=== PATIENT | female | born 1960 | race Caucasian/White ===

== ENCOUNTER 2017-01-22 18:08 | Inpatient (IN) ==
[2017-01-22] MEDS ORDERED: Vancomycin 2,000 MG in D5% in Water 500 ML IVPB ONE (19:32)
[2017-01-22] MEDS ORDERED: 0.9 % Sodium Chloride 1,000 ML IVC ONE (19:32)
[2017-01-22 20:20] LABS: Lymphocytes % 15.1 %
[2017-01-22 20:22] LABS: Basophils # 0.1 K/mcL (0.0-0.2); Basophils % 0.5 %; Eosinophils # 0.8 K/mcL (0.0-0.6); Hematocrit 43.9 % (35.3-44.9); Hemoglobin 12.8 g/dL (11.5-15.4); Immature Granulocytes % 0.5 % (0-4); Lymphocytes # 1.5 K/mcL (0.6-4.6); Mean Corpuscular HGB Conc 29.2 g/dL (31.6-35.5); Mean Corpuscular Hemoglobin 25.4 pg (28.0-33.3); Mean Corpuscular Volume 87.3 fL (83.0-100.0); Mean Platelet Volume 8.3 fL (9.4-12.4); Monocytes # 0.7 K/mcL (0.0-1.3); Monocytes % 6.9 %; Neutrophils # 6.9 K/mcL (1.6-8.9); Platelet Count 302 K/mcL (140-400); Red Blood Count 5.03 M/mcL (3.82-4.97); Red Cell Distribution Width 24.2 % (11.5-14.5)
[2017-01-22 20:25] LABS: INR 1.1; Prothrombin Time 11.9 Seconds (9.4-12.1)
[2017-01-22 20:28] LABS: Activated Partial Thrombo Time 28.5 Seconds (26.0-36.0)
[2017-01-22 20:33] LABS: BUN/Creatinine Ratio 6 (6-26); Calcium 9.4 mg/dL (8.6-10.8); Carbon Dioxide 29 mEq/L (19-29); Chloride 99 mEq/L (98-109); Glucose 96 mg/dL (70-99); Magnesium 1.5 mg/dL (1.6-2.6); Osmolality,Calculated 287 (280-300); Phosphorous 2.3 mg/dL (2.3-4.7); Potassium 3.4 mEq/L (3.5-4.5); Sodium 140 mEq/L (136-145); eGFR For African Americans > 60 (> 60); eGFR For Non-African Americans > 60 (> 60)
[2017-01-22 20:34] LABS: Blood Urea Nitrogen 5 mg/dL (7-20)
[2017-01-22 20:41] LABS: Burr Cells 1+ (Not Present); Dohle Bodies Present (Not Present)
--- NOTE | 2017-01-22 20:49 | Emergency Department Note ---
Disposition Clinical Impression: Non healing left heel wound Disposition: Admitted As Inpatient Condition: Good Time of Disposition: 21:40 Extremity Problem HPI - General Chief complaint: ED Extremity Problem,Nontraumatic Stated complaint: Left foot pain Time Seen by Provider: 01/22/17 18:35 Source: patient Mode of arrival: ambulatory Limitations: other (Clear history difficult to obtain due to the patient's tangential speech and difficulty in focusing on direct questions.) Nursing Notes Reviewed: Yes Vital Signs Reviewed: Yes - History of Present Illness HPI Narrative: 56-year-old female presents to the ED for evaluation of the calcaneal ulcer. Was referred by her primary care physician (Dr. Garner) who she saw earlier this afternoon. Patient provides a very tangential and nondirected history, so specific details are very difficult to ascertain. It is unknown how long this ulcer has been present. Ulcer is painful and patient describes purulent drainage. Patient denies any systemic symptoms including fevers, chills, sweats, syncope, chest pain, shortness of air, nausea, vomiting. Injury Location: left Pain Scale: 8 - Related Data Home Medications Medication Instructions Recorded Confirmed Ergocalciferol (VITAMIN D2) 2,000 unit PO DAILY 09/14/15 09/14/15 [Vitamin D2] Albuterol Sulfate [Ventolin Hfa] 2 puff IH Q4H PRN 01/22/17 01/22/17 Aspirin/Caffeine [Back & Body Pain 1 each PO Q4H PRN 01/22/17 01/22/17 Reliever Cplt] Docusate [Colace] 100 mg PO BID PRN 01/22/17 01/22/17 Levothyroxine [Synthroid] 175 mcg PO 0630 01/22/17 01/22/17 Oxygen 4 l NS AD 01/22/17 01/22/17 Sennosides [Senna] 17.2 mg PO BID PRN 01/22/17 01/22/17 Allergies Allergy/AdvReac Type Severity Reaction Status Date / Time cefdinir Allergy Rash Verified 11/25/14 17:58 clindamycin Allergy See Verified 01/22/17 18:36 Comments Penicillins [PCN] Allergy Rash Verified 11/25/14 17:58 Constitutional: Denies: fever, chills, weakness, night sweats Cardiovascular: Denies: chest pain, palpitations Respiratory: Denies: cough, dyspnea, wheezes Gastrointestinal: Denies: abdominal pain, nausea, vomiting, diarrhea Genitourinary: Denies: urgency, dysuria Neurological: Denies: headache, weakness Endocrine: Denies: fatigue Past Medical History - Past Medical History Attestation: Yes The following information was validated with the patient. Medical history: Reports: asthma, diabetes, thyroid disease, other Surgical history: Reports: other Psychiatric history: Reports: depression - Social History Smoking Status: Never smoker Smokeless Tobacco Status: No Alcohol use: Reports: none Drug use: Reports: none Physical Exam - General Limitations: no limitations General appearance: alert, in no apparent distress - Head Head exam: atraumatic - Eye Eye exam: Present: normal appearance, PERRL, EOMI. Absent: scleral icterus, conjunctival injection, periorbital swelling - ENT ENT exam: mucous membranes moist - Neck Neck exam: Present: full ROM, trachea midline - Respiratory Respiratory exam: Present: normal lung sounds bilaterally. Absent: respiratory distress, wheezes - Cardiovascular Cardiovascular exam: Present: regular rate, normal rhythm. Absent: systolic murmur, diastolic murmur, +S3, +S4 - Abdominal Exam Abdominal exam: Present: soft, Non-Tender. Absent: distention, guarding, rebound, rigidity - Expanded Lower Extremity Exam Foot/toe exam: Present: other (Approximately 4 to 5 cm wound to left calcaneus predominantly eschar woth moist border and evident purulence on bandage. Erythematous proximal LLE without any areas of fluctuance. No lymphangitic streaking.) Course Vital Signs Temperature 98.6 F 01/22/17 18:29 Pulse Rate 100 01/22/17 18:29 Respiratory Rate 20 01/22/17 18:29 Blood Pressure 139/58 01/22/17 18:29 O2 Sat by Pulse Oximetry 89 01/22/17 18:29 Temperature 98.6 F 01/22/17 18:29 Pulse Rate 100 01/22/17 18:29 Respiratory Rate 20 01/22/17 18:29 Blood Pressure 139/58 01/22/17 18:29 O2 Sat by Pulse Oximetry 92 01/22/17 20:17 Oxygen Delivery Oxygen Delivery Room Air Extremity Problem, Nontraumati - MDM Narrative Medical decision making narrative: 56F with non-healing wound to left calcaneous without plain x-ray evidence of osteolytic process. Spoke with Dr. Lopes. Patient needs relatively urgent evaluation by wound care and potentially podiatry for the wound to the left calcaneal region. Outpatient would do well with progress of this wound on an outpatient basis. Hospitalist excepts patient for admission for IV antibiotics as well as specialty consultation for wound. - Lab Data Lab results reviewed: Yes I reviewed the patient's lab results. Lab results narrative: Laboratory Last Values WBC 10.0 K/mcL (4.3-11.1) 01/22/17 20:09 RBC 5.03 M/mcL (3.82-4.97) H 01/22/17 20:09 Hgb 12.8 g/dL (11.5-15.4) 01/22/17 20:09 Hct 43.9 % (35.3-44.9) 01/22/17 20:09 MCV 87.3 fL (83.0-100.0) 01/22/17 20:09 MCH 25.4 pg (28.0-33.3) L 01/22/17 20:09 MCHC 29.2 g/dL (31.6-35.5) L 01/22/17 20:09 RDW 24.2 % (11.5-14.5) H 01/22/17 20:09 Plt Count 302 K/mcL (140-400) 01/22/17 20:09 MPV 8.3 fL (9.4-12.4) L 01/22/17 20:09 PT 11.9 Seconds (9.4-12.1) 01/22/17 20:09 INR 1.1 01/22/17 20:09 APTT 28.5 Seconds (26.0-36.0) 01/22/17 20:09 Sodium 140 mEq/L (136-145) 01/22/17 20:09 Potassium 3.4 mEq/L (3.5-4.5) L 01/22/17 20:09 Chloride 99 mEq/L (98-109) 01/22/17 20:09 Carbon Dioxide 29 mEq/L (19-29) 01/22/17 20:09 BUN 5 mg/dL (7-20) L 01/22/17 20:09 Creatinine 0.79 mg/dL (0.57-1.11) 01/22/17 20:09 Est GFR ( Amer) > 60 (> 60) 01/22/17 20:09 Est GFR (Non-Af Amer) > 60 (> 60) 01/22/17 20:09 BUN/Creatinine Ratio 6 (6-26) 01/22/17 20:09 Glucose 96 mg/dL (70-99) 01/22/17 20:09 Calculated Osmolality 287 (280-300) 01/22/17 20:09 Lactic Acid 1.0 mmol/L (0.5-2.2) 01/22/17 20:09 Calcium 9.4 mg/dL (8.6-10.8) 01/22/17 20:09 Phosphorus 2.3 mg/dL (2.3-4.7) 01/22/17 20:09 Magnesium 1.5 mg/dL (1.6-2.6) L 01/22/17 20:09 Laboratory Last Values WBC 10.0 K/mcL (4.3-11.1) 01/22/17 20:09 RBC 5.03 M/mcL (3.82-4.97) H 01/22/17 20:09 Hgb 12.8 g/dL (11.5-15.4) 01/22/17 20:09 Hct 43.9 % (35.3-44.9) 01/22/17 20:09 MCV 87.3 fL (83.0-100.0) 01/22/17 20:09 MCH 25.4 pg (28.0-33.3) L 01/22/17 20:09 MCHC 29.2 g/dL (31.6-35.5) L 01/22/17 20:09 RDW 24.2 % (11.5-14.5) H 01/22/17 20:09 Plt Count 302 K/mcL (140-400) 01/22/17 20:09 MPV 8.3 fL (9.4-12.4) L 01/22/17 20:09 Immature Gran % 0.5 % (0-4) 01/22/17 20:09 Seg Neutrophils % 69.0 % 01/22/17 20:09 Lymphocytes % 15.1 % 01/22/17 20:09 Monocytes % 6.9 % 01/22/17 20:09 Eosinophils % 8.0 % 01/22/17 20:09 Basophils % 0.5 % 01/22/17 20:09 Neutrophils # 6.9 K/mcL (1.6-8.9) 01/22/17 20:09 Lymphocytes # 1.5 K/mcL (0.6-4.6) 01/22/17 20:09 Monocytes # 0.7 K/mcL (0.0-1.3) 01/22/17 20:09 Eosinophils # 0.8 K/mcL (0.0-0.6) H 01/22/17 20:09 Basophils # 0.1 K/mcL (0.0-0.2) 01/22/17 20:09 Dohle Bodies Present (Not Present) A 01/22/17 20:09 Katherine Cells 1+ (Not Present) A 01/22/17 20:09 PT 11.9 Seconds (9.4-12.1) 01/22/17 20:09 INR 1.1 01/22/17 20:09 APTT 28.5 Seconds (26.0-36.0) 01/22/17 20:09 Sodium 140 mEq/L (136-145) 01/22/17 20:09 Potassium 3.4 mEq/L (3.5-4.5) L 01/22/17 20:09 Chloride 99 mEq/L (98-109) 01/22/17 20:09 Carbon Dioxide 29 mEq/L (19-29) 01/22/17 20:09 BUN 5 mg/dL (7-20) L 01/22/17 20:09 Creatinine 0.79 mg/dL (0.57-1.11) 01/22/17 20:09 Est GFR ( Amer) > 60 (> 60) 01/22/17 20:09 Est GFR (Non-Af Amer) > 60 (> 60) 01/22/17 20:09 BUN/Creatinine Ratio 6 (6-26) 01/22/17 20:09 Glucose 96 mg/dL (70-99) 01/22/17 20:09 Calculated Osmolality 287 (280-300) 01/22/17 20:09 Lactic Acid 1.0 mmol/L (0.5-2.2) 01/22/17 20:09 Calcium 9.4 mg/dL (8.6-10.8) 01/22/17 20:09 Phosphorus 2.3 mg/dL (2.3-4.7) 01/22/17 20:09 Magnesium 1.5 mg/dL (1.6-2.6) L 01/22/17 20:09 Result diagrams: 01/22/17 20:09 01/22/17 20:09 Lab Results 01/22/17 01/22/17 01/22/17 Range/Units 20: 20:09 20:09 WBC 10.0 (4.3-11.1) K/mcL RBC 5.03 H (3.82-4.97) M/mcL Hgb 12.8 (11.5-15.4) g/dL Hct 43.9 (35.3-44.9) % MCV 87.3 (83.0-100.0) fL MCH 25.4 L (28.0-33.3) pg MCHC 29.2 L (31.6-35.5) g/dL RDW 24.2 H (11.5-14.5) % Plt Count 302 (140-400) K/mcL MPV 8.3 L (9.4-12.4) fL PT 11.9 (9.4-12.1) Seconds INR 1.1 APTT 28.5 (26.0-36.0) Seconds Sodium 140 (136-145) mEq/L Potassium 3.4 L (3.5-4.5) mEq/L Chloride 99 (98-109) mEq/L Carbon Dioxide 29 (19-29) mEq/L BUN 5 L (7-20) mg/dL Creatinine 0.79 (0.57-1.11) mg/dL Est GFR ( Amer) > 60 (> 60) Est GFR (Non-Af Amer) > 60 (> 60) BUN/Creatinine Ratio 6 (6-26) Glucose 96 (70-99) mg/dL Calculated Osmolality 287 (280-300) Lactic Acid (0.5-2.2) mmol/L Calcium 9.4 (8.6-10.8) mg/dL Phosphorus 2.3 (2.3-4.7) mg/dL Magnesium 1.5 L (1.6-2.6) mg/dL 01/22/17 Range/Units 20:09 WBC (4.3-11.1) K/mcL RBC (3.82-4.97) M/mcL Hgb (11.5-15.4) g/dL Hct (35.3-44.9) % MCV (83.0-100.0) fL MCH (28.0-33.3) pg MCHC (31.6-35.5) g/dL RDW (11.5-14.5) % Plt Count (140-400) K/mcL MPV (9.4-12.4) fL PT (9.4-12.1) Seconds INR APTT (26.0-36.0) Seconds Sodium (136-145) mEq/L Potassium (3.5-4.5) mEq/L Chloride (98-109) mEq/L Carbon Dioxide (19-29) mEq/L BUN (7-20) mg/dL Creatinine (0.57-1.11) mg/dL Est GFR ( Amer) (> 60) Est GFR (Non-Af Amer) (> 60) BUN/Creatinine Ratio (6-26) Glucose (70-99) mg/dL Calculated Osmolality (280-300) Lactic Acid 1.0 (0.5-2.2) mmol/L Calcium (8.6-10.8) mg/dL Phosphorus (2.3-4.7) mg/dL Magnesium (1.6-2.6) mg/dL - Radiology Data Radiology results reviewed: Yes I reviewed the patient's radiology results. Foot X-Ray 01/22/17 18:36 IMPRESSION: 1. Diffuse osteopenia without acute fracture or subluxation. 2. No suspicious destructive or lytic lesions identified. 3. Diffuse swelling of the foot. D/ / 01/22/2017 20:04:04 [facility] Neri [email or web address] Interpreting Provider: Juwan Neri MD Chest X-Ray 01/22/17 19:33 IMPRESSION: No acute cardiopulmonary process. D/ /22/2017 20:02:54 [facility] Provider: Toney Lema MD Foot X-Ray 10/04/17 18:36 IMPRESSION: 1. Diffuse osteopenia without acute fracture or subluxation. 2. No suspicious destructive or lytic lesions identified. 3. Diffuse swelling of the foot. D/ /22/2017 20:04:04 Juwan Neri MD / [email or web address] Interpreting Provider: Juwan Neri MD Chest X-Ray 01/22/17 19:33 IMPRESSION: No acute cardiopulmonary process. D/ /22/2017 20:02:54 Toney Lema MD / [facility] Interpreting Provider: Toney Lema MD
--- NOTE | 2017-01-23 00:16 | Emergency Department Note ---
START Narrative - START START: I, Dennis Person, examined this patient and my medical decision-making was reviewed with the CONSUMER AFFAIRS DIRECTOR/PA/Advanced Practice Nurse/Resident Physician. I agree with the documented findings, disposition and treatment plan as described except to the extent set forth below. 56-year-old female presents to emergency Department with concerns of ulceration to the left heel as well as increasing cellulitis. Patient was evaluated by her primary care provider prior to evaluation in emergency department. Primary care provider was concerned regarding significant ulcer to the left heel. Patient states she developed this ulcer while she was admitted at [facility]. During evaluation in emergency department the patient has a large ulceration to the left heel measuring about 4 x 4 centimeters with black tissue in the center area there is surrounding erythema running proximally up the posterior calf. Patient is patient is using tangential and pressured speech. Denies suicidal ideation or homicidal ideation or hallucinations. Patient was started on vancomycin for treatment of her cellulitis. Patient will be admitted the hospital for further care and evaluation. After patient was admitted and received about three quarters of the bag of medication patient started to develop what seemed to be red man syndrome. The vancomycin was stopped and patient slowly started to improve with IV fluids. Hospitalist was notified about pt not receiving full dose of antibiotic.
[2017-01-23] MEDS ORDERED: MethylPREDNISolone 40 MG/ML VIAL IVP ONE (01:18)
--- NOTE | 2017-01-23 02:22 | Internal Med History&Physical ---
<Saad Fields - Last Filed: 01/23/17 02:53> Date of Encounter: 01/23/17 Time of Encounter: 00:45 Assessment and Plan (1) Non healing left heel wound Current visit: Yes Status: Acute Patient's foot ulcer on the calcaneus is likely a result of uncontrolled diabetes. -Patient placed on Levaquin, 500 mg per day. -Podiatry consult. -Hemoglobin A1c will be ordered along with the rest of the patient's labs in the morning. -Blood cultures are pending. (2) Red man syndrome Current visit: No Status: Acute Patient appears to have recommend syndrome as result of vancomycin administration. -Patient complained of some tongue swelling and an itch on her skin, primarily her arms. -Her skin was also abnormally red. -Benadryl 25 mg IV every 6. (3) Diabetes Current visit: No Status: Acute Patient appears to be uncontrolled diabetic. -Patient denies actually having diabetes, because she believes that her increased sugars from her last visit to the hospital were a result of receiving -corticosteroids. -Patient does not check her sugars on a regular basis. -Hemoglobin A1c has been ordered. Qualifiers: Qualified Code(s): E11.9 - Type 2 diabetes mellitus without complications (4) DVT prophylaxis Current visit: No Status: Acute Patient will be placed on 5000 mg of heparin subcutaneous every 8. (5) Morbid obesity Current visit: No Status: Acute Patient has a BMI of 61.2. Internal Medicine - H&P: HPI Admitted From: Home History of present illness: Ms. Lemus is a 56 year old female who presented to the emergency department for evaluation of a calcaneal ulcer. Patient was referred to the hospital by her primary care doctor who saw her earlier in the afternoon. Patient states that she is unsure of when her foot ulcer began, although she states that her pain is now about an 8 out of 10. She describes her pain as it feels like she is giving to her foot. Patient gives a very tangential, disjointed, and nondirected history. Patient appears to be anxious. She is also complaining of reddening of her skin and itching that occurred after her visit to the ER. Patient was given a dose of vancomycin, and appears to have developed red man syndrome. Patient admits to being allergic to penicillin. She currently denies having any fever, chills, sweats, syncope, chest pain, nausea, vomiting, shortness of breath. Patient states that she was told she had diabetes, but expresses doubt that she actually has it. She does not check her sugars on a regular basis. Past Med Surg Social Fam HX - Past Medical History Medical history: asthma, diabetes, thyroid disease, other Psychiatric history: depression - Past Surgical History Surgical History: other - Social History Smoking Status: Never smoker Smokeless Tobacco Status: No Alcohol use: none Drug use: none Internal Medicine - H&P: Meds Ergocalciferol (VITAMIN D2) [Vitamin D2] 2,000 unit PO DAILY 09/14/15 [History] Albuterol Sulfate [Ventolin Hfa] 2 puff IH Q4H PRN 01/22/17 [History] Aspirin/Caffeine [Back & Body Pain Reliever Cplt] 1 each PO Q4H PRN 01/22/17 [ History] Docusate [Colace] 100 mg PO BID PRN 01/22/17 [History] Levothyroxine [Synthroid] 175 mcg PO 0630 01/22/17 [History] Oxygen 4 l NS AD 01/22/17 [History] Sennosides [Senna] 17.2 mg PO BID PRN 01/22/17 [History] 3 Allergy/AdvReac Type Severity Reaction Status Date / Time cefdinir Allergy Rash Verified 11/25/14 17:58 clindamycin Allergy See Verified 01/22/17 18:36 Comments Penicillins [PCN] Allergy Rash Verified 11/25/14 17:58 All Systems PM: A 10-system review of systems was performed and is negative for pertinent findings except as documented above in the HPI. - Constitutional Constitutional: no chills - EENT Nose, mouth and throat: tongue swelling - Cardiovascular Cardiovascular ROS IM: no chest pain, no diaphoresis, no dyspnea, no lightheadedness, no palpitations, no syncope - Respiratory Respiratory: no cough, no dyspnea, no wheezing, no excessive phlegm production - Musculoskeletal Musculoskeletal ROS IM: numbness, tingling - Integumentary Integumentary IM: erythema, no rash, no unusual bruising - Psychiatric Psychiatric: anxiety - Hematologic/Lymphatic Hematologic/Lymphatic: no easy bruising - Allergic/Immunologic Allergic/Immunologic: tongue swelling - Constitutional Vitals: Temp Pulse Resp BP Pulse Ox 98.3 F 86 17 114/50 93 01/23/17 00:35 01/23/17 00:35 01/23/17 00:35 01/23/17 00:35 01/23/17 00:35 - Head Head exam: Present: atraumatic, normocephalic - Respiratory Respiratory exam: Present: CTAB. Absent: accessory muscle use, rales, rhonchi, wheezes - Cardiovascular Cardiovascular exam: Present: RRR, +S1, +S2. Absent: diastolic murmur, gallop, rubs, systolic murmur - Expanded Lower Extremities Exam Foot/Toe exam: Present: calcaneal tenderness, erythema, tenderness Internal Med - H&P Results - Labs CBC & Chem 7: 01/22/17 20:09 01/22/17 20:09 <Aime Mckeon - Last Filed: 01/23/17 04:36> Date of Encounter: 01/23/17 Time of Encounter: 02:50 Past Med Surg Social Fam HX - Family History Mother History Unknown: Yes Father History Unknown: Yes Son Living Status: Still Living Hx Family Endocrine Disorder: No - Constitutional Constitutional: no chills, no fever(s), no night sweats - EENT Eyes: no change in vision Ears: no ear pain, no tinnitus Nose, mouth and throat: no nasal congestion, no nasal discharge, no sinus pressure, no sore throat - Cardiovascular Cardiovascular ROS IM: no chest pain, no dyspnea - Respiratory Respiratory: no cough, no dyspnea, no wheezing, no stridor - Gastrointestinal Gastrointestinal: no abdominal pain, no diarrhea, no nausea, no vomiting - Genitourinary Genitourinary: no dysuria, no flank pain, no hematuria - Integumentary Integumentary IM: erythema, no jaundice - Neurological Neurological ROS: no focal weakness, no frequent falls, no headache(s) - Psychiatric Psychiatric: anxiety, no homicidal ideation, no suicidal ideation - Endocrine Endocrine IM: no polydipsia, no polyuria - Allergic/Immunologic Allergic/Immunologic: no itchy eyes, no wheezing, no lip swelling Additional comments: Sirisha Syndrome - Constitutional Vitals: Temp Pulse Resp BP Pulse Ox 98.4 F 96 17 109/65 94 01/23/17 03:48 01/23/17 03:48 01/23/17 03:48 10/05/17 03:48 01/23/17 03:48 General appearance: Present: disheveled, A&O X 3, obese Exam: Patient with pressured speech; anxious; nervous; poor insight; no suicidal or homicidal thoughts/behavior - Head Head exam: Present: atraumatic, normal inspection - Eye Eye exam: Present: EOMI, PERRL. Absent: scleral icterus Pupils: Present: normal accommodation - ENT ENT exam: Present: mucous membranes moist, normal exam Additional comments: No tongue, lip, or airway abnormality appreciated; no stridor or respiratory distress. - Neck Neck exam general surgery: Present: full ROM, trachea midline. Absent: tenderness, supple - Expanded Neck Exam Neck exam: Absent: carotid bruit - Respiratory Respiratory exam: Present: CTAB. Absent: accessory muscle use, chest wall tenderness, rales, respiratory distress, rhonchi, wheezes - Cardiovascular Cardiovascular exam: Present: RRR, +S1, +S2 - GI/Abdominal GI/Abdominal exam: Present: soft. Absent: hepatomegaly, splenomegaly, tenderness - Extremities Exam Extremities exam: Present: full ROM, warm. Absent: calf tenderness, joint swelling Additional comments: left foot with ulcer and superficial skin necrosis along the heel. - Back Exam Back exam: Absent: CVA tenderness (L), CVA tenderness (R) - Neurological Exam Neurological exam: Present: alert, CN II-XII intact, oriented X3, no focal deficits - Psychiatric Psychiatric exam: Present: manic. Absent: homicidal ideation, suicidal ideation - Skin Skin exam: Present: dry, erythema (diffuse), warm. Absent: rash, urticaria Internal Med - H&P Results - Labs CBC & Chem 7: 01/22/17 20:09 01/22/17 20:09 - Diagnostic Studies Chest x-ray Status: image reviewed by me (negative) - Attending Attestation I discussed the patient [place], PMH, ROS, lab data, and exam findings with Dr. Fields. I then saw patient independently as well. I spoke with her nurse who reported patient was having an allergic reaction to Vancomycin and that patient was complaining of tongue and lip swelling. I ordered STAT Benadryl and Solumedrol. Upon my arrival, I did not appreciate any stridor, lip or tongue swelling, wheezing, or any respiratory distress. She has a diffuse erythroderma which correlates with her IV Vancomycin infusion. She has no hives /urticaria. Her heel ulcer looks chronic and with some area of necrosis. She will need debridement of that wound. She also denies having diabetes and does not appear interested in complying with healthcare advice. She appears to have an underlying psychiatric illness (Bipolar), but I can not confirm presently. She may need psychiatry consultation while patient is in the hospital. Other than my comments above and noted exam findings, I agree with Dr. Fields's assessment and plan.
[2017-01-23] MEDS ORDERED: Levofloxacin 500 MG/100 ML 500 MG/100 ML BAG IVPB SCH (03:00)
[2017-01-23 03:14] LABS: Hemoglobin A1C 5.5 %
[2017-01-23] MEDS ORDERED: D5% in Water 1,000 ML IVC PRN (04:38)
[2017-01-23] MEDS ORDERED: *HR* Dextrose 50 % in Water (Syg) 50 ML SYRINGE IVP PRN (04:38)
[2017-01-23] MEDS ORDERED: Dextrose Gel 15 GM PO PRN ×2 (04:38)
[2017-01-23] MEDS ORDERED: *HR* Heparin 5,000 UNIT/ML VIAL SQ SCH (06:00)
[2017-01-23] MEDS: Insulin LISPRO 300 UNITS/3 ML VIAL SQ SCH ×3 (08:50→17:55)
[2017-01-23] MEDS ORDERED: Sennosides 8.6 MG TABLET PO PRN (09:48)
[2017-01-23] MEDS ORDERED: ASPIRIN PO PRN (09:48)
[2017-01-23] MEDS ORDERED: CAFFEINE PO PRN (09:48)
[2017-01-23] MEDS ORDERED: Magnesium Sulfate 2 GM in D5% in Water 100 ML IVPB ONE ×2 (09:56→09:57)
[2017-01-23] MEDS ORDERED: Potassium Chloride Elixir 20 MEQ/15 ML UDC PO ONE (09:56)
--- NOTE | 2017-01-23 10:05 | Event Note ---
<Patricia Barrera H - Last Filed: 01/23/17 13:58> Date of Encounter: 01/23/17 Time of Encounter: 10:01 Ms. Lemus is a 56-year-old female with past medical history of diabetes mellitus , asthma, thyroid disease, and unclear psychiatric history. She presents to the emergency department last night for evaluation of a calcaneal ulcer. Patient was referred to the hospital by her primary care provider. Patient's history of presenting illness is complicated as she is a very tangential and pressured be checked. Her thoughts appear disjointed. It is unclear if she is having any auditory or visual hallucinations, however, her thought processes are not goal directed and there very disjointed. When asked if she had any history of bipolar or schizophrenia, patient said she was at one time told she was bipolar. It is unclear if she is suffering from any psychosis at the moment. Patient was given a dose of vancomycin in the ER to provide antibiotic coverage for her 5 cm in diameter large calcaneal ulcer with central necrosis and surrounding edema. Patient appeared to have developed red man syndrome with upper body redness and pruritus. Patient's infusion was slowed at that point, however, patient's erythema and itching did not subside. She did state she had some swelling in her upper respiratory tract at that time. It is uncertain if she was having allergic reaction to vancomycin. Patient has confirmed allergic reactions to cefdinir, clindamycin, and penicillin. We had admitted to her to the hospital, and she is receiving Levaquin. The plan is as follows: -Escalate antibiotics for MRSA coverage to doxycycline 100 mg twice a day. -Continue wound management. Podiatry has been consult dated up out Vaishnavi Grewal of her wound. We will follow their recommendations. -Patient without white blood cell count, we will continue to monitor. -Repletion of electrolytes, as patient states she is chronically low in potassium secondary to Lasix. -Restart home medication of Lasix. -Subcutaneous heparin for DVT prophylaxis. -Patient is on a low-dose sliding scale insulin with before meals at bedtime Accu-Cheks. <Santos Wen - Last Filed: 01/23/17 14:40> Date of Encounter: 01/23/17 56 F with Morbid Obesity, BMI 61. COPD, Pulm HTN, ISIAH on BIPAP at home, Chronic Hypercapneic respiratory failure on BIPAP, recent admission to [facility] for MRSA pneumonia , HTN, She is admitted and being managed for an open L heel ulcer that is necrotic, and possibly infected. Patient is rambling throughout my eval and it is difficult to make her focus on the issue at hand Vitals are stable, and significant exam is on her skin which is genrally dry and peeling, as well as a ~5X5cm necrotic ulcer on her L heel. Minimal discharge Plan is as stated above, psych eval, follow wound culture
--- NOTE | 2017-01-23 13:45 | Podiatry Consult Note ---
Date of Encounter: 01/23/17 Time of Encounter: 12:30 Assessment and Plan (1) Morbid obesity with BMI of 70 and over, adult Current visit: No Status: Acute (2) Non healing left heel wound Current visit: Yes Status: Acute Necrotic left calcaneus ulcer with serous drainage most likely secondary to pressure and diabetes. ESR: >130, CRP: 58 WBC: 10 Xray of left foot: Diffuse osteopenia without acute fracture or subluxation. No suspicious destructive or lytic lesions identified. Diffuse swelling of the foot. Plan: Xray of the left foot reviewed with Dr. Benavides and no evidence of bony erosion. The elevated ESR warrants further investigation and will order an MRI of the left foot. Will follow up with patient tomorrow after MRI. Patient will most likely need a debridement in the OR by Dr. Benavides. Wound care orders to be written. Cleanse ulcer daily with mild soap and water, pat dry, apply adaptic, with 4x4 dry sterile gauze and kerlix. Float left heel off of bed with heelmedix boot. History of Present Illness HPI: Ms. Lemus is a 56 year old female admitted to [facility] for a left calcaneal ulcer. Patient has a medical history significant for DM, asthma, thyroid disease, morbid obesity, and depression. Podiatry was consulted for a left calcaneal ulcer. When the patient was asked about the ulcer patient moved on from one subject to the next and was not able to answer direct questions. When the patient was asked what the relationship of the two visitors in the room were, patient responded with lets join hands and then proceeded to sing a song. Patient then stated all her records were in the folder at the bedside. According to her records patient was admitted to [facility] two weeks ago for acute on chronic respiratory failure and discharged with MSSA pneumonia and had acute generalized exanthematous pustulosis during her hospitalization. Patient was evaluated by her PCP Dr. Garner on 01/22/17 and sent to the ED for concerns of the left heel ulceration and need for debridement. While in the ED patient was started on Vancomycin but stopped due to red man syndrome. Xrays of her left foot were obtained in the ED showing diffuse osteopenia without acute fracture or subluxation, no suspicious destructive or lytic lesions identified, diffuse swelling of the foot. Before leaving patients room, patient stated she gave out of her left foot and that is what the black sarah is from. Patient then rated left heel pain at an 8 out of 10. When patient was asked about her diabetes, patient stated her blood sugars were high from the steroids. Per patients PCP record, most recent hemoglobin A1C was 7.1 Past Med Surg Social Fam HX - Past Medical History Medical history: asthma, diabetes, thyroid disease, other Psychiatric history: depression - Past Surgical History Surgical History: other - Social History Smoking Status: Never smoker Smokeless Tobacco Status: No Alcohol use: none Drug use: none - Family History Mother History Unknown: Yes Father History Unknown: Yes Son Living Status: Still Living Hx Family Endocrine Disorder: No Medications and Allergies Ergocalciferol (VITAMIN D2) [Vitamin D2] 2,000 unit PO DAILY 09/14/15 [History] Albuterol Sulfate [Ventolin Hfa] 2 puff IH Q4H PRN 01/22/17 [History] Aspirin/Caffeine [Back & Body Pain Reliever Cplt] 1 each PO Q4H PRN 01/22/17 [ History] Docusate [Colace] 100 mg PO BID PRN 01/22/17 [History] Levothyroxine [Synthroid] 175 mcg PO 0630 01/22/17 [History] Oxygen 4 l NS AD 01/22/17 [History] Sennosides [Senna] 17.2 mg PO BID PRN 01/22/17 [History] 3 Allergy/AdvReac Type Severity Reaction Status Date / Time cefdinir Allergy Rash Verified 11/25/14 17:58 clindamycin Allergy See Verified 01/22/17 18:36 Comments Penicillins [PCN] Allergy Rash Verified 11/25/14 17:58 All Systems Reviewed: A 10-system review of systems was performed and is negative for pertinent findings except as documented above in the HPI. Physical Exam - Constitutional Vitals: Temp Pulse Resp BP Pulse Ox 98.8 F 105 16 102/61 93 01/23/17 07:41 01/23/17 07:41 01/23/17 07:41 01/23/17 07:41 01/23/17 08:50 General appearance: obese Exam: Alert to person, place and time. - Extremities Exam Extremities exam: Present: pedal edema (2+ pedal edema bilaterally.) - Skin Skin exam: Present: dry (xerosis cutis bilaterally, dried scab to the lateral aspect of the 5th metatarsal right foot. ) - Vascular Capillary Refill: less than 3 seconds (pedal pulses palpable. Sensation intact with light touch.) - Ankle & Foot Foot appearance: erythema Foot swelling location: plantar, lateral, heel (necrotic ulcer measuring 4 cm in length x 5 cm in width base of wound with black echar, tunneling at 12 O' clock measuring 0.8 cm, no probe to bone. No fluctuance. Periwound erythema with moderate amount of serous drainage observed to pad. ) Results - Labs Result Diagrams: 01/22/17 20:09 01/22/17 20:09 Labs: Abnormal lab results RBC 5.03 M/mcL (3.82-4.97) H 01/22/17 20:09 MCH 25.4 pg (28.0-33.3) L 01/22/17 20:09 MCHC 29.2 g/dL (31.6-35.5) L 01/22/17 20: RDW 24.2 % (11.5-14.5) H 01/22/17 20:09 MPV 8.3 fL (9.4-12.4) L 01/22/17 20:09 Eosinophils # 0.8 K/mcL (0.0-0.6) H 01/22/17 20:09 Dohle Bodies Present (Not Present) A 01/22/17 20:09 [place] Cells 1+ (Not Present) A 01/22/17 20:09 Potassium 3.4 mEq/L (3.5-4.5) L 01/22/17 20:09 BUN 5 mg/dL (7-20) L 01/22/17 20:09 POC Glucose 184 (58-89) H 01/23/17 11:52 Magnesium 1.5 mg/dL (1.6-2.6) L 01/22/17 20:09 All other labs normal. Consult Discharge Plan - Plan Referrals: Dennis Garner MD [Primary Care Provider] - 02/03/17 1:30 pm
[2017-01-23] MEDS: *HR* Heparin 5,000 UNIT/ML VIAL SQ SCH ×2 (15:19→21:24)
[2017-01-23] MEDS: Furosemide 40 MG TABLET PO SCH (15:25)
[2017-01-23] MEDS: Doxycycline 100 MG in 0.9 % Sodium Chloride Mini Bag 100 ML IVPB SCH (15:25)
[2017-01-24] MEDS: Doxycycline 100 MG in 0.9 % Sodium Chloride Mini Bag 100 ML IVPB SCH (01:18)
[2017-01-24] MEDS: *HR* Heparin 5,000 UNIT/ML VIAL SQ SCH ×2 (05:04→13:28)
[2017-01-24 06:22] LABS: Basophils % 0.3 %; Red Cell Distribution Width 23.8 % (11.5-14.5)
[2017-01-24 06:24] LABS: Eosinophils # 0.3 K/mcL (0.0-0.6); Eosinophils % 4.5 %; Hematocrit 42.2 % (35.3-44.9); Hemoglobin 11.8 g/dL (11.5-15.4); Immature Granulocytes % 0.4 % (0-4); Lymphocytes # 1.2 K/mcL (0.6-4.6); Mean Corpuscular Hemoglobin 24.6 pg (28.0-33.3); Mean Corpuscular Volume 87.9 fL (83.0-100.0); Mean Platelet Volume 8.4 fL (9.4-12.4); Monocytes # 0.4 K/mcL (0.0-1.3); Monocytes % 5.7 %; Neutrophils # 5.5 K/mcL (1.6-8.9); Platelet Count 316 K/mcL (140-400); Segmented Neutrophils % 73.1 %
[2017-01-24 06:45] LABS: Anisocytosis 2+ (Not Present); Platelet Estimate Normal (Normal)
[2017-01-24 06:46] LABS: Hypochromasia Present (Not Present)
[2017-01-24 06:47] LABS: BUN/Creatinine Ratio 16 (6-26); Blood Urea Nitrogen 13 mg/dL (7-20); Carbon Dioxide 33 mEq/L (19-29); Chloride 101 mEq/L (98-109); Glucose 115 mg/dL (70-99); Osmolality,Calculated 293 (280-300); Potassium 3.7 mEq/L (3.5-4.5); Sodium 141 mEq/L (136-145); eGFR For African Americans > 60 (> 60); eGFR For Non-African Americans > 60 (> 60)
[2017-01-24] MEDS: Insulin LISPRO 300 UNITS/3 ML VIAL SQ SCH ×3 (08:43→16:45)
[2017-01-24] MEDS: Cholecalciferol (D-3) 1,000 UNIT TABLET PO SCH (09:40)
[2017-01-24] MEDS: Furosemide 40 MG TABLET PO SCH (09:40)
[2017-01-24] MEDS: Vancomycin 2,000 MG in D5% in Water 500 ML IVPB SCH (09:40)
[2017-01-24] MEDS ORDERED: Magnesium Sulfate 2 GM in D5% in Water 100 ML IVPB ONE (09:43)
--- NOTE | 2017-01-24 09:46 | Internal Med Progress Note ---
<Patricia Barrera Lindsey - Last Filed: 01/24/17 14:14> Date of Encounter: 01/24/17 Time of Encounter: 09:44 - Assessment and plan (1) Non healing left heel wound Current Visit: Yes Status: Acute Assessment and plan: Patient with a necrotic left calcaneus ulcer likely secondary to pressure and diabetes. ESR over 130. CRP 58. No leukocytosis. -MRI suggestive of osteomyelitis with myositis. -She is nothing by mouth for preparation of podiatry debridement and bone biopsy today. -Patient started on vancomycin and ciprofloxacin day 1. -Patient's reaction to vancomycin in the emergency department, upon further and deeper review of her medical health records, now more likely to be thought to be secondary to red man syndrome. Patient has had this reaction to vancomycin before. Patient was tolerating her first dose of vancomycin this morning with no complications and no signs of flushing or erythema. (2) Osteomyelitis Current Visit: Yes Status: Acute Assessment and plan: Patient to the OR for debridement and bone biopsy. Qualifiers: Osteomyelitis type: unspecified type Osteomyelitis location: foot Laterality: left Qualified Code(s): M86.9 - Osteomyelitis, unspecified (3) Diabetes Current Visit: No Status: Acute Assessment and plan: Patient on sliding scale insulin and before meals at bedtime protocol. (4) Acute and chronic respiratory failure with hypoxia Current Visit: No Status: Acute Assessment and plan: Patient with pulmonary hypertension and hypercapnic respiratory failure likely secondary to her morbid obesity. -Continue BiPAP as patient is taking at home. (5) Sleep apnea Current Visit: No Status: Chronic Assessment and plan: BiPAP. Qualifiers: Sleep apnea type: unspecified type Qualified Code(s): G47.30 - Sleep apnea , unspecified (6) Morbid obesity with BMI of 70 and over, adult Current Visit: No Status: Acute Assessment and plan: Management of diabetes and comorbidities during hospitalization. (7) Red man syndrome Current Visit: No Status: Acute Assessment and plan: Patient with well-documented history of red man syndrome after receiving vancomycin. Patient experienced red man syndrome upon her first dose of vancomycin in the emergency department 2 days ago. (8) DVT prophylaxis Current Visit: Yes Status: Acute Assessment and plan: Heparin subcutaneous 3 times a day. - Subjective Interval history: Ms. Lemus is a 56-year-old female with past medical history of diabetes mellitus , COPD, pulmonary hypertension, obstructive sleep apnea requiring BiPAP at home , chronic hypercapnic respiratory failure, recent admission to [facility] for MRSA pneumonia, and hypertension. She has been admitted in is currently being managed for an open left calcaneal ulcer that is necrotic. MRI examination reveals osteomyelitis with potential myositis. This morning patient was resting comfortably receiving her BiPAP. - Constitutional Vitals: Temp Pulse Resp BP Pulse Ox 98.6 F 77 20 106/68 97 01/24/17 07:25 01/24/17 07:25 01/24/17 07:25 01/24/17 07:25 01/24/17 07:25 General appearance: Present: disheveled, A&O X 3, morbidly obese, obese - Respiratory Respiratory exam: Present: CTAB, rhonchi. Absent: accessory muscle use, rales, wheezes - Cardiovascular Cardiovascular exam: Present: distant heart sounds, RRR, +S1, +S2. Absent: diastolic murmur, gallop, rubs, systolic murmur - GI/Abdominal GI/Abdominal exam: Present: normal bowel sounds, soft, no peritoneal signs. Absent: distended, tenderness - Extremities Exam Extremities exam: Present: pedal edema. Absent: calf tenderness Additional comments: Patient with a 5 cm in diameter left posterior calcaneal ulcer. There is a central area of blackened necrosis. There is surrounding erythema which is radiating up to her calf. Patient has bilateral erythema of her lower extremities with scaling consistent with chronic venous stasis dermatitis. Internal Medicine: Result - Labs CBC & Chem 7: 01/24/17 06:07 01/24/17 06:07 Labs: Short CBC 01/24/17 Range/Units 06:07 WBC 7.5 (4.3-11.1) K/mcL Hgb 11.8 (11.5-15.4) g/dL Hct 42.2 (35.3-44.9) % Plt Count 316 (140-400) K/mcL Neutrophils # 5.5 (1.6-8.9) K/mcL BMP 01/24/17 06:07 Sodium 141 Potassium 3.7 Chloride 101 Carbon Dioxide 33 H BUN 13 Creatinine 0.81 Glucose 115 H Calcium 9.0 - ABG Interpretation ABG results: PT/INR, D-dimer PT 11.9 Seconds (9.4-12.1) 01/22/17 20:09 - Impressions Impressions Foot MRI 01/23/17 16:49 IMPRESSION: 1. Large soft tissue ulceration of the heel medially and posteriorly with underlying marrow signal changes of the calcaneus compatible with osteomyelitis can with adjacent soft tissue edema and muscular edema and enhancement compatible with myositis. D/ / Cesar Michael MD / Cesar Michael MD Interpreting Provider: Cesar Michael MD Consult Discharge Plan - Plan [facility] [place] [[facility] Care Provider[facility] - 02/03/17 1:30 pm <Santos Wen T - Last Filed: 01/24/17 16:05> Date of Encounter: 01/24/17 - Constitutional Vitals: Temp Pulse Resp BP Pulse Ox 97.6 F 79 16 111/72 93 01/24/17 11:29 01/24/17 11:29 01/24/17 11:29 01/24/17 11:29 01/24/17 11:29 Internal Medicine: Result - Labs CBC & Chem 7: 01/24/17 06:07 01/24/17 06:07 Labs: Short CBC 01/24/17 Range/Units 06:07 WBC 7.5 (4.3-11.1) K/mcL Hgb 11.8 (11.5-15.4) g/dL Hct 42.2 (35.3-44.9) % Plt Count 316 (140-400) K/mcL Neutrophils # 5.5 (1.6-8.9) K/mcL BMP 01/24/17 06:07 Sodium 141 Potassium 3.7 Chloride 101 Carbon Dioxide 33 H BUN 13 Creatinine 0.81 Glucose 115 H Calcium 9.0 - ABG Interpretation ABG results: PT/INR, D-dimer PT 11.9 Seconds (9.4-12.1) 01/22/17 20:09 - Impressions Impressions Foot MRI 01/23/17 16:49 IMPRESSION: 1. Large soft tissue ulceration of the heel medially and posteriorly with underlying marrow signal changes of the calcaneus compatible with osteomyelitis can with adjacent soft tissue edema and muscular edema and enhancement compatible with myositis. D/ / Cesar Michael MD / Cesar Michael MD Interpreting Provider: Cesar Michael MD - Attending Attestation I have independently seen and examined this patient on 01/24/2017. I have discussed plan of care with the patient and the residents 56 F with Morbid Obesity, BMI 61. COPD, Pulm HTN, ISIAH on BIPAP at home, Chronic Hypercapneic respiratory failure on BIPAP, recent admission to [facility] for MRSA pneumonia , HTN She is admitted and being managed for an open L heel ulcer that is necrotic, and possibly infected. Her Foot MRI also shows OM of the calcaneus Patient is rambling throughout my eval and it is difficult to make her focus on the issue at hand She denies new complains, and is her usual mood. She is awaiting review by podiatry today for debridement and bone biopsy She is able to reproduce the information i ave to her about her care She is also waiting for Psych eval Physical exam:Vitals are stable, morbidly obese, CTAB, S1, S2 only, no m/g/ r.Skin exam is on her skin which is generally dry and peeling, as well as a ~ 5X5cm necrotic ulcer on her L heel. Minimal discharge A/P #OM of Calcaneum, restarted on Vanco, and Cipro, tolerating same, await bone biopsy/wound culture/debridement. Blood culture is negative preliminary #Necrotic ulcer of left foot: Follow wound culture, pain control and for debridement by podiatry #Easy distracitbility/Tangentiality/Psychosis: psych eval is pending #Sirisha syndrome: Resolved #COPD: Not in exacerbation #Chronic resp failure/ISIAH: Continue BiPAP at night Rest of details as in resident physician's documentation
--- NOTE | 2017-01-24 15:17 | Consult Note ---
Date of Encounter: 01/24/17 Time of Encounter: 14:00 Assessment & Recommendation (1) Anxiety about health Current visit: Yes Status: Chronic (2) Diabetes Current visit: No Status: Acute Qualifiers: Diabetes mellitus type: type 2 Diabetes mellitus complication status: with unspecified complications Diabetes mellitus fci insulin use: without fci use Qualified Code(s): E11.8 - Type 2 diabetes mellitus with unspecified complications (3) Red man syndrome Current visit: No Status: Acute (4) Non healing left heel wound Current visit: Yes Status: Acute History of Present Illness Requesting Physician: Santos Wen MD Reason for consult: concern for psychosis History of present illness: Ms. Lemus is a 56 year old female was consulted today for concerns for psychosis. Patient was seen today , she is morbidly obese white female admitted secondary to medical conditions, she has no prior psychiatric history as per her , some anxiety . Patient is poor historian secondary to her tangential and circumstantial thought process , she is redirected easily, she has fast speech , she denied any psychosis, no paranoia, no auditory hallucinations or and visual hallucination , denies any manic episode , denies any depressive s/s, no si/no hi. As per her I am back and forth and its hard to follow me but i am like this since i was born I am hyper cognitive , she was alert and oriented , lives with her , has 2 children and states she is close to them. AT PRESENT she is not having any psychosis except her tangential and circumstantial thought process. That could be her baseline. A/P Patient at present does not manifest any psychosis . Thank you for consult. CC: Santos Wen MD Past Med Surg Social Fam HX - Past Medical History Medical history: asthma, diabetes, thyroid disease, other - Past Psychiatric History Psychiatric history: Reports: no psych history Family psychiatric history: No Family History of Suicide: None - Past Surgical History Surgical History: other - Social History Smoking Status: Never smoker Smokeless Tobacco Status: No Alcohol use: none Drug use: none - Family History Mother History Unknown: Yes Father History Unknown: Yes Son Living Status: Still Living Hx Family Endocrine Disorder: No Medications & Allergies Ergocalciferol (VITAMIN D2) [Vitamin D2] 2,000 unit PO DAILY 09/14/15 [History] Albuterol Sulfate [Ventolin Hfa] 2 puff IH Q4H PRN 01/22/17 [History] Aspirin/Caffeine [Back & Body Pain Reliever Cplt] 1 each PO Q4H PRN 01/22/17 [ History] Docusate [Colace] 100 mg PO BID PRN 01/22/17 [History] Levothyroxine [Synthroid] 175 mcg PO 0630 01/22/17 [History] Oxygen 4 l NS AD 01/22/17 [History] Sennosides [Senna] 17.2 mg PO BID PRN 01/22/17 [History] 3 Allergy/AdvReac Type Severity Reaction Status Date / Time cefdinir Allergy Rash Verified 11/25/14 17:58 clindamycin Allergy See Verified 01/22/17 18:36 Comments Penicillins [PCN] Allergy Rash Verified 11/25/14 17:58 Mental Status Exam Patient orientation: Yes Person, Yes Time, Yes Place Level of alertness: Alert Patient appearance: Appropriate Behavior: talkative Psychomotor activity: Normal Eye contact: Maintains Eye Contact Mood description: Euphoric Affect description: congruent with mood Speech pattern: Excessive Speech volume: Normal Thought process: Circumstantial, Tangential Thought content: Yes Intact Intelligence estimate: Average Judgment: Good Insight: Full Results - Vital Signs Vital signs: Temp Pulse Resp BP Pulse Ox 97.6 F 79 16 111/72 93 01/24/17 11:29 01/24/17 11:29 01/24/17 11:29 01/24/17 11:29 01/24/17 11:29 - Labs Labs: Laboratory Last Values WBC 7.5 K/mcL (4.3-11.1) 01/24/17 06:07 RBC 4.80 M/mcL (3.82-4.97) 01/24/17 06:07 Hgb 11.8 g/dL (11.5-15.4) 01/24/17 06:07 Hct 42.2 % (35.3-44.9) 01/24/17 06:07 MCV 87.9 fL (83.0-100.0) 01/24/17 06:07 MCH 24.6 pg (28.0-33.3) L 01/24/17 06:07 MCHC 28.0 g/dL (31.6-35.5) L 01/24/17 06:07 RDW 23.8 % (11.5-14.5) H 01/24/17 06:07 Plt Count 316 K/mcL (140-400) 01/24/17 06:07 MPV 8.4 fL (9.4-12.4) L 01/24/17 06:07 Immature Gran % 0.4 % (0-4) 01/24/17 06:07 Seg Neutrophils % 73.1 % 01/24/17 06:07 Lymphocytes % 16.0 % 01/24/17 06:07 Monocytes % 5.7 % 01/24/17 06:07 Eosinophils % 4.5 % 01/24/17 06:07 Basophils % 0.3 % 01/24/17 06:07 Neutrophils # 5.5 K/mcL (1.6-8.9) 01/24/17 06:07 Lymphocytes # 1.2 K/mcL (0.6-4.6) 01/24/17 06:07 Monocytes # 0.4 K/mcL (0.0-1.3) 01/24/17 06:07 Eosinophils # 0.3 K/mcL (0.0-0.6) 01/24/17 06:07 Basophils # 0.0 K/mcL (0.0-0.2) 01/24/17 06:07 Dohle Bodies Present (Not Present) A 01/22/17 20:09 Platelet Estimate Normal (Normal) 01/24/17 06:07 Hypochromasia Present (Not Present) A 01/24/17 06:07 Anisocytosis 2+ (Not Present) A 01/24/17 06:07 [place] Cells 1+ (Not Present) A 01/22/17 20:09 ESR >= 130 mm/hr (0-15) H 01/23/17 14:19 PT 11.9 Seconds (9.4-12.1) 01/22/17 20:09 INR 1.1 01/22/17 20:09 APTT 28.5 Seconds (26.0-36.0) 01/22/17 20:09 Sodium 141 mEq/L (136-145) 01/24/17 06:07 Potassium 3.7 mEq/L (3.5-4.5) 01/24/17 06:07 Chloride 101 mEq/L (98-109) 01/24/17 06:07 Carbon Dioxide 33 mEq/L (19-29) H 01/24/17 06:07 BUN 13 mg/dL (7-20) 01/24/17 06:07 Creatinine 0.81 mg/dL (0.57-1.11) 01/24/17 06:07 Est GFR ( Amer) > 60 (> 60) 01/24/17 06:07 Est GFR (Non-Af Amer) > 60 (> 60) 01/24/17 06:07 BUN/Creatinine Ratio 16 (6-26) 01/24/17 06:07 Glucose 115 mg/dL (70-99) H 01/24/17 06:07 POC Glucose 125 (58-89) H 01/24/17 11:37 Est Mean Plasma Glucose 111 mg/dl 01/22/17 20:09 Hemoglobin A1c 5.5 % (-5.6) 01/22/17 20:09 Calculated Osmolality 293 (280-300) 01/24/17 06:07 Lactic Acid 1.0 mmol/L (0.5-2.2) 01/22/17 20:09 Calcium 9.0 mg/dL (8.6-10.8) 01/24/17 06:07 Phosphorus 2.3 mg/dL (2.3-4.7) 01/22/17 20:09 Magnesium 1.5 mg/dL (1.6-2.6) L 01/24/17 06:07 C-Reactive Protein 58 mg/L (Less than 5) H 01/23/17 14:19 - Impressions Impressions Foot MRI 01/23/17 16:49 IMPRESSION: 1. Large soft tissue ulceration of the heel medially and posteriorly with underlying marrow signal changes of the calcaneus compatible with osteomyelitis can with adjacent soft tissue edema and muscular edema and enhancement compatible with myositis. D/ / Cesar Michael MD / Cesar Michael MD Interpreting Provider: Cesar Michael MD Consult Discharge Plan - Plan Referrals: [facility] – [place],Dennis Peguero MD [Primary Care Provider] - 02/03/17 1:30 pm
--- NOTE | 2017-01-24 15:54 | Podiatry Progress Note ---
Date of Encounter: 01/24/17 Time of Encounter: 15:53 - Assessment and Plan (1) Osteomyelitis Current Visit: Yes Status: Acute At this time the patient has possible osteomyelitis according to the MRI. She was instructed that rather than cutting her whole heel off we would try to debride the wound, clean up the site and begin local wound care as well as offloading. Patient was instructed that we could discuss antibiotic therapy with infectious disease and tried to treat the bone for a few weeks with antibiotics intravenously. If that is not sufficient she was instructed that she may require an amputation at some level. It is at the calcaneus or above. The procedure discussed was incision and drainage/irrigation and debridement of ulceration site on the left heel with bone biopsy and possible wound VAC application.Patient was informed of the risks and complications of surgery. These may include but are not limited to the following; nerve damage, numbness, tingling, RSD/CRPS, loss of motor function, loss of toe, loss of limb, loss of life, ischemia, wound healing issues, infection, scarring, keloid formation, continued pain, arthritis, non-union, mal-union, prominent hardware, displaced hardware, reaction to hardware, the need to remove hardware, bruising, continued limp, the need for future surgery, over correction, under correction, chronic swelling, the need for physical therapy, stiffness of joints, ulceration , slow healing, wound dehiscence, reaction to implant, reaction to sutures. The patient was informed of the possible conservative treatments available which may include but are not limited to the following: Orthotics, bracing, non -weight bearing, physical therapy, padding, taping, steroid injections, NSAIDS, casting. The patient was given the option to seek a second opinion. It was explained that surgery is an art and not an exact science therefore results cannot be guaranteed. All the patients questions and concerns were addressed. Patient agrees to have the surgery despite the possible risks and complications. Absolutely no guarantees were given or implied. Qualifiers: Osteomyelitis type: unspecified type Osteomyelitis location: foot Laterality: left Qualified Code(s): M86.9 - Osteomyelitis, unspecified Subjective Principal diagnosis: Osteomyelitis left calcaneus with ulceration Interval history: Patient was seen at bedside for ulceration and osteomyelitis in her left calcaneus. Patient relates that it is painful. Patient relates that it has been present for a few weeks. Patient denies any other pedal complaints. Objective - Vital Signs Vital Signs: Vital Signs Temp Pulse Resp BP Pulse Ox 01/24/17 11:29 97.6 F 79 16 111/72 93 01/24/17 09:45 97 01/24/17 07:25 98.6 F 77 20 106/68 97 01/24/17 04:13 98.6 F 90 18 96/60 90 01/24/17 00:05 98.3 F 82 14 102/63 91 01/23/17 21:41 19 93 01/23/17 20:04 97.9 F 85 14 114/77 91 Intake and Output 01/23/17 01/24/17 01/24/17 23:59 07:59 15:59 Intake Total 580 / 580 120 / 120 500 / 500 Output Total 0 / 0 Balance 580 / 580 120 / 120 500 / 500 Intake: IV Fluids 100 / 100 500 / 500 Doxycycline 100 MG In 0.9 % 100 / 100 Sodium Chloride (Mini-Bag +) 100 ML @ 100 mls/hr IVPB Q12H MIGUE Rx#:[id number] Vancocin 2,000 MG In Dextrose 5 500 / 500 % 500 ML @ 166.667 mls/hr IVPB Q12H MIGUE Rx#:[id number] Oral 480 / 480 120 / 120 0 / 0 Output: Urine 0 / 0 Other: Meal Dinner NPO Percent of Meal Consumed 100% 0% Stool Size Large Stool Consistency formed Stool Color Brown # Voids 1 1 Weight 183.365 kg Blood Glucose* 124 117 125 Patient Weight 01/24/17 23:59 Weight 183.365 kg - Exam Exam: Alert to person, place and time. - Extremities Exam Extremities exam: Present: pedal edema (2+ pedal edema bilaterally.) - Skin Skin exam: Present: dry (xerosis cutis bilaterally, dried scab to the lateral aspect of the 5th metatarsal right foot. Ulceration to the left calcaneus see below ) - Vascular Capillary Refill: less than 3 seconds (pedal pulses palpable. Sensation intact with light touch.) - Ankle & Foot Foot appearance: erythema Foot swelling location: plantar, lateral, heel (necrotic ulcer measuring 4 cm in length x 5 cm in width base of wound with black echar, tunneling at 12 O' clock measuring 0.8 cm, no probe to bone. No fluctuance. Periwound erythema with moderate amount of serous drainage observed to pad. ) Radiographic exam demonstrates possible osteomyelitis on MRI. ESR is also elevated consistent with possible osteomyelitis. - Lab Result Diagrams: 01/24/17 06:07 01/24/17 06:07 Labs: Abnormal lab results MCH 24.6 pg (28.0-33.3) L 01/24/17 06:07 MCHC 28.0 g/dL (31.6-35.5) L 01/24/17 06:07 RDW 23.8 % (11.5-14.5) H 01/24/17 06:07 MPV 8.4 fL (9.4-12.4) L 01/24/17 06:07 Dohle Bodies Present (Not Present) A 01/22/17 20:09 Hypochromasia Present (Not Present) A 01/24/17 06:07 Anisocytosis 2+ (Not Present) A 01/24/17 06:07 Katherine Cells 1+ (Not Present) A 01/22/17 20:09 ESR >= 130 mm/hr (0-15) H 01/23/17 14:19 Carbon Dioxide 33 mEq/L (19-29) H 01/24/17 06:07 Glucose 115 mg/dL (70-99) H 01/24/17 06:07 POC Glucose 125 (58-89) H 01/24/17 11:37 Magnesium 1.5 mg/dL (1.6-2.6) L 01/24/17 06:07 C-Reactive Protein 58 mg/L (Less than 5) H 01/23/17 14:19 Consult Discharge Plan - Plan Referrals: Dennis Garner MD [Primary Care Provider] - 02/03/17 1:30 pm
[2017-01-24] MEDS ORDERED: Bupivacaine/Clonidine Syringe 1 EACH SYRINGE ONE (16:11)
--- NOTE | 2017-01-24 16:32 | Anesthesia Evaluation PreOp ---
Date of Encounter: 01/24/17 Time of Encounter: 16:29 - Past History Planned Operation: Left Calcaneous debridement, Bone Biopsy Cardiac History: Denies any Significant Hx ( asthma, diabetes, thyroid disease, other Psychiatric history: depression) Pulmonary History: Asthma MILITARY PILOT History: Other (Depression) Other Medical History: Diabetes Type II, Thyroid (Hypothyroid), Other (Morbid obesity) Anesthesia History: No Prior Anesthetic Complications, Past Anesthesia (skin biopsy to posterior leg) : No Alcohol Use: none Drug use: none Medications and Allergies Ergocalciferol (VITAMIN D2) [Vitamin D2] 2,000 unit PO DAILY 09/14/15 [History] Albuterol Sulfate [Ventolin Hfa] 2 puff IH Q4H PRN 01/22/17 [History] Aspirin/Caffeine [Back & Body Pain Reliever Cplt] 1 each PO Q4H PRN 01/22/17 [ History] Docusate [Colace] 100 mg PO BID PRN 01/22/17 [History] Levothyroxine [Synthroid] 175 mcg PO 0630 01/22/17 [History] Oxygen 4 l NS AD 01/22/17 [History] Sennosides [Senna] 17.2 mg PO BID PRN 01/22/17 [History] 3 Allergy/AdvReac Type Severity Reaction Status Date / Time cefdinir Allergy Rash Verified 11/25/14 17:58 clindamycin Allergy See Verified 01/22/17 18:36 Comments Penicillins [PCN] Allergy Rash Verified 11/25/14 17:58 - Meds/Allergy Pre-op Review Medications Reviewed: Yes Allergies Reviewed: Yes Beta Blockers on Current Med List: No Anesthesia Results - Labs 01/24/17 06:07 01/24/17 06:07 - Imaging EKG: image reviewed (SR) Anesthesia Exam O2 Sat Weight 183.365 kg O2 Sat by Pulse Oximetry 93 O2 Sat by Pulse Oximetry 97 O2 Sat by Pulse Oximetry 97 O2 Sat by Pulse Oximetry 90 O2 Sat by Pulse Oximetry 91 O2 Sat by Pulse Oximetry 93 O2 Sat by Pulse Oximetry 91 Vital Signs Temp Pulse Resp BP Pulse Ox 98.6 F 100 20 139/58 89 01/22/17 18:29 01/22/17 18:29 01/22/17 18:29 01/22/17 18:29 01/22/17 18:29 Vital Signs/O2 Sat, Most Current Temp Pulse Resp BP Pulse Ox 97.6 F 79 16 111/72 93 01/24/17 11:29 01/24/17 11:29 01/24/17 11:29 01/24/17 11:29 01/24/17 11:29 Height: 5'8'' Weight: 404# NPO (# of Hours): > 8 hrs Pain Scale: 0 Pain Scale Used: Numeric (1 - 10) - HEENT Pupil (Motor): Pupils equal, EOMI Mallampati: III Teeth: Normal Oral Opening: Greater than 3 - MILITARY PILOT LOC: Oriented MILITARY PILOT Motor: Normal RUE, Normal LUE, Normal RLE, Normal LLE, Normal Face MILITARY PILOT Sensory: Normal: RUE, LUE, RLE, LLE, Face - Cardiac Rhythm: Regular Murmur: None JVD: No Carotid Bruit: No - Pulmonary Breath Sounds: bilateral Clear Respiratory Effort: Symmetrical Anesthesia Assess/Plan ASA Score: 4 Modified Carmen Scale for Level of Consciousness: Cooperative, oriented, and tranquil Anesthetic Plan: MAC Autologous Blood: Yes Monitoring Plan: Standard Monitors Recovery Plan: Other
[2017-01-24] MEDS ORDERED: Propofol 500 MG/50 ML INFUS..BTL ONE (16:39)
[2017-01-24] MEDS ORDERED: *HR* FentaNYL (PF) 100 MCG/2 ML VIAL ONE (16:46)
[2017-01-24] MEDS ORDERED: *HR* Midazolam HCl 2 MG/2 ML VIAL ONE (16:47)
--- NOTE | 2017-01-24 18:22 | Anesthesia Evaluation Post Op ---
Date of Encounter: 01/24/17 Time of Encounter: 18:16 - Vital Signs Vital Signs: Vital Signs/O2 Sat, Most Current Temp Pulse Resp BP Pulse Ox 97.6 F 82 18 108/67 94 01/24/17 11:29 01/24/17 16:00 01/24/17 16:00 01/24/17 16:00 01/24/17 16:00 - Lungs Lungs: Clear Ascult./Percussion - Airway Airway: Non-obstructed - Cardiovascular Regular Rate - Mental Status Mental Status: Alert & Oriented, Answers Appropriately - Pain Pain Scale: 0 Pain Scale used: Numeric (1 - 10) - Nausea Vomiting Nausea Vomiting: Not Present - Hydration Hydration: Tolerates oral liquids, Has not voided - Discharge PostOp Status: Transfer Patient to floor
--- NOTE | 2017-01-24 18:37 | Operative Note ---
Date of procedure: 01/24/17 Pre-op diagnosis: Osteomyelitis left calcaneus, ulceration left calcaneus Post-op diagnosis: same Procedure: Irrigation and debridement of ulceration left calcaneus, bone biopsy left calcaneus Complications: None Anesthesia: LIUDMILA Surgeon: Titus Benavides Estimated blood loss (cc): 20 Specimen: Bone cultures, bone biopsy sent in formalin to pathology Condition: stable Disposition: PACU Procedure in Detail: The patient was administered IV antibiotics. The patient was transported to the operative room and placed on operating table. Following anesthesia the extremity was scrubbed prepped and draped in the usual aseptic fashion. A timeout was performed. Utilizing a 15 blade and the [employer] debrider/curet the nonviable, necrotic tissue was debrided without incident. The eschar covering the ulceration site left off during the debridement and was removed. There is noted to be significant amounts of necrotic, nonviable tissue and the proximal aspect of the ulceration had 1 cm of undermining and went to the fibrotic tissue covering the calcaneus. The types of tissue that was debrided included a small amount of bone during the bone biopsy, soft tissue including epidermis, dermis, subcutaneous, fibrotic tissue. The wound was on the lateral aspect of the left calcaneus and measured a proximally 6 cm in diameter. The central portion of the wound appeared to be a relatively healthy, the proximal aspect of the wound was the deepest and the bone biopsy was obtained from this site as it was the deepest. Utilizing a curet and Mario a small piece of bone was biopsied and sent in formalin to pathology. Bone was also cultured. The site was pulse irrigated with 3 L of normal saline. A bulky dry sterile dressing was applied. The patient tolerated the procedure and anesthesia well and was transported to the recovery room with vital signs stable and vascular status intact to both feet. The patient will be readmitted to the floor per anesthesia. The patient will receive continued intravenous antibiotics per infectious disease. The patient will have daily dressing changes with Santyl and gentamicin. The patient will need to follow-up in the wound care center of her choice after the patient is discharged. All pressure needs to be relieved from that wound site, the left leg will need to be elevated with a pillow at all times and the patient will need to remain nonweightbearing to the left.
[2017-01-25] MEDS: Vancomycin 2,000 MG in D5% in Water 500 ML IVPB SCH ×3 (00:18→23:53)
[2017-01-25] MEDS: *HR* Heparin 5,000 UNIT/ML VIAL SQ SCH ×4 (00:22→23:55)
[2017-01-25 06:36] LABS: Basophils % 0.1 %; Eosinophils # 0.5 K/mcL (0.0-0.6); Eosinophils % 6.1 %; Hematocrit 47.6 % (35.3-44.9); Immature Granulocytes % 0.3 % (0-4); Lymphocytes # 0.5 K/mcL (0.6-4.6); Lymphocytes % 5.6 %; Mean Corpuscular HGB Conc 28.4 g/dL (31.6-35.5); Mean Corpuscular Hemoglobin 24.9 pg (28.0-33.3); Mean Corpuscular Volume 87.8 fL (83.0-100.0); Mean Platelet Volume 8.4 fL (9.4-12.4); Monocytes # 0.2 K/mcL (0.0-1.3); Monocytes % 2.1 %; Neutrophils # 7.5 K/mcL (1.6-8.9); Platelet Count 324 K/mcL (140-400); Red Blood Count 5.42 M/mcL (3.82-4.97); Red Cell Distribution Width 23.9 % (11.5-14.5); Segmented Neutrophils % 85.8 %
[2017-01-25 06:37] LABS: Hemoglobin 13.5 g/dL (11.5-15.4)
[2017-01-25 06:52] LABS: BUN/Creatinine Ratio 12 (6-26); Blood Urea Nitrogen 9 mg/dL (7-20); Calcium 9.3 mg/dL (8.6-10.8); Carbon Dioxide 31 mEq/L (19-29); Chloride 102 mEq/L (98-109); Glucose 99 mg/dL (70-99); Osmolality,Calculated 293 (280-300); Potassium 3.6 mEq/L (3.5-4.5); Sodium 142 mEq/L (136-145); eGFR For African Americans > 60 (> 60); eGFR For Non-African Americans > 60 (> 60)
[2017-01-25] MEDS: Insulin LISPRO 300 UNITS/3 ML VIAL SQ SCH ×3 (08:05→16:48)
[2017-01-25 09:11] LABS: Anisocytosis 1+ (Not Present); Platelet Estimate Normal (Normal)
[2017-01-25] MEDS: Cholecalciferol (D-3) 1,000 UNIT TABLET PO SCH (09:14)
[2017-01-25] MEDS: Furosemide 40 MG TABLET PO SCH (09:14)
--- NOTE | 2017-01-25 10:04 | Internal Med Progress Note ---
<Patricia Barrera - Last Filed: 01/25/17 12:30> Date of Encounter: 01/25/17 Time of Encounter: 10:14 - Assessment and plan (1) Non healing left heel wound Current Visit: Yes Status: Acute Assessment and plan: Patient with a necrotic left calcaneus ulcer likely secondary to pressure and diabetes. ESR over 130. CRP 58. No leukocytosis. -MRI suggestive of osteomyelitis with myositis. -Wound was divided with bone biopsy yesterday. Patient handled the procedure well. -Vancomycin and ciprofloxacin day 2. 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 This happened again overnight. Due to her multiple antibiotic allergies and the serious nature of her infection, we will continue vancomycin, however, at a reduced rate of infusion. Benadryl 25 mg every 6 hours. -Follow-up wound culture and bone biopsy results. (2) Osteomyelitis Current Visit: Yes Status: Acute Assessment and plan: Patient to the OR for debridement and bone biopsy. -Day 2 of ciprofloxacin and vancomycin. -Patient developed red man syndrome overnight. We have continued her morning dose of vancomycin at half the rate of infusion.-We have scheduled Benadryl. -As per above we will follow up wound cultures and bone biopsy. Qualifiers: Osteomyelitis type: unspecified type Osteomyelitis location: foot Laterality: left Qualified Code(s): M86.9 - Osteomyelitis, unspecified (3) Diabetes Current Visit: No Status: Acute Assessment and plan: Patient on sliding scale insulin and before meals at bedtime protocol. (4) Acute and chronic respiratory failure with hypoxia Current Visit: No Status: Acute Assessment and plan: Patient with pulmonary hypertension and hypercapnic respiratory failure likely secondary to her morbid obesity. -Continue BiPAP as patient is taking at home. (5) Sleep apnea Current Visit: No Status: Chronic Assessment and plan: BiPAP. Qualifiers: Sleep apnea type: unspecified type Qualified Code(s): G47.30 - Sleep apnea , unspecified (6) Morbid obesity with BMI of 70 and over, adult Current Visit: No Status: Acute Assessment and plan: Management of diabetes and comorbidities during hospitalization. (7) Red man syndrome Current Visit: No Status: Acute Assessment and plan: Patient with well-documented history of red man syndrome after receiving vancomycin. -IV Benadryl 25 mg every 6 hours scheduled. (8) DVT prophylaxis Current Visit: Yes Status: Acute Assessment and plan: Heparin subcutaneous 3 times a day. - Subjective Interval history: Ms. Lemus is a 56-year-old female with past medical history of diabetes mellitus , COPD, pulmonary hypertension, obstructive sleep apnea requiring BiPAP at home , chronic hypercapnic respiratory failure, recent admission to [facility] for MRSA pneumonia, and hypertension. She has been admitted in is currently being managed for an open left calcaneal ulcer that is necrotic. MRI examination reveals osteomyelitis with potential myositis. His postoperative day 1. She is resting comfortably this morning and talkative. She states she is having some mild pain around her surgery site. She denies any fevers, lightheadedness , dizziness, headaches, or nausea and vomiting. She denies any diarrhea, hematochezia, melena, dysuria or hematuria. Patient is diffusely erythematous which happened overnight during administration of vancomycin. She denies any upper respiratory edema or swelling, wheezes, cough, or shortness of breath. - Constitutional Vitals: Temp Pulse Resp BP Pulse Ox 97.8 F 74 16 105/60 92 01/25/17 07:17 10 07:17 10 07:17 01/25/17 07:17 01/25/17 07:17 General appearance: Present: disheveled, A&O X 3, morbidly obese, pleasant, obese - Head Head exam: Present: atraumatic, normocephalic - ENT ENT exam: Present: mucous membranes moist, normal oropharynx (No edema the tongue, soft palate, or oropharynx. Patient maintaining airway appropriately.) - Respiratory Respiratory exam: Present: CTAB. Absent: accessory muscle use, rales, rhonchi, wheezes - Cardiovascular Cardiovascular exam: Present: RRR, +S1, +S2. Absent: diastolic murmur, gallop, rubs, systolic murmur - GI/Abdominal GI/Abdominal exam: Present: soft, no peritoneal signs. Absent: distended, tenderness - Extremities Exam Extremities exam: Present: warm, radial pulses palpable and symmetrical. Absent : calf tenderness, cyanotic, pedal edema Additional comments: There was clean, dry, intact dressing in place. The wound was visualized and appeared clean. The central area was widely. There was red granulation tissue around the perimeter of the wound. There was no purulent discharge or mucus. No radiation more streaking of redness superiorly and approximately in any direction around the wound. Patient is able to move her left foot in all directions. No focal neurological deficits. Internal Medicine: Result - Labs CBC & Chem 7: 01/25/17 06:02 01/25/17 06:02 Labs: Short CBC 01/25/17 Range/Units 06:02 WBC 8.7 (4.3-11.1) K/mcL Hgb 13.5 D (11.5-15.4) g/dL Hct 47.6 H (35.3-44.9) % Plt Count 324 (140-400) K/mcL Neutrophils # 7.5 (1.6-8.9) K/mcL BMP 01/25/17 06:02 Sodium 142 Potassium 3.6 Chloride 102 Carbon Dioxide 31 H BUN 9 Creatinine 0.76 Glucose 99 Calcium 9.3 - ABG Interpretation ABG results: PT/INR, D-dimer PT 11.9 Seconds (9.4-12.1) 01/22/17 20:09 Consult Discharge Plan - Plan Referrals: Dennis Garner MD [Primary Care Provider] - 02/03/17 1:30 pm <Santos Wen - Last Filed: 01/25/17 14:25> Date of Encounter: 01/25/17 - Constitutional Vitals: Temp Pulse Resp BP Pulse Ox 98.3 F 79 17 99/63 97 01/25/17 14:08 01/25/17 14:08 01/25/17 14:08 01/25/17 14:08 01/25/17 14:08 Internal Medicine: Result - Labs CBC & Chem 7: 01/25/17 06:02 01/25/17 06:02 Labs: Short CBC 01/25/17 Range/Units 06:02 WBC 8.7 (4.3-11.1) K/mcL Hgb 13.5 D (11.5-15.4) g/dL Hct 47.6 H (35.3-44.9) % Plt Count 324 (140-400) K/mcL Neutrophils # 7.5 (1.6-8.9) K/mcL BMP 01/25/17 06:02 Sodium 142 Potassium 3.6 Chloride 102 Carbon Dioxide 31 H BUN 9 Creatinine 0.76 Glucose 99 Calcium 9.3 - ABG Interpretation ABG results: PT/INR, D-dimer PT 11.9 Seconds (9.4-12.1) 01/22/17 20:09 - Attending Attestation I have independently seen and examined this patient on 01/25/2017. I have discussed plan of care with the patient and the residents 56 F with Morbid Obesity, BMI 61. COPD, Pulm HTN, ISIAH on BIPAP at home, Chronic Hypercapneic respiratory failure on BIPAP, recent admission to [facility] for MRSA pneumonia , HTN She is admitted and being managed for an open L heel ulcer that is necrotic, and OM of her calcaneus She developed red man syndrome this morning, and she still visibly looked so at the time of review, she denies any itching, wheals or difficulty breathing Physical exam:Vitals are stable, morbidly obese, CTAB, S1, S2 only, no m/g/ r.Skin exam diffuse erythema, no wheals. Wound dressing on Left foot clean and dry A/P #OM of Calcaneus, continue Vanco, and Cipro, tolerating same, await result of bone biopsy and aerobic/anerobic cultures. Blood culture is negative preliminary. Per PT/OT , she will need home office claims examiner, continue PTOT. #Necrotic ulcer of left foot: s/p Debridement, POD 1. Follow wound culture, pain control #Easy distracitbility/Tangentiality/Psychosis: psych ruled out psychosis and patient is possibly at baseline very distractable #Sirisha syndrome: MIGUE benadryl, slow down Vanco infusion rate, monitor closely for anaphylaxis, patient is ambulatory with PT and not in distress. She is not wheezing. #COPD: Not in exacerbation #Chronic resp failure/ISIAH: Continue BiPAP at night Rest of details as in resident physician's documentation
[2017-01-26] MEDS: *HR* Heparin 5,000 UNIT/ML VIAL SQ SCH ×3 (06:40→21:52)
[2017-01-26] MEDS ORDERED: Aminoglycoside Consult 1 EACH MC ONE (07:36)
[2017-01-26] MEDS: Insulin LISPRO 300 UNITS/3 ML VIAL SQ SCH ×3 (08:09→16:28)
[2017-01-26] MEDS: Cholecalciferol (D-3) 1,000 UNIT TABLET PO SCH (08:42)
[2017-01-26] MEDS: Furosemide 40 MG TABLET PO SCH (08:42)
--- NOTE | 2017-01-26 12:21 | Internal Med Progress Note ---
<JoemirtaPatricia esparza - Last Filed: 01/26/17 13:23> Date of Encounter: 01/26/17 Time of Encounter: 10:00 - Assessment and plan (1) Non healing left heel wound Current Visit: Yes Status: Acute Assessment and plan: Patient with a necrotic left calcaneus ulcer likely secondary to pressure and diabetes. ESR over 130. CRP 58. No leukocytosis. -MRI suggestive of osteomyelitis with myositis. -Wound was divided with bone biopsy 2 days ago. -We have DC'd vancomycin and ciprofloxacin as patient developed reactions. -Wound cultures growing Proteus. Cephalosporins are the first line agent for this bacteria. However because patient has documented allergic reaction to a cephalosporin, we have decided to cover her with ertapenem as she will needs a 6 week course of IV antibiotics for her osteomyelitis. Also discontinued vancomycin and started the linezolid for MRSA coverage. We will de-escalate this once we get the bone biopsy results. -We ordered a PICC line. -We have consulted infectious disease. -Follow-up wound culture and bone biopsy results. (2) Osteomyelitis Current Visit: Yes Status: Acute Assessment and plan: Patient to the OR for debridement and bone biopsy. -Awaiting bone biopsy cultures Qualifiers: Osteomyelitis type: unspecified type Osteomyelitis location: foot Laterality: left Qualified Code(s): M86.9 - Osteomyelitis, unspecified (3) Diabetes Current Visit: No Status: Acute Assessment and plan: Patient on sliding scale insulin and before meals at bedtime protocol. (4) Acute and chronic respiratory failure with hypoxia Current Visit: No Status: Acute Assessment and plan: Patient with pulmonary hypertension and hypercapnic respiratory failure likely secondary to her morbid obesity. -Continue BiPAP as patient is taking at home. (5) Sleep apnea Current Visit: No Status: Chronic Assessment and plan: BiPAP. Qualifiers: Sleep apnea type: unspecified type Qualified Code(s): G47.30 - Sleep apnea , unspecified (6) Morbid obesity with BMI of 70 and over, adult Current Visit: No Status: Acute Assessment and plan: Management of diabetes and comorbidities during hospitalization. (7) Red man syndrome Current Visit: No Status: Acute Assessment and plan: Vancomycin discontinued today. (8) DVT prophylaxis Current Visit: Yes Status: Acute Assessment and plan: Heparin subcutaneous 3 times a day. - Subjective Interval history: Ms. Lemus is a 56-year-old female with past medical history of diabetes mellitus , COPD, pulmonary hypertension, obstructive sleep apnea requiring BiPAP at home , chronic hypercapnic respiratory failure, recent admission to [facility] for MRSA pneumonia, and hypertension. She has been admitted in is currently being managed for an open left calcaneal ulcer that is necrotic. MRI examination reveals osteomyelitis with potential myositis. [place] bone [place]. She is resting comfortably this morning and talkative. Overnight, patient developed a reaction around her peripheral IV including redness. This was after a dose of ciprofloxacin. Patient said she became itchy during her vancomycin. Patient's redness has gone down. Patient has no complaints. She denies any fevers, lightheadedness, dizziness, headaches, or nausea and vomiting. She denies any diarrhea, hematochezia, melena, dysuria or hematuria. Patient is diffusely erythematous which happened overnight during administration of vancomycin. She denies any upper respiratory edema or swelling, wheezes, cough, or shortness of breath. - Constitutional Vitals: Temp Pulse Resp BP Pulse Ox 97.8 F 78 18 100/61 97 01/26/17 11:15 01/26/17 11:15 01/26/17 11:15 01/26/17 11:15 01/26/17 11:15 General appearance: Present: disheveled, A&O X 3, morbidly obese, pleasant, obese - Respiratory Respiratory exam: Present: CTAB. Absent: accessory muscle use, rales, rhonchi, wheezes - Cardiovascular Cardiovascular exam: Present: RRR, +S1, +S2. Absent: diastolic murmur, gallop, rubs, systolic murmur - GI/Abdominal GI/Abdominal exam: Present: normal bowel sounds, soft, no peritoneal signs. Absent: distended, tenderness - Extremities Exam Extremities exam: Present: warm, radial pulses palpable and symmetrical. Absent : calf tenderness, cyanotic, pedal edema Additional comments: Patient with bandage wrapped around her left foot. No erythema or streaking, crepitance or induration is seen around the bandage. Patient has full range of motion of both lower extremities. Internal Medicine: Result - Labs CBC & Chem 7: 01/25/17 06:02 01/25/17 06:02 - ABG Interpretation ABG results: PT/INR, D-dimer PT 11.9 Seconds (9.4-12.1) 01/22/17 20:09 Consult Discharge Plan - Plan Referrals: Dennis Garner MD [Primary Care Provider] - 02/03/17 1:30 pm <Santos Wen Abdi - Last Filed: 01/26/17 14:00> Date of Encounter: 01/26/17 - Constitutional Vitals: Temp Pulse Resp BP Pulse Ox 97.8 F 78 18 100/61 97 01/26/17 11:15 01/26/17 11:15 01/26/17 11:15 01/26/17 11:15 01/26/17 11:15 Internal Medicine: Result - Labs CBC & Chem 7: 01/25/17 06:02 01/25/17 06:02 - ABG Interpretation ABG results: PT/INR, D-dimer PT 11.9 Seconds (9.4-12.1) 01/22/17 20:09 - Attending Attestation I have independently seen and examined this patient on 01/26/2017. I have discussed plan of care with the patient and the residents 56 F with Morbid Obesity, BMI 61. COPD, Pulm HTN, ISIAH on BIPAP at home, Chronic Hypercapneic respiratory failure on BIPAP, recent admission to [facility] for MSSA pneumonia , HTN She is admitted and being managed for an open L heel ulcer that is necrotic, and OM of her calcaneus She developed red man syndrome this morning, and she still visibly looked so at the time of review, she denies any itching, wheals or difficulty breathing She also developed what the RN described as some phlebitis with ciprofloxacin infusion She is denying any respiratory symptoms She had AGEP to Clindamycin as per papers from [facility], she also has penicillins and cefdinir allergies Wound culture is growing Proteus, bone biopsy is pending Physical exam:Vitals are stable, morbidly obese, CTAB, S1, S2 only, no m/g/ r.Skin exam diffuse erythema, no wheals. Wound dressing on Left foot clean and dry A/P #OM of Calcaneus, d/c vanc and cipro. Start Zyvox and Etarpenem. Consult ID. await result of bone biopsy and aerobic/anerobic cultures. Blood culture is negative preliminary. 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 We will de-escalate prn #Necrotic ulcer of left foot: s/p Debridement, POD 2. Follow final wound culture, pain control #Easy distracitbility/Tangentiality/Psychosis: psych ruled out psychosis and patient is possibly at baseline very distractable #Sirisha syndrome: MIGUE tinoco, d/c vanco #COPD: Not in exacerbation #Chronic resp failure/ISIAH: Continue BiPAP at night Rest of details as in resident physician's documentation
--- NOTE | 2017-01-26 23:30 | Podiatry Progress Note ---
Date of Encounter: 01/26/17 Time of Encounter: 13:27 - Assessment and Plan (1) Osteomyelitis Current Visit: Yes Status: Acute We will continue dressing changes and consider a wound VAC tomorrow depending on the status of the patient's wound. Continue antibiotics per hospitalist or infectious disease. Patient will need to keep all of her weight off the left heel and may benefit from physical therapy. Qualifiers: Osteomyelitis type: unspecified type Osteomyelitis location: foot Laterality: left Qualified Code(s): M86.9 - Osteomyelitis, unspecified Subjective Principal diagnosis: Osteomyelitis left calcaneus with ulceration Interval history: Patient relates overall improvement. Patient denies any other pedal complaints. Objective - Vital Signs Vital Signs: Vital Signs Temp Pulse Resp BP Pulse Ox 01/26/17 19:13 98.4 F 83 14 144/76 95 01/26/17 15:01 97.7 F 83 18 133/75 94 01/26/17 11:15 97.8 F 78 18 100/61 97 01/26/17 07:28 98.2 F 76 16 108/62 93 01/26/17 03:32 98.5 F 94 14 101/58 90 01/25/17 23:42 98.4 F 79 14 112/71 94 Intake and Output 01/26/17 01/26/17 01/26/17 07:59 15:59 23:59 Intake Total 0 / 0 780 / 780 0 / 0 Output Total 0 / 0 900 / 900 400 / 400 Balance 0 / 0 -120 / -120 -400 / -400 Intake: Oral 0 / 0 780 / 780 0 / 0 Output: Urine 0 / 0 900 / 900 400 / 400 Other: Meal Lunch Percent of Meal Consumed 100% Stool Size Large Stool Consistency soft Stool Color Brown # Voids 1 # Bowel Movements 0 0 Weight 182.798 kg Blood Glucose* 91 125 119 Patient Weight 01/26/17 23:59 Weight 182.798 kg - Exam Exam: Ulceration stable. No significant bleeding noted. Pedal pulses palpable. Capillary fill time intact to digits 1 through 5 bilaterally. Sensation slightly diminished to bilateral lower extremities. - Lab Result Diagrams: 01/25/17 06:02 01/25/17 06:02 Labs: Abnormal lab results RBC 5.42 M/mcL (3.82-4.97) H 01/25/17 06:02 Hct 47.6 % (35.3-44.9) H 01/25/17 06:02 MCH 24.9 pg (28.0-33.3) L 01/25/17 06:02 MCHC 28.4 g/dL (31.6-35.5) L 01/25/17 06:02 RDW 23.9 % (11.5-14.5) H 01/25/17 06:02 MPV 8.4 fL (9.4-12.4) L 01/25/17 06:02 Lymphocytes # 0.5 K/mcL (0.6-4.6) L 01/25/17 06:02 Dohle Bodies Present (Not Present) A 01/22/17 20:09 Hypochromasia Present (Not Present) A 01/24/17 06:07 Anisocytosis 1+ (Not Present) A 01/25/17 06:02 Katherine Cells 1+ (Not Present) A 01/22/17 20:09 ESR >= 130 mm/hr (0-15) H 01/23/17 14:19 Carbon Dioxide 31 mEq/L (19-29) H 01/25/17 06:02 POC Glucose 119 (58-89) H 01/26/17 20:11 Magnesium 1.5 mg/dL (1.6-2.6) L 01/24/17 06:07 C-Reactive Protein 58 mg/L (Less than 5) H 01/23/17 14:19 Vancomycin Trough 37.0 mcg/mL (10-20) H* 01/25/17 20:04 Microbiology, Last 48 Hours 01/24/17 18:36 Wound Culture - Final Left Foot Proteus mirabilis 01/24/17 18:36 Gram Stain - Final Left Foot Consult Discharge Plan - Plan Referrals: [facility] [place],Dennis Peguero MD [Primary Care Provider] - 02/03/17 1:30 pm
[2017-01-27] MEDS: *HR* Heparin 5,000 UNIT/ML VIAL SQ SCH ×3 (06:03→21:11)
[2017-01-27 06:08] LABS: Basophils % 0.2 %; Eosinophils # 0.7 K/mcL (0.0-0.6); Eosinophils % 10.7 %; Hematocrit 40.7 % (35.3-44.9); Hemoglobin 11.9 g/dL (11.5-15.4); Immature Granulocytes % 0.5 % (0-4); Lymphocytes % 16.4 %; Mean Corpuscular HGB Conc 29.2 g/dL (31.6-35.5); Mean Corpuscular Hemoglobin 25.8 pg (28.0-33.3); Mean Corpuscular Volume 88.3 fL (83.0-100.0); Mean Platelet Volume 8.5 fL (9.4-12.4); Monocytes # 0.3 K/mcL (0.0-1.3); Monocytes % 5.3 %; Platelet Count 271 K/mcL (140-400); Red Blood Count 4.61 M/mcL (3.82-4.97); Red Cell Distribution Width 23.2 % (11.5-14.5); Segmented Neutrophils % 66.9 %
[2017-01-27 06:11] LABS: Neutrophils # 4.2 K/mcL (1.6-8.9)
[2017-01-27 06:27] LABS: Platelet Estimate Normal (Normal)
[2017-01-27 06:28] LABS: Microcytosis Present (Not Present)
[2017-01-27 06:29] LABS: Anisocytosis 2+ (Not Present)
[2017-01-27] MEDS: Insulin LISPRO 300 UNITS/3 ML VIAL SQ SCH ×3 (07:34→18:29)
[2017-01-27] MEDS ORDERED: Ertapenem 1,000 MG in 0.9 % Sodium Chloride Mini Bag 100 ML IVPB SCH (09:00)
[2017-01-27] MEDS: Furosemide 40 MG TABLET PO SCH (10:18)
[2017-01-27] MEDS: Cholecalciferol (D-3) 1,000 UNIT TABLET PO SCH (10:18)
[2017-01-27 10:25] LABS: BUN/Creatinine Ratio 13 (6-26); Blood Urea Nitrogen 12 mg/dL (7-20); Calcium 9.2 mg/dL (8.6-10.8); Carbon Dioxide 32 mEq/L (19-29); Chloride 100 mEq/L (98-109); Glucose 104 mg/dL (70-99); Osmolality,Calculated 292 (280-300); Potassium 4.2 mEq/L (3.5-4.5); Sodium 141 mEq/L (136-145); eGFR For African Americans > 60 (> 60); eGFR For Non-African Americans > 60 (> 60)
--- NOTE | 2017-01-27 11:11 | Discharge Summary ---
Date of Encounter: 01/27/17 Time of Encounter: 11:03 - Discharge Diagnosis (1) Non healing left heel wound Priority: Primary Status: Acute (2) Osteomyelitis Priority: Primary Status: Acute Qualifiers: Osteomyelitis type: unspecified type Osteomyelitis location: foot Laterality: left Qualified Code(s): M86.9 - Osteomyelitis, unspecified (3) Diabetes Priority: Secondary Status: Acute Qualifiers: Diabetes mellitus type: type 2 Diabetes mellitus complication status: with unspecified complications Diabetes mellitus snf insulin use: without long term care social worker use Qualified Code(s): E11.8 - Type 2 diabetes mellitus with unspecified complications (4) Acute and chronic respiratory failure with hypoxia Priority: Secondary Status: Acute (5) Sleep apnea Priority: Secondary Status: Chronic Qualifiers: Sleep apnea type: unspecified type Qualified Code(s): G47.30 - Sleep apnea , unspecified (6) Morbid obesity with BMI of 70 and over, adult Priority: Secondary Status: Acute (7) Red man syndrome Priority: Secondary Status: Acute (8) DVT prophylaxis Priority: Secondary Status: Acute - Discharge Medications Prescriptions: Levofloxacin 750 MG/150 ML [Levaquin Premix 750mg/150 mL] 750 mg IVPB DAILY #42 bag Home Medications: Ergocalciferol (VITAMIN D2) [Vitamin D2] 2,000 unit PO DAILY 09/14/15 [History] Albuterol Sulfate [Ventolin Hfa] 2 puff IH Q4H PRN 01/22/17 [History] Aspirin/Caffeine [Back & Body Pain Reliever Cplt] 1 each PO Q4H PRN 01/22/17 [ History] Docusate [Colace] 100 mg PO BID PRN 01/22/17 [History] Levothyroxine [Synthroid] 175 mcg PO 0630 01/22/17 [History] Oxygen 4 l NS AD 01/22/17 [History] Sennosides [Senna] 17.2 mg PO BID PRN 01/22/17 [History] Levofloxacin 750 MG/150 ML [Levaquin Premix 750mg/150 mL] 750 mg IVPB DAILY #42 bag 01/27/17 [Rx] Allergies/Adverse Reactions: 3 Allergy/AdvReac Type Severity Reaction Status Date / Time cefdinir Allergy Rash Verified 11/25/14 17:58 clindamycin Allergy See Verified 01/22/17 18:36 Comments Penicillins [PCN] Allergy Rash Verified 11/25/14 17:58 Date of admission: 01/23/17 04:38 Primary care physician: Dennis Garner MD Consults: 01/23/17 16:03 Consult to Psychiatry [CONS] Routine Consulting Provider: Psychiatry [facility] Reason for Consult: concern for psychosis Call Completed: No 01/23/17 16:56 PT [Consult to Physical Therapy] [CONS] Routine Comment: Evaluate, develop and implement POC Reason for Consult: Podiatry recommendations. 01/23/17 16:58 OT [Consult to Occupational Therapy] [CONS] Routine Comment: Evaluate, develop and implement POC Reason for Consult: podiatry recommendations 01/26/17 11:24 Consult to PICC team [Consult to Invasive Line Access Team] [CONS] Routine Reason for Consult: long term care social worker need for IV antibiotic therapy Line Type: PICC 01/26/17 13:28 Consult to Infectious Diseases [CONS] Routine Consulting Provider: Infectious Disease [facility] Reason for Consult: IV antibiotic coverage Call Completed: No - Patient Status Condition: Good - Discharge Instructions Follow Up With: Dennis Garner MD [Primary Care Provider] - 02/03/17 1:30 pm Hospital course: Ms. Lemus is a 56 year old female - Time Spent with Patient Total time spent providing and/or coordinating discharge services: - Constitutional Vitals: Temp Pulse Resp BP Pulse Ox 97.6 F 85 16 116/63 95 01/27/17 08:33 01/27/17 08:33 01/27/17 08:33 01/27/17 08:33 01/27/17 08:33 General appearance: Present: disheveled, A&O X 3, morbidly obese, pleasant, obese
--- NOTE | 2017-01-27 11:30 | Infectious Disease Consult ---
Date of Encounter: 01/27/17 Time of Encounter: 11:28 Assessment and Plan (1) Osteomyelitis Status: Acute Assessment and plan: Location: Left calcaneus. Likely secondary to pressure ulcer. Causative organism Proteus mirabilis. MRI of the left foot 01/23/17 showed findings consistent with osteomyelitis. ESR >130, CRP 124. Podiatry consulted. Status post left calcaneus I & D with bone biopsy 01/24/[address] Benavides. Operative note reviewed. Pathology pending. Bone culture positive for P. mirabilis. The patient has a documented allergy to cefdinir and PCN. Additionally, she has experienced reactions to Vancomycin and possibly to Cipro. She did receive Levaquin earlier during this hospital stay without a problem and review of the record reveals that the patient has completed several days of IV Levaquin in the past. Discontinue Ertapenem and linezolid. Start Levaquin 750mg IV daily. Monitor the patient closely for reaction. If the patient exhibits signs of allergic reaction, discontinue and start IV Bactrim. We will attempt to use Levaquin first due to the once daily dosing allows for easier administration of antibiotics at home. Bactrim required Q8H IV dosing and is difficult to administer correctly in the outpatient setting. Consult VAT for EPIV placement. Duration of treatment depends on the clinical picture, but likely 6 weeks of IV antibiotics. Continue wound care and activity restrictions per the podiatry team's recommendations. The patient would likely benefit from short-term rehab placement to assist with dressing changes, self care, antibiotic administration. Get weekly CBC, BUN/Cr, ESR, and CRP every Friday for the duration of IV antibiotic therapy. Weekly EPIV care per protocol. Follow up with ID 02/10/17 at 0840. Qualifiers: Osteomyelitis type: unspecified type Osteomyelitis location: foot Laterality: left Qualified Code(s): M86.9 - Osteomyelitis, unspecified (2) Non healing left heel wound Status: Acute Assessment and plan: Secondary to left heel ulcer. Non-healing status likely secondary to OM. HgbA1C 5.5%. No vascular studies have been done. Continue wound care per podiatry's recommendations. (3) Red man syndrome Status: Acute Assessment and plan: Secondary to vancomycin administration. (4) Morbid obesity with BMI of 70 and over, adult Status: Acute (5) Altered mental status, unspecified Status: Resolved Assessment and plan: Etiology unclear, but concern for underlying mental health disorder. Psych consulted. No evidence of psychosis per their evaluation. Qualifiers: Altered mental status type: unspecified Qualified Code(s): R41.82 - Altered mental status, unspecified Infectious Disease HPI - Data of Consult Patient: known to practice within the last 3 years Consult date: 01/27/17 Requesting Physician: Santos Wen MD Primary Care Provider: Dennis Garner MD - Consult Narrative Reason for consult: left calcaneus osteomyelitis History of present illness: Ms. Lemus is a 56 year old female with a past medical history of asthma, DM, and morbid obesity. The patient was admitted to the hospital 01/22/17 for left foot infection. We are consulted 01/27/17 for further recommendations regarding left calcaneus osteomyelitis. The patient is a 56 year old female with a past medical history as stated above. The patient's mental status precludes her ability to provide me with much reliable information, so most of the information is obtained from previous medical records from here and from [facility]. The patient presented to the ER on the day of admission with complaints of an infected left heel ulcer. Previously, the patient was admitted at [facility] for MSSA pneumonia. She was intubated and subsequently developed a left heel pressure ulcer. The patient was seen by her PCP for evaluation and advised to come to the ED. Upon arrival, she was tachycardic, but was otherwise hemodynamically stable. Laboratory studies revealed a normal white blood cell count and normal basic metabolic panel. The left foot x-ray was negative. Chest x-ray was negative as well. Blood cultures were obtained 2 sets and the patient was started on IV vancomycin. Patient subsequently developed an thematous and itchy rash to her entire body concerning for "red man" syndrome. The infusion was stopped and the patient was admitted to the hospital for further evaluation. Since admission, the patient has been evaluated by podiatry. She had an MRI of the left foot that showed osteomyelitis of the calcaneus. ESR and CRP were elevated at >130 and 124, respectively. She was taken to the operating room on January 24 and underwent an I&D of the left calcaneus with bone biopsy. Bone cultures positive for Proteus mirabilis. Since her admission, the patient has been on multiple antibiotics. Due to her reaction to the Vancomycin, it was discontinued and the patient was started on doxycyline. She was transitioned back to Vancomycin, but this was again stopped due to a rash. She was then started on linezolid. Additionally, the patient was originally trialed on Levaquin, which she tolerated well, but was transitioned to Cipro and there was concern for reaction due to redness at the infusion site. This was discontinued and the patient was started on IV Ertapenem. We've been asked to evaluate and make further recommendations. During my exam today, the patient is very difficult to obtain a history from. She loses focus and is difficult to re-direct. She denies any fevers or chills prior to admission, but is unable to provide me with any other ROS information. CC: Santos Wen MD Past Med Surg Social Fam HX - Past Medical History Source: old records reviewed, nursing notes reviewed Medical history: asthma, COPD, diabetes, thyroid disease (hypothyroidism), other (obstructive sleep apnea) Psychiatric history: no psych history - Past Surgical History Surgical History: other (tonsillectomy) - Social History Smoking Status: Never smoker Smokeless Tobacco Status: No Alcohol use: none Drug use: none - Family History Mother History Unknown: Yes Father History Unknown: Yes Son Living Status: Still Living Hx Family Endocrine Disorder: No Infectious Disease-CN:Meds Ergocalciferol (VITAMIN D2) [Vitamin D2] 2,000 unit PO DAILY 09/14/15 [History] Albuterol Sulfate [Ventolin Hfa] 2 puff IH Q4H PRN 01/22/17 [History] Aspirin/Caffeine [Back & Body Pain Reliever Cplt] 1 each PO Q4H PRN 01/22/17 [ History] Docusate [Colace] 100 mg PO BID PRN 01/22/17 [History] Levothyroxine [Synthroid] 175 mcg PO 0630 01/22/17 [History] Oxygen 4 l NS AD 01/22/17 [History] Sennosides [Senna] 17.2 mg PO BID PRN 01/22/17 [History] Levofloxacin 750 MG/150 ML [Levaquin Premix 750mg/150 mL] 750 mg IVPB DAILY #42 bag 01/27/17 [Rx] 3 Allergy/AdvReac Type Severity Reaction Status Date / Time cefdinir Allergy Rash Verified 11/25/14 17:58 clindamycin Allergy See Verified 01/22/17 18:36 Comments Penicillins [PCN] Allergy Rash Verified 11/25/14 17:58 ROS unobtainable: due to mental status Exam - Constitutional Vitals: Temp Pulse Resp BP Pulse Ox 97.6 F 85 16 116/63 95 01/27/17 08:33 01/27/17 08:33 01/27/17 08:33 01/27/17 08:33 01/27/17 08:33 General appearance: cooperative, morbidly obese, no acute distress - Head Head exam: Present: atraumatic, normal inspection, normocephalic - Eye Eye exam: Present: EOMI, normal appearance, PERRL Pupils: Present: normal accommodation - ENT ENT exam: Present: mucous membranes moist - Neck Neck exam: Present: normal inspection - Respiratory Respiratory exam: Present: CTAB. Absent: rales, respiratory distress, rhonchi, wheezes - Cardiovascular Cardiovascular exam: Present: RRR, +S1, +S2 - GI/Abdominal GI/Abdominal exam: Present: distended (morbidly obese), normal bowel sounds, soft. Absent: tenderness - Extremities Exam Extremities exam: Present: pedal edema (1+ RLE, 2+ LLE), tenderness (left foot) - Expanded Lower Extremity Exam 1 - Surgical site with calcaneous exposed. Serosanguinous drainage noted on the dressing. Tenderness with palpation. No foul odor or necrosis noted. - Neurological Exam Neurological exam: Present: alert, oriented X3, no focal deficits - Psychiatric Psychiatric exam: Present: manic Additional comments: Tangential speech noted. Inappropriate answers to questions at times, but A/O x 3. - Skin Skin exam: Present: dry, intact, warm. Absent: normal color (Generalizes erythema) Infectious Disease CN: Results - Labs CBC & Chem 7: 01/28/17 06:36 01/28/17 06:36 Cultures: Cultures 01/24/17 18:36 Anaerobic Culture - Preliminary Left Foot At this time, no anaerobic growth is present. The culture will be finalized after 5 days of incubation. 01/24/17 18:36 Wound Culture - Final Left Foot Proteus mirabilis 01/24/17 18:36 Gram Stain - Final Left Foot Consult Discharge Plan - Plan Instructions: Cellulitis (DC), Anxiety (DC) Additional Instructions: Please go home with home health to assist you with your wound VAC management, dressing changes, and IV antibiotic administration. He will be receiving a daily infusion of Levaquin for approximately 6 weeks, or what ever infectious disease decides. You have not already a scheduled outpatient appointment with infectious disease on 02/09/2017. It is also important you follow-up with podiatry as an outpatient. On Mondays weekly, you need to have lab work done including a CBC, BMP, CRP, and ESR. In the interim while you are waiting for your wound VAC to arrive, you need to do twice a day wet-to-dry dressing changes of your wound. Home health will assist you with this. Referrals: Titus Benavides DPM [Partnered Physician] - (WEB REQUEST - OFFICE WILL CALL WITH APPOINTMENT TIME.) Maribell Hope CNP [Advanced Practice Nurse] - 02/10/17 8:40 am Dennis Garner MD [Primary Care Provider] - 02/03/17 1:30 pm Prescriptions: Levofloxacin 750 MG/150 ML [Levaquin Premix 750mg/150 mL] 750 mg IVPB DAILY #42 bag - Attending Attestation I examined this patient and my medical decision-making was reviewed with the Resident Physician. I agree with the documented findings, disposition and treatment plan as described except to the extent set forth below. This is an addendum to original report dictated by Maribell Hope CNP. Please refer to Javed hollingsworth for full detail. Patient is a 56-year-old woman with past medical history mentioned below including diabetes mellitus and morbid obesity was admitted to the hospital for left leg infection. We were consulted for left calcaneous osteomyelitis. Patient apparently has been seen by us in the past and has multiple drug allergies including penicillins, cefdinir and clindamycin. Exact reaction to antibiotics is not known. Patient is not a reliable source.. Patient was recently admitted to [facility] where she had MSSA pneumonia. Patient was treated and discharged home on oral antibiotics. Patient apparently had a bedsore from [facility] as she states has gotten worse. Patient came in and was worked up extensively. Patients MRI of the left foot showed osteomyelitis of the calcaneus. ESR was over 1:30. Cultures were obtained and were positive for Proteus from bone biopsy. Patient was started on ertapenem and linezolid and we were consulted to evaluate the patient and make further recommendations. Patient apparently also had possible red man syndrome to vancomycin and apparently had phlebitis when she took levofloxacin. Physical exam on the patient is only remarkable for the left heel ulcer. There is minimal surrounding erythema and minimal drainage. Bone not visible. At this point I will stop all current antibiotics and start the patient on levofloxacin. We will see if the patient has recurrence of the reaction with levofloxacin. I was considering to doing Bactrim but [place] 3 times a day IV dose at home. Levofloxacin would be far easier to dose. I also requested that the patient gets a midline as she will need 6 weeks of IV antibiotics at least. Patient will need to continue with weekly labs including CBC, BMP, ESR and CRP. Patient follow-up with us in clinic in 2 weeks.
--- NOTE | 2017-01-27 15:21 | Internal Med Progress Note ---
<Patricia Barrera - Last Filed: 01/27/17 16:23> Date of Encounter: 01/27/17 Time of Encounter: 11:30 - Assessment and plan (1) Non healing left heel wound Current Visit: Yes Status: Acute Assessment and plan: Patient with a necrotic left calcaneus ulcer likely secondary to pressure and diabetes. ESR over 130. CRP 58. No leukocytosis. -MRI suggestive of osteomyelitis with myositis. -Wound was divided with bone biopsy 3 days ago. -ID saw patient. They discontinued the linezolid and ertapenem. They started the patient on levofloxacin day 1. -PICC line in place today. -ID recommending 6 weeks therapy with levofloxacin upon discharge home from the hospital. They want the patient to get weekly CBC, CMP, ESR, and CRP during her outpatient antibiotic may management. -Follow-up official bone biopsy results. -Patient needs short-term alf facility to assist with dressing changes, wound VAC management, self-care, and antibiotic administration. -He has follow-up appointment scheduled with ID on 02/10/2017. -Follow podiatry recommendations regarding wound VAC. (2) Osteomyelitis Current Visit: Yes Status: Acute Assessment and plan: See above for nonhealing left heel wound. -Follow ID recommendations. Qualifiers: Osteomyelitis type: unspecified type Osteomyelitis location: foot Laterality: left Qualified Code(s): M86.9 - Osteomyelitis, unspecified (3) Diabetes Current Visit: No Status: Acute Assessment and plan: Patient on sliding scale insulin and before meals at bedtime protocol. (4) Acute and chronic respiratory failure with hypoxia Current Visit: No Status: Acute Assessment and plan: Patient with pulmonary hypertension and hypercapnic respiratory failure likely secondary to her morbid obesity. -Continue BiPAP as patient is taking at home. (5) Sleep apnea Current Visit: No Status: Chronic Assessment and plan: BiPAP. Qualifiers: Sleep apnea type: unspecified type Qualified Code(s): G47.30 - Sleep apnea , unspecified (6) Morbid obesity with BMI of 70 and over, adult Current Visit: No Status: Acute Assessment and plan: Management of diabetes and comorbidities during hospitalization. (7) Red man syndrome Current Visit: No Status: Acute Assessment and plan: Vancomycin discontinued yesterday. (8) DVT prophylaxis Current Visit: Yes Status: Acute Assessment and plan: Heparin subcutaneous 3 times a day. - Subjective Interval history: Ms. Lemus is a 56-year-old female with past medical history of diabetes mellitus , COPD, pulmonary hypertension, obstructive sleep apnea requiring BiPAP at home , chronic hypercapnic respiratory failure, recent admission to [facility] for MRSA pneumonia, and hypertension. She has been admitted in is currently being managed for an open left calcaneal ulcer that is necrotic. MRI examination reveals osteomyelitis with potential myositis. She is postoperative day 3 from surgical debridement and bone biopsy. She is resting comfortably this morning and talkative. She has no complaints, and is inquisitive about the type of bacteria that is growing in her heel. Patient's redness has gone down. Patient has no complaints. She denies any fevers, lightheadedness, dizziness, headaches, or nausea and vomiting. She denies any diarrhea, hematochezia, melena, dysuria or hematuria. - Constitutional Vitals: Temp Pulse Resp BP Pulse Ox 97.6 F 85 16 116/63 95 01/27/17 08:33 01/27/17 08:33 01/27/17 08:33 01/27/17 08:33 01/27/17 08:33 General appearance: Present: disheveled, A&O X 3, morbidly obese, pleasant, obese - Respiratory Respiratory exam: Present: CTAB. Absent: accessory muscle use, rales, rhonchi, wheezes - Cardiovascular Cardiovascular exam: Present: RRR, +S1, +S2. Absent: diastolic murmur, gallop, rubs, systolic murmur - GI/Abdominal GI/Abdominal exam: Present: normal bowel sounds, soft, no peritoneal signs. Absent: distended, tenderness - Extremities Exam Extremities exam: Present: warm, radial pulses palpable and symmetrical. Absent : calf tenderness (Patient has dressing intact covering her calcaneal lesion. Her surround erythema has resolved. No edema or streaking appreciated. ), cyanotic, pedal edema Internal Medicine: Result - Labs CBC & Chem 7: 01/27/17 05:52 01/27/17 06:52 Labs: Short CBC 01/27/17 Range/Units 05:52 WBC 6.2 (4.3-11.1) K/mcL Hgb 11.9 D (11.5-15.4) g/dL Hct 40.7 (35.3-44.9) % Plt Count 271 (140-400) K/mcL Neutrophils # 4.2 (1.6-8.9) K/mcL BMP 01/27/17 06:52 Sodium 141 Potassium 4.2 Chloride 100 Carbon Dioxide 32 H BUN 12 Creatinine 0.94 Glucose 104 H Calcium 9.2 - ABG Interpretation ABG results: PT/INR, D-dimer PT 11.9 Seconds (9.4-12.1) 01/22/17 20:09 Consult Discharge Plan - Plan Referrals: Dennis Garner MD [Primary Care Provider] - 02/03/17 1:30 pm Prescriptions: Levofloxacin 750 MG/150 ML [Levaquin Premix 750mg/150 mL] 750 mg IVPB DAILY #42 bag <Santos Wen T - Last Filed: 01/27/17 16:49> Date of Encounter: 01/27/17 - Constitutional Vitals: Temp Pulse Resp BP Pulse Ox 97.5 F L 81 16 114/73 96 01/27/17 16:25 01/27/17 16:25 01/27/17 16:25 01/27/17 16:25 01/27/17 16:25 Internal Medicine: Result - Labs CBC & Chem 7: 01/27/17 05:52 01/27/17 06:52 Labs: Short CBC 01/27/17 Range/Units 05:52 WBC 6.2 (4.3-11.1) K/mcL Hgb 11.9 D (11.5-15.4) g/dL Hct 40.7 (35.3-44.9) % Plt Count 271 (140-400) K/mcL Neutrophils # 4.2 (1.6-8.9) K/mcL [facility] 01/27/17 06:52 Sodium 141 Potassium 4.2 Chloride 100 Carbon Dioxide 32 H BUN 12 Creatinine 0.94 Glucose 104 H Calcium 9.2 - ABG Interpretation ABG results: PT/INR, D-dimer PT 11.9 Seconds (9.4-12.1) 01/22/17 20:09 - Attending Attestation I have independently seen and examined this patient on 01/27/2017. I have discussed plan of care with the patient and the residents 56 F with Morbid Obesity, BMI 61. COPD, Pulm HTN, ISIAH on BIPAP at home, Chronic Hypercapneic respiratory failure on BIPAP, recent admission to [facility] for MSSA pneumonia , HTN She is admitted and being managed for an open L heel ulcer that is necrotic, and OM of her calcaneus She developed red man syndrome to Vanco , phlebitis to cipro and hs of penicillin allergies, She had AGEP to Clindamycin as per papers from [facility] Wound culture is finalized and is growing pansensitive proteus. She denies new complains Physical exam:Vitals are stable, morbidly obese, CTAB, S1, S2 only, no m/g/ r.Skin exam diffuse erythema, no wheals. LEft foot in wound vac A/P #OM of Calcaneus, ID eval noted and appreciated. Anerobic culture report noted. Resume Levaquin. Power wand/PICC placement. Patient continues to be very distracting and does understand the plan of care It has been documented by several providers, the deplorable state of patient's home environment, and patient's decision to attempt to drive and plan to drive with her wound Vac on. It is safer that patient gets care in a SNF/ECF till her home conditions are sorted out #Necrotic ulcer of left foot: as above #Easy distracitbility/Tangentiality/Psychosis: psych ruled out psychosis and patient is possibly at baseline very distractable #Sirisha syndrome: Resolved #COPD: Not in exacerbation #Chronic resp failure/ISIAH: Continue BiPAP at night Rest of details as in resident physician's documentation
[2017-01-27] MEDS: Levofloxacin 750 MG/150 ML 750 MG/150 ML BAG IVPB SCH (15:53)
[2017-01-27] MEDS ORDERED: Insulin LISPRO 300 UNITS/3 ML VIAL SQ SCH (21:00)
[2017-01-28] MEDS: *HR* Heparin 5,000 UNIT/ML VIAL SQ SCH ×2 (06:00→14:18)
[2017-01-28 07:01] LABS: Basophils % 0.3 %; Eosinophils # 0.6 K/mcL (0.0-0.6); Eosinophils % 8.2 %; Hematocrit 45.2 % (35.3-44.9); Immature Granulocytes % 0.6 % (0-4); Lymphocytes % 14.5 %; Mean Corpuscular HGB Conc 28.8 g/dL (31.6-35.5); Mean Corpuscular Hemoglobin 25.5 pg (28.0-33.3); Mean Corpuscular Volume 88.6 fL (83.0-100.0); Mean Platelet Volume 8.4 fL (9.4-12.4); Monocytes # 0.4 K/mcL (0.0-1.3); Monocytes % 5.6 %; Neutrophils # 5.1 K/mcL (1.6-8.9); Platelet Count 303 K/mcL (140-400); Red Cell Distribution Width 23.2 % (11.5-14.5); Segmented Neutrophils % 70.8 %
[2017-01-28 07:14] LABS: BUN/Creatinine Ratio 18 (6-26); Blood Urea Nitrogen 17 mg/dL (7-20); Calcium 10.1 mg/dL (8.6-10.8); Carbon Dioxide 33 mEq/L (19-29); Chloride 97 mEq/L (98-109); Glucose 123 mg/dL (70-99); Osmolality,Calculated 289 (280-300); Potassium 4.2 mEq/L (3.5-4.5); Sodium 138 mEq/L (136-145); eGFR For African Americans > 60 (> 60); eGFR For Non-African Americans > 60 (> 60)
[2017-01-28] MEDS: Insulin LISPRO 300 UNITS/3 ML VIAL SQ SCH (07:38)
--- NOTE | 2017-01-28 09:22 | Internal Med Progress Note ---
Date of Encounter: 01/28/17 - Assessment and plan (1) Non healing left heel wound Current Visit: Yes Status: Acute (2) Osteomyelitis Current Visit: Yes Status: Acute Qualifiers: Osteomyelitis type: unspecified type Osteomyelitis location: foot Laterality: left Qualified Code(s): M86.9 - Osteomyelitis, unspecified (3) Diabetes Current Visit: No Status: Acute Qualifiers: Diabetes mellitus type: type 2 Diabetes mellitus complication status: with unspecified complications Diabetes mellitus long-term insulin use: without long-term use Qualified Code(s): E11.8 - Type 2 diabetes mellitus with unspecified complications (4) Acute and chronic respiratory failure with hypoxia Current Visit: No Status: Acute (5) Sleep apnea Current Visit: No Status: Chronic Qualifiers: Sleep apnea type: unspecified type Qualified Code(s): G47.30 - Sleep apnea , unspecified (6) Morbid obesity with BMI of 70 and over, adult Current Visit: No Status: Acute (7) Red man syndrome Current Visit: No Status: Acute (8) DVT prophylaxis Current Visit: Yes Status: Acute - Subjective Interval history: Ms. Lemus is a 56-year-old female with past medical history of diabetes mellitus , COPD, pulmonary hypertension, obstructive sleep apnea requiring BiPAP at home , chronic hypercapnic respiratory failure, recent admission to [facility] for MRSA pneumonia, and hypertension. She has been admitted in is currently being managed for an open left calcaneal ulcer that is necrotic. MRI examination reveals osteomyelitis with potential myositis. She is postoperative day 3 from surgical debridement and bone biopsy. She is resting comfortably this morning and talkative. She has no complaints, and is inquisitive about the type of bacteria that is growing in her heel. Patient's redness has gone down. Patient has no complaints. She denies any fevers, lightheadedness, dizziness, headaches, or nausea and vomiting. She denies any diarrhea, hematochezia, melena, dysuria or hematuria. - Constitutional Vitals: Temp Pulse Resp BP Pulse Ox 97.5 F L 92 16 122/77 95 01/28/17 07:15 01/28/17 07:15 01/28/17 07:15 01/28/17 07:15 01/28/17 07:15 General appearance: Present: disheveled, A&O X 3, morbidly obese, pleasant, obese Internal Medicine: Result - Labs CBC & Chem 7: 01/28/17 06:36 01/28/17 06:36 Labs: Short CBC 01/28/17 Range/Units 06:36 WBC 7.2 (4.3-11.1) K/mcL Hgb 13.0 (11.5-15.4) g/dL Hct 45.2 H (35.3-44.9) % Plt Count 303 (140-400) K/mcL BMP 01/27/17 01/28/17 06:52 06:36 Sodium 141 138 Potassium 4.2 4.2 Chloride 100 97 L Carbon Dioxide 32 H 33 H BUN 12 17 Creatinine 0.94 0.93 Glucose 104 H 123 H Calcium 9.2 10.1 - ABG Interpretation ABG results: PT/INR, D-dimer PT 11.9 Seconds (9.4-12.1) 01/22/17 20:09 Consult Discharge Plan - Plan Referrals: Dennis Garner MD [Primary Care Provider] - 02/03/17 1:30 pm Prescriptions: Levofloxacin 750 MG/150 ML [Levaquin Premix 750mg/150 mL] 750 mg IVPB DAILY #42 bag
[2017-01-28 09:26] LABS: Anisocytosis 1+ (Not Present); Hypochromasia Present (Not Present); Platelet Estimate Normal (Normal)
[2017-01-28] MEDS: Cholecalciferol (D-3) 1,000 UNIT TABLET PO SCH (10:01)
[2017-01-28] MEDS: Furosemide 40 MG TABLET PO SCH (10:01)
--- NOTE | 2017-01-28 11:38 | Infectious Disease Progress No ---
Date of Encounter: 01/28/17 Time of Encounter: 11:35 - Assessment and Plan (1) Osteomyelitis Status: Acute Location: Left calcaneus. Likely secondary to pressure ulcer. Causative organism Proteus mirabilis. MRI of the left foot 01/23/17 showed findings consistent with osteomyelitis. ESR >130, CRP 124. Podiatry consulted. Status post left calcaneus I & D with bone biopsy 01/24/[address] Benavides. Operative note reviewed. Pathology pending. Bone culture positive for P. mirabilis. The patient has a documented allergy to cefdinir and PCN. Additionally, she has experienced reactions to Vancomycin and possibly to Cipro. She did receive Levaquin earlier during this hospital stay without a problem and review of the record reveals that the patient has completed several days of IV Levaquin in the past. Continue Levaquin 750mg IV daily. Monitor the patient closely for reaction. If the patient exhibits signs of allergic reaction, discontinue and start IV Bactrim. We will attempt to use Levaquin first due to the once daily dosing allows for easier administration of antibiotics at home. Bactrim requires Q8H IV dosing and is difficult to administer correctly in the outpatient setting. Duration of treatment depends on the clinical picture, but likely 6 weeks of IV antibiotics. Continue wound care and activity restrictions per the podiatry team's recommendations. The patient would likely benefit from short-term rehab placement to assist with dressing changes, self care, antibiotic administration. Get weekly CBC, BUN/Cr, ESR, and CRP every Friday for the duration of IV antibiotic therapy. Weekly EPIV care per protocol. Follow up with ID 02/10/17 at 0840. Qualifiers: Osteomyelitis type: unspecified type Osteomyelitis location: foot Laterality: left Qualified Code(s): M86.9 - Osteomyelitis, unspecified (2) Non healing left heel wound Status: Acute Secondary to left heel ulcer. Non-healing status likely secondary to OM. HgbA1C 5.5%. No vascular studies have been done. Continue wound care per podiatry's recommendations. (3) Red man syndrome Status: Acute Secondary to vancomycin administration. (4) Morbid obesity with BMI of 70 and over, adult Status: Acute (5) Unprotected sexual intercourse Status: Acute Patient requests STI workup. Check syphilis, HIV, and hepatitis profile. Check gonorrhea and chlamydia PCR. (6) Lip lesion Status: Acute Etiology unclear. Refer to dermatology as an outpatient. - Subjective Interval history: Patient seen and examined. No acute events noted overnight. Patient sitting up in the bed with leg elevated on chair. Once again difficult to obtain ROS information from the patient due to her tangential speech. She denies chest, abdominal, or extremity pain at this time. She denies shortness of breath or cough. She denies diarrhea or constipation. She denies urinary complaints. She is concerned about a chronic oral lesion that has been there on the inside of her lip for several years. She eludes to concern about possible STIs and states she would like to be checked for whatever we can check her for. Infect Dis PN-Objective Data - Labs CBC & Chem 7: 01/28/17 06:36 01/28/17 06:36 Labs: Laboratory Results - last 24 hr 01/27/17 01/28/17 01/28/17 20:20 06:36 06:36 WBC 7.2 RBC 5.10 H Hgb 13.0 Hct 45.2 H MCV 88.6 MCH 25.5 L MCHC 28.8 L RDW 23.2 H Plt Count 303 MPV 8.4 L Immature Gran % 0.6 Seg Neutrophils % 70.8 Lymphocytes % 14.5 Monocytes % 5.6 Eosinophils % 8.2 Basophils % 0.3 Neutrophils # 5.1 Lymphocytes # 1.0 Monocytes # 0.4 Eosinophils # 0.6 Basophils # 0.0 Platelet Estimate Normal Hypochromasia Present A Anisocytosis 1+ A Sodium 138 Potassium 4.2 Chloride 97 L Carbon Dioxide 33 H BUN 17 Creatinine 0.93 Est GFR ( Amer) > 60 Est GFR (Non-Af Amer) > 60 BUN/Creatinine Ratio 18 Glucose 123 H POC Glucose 112 H Calculated Osmolality 289 Calcium 10.1 01/28/17 07:13 WBC RBC Hgb Hct MCV MCH MCHC RDW Plt Count MPV Immature Gran % Seg Neutrophils % Lymphocytes % Monocytes % Eosinophils % Basophils % Neutrophils # Lymphocytes # Monocytes # Eosinophils # Basophils # Platelet Estimate Hypochromasia Anisocytosis Sodium Potassium Chloride Carbon Dioxide BUN Creatinine Est GFR ( Amer) Est GFR (Non-Af Amer) BUN/Creatinine Ratio Glucose POC Glucose 117 H Calculated Osmolality Calcium Cultures: Cultures 01/24/17 18:36 Anaerobic Culture - Preliminary Left Foot At this time, no anaerobic growth is present. The culture will be finalized after 5 days of incubation. 01/24/17 18:36 Wound Culture - Final Left Foot Proteus mirabilis 01/24/17 18:36 Gram Stain - Final Left Foot Exam - Constitutional Vitals: Temp Pulse Resp BP Pulse Ox 97.5 F L 92 16 122/77 95 01/28/17 07:15 01/28/17 10:08 01/28/17 10:08 01/28/17 10:08 01/28/17 10:08 General appearance: cooperative, morbidly obese, no acute distress - Head Head exam: Present: atraumatic, normal inspection, normocephalic - Eye Eye exam: Present: EOMI, normal appearance, PERRL Pupils: Present: normal accommodation - ENT ENT exam: Present: mucous membranes moist Additional comments: Dried lesion noted to the left corner of the mouth without drainage or blistering. Discoloration noted to inside of the lower lip on the right side. - Neck Neck exam: Present: normal inspection - Respiratory Respiratory exam: Present: CTAB. Absent: rales, respiratory distress, rhonchi, wheezes - Cardiovascular Cardiovascular exam: Present: RRR, +S1, +S2 - GI/Abdominal GI/Abdominal exam: Present: distended (obese), normal bowel sounds, soft. Absent: tenderness - Extremities Exam Additional comments: Left foot dressing with moderate amount of serous drainage noted overlying the surgical site. 1+ edema of the LLE. - Neurological Exam Neurological exam: Present: alert, oriented X3, no focal deficits - Psychiatric Psychiatric exam: Present: normal affect, normal mood Additional comments: Tangential speech noted. - Skin Skin exam: Present: dry, intact, warm Additional comments: Generalized erythema noted to the extremities and torso. Consult Discharge Plan - Plan Instructions: Cellulitis (DC), Anxiety (DC) Additional Instructions: Please go home with home health to assist you with your wound VAC management, dressing changes, and IV antibiotic administration. He will be receiving a daily infusion of Levaquin for approximately 6 weeks, or what ever infectious disease decides. You have not already a scheduled outpatient appointment with infectious disease on 02/09/2017. It is also important you follow-up with podiatry as an outpatient. On Mondays weekly, you need to have lab work done including a CBC, BMP, CRP, and ESR. In the interim while you are waiting for your wound VAC to arrive, you need to do twice a day wet-to-dry dressing changes of your wound. Home health will assist you with this. Referrals: Titus Benavides DPM [Partnered Physician] - (WEB REQUEST - OFFICE WILL CALL WITH APPOINTMENT TIME.) Maribell Hope CNP [Advanced Practice Nurse] - 02/10/17 8:40 am Dennis Garner MD [Primary Care Provider] - 02/03/17 1:30 pm Prescriptions: Levofloxacin 750 MG/150 ML [Levaquin Premix 750mg/150 mL] 750 mg IVPB DAILY #42 bag - Attending Attestation I examined this patient and my medical decision-making was reviewed with the Resident Physician. I agree with the documented findings, disposition and treatment plan as described except to the extent set forth below.
[2017-01-28] MEDS: Levofloxacin 750 MG/150 ML 750 MG/150 ML BAG IVPB SCH (14:16)
--- NOTE | 2017-01-28 14:19 | Internal Med Progress Note ---
<Patricia Barrera - Last Filed: 01/28/17 14:16> Date of Encounter: 01/28/17 Time of Encounter: 11:00 - Assessment and plan (1) Non healing left heel wound Current Visit: Yes Status: Acute Assessment and plan: Patient with a necrotic left calcaneus ulcer likely secondary to pressure and diabetes. ESR over 130. CRP 58. No leukocytosis. -MRI suggestive of osteomyelitis with myositis. -Wound was divided with bone biopsy 4 days ago. -ID saw patient. They discontinued the linezolid and ertapenem. They started the patient on levofloxacin day 2. -PICC line in place today. -ID recommending 6 weeks therapy with levofloxacin upon discharge home from the hospital. They want the patient to get weekly CBC, CMP, ESR, and CRP during her outpatient antibiotic may management. -Follow-up official bone biopsy results. -Following social work recommendations regarding placement. Patient will need assistance with dressing changes, wound VAC management, self-care, and antibiotic administration. -She has follow-up appointment scheduled with ID on 02/10/2017. -Follow podiatry recommendations regarding wound VAC. (2) Osteomyelitis Current Visit: Yes Status: Acute Assessment and plan: See above for nonhealing left heel wound. -Follow ID recommendations. Qualifiers: Osteomyelitis type: unspecified type Osteomyelitis location: foot Laterality: left Qualified Code(s): M86.9 - Osteomyelitis, unspecified (3) Diabetes Current Visit: No Status: Acute Assessment and plan: Patient on sliding scale insulin and before meals at bedtime protocol. (4) Acute and chronic respiratory failure with hypoxia Current Visit: No Status: Acute Assessment and plan: Patient with pulmonary hypertension and hypercapnic respiratory failure likely secondary to her morbid obesity. -Continue BiPAP as patient is taking at home. (5) Sleep apnea Current Visit: No Status: Chronic Assessment and plan: BiPAP. Qualifiers: Sleep apnea type: unspecified type Qualified Code(s): G47.30 - Sleep apnea , unspecified (6) Morbid obesity with BMI of 70 and over, adult Current Visit: No Status: Acute Assessment and plan: Management of diabetes and comorbidities during hospitalization. (7) Red man syndrome Current Visit: No Status: Acute Assessment and plan: Vancomycin discontinued. Resolved. (8) DVT prophylaxis Current Visit: Yes Status: Acute Assessment and plan: Heparin subcutaneous 3 times a day. - Subjective Interval history: Ms. Lemus is a 56-year-old female with past medical history of diabetes mellitus , COPD, pulmonary hypertension, obstructive sleep apnea requiring BiPAP at home , chronic hypercapnic respiratory failure, recent admission to [facility] for MRSA pneumonia, and hypertension. She has been admitted in is currently being managed for an open left calcaneal ulcer that is necrotic. MRI examination reveals osteomyelitis with potential myositis. She is postoperative day 4 from surgical debridement and bone biopsy. She is resting comfortably this morning and talkative. She has no complaints other than some concern about a purplish lesion on the rim of her mouth which the patient states has been there for several months. Patient is adamant that her house has running water, and that she is safe to return to her house for her IV antibiotic treatment that she needs for the following 6 weeks. Patient has no complaints. She denies any fevers, lightheadedness, dizziness, headaches, or nausea and vomiting. She denies any diarrhea, hematochezia, melena, dysuria or hematuria. - Constitutional Vitals: Temp Pulse Resp BP Pulse Ox 97.8 F 88 18 111/67 94 01/28/17 11:44 01/28/17 11:44 01/28/17 11:44 01/28/17 11:44 01/28/17 11:44 General appearance: Present: disheveled, A&O X 3, morbidly obese, pleasant, obese - Respiratory Respiratory exam: Present: CTAB. Absent: accessory muscle use, rales, rhonchi, wheezes - Cardiovascular Cardiovascular exam: Present: RRR, +S1, +S2. Absent: diastolic murmur, gallop, rubs, systolic murmur - GI/Abdominal GI/Abdominal exam: Present: normal bowel sounds, soft, no peritoneal signs. Absent: distended, tenderness - Extremities Exam Extremities exam: Present: pedal edema, warm, radial pulses palpable and symmetrical. Absent: calf tenderness, cyanotic Additional comments: Patient with clean and dry bandage intact over her left foot. Patient has considerably scaling over her bilateral lower extremities is chronic. Erythema has lessened from 2 days ago. Patient has a PICC line in place over her left antecubital fossa. Internal Medicine: Result - Labs CBC & Chem 7: 01/28/17 06:36 01/28/17 06:36 Labs: Short CBC 01/28/17 Range/Units 06:36 WBC 7.2 (4.3-11.1) K/mcL Hgb 13.0 (11.5-15.4) g/dL Hct 45.2 H (35.3-44.9) % Plt Count 303 (140-400) K/mcL Neutrophils # 5.1 (1.6-8.9) K/mcL BMP 01/28/17 06:36 Sodium 138 Potassium 4.2 Chloride 97 L Carbon Dioxide 33 H BUN 17 Creatinine 0.93 Glucose 123 H Calcium 10.1 - ABG Interpretation ABG results: PT/INR, D-dimer PT 11.9 Seconds (9.4-12.1) 01/22/17 20:09 Consult Discharge Plan - Plan Referrals: Dennis Garner MD [Primary Care Provider] - 02/03/17 1:30 pm Prescriptions: Levofloxacin 750 MG/150 ML [Levaquin Premix 750mg/150 mL] 750 mg IVPB DAILY #42 bag <Gilmer Sanders - Last Filed: 01/28/17 16:02> Date of Encounter: 01/28/17 - Constitutional Vitals: Temp Pulse Resp BP Pulse Ox 97.8 F 88 18 111/67 94 01/28/17 11:44 01/28/17 11:44 01/28/17 11:44 01/28/17 11:44 01/28/17 11:44 Internal Medicine: Result - Labs CBC & Chem 7: 01/28/17 06:36 01/28/17 06:36 Labs: Short CBC 01/28/17 Range/Units 06:36 WBC 7.2 (4.3-11.1) K/mcL Hgb 13.0 (11.5-15.4) g/dL Hct 45.2 H (35.3-44.9) % Plt Count 303 (140-400) K/mcL Neutrophils # 5.1 (1.6-8.9) K/mcL BMP 01/28/17 06:36 Sodium 138 Potassium 4.2 Chloride 97 L Carbon Dioxide 33 H BUN 17 Creatinine 0.93 Glucose 123 H Calcium 10.1 - ABG Interpretation ABG results: PT/INR, D-dimer PT 11.9 Seconds (9.4-12.1) 01/22/17 20:09 - Attending Attestation I saw and examined patient independently. I have discussed with resident Dr Barrera regarding management plan. I agree with the documentation. Patient feels fine, no new complaints. Vitals are stable. Will continue Levaquin IV for 6 weeks per ID consult. Ideally patient needed to be discharged to rehabilitation center. However, patient refused to be discharged to rehabilitation, patient insists to go back to home. Will consider home health, home infusion and home nursing. Patient will closely follow up with ID and podiatry as outpatient.
--- NOTE | 2017-01-28 16:07 | Physician Discharge Referral ---
Home Health/Hosp Referral Info Transfer to: Home Health - Diagnosis (1) Non healing left heel wound Priority: Primary Status: Acute (2) Osteomyelitis Priority: Secondary Status: Acute (3) Diabetes Priority: Secondary Status: Acute (4) Acute and chronic respiratory failure with hypoxia Priority: Secondary Status: Acute (5) Sleep apnea Priority: Secondary Status: Chronic (6) Morbid obesity Priority: Secondary Status: Acute (7) Red man syndrome Priority: Secondary Status: Acute (8) DVT prophylaxis Priority: Secondary Status: Acute - Respiratory Orders Smoking Cessation: Smoking cessation has been advised. For more information, call the [place] [employer] Quit Line at 8-087-HPBF-NOW. - Diet/Nutrition Diet/Nutrition Orders: Cardiac - Activity Activity Orders: Ambulate - Services Needed Following services are medically necessary services: Nursing, Physical Therapy, Occupational Therapy, Home Infusion Home Care Orders: nursing wet to dry dressings BID IV antibiotics infusion. - Transfer Medications Prescriptions: Levofloxacin 750 MG/150 ML [Levaquin Premix 750mg/150 mL] 750 mg IVPB DAILY #42 bag Home Medications: Ergocalciferol (VITAMIN D2) [Vitamin D2] 2,000 unit PO DAILY 09/14/15 [History] Albuterol Sulfate [Ventolin Hfa] 2 puff IH Q4H PRN 01/22/17 [History] Aspirin/Caffeine [Back & Body Pain Reliever Cplt] 1 each PO Q4H PRN 01/22/17 [ History] Docusate [Colace] 100 mg PO BID PRN 01/22/17 [History] Levothyroxine [Synthroid] 175 mcg PO 0630 01/22/17 [History] Oxygen 4 l NS AD 01/22/17 [History] Sennosides [Senna] 17.2 mg PO BID PRN 01/22/17 [History] Levofloxacin 750 MG/150 ML [Levaquin Premix 750mg/150 mL] 750 mg IVPB DAILY #42 bag 01/27/17 [Rx] Allergies/Adverse Reactions: 3 Allergy/AdvReac Type Severity Reaction Status Date / Time cefdinir Allergy Rash Verified 11/25/14 17:58 clindamycin Allergy See Verified 01/22/17 18:36 Comments Penicillins [PCN] Allergy Rash Verified 11/25/14 17:58 Certification: Further, I certify that my clinical findings support that this patient is homebound (i.e. absences from home require considerable and taxing effort and are for medical reasons or orthodoxy services or infrequently or short duration when for other reasons) because: Homebound Reason: Patient requires assistance of a person or device to safely leave home Attestation: My signature below is to certify that this patient is under my care and that I, or nurse practitioner, or a physician's reading assistant working with me, has a face-to -face encounter with this patient.
--- NOTE | 2017-01-28 16:48 | Discharge Summary ---
<Patricia Barrera H - Last Filed: 01/28/17 16:45> Date of Encounter: 01/28/17 Time of Encounter: 11:00 - Discharge Diagnosis (1) Non healing left heel wound Priority: Primary Status: Acute (2) Osteomyelitis Priority: Secondary Status: Acute Qualifiers: Osteomyelitis type: unspecified type Osteomyelitis location: foot Laterality: left Qualified Code(s): M86.9 - Osteomyelitis, unspecified (3) Diabetes Priority: Secondary Status: Acute (4) Acute and chronic respiratory failure with hypoxia Priority: Secondary Status: Acute (5) Sleep apnea Priority: Secondary Status: Chronic Qualifiers: Sleep apnea type: unspecified type Qualified Code(s): G47.30 - Sleep apnea , unspecified (6) Morbid obesity with BMI of 70 and over, adult Priority: Secondary Status: Acute (7) Red man syndrome Priority: Secondary Status: Acute (8) DVT prophylaxis Priority: Secondary Status: Acute - Discharge Medications Prescriptions: Levofloxacin 750 MG/150 ML [Levaquin Premix 750mg/150 mL] 750 mg IVPB DAILY #42 bag Home Medications: Ergocalciferol (VITAMIN D2) [Vitamin D2] 2,000 unit PO DAILY 09/14/15 [History] Albuterol Sulfate [Ventolin Hfa] 2 puff IH Q4H PRN 01/22/17 [History] Aspirin/Caffeine [Back & Body Pain Reliever Cplt] 1 each PO Q4H PRN 01/22/17 [ History] Docusate [Colace] 100 mg PO BID PRN 01/22/17 [History] Levothyroxine [Synthroid] 175 mcg PO 0630 01/22/17 [History] Oxygen 4 l NS AD 01/22/17 [History] Sennosides [Senna] 17.2 mg PO BID PRN 01/22/17 [History] Levofloxacin 750 MG/150 ML [Levaquin Premix 750mg/150 mL] 750 mg IVPB DAILY #42 bag 01/27/17 [Rx] Allergies/Adverse Reactions: 3 Allergy/AdvReac Type Severity Reaction Status Date / Time cefdinir Allergy Rash Verified 11/25/14 17:58 clindamycin Allergy See Verified 01/22/17 18:36 Comments Penicillins [PCN] Allergy Rash Verified 11/25/14 17:58 Date of admission: 01/23/17 04:38 Primary care physician: Dennis Garner MD Consults: 01/23/17 16:03 Consult to Psychiatry [CONS] Routine Consulting Provider: Psych[facility] Reason for Consult: concern for psychosis Call Completed: No 01/23/17 16:56 PT [Consult to Physical Therapy] [CONS] Routine Comment: Evaluate, develop and implement POC Reason for Consult: Podiatry recommendations. 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 Line Type: PICC 01/26/17 13:28 Consult to Infectious Diseases [CONS] Routine Consulting Provider: Infectious Disease [facility] Reason for Consult: IV antibiotic coverage Call Completed: No - Patient Status Disposition: Home Health Service Condition: Fair Functional capacity at discharge: independent ambulation Overall status at discharge: patient is progressing back to baseline - Discharge Instructions Follow Up With: Dennis Garner MD [Primary Care Provider] - 02/03/17 1:30 pm Maribell Hope CNP [Advanced Practice Nurse] - Titus Benavides DPM [Partnered Physician] - Additional Instructions: Please go home with home health to assist you with your wound VAC management, dressing changes, and IV antibiotic administration. He will be receiving a daily infusion of Levaquin for approximately 6 weeks, or what ever infectious disease decides. You have not already a scheduled outpatient appointment with infectious disease on 02/09/2017. It is also important you follow-up with podiatry as an outpatient. On Mondays weekly, you need to have lab work done including a CBC, BMP, CRP, and ESR. In the interim while you are waiting for your wound VAC to arrive, you need to do twice a day wet-to-dry dressing changes of your wound. Home health will assist you with this. - Diet and Activity Activity: increase activity as tolerated Diet: low fat, low cholesterol Hospital course: Ms. Lemus is a 56 year old female with past medical history of diabetes mellitus , COPD, pulmonary hypertension, obstructive sleep apnea requiring BiPAP at home , chronic hypercapnic respiratory failure, recent admission at [facility] for MRSA pneumonia, and hypertension. She was admitted to the hospital for a left open calcaneal ulcer that was necrotic. Subsequently an MRI evaluation revealed osteomyelitis with potential myositis. Patient was admitted and podiatry was consulted for intraoperative debridement and bone biopsy. Patient was initially started on vancomycin for MRSA coverage, however, she developed red man syndrome. Patient's hospital course was complicated by her multiple allergies to many antibiotics. Patient was initially started on ciprofloxacin in addition to vancomycin. However on postoperative day 2, she was noted to have some potential phlebitis during the administration of ciprofloxacin so that medication was discontinued. After the wound cultures resulted, it was shown that her wound grew Proteus. Cephalosporins were considered however patient has a well-documented cefdinir allergy. We changed the patient's antibiotic coverage to the linezolid as patient had a red man syndrome that recurred with every dosage of vancomycin despite diphenhydramine administration. We also added ertapenem to cover for Proteus. We consulted infectious disease who started the patient on levofloxacin as the sensitivities had returned by that time. ID is recommending 6 weeks outpatient therapy with IV levofloxacin. The living conditions of patient's home were unclear according to social work and interview with the patient. We recommended patient be discharged to a detention facility short-term, however, patient was adamant that she would like to be discharged home with home health to visit her daily for dressing changes, wound VAC management, self care, and antibiotic administration. ID has recommended weekly CBC, BMP, ESR, and CRP measurements. In addiction, podiatry is also recommending twice a day wet-to-dry dressing changes until her insurance approves her wound VAC. Patient is to follow-up with with podiatry and infectious disease at her already scheduled appointment. Patient was very interactive and engaging during her hospitalization, all of her questions were answered, and she expressed understanding of the plan. - Time Spent with Patient Total time spent providing and/or coordinating discharge services: Greater than 30 minutes (40) - Constitutional Vitals: Temp Pulse Resp BP Pulse Ox 97.8 F 88 18 111/67 94 01/28/17 11:44 01/28/17 11:44 01/28/17 11:44 01/28/17 11:44 01/28/17 11:44 General appearance: Present: disheveled, A&O X 3, morbidly obese, pleasant, obese - Respiratory Respiratory exam: Present: CTAB. Absent: accessory muscle use, rales, rhonchi, wheezes - Cardiovascular Cardiovascular exam: Present: RRR, +S1, +S2. Absent: diastolic murmur, gallop, rubs, systolic murmur - GI/Abdominal GI/Abdominal exam: Present: normal bowel sounds, soft, no peritoneal signs. Absent: distended, tenderness - Extremities Exam Extremities exam: Present: warm, radial pulses palpable and symmetrical. Absent : calf tenderness, cyanotic Additional comments: Patient with intact and dry dressing over her left foot. No surrounding erythema, crepitance, or induration or streaking. <Gilmer Sanders - Last Filed: 01/28/17 17:28> Date of Encounter: 01/28/17 Date of admission: 01/23/17 04:38 Primary care physician: Dennis Garner MD Consults: 01/23/17 16:03 Consult to Psychiatry [CONS] Routine Consulting Provider: Psychiatry [facility] Reason for Consult: concern for psychosis Call Completed: No 01/23/17 16:56 PT [Consult to Physical Therapy] [CONS] Routine Comment: Evaluate, develop and implement POC Reason for Consult: Podiatry recommendations. 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 Lemus is a 56 year old female - Time Spent with Patient Total time spent providing and/or coordinating discharge services: - Constitutional Vitals: Temp Pulse Resp BP Pulse Ox 98.1 F 91 16 118/68 93 01/28/17 16:55 01/28/17 16:55 01/28/17 16:55 01/28/17 16:55 01/28/17 16:55 - Attending Attestation I saw and examined patient independently. I have discussed with the resident Dr Barrera regarding management/discharge plan. I agree with the documentation. Pt will discharge home with home health, home IV antibiotic infusion, and home dressing changes. Patient was educated to closely follow-up with PCP, ID, and podiatry. Patient understand she needs to check CBC, BMP, ESR, and CRP weekly on every Friday.
[2017-01-28 17:14] VITALS: BP 118/68
[2017-01-28] MEDS ORDERED: FLUARIX QUAD 2017-18 36MOS UP/PF 0.5 ML SYRINGE IM ONE (18:04)
[2017-01-29 11:35] LABS: HIV-1&2 Antibody & p24 Ag Nonreactive (Nonreactive); Hepatitis A Antibody IgM Nonreactive (Nonreactive); Hepatitis B Core IgM Nonreactive (Nonreactive); Hepatitis B Surface Antigen Nonreactive (Nonreactive); Hepatitis C Virus Antibody Nonreactive (Nonreactive)
== END 2017-01-28 19:30 | disposition home health service (06) | DRG 317 ==
LOC: EMEROO 18:08 → 3ANU 18:08 → SUATTDRO 01-23 04:38
PROVIDERS: ADMIT Pediatrics; ATTEND Internal Medicine

== ENCOUNTER 2017-02-03 15:11 | Inpatient (IN) ==
[~2017-02-03 15:11] MED LIST: Aminoglycoside Consult 1 EACH MC ONE
[2017-02-03] MEDS ORDERED: 0.9 % Sodium Chloride 1,000 ML IVC ONE (15:26)
[2017-02-03] MEDS ORDERED: Levofloxacin 750 MG/150 ML 750 MG/150 ML BAG IVPB ONE (15:30)
--- NOTE | 2017-02-03 15:52 | Emergency Department Note ---
Disposition Clinical Impression: Foot ulcer with necrosis of muscle Qualifiers: Laterality: left Qualified Code(s): L97.523 - Non-pressure chronic ulcer of other part of left foot with necrosis of muscle Altered mental status Qualifiers: Altered mental status type: unspecified Qualified Code(s): R41.82 - Altered mental status, unspecified Disposition: Admitted As Inpatient Condition: Fair Forms: ED Satisfaction Letter Time of Disposition: 18:26 Extremity Problem HPI - General Chief complaint: ED Extremity Problem,Nontraumatic Stated complaint: Left foot ulcer Time Seen by Provider: 02/03/17 15:14 Limitations: altered mental status Nursing Notes Reviewed: Yes Vital Signs Reviewed: Yes - History of Present Illness HPI Narrative: Patient is a 56-year-old female who presents to [facility] ED with a chief complaint of left foot ulcer. Patient was recently admitted to our facility from January 23 2 January 28. She underwent debridement of her foot by Dr. phan. She was supposed to receive a wound VAC and have wet-to- dry dressing at home. She was also supposed to receive daily IV antibiotics and have wet-to-dry dressings placed by home health. Patient was seen by her primary care physician today and was concerned with worsening infection. They state home health has not been doing the dressing changes as directed and her dressing was completely dry and stuck onto the wound. There was concern for worsening infection since there was concern that patient was not actually getting her antibiotic doses at home. Patient has extremely tangential thinking and is nonstop talking to herself and to others. Apparently, last time patient was inpatient, she was evaluated by psychiatrist and was deemed mentally able to make her own decisions. Pt Subjective Complaint: extremity pain Onset (ago): week(s) Consistency: Worsening Injury Location: left, lower extremity Pain Scale: 9 Improves with: nothing Worsens with: nothing Associated symptoms: Reports: change in appearance, redness. Denies: chest pain , shortness of breath, abdominal pain, back pain, fever - Related Data Home Medications Medication Instructions Recorded Confirmed Ergocalciferol (VITAMIN D2) 2,000 unit PO DAILY 09/14/15 02/03/17 [Vitamin D2] Albuterol Sulfate [Ventolin Hfa] 2 puff IH Q4H PRN 01/22/17 02/03/17 Aspirin/Caffeine [Back & Body Pain 1 each PO Q4H PRN 01/22/17 02/03/17 Reliever Cplt] Docusate [Colace] 100 mg PO BID PRN 01/22/17 02/03/17 Levothyroxine [Synthroid] 175 mcg PO 0630 01/22/17 02/03/17 Oxygen 4 l NS AD 01/22/17 02/03/17 Sennosides [Senna] 17.2 mg PO BID PRN 01/22/17 02/03/17 Previous Rx's Medication Instructions Recorded Levofloxacin 750 MG/150 ML 750 mg IVPB DAILY #42 bag 01/27/17 [Levaquin Premix 750mg/150 mL] Allergies Allergy/AdvReac Type Severity Reaction Status Date / Time cefdinir Allergy Rash Verified 11/25/14 17:58 clindamycin Allergy See Verified 01/22/17 18:36 Comments Penicillins [PCN] Allergy Rash Verified 11/25/14 17:58 Limitations: ROS unobtainable due to patients medical condition Past Medical History - Past Medical History Attestation: Yes The following information was validated with the patient. 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 - Social History Smoking Status: Never smoker Smokeless Tobacco Status: No Alcohol use: Reports: none Drug use: Reports: none Physical Exam - General Limitations: altered mental status General appearance: alert, other - Head Head exam: atraumatic, normocephalic, normal inspection - Eye Eye exam: Present: normal appearance, PERRL, EOMI - ENT ENT exam: normal exam, normal oropharynx, mucous membranes moist - Neck Neck exam: Present: normal inspection, full ROM, trachea midline - Chest Chest inspection: Present: normal inspection, symmetric chest wall rise - Respiratory Respiratory exam: Present: normal lung sounds bilaterally - Cardiovascular Cardiovascular exam: Present: regular rate, normal rhythm, normal heart sounds - Abdominal Exam Abdominal exam: Present: soft, Non-Tender. Absent: tenderness, distention, guarding, rebound, rigidity - Expanded Lower Extremity Exam Foot/toe exam: Present: tenderness (Over the left heel. Wound has been debrided. There is red/pink tissue present.), erythema, other (ulceration) - Back Exam Back exam: Present: normal inspection, full ROM. Absent: tenderness - Neurological Exam Neurological exam: Present: alert, oriented X3 - Psychiatric Psychiatric exam: Present: normal affect, normal mood - Skin Skin exam: Present: warm, dry, intact, normal color Course Course Narrative: Patient seen and examined. Patient with recent debridement of the foot by our dairy machine operator farmworker here. Since going home, patient has not been receiving her IV antibiotics or properly doing her dressings. Home health comes in occasionally to change it. However her primary care was concerned that it had not been taking care of properly worse. Basic lab work, x-ray of the foot ordered. Since there is concern about her mental status and her severe tangential thinking and less verbal ability to make decisions for herself, will do a CT of the head and likely admit for IV antibiotics, podiatry consultation, wound VAC placement. - Reevaluation(s) Reevaluation #1: Patient's lab work appears unremarkable. Imaging also unremarkable. Patient seen by social work as well states patient has not been getting the proper amount of home health. Also concern about her mental capability. I discussed with dairy machine operator farmworker who will see patient in consultation tomorrow. We will also admit for a left foot ulcer, altered mental status, IV antibiotics. Discussed with hospitalist Everett Olivera who has accepted patient for admission. Time: 18:25 Vital Signs Temperature 98 F 02/03/17 15:24 Pulse Rate 89 02/03/17 15:24 Respiratory Rate 16 02/03/17 15:24 Blood Pressure 129/82 02/03/17 15:24 O2 Sat by Pulse Oximetry 94 02/03/17 15:24 Temperature 98 F 02/03/17 15:24 Pulse Rate 89 02/03/17 15:24 Respiratory Rate 16 02/03/17 15:24 Blood Pressure 129/82 02/03/17 15:24 O2 Sat by Pulse Oximetry 94 02/03/17 15:24 Oxygen Delivery Oxygen Delivery Nasal Cannula Extremity Problem, Nontraumati - Medical Records Medical records reviewed: Yes I reviewed the patient's medical records. - Lab Data Lab results reviewed: Yes I reviewed the patient's lab results. Result diagrams: 02/03/17 16:09 02/03/17 16:09 Lab Results 02/03/17 02/03/17 02/03/17 Range/Units 16:09 16:09 16:09 WBC 10.6 (4.3-11.1) K/mcL RBC 4.85 (3.82-4.97) M/mcL Hgb 12.6 (11.5-15.4) g/dL Hct 42.3 (35.3-44.9) % MCV 87.2 (83.0-100.0) fL MCH 26.0 L (28.0-33.3) pg MCHC 29.8 L (31.6-35.5) g/dL RDW 22.9 H (11.5-14.5) % Plt Count 300 (140-400) K/mcL MPV 8.5 L (9.4-12.4) fL Immature Gran % 0.8 (0-4) % Seg Neutrophils % 77.4 % Lymphocytes % 12.7 % Monocytes % 5.8 % Eosinophils % 2.7 % Basophils % 0.6 % Neutrophils # 8.2 (1.6-8.9) K/mcL Lymphocytes # 1.4 (0.6-4.6) K/mcL Monocytes # 0.6 (0.0-1.3) K/mcL Eosinophils # 0.3 (0.0-0.6) K/mcL Basophils # 0.1 (0.0-0.2) K/mcL Sodium 140 (136-145) mEq/L Potassium 3.9 (3.5-4.5) mEq/L Chloride 101 (98-109) mEq/L Carbon Dioxide 29 (19-29) mEq/L BUN 10 (7-20) mg/dL Creatinine 1.02 (0.57-1.11) mg/dL Est GFR ( Amer) > 60 (> 60) Est GFR (Non-Af Amer) 56 L (> 60) BUN/Creatinine Ratio 10 (6-26) Glucose 100 H (70-99) mg/dL Calculated Osmolality 289 (280-300) Lactic Acid 0.9 (0.5-2.2) mmol/L Calcium 9.7 (8.6-10.8) mg/dL Phosphorus 3.3 (2.3-4.7) mg/dL Magnesium 1.8 (1.6-2.6) mg/dL Total Bilirubin 1.3 H (0.2-1.2) mg/dL Direct Bilirubin 0.5 (0.0-0.5) mg/dL Indirect Bilirubin 0.8 (0.0-1.2) mg/dL AST 34 (5-34) Units/L ALT 38 (0-55) Units/L Alkaline Phosphatase 63 (38-126) Units/L Ammonia (18-72) mcmol/L Serum Total Protein 7.1 (6.0-8.3) g/dL Albumin 3.1 L (3.5-5.0) g/dL Globulin 4.0 H (2.4-3.5) g/dL Albumin/Globulin Ratio 0.8 L (1.1-2.2) TSH 4.178 (0.350-4.840) mcIU/mL // Range/Units 16:09 WBC (4.3-11.1) K/mcL RBC (3.82-4.97) M/mcL Hgb (11.5-15.4) g/dL Hct (35.3-44.9) % MCV (83.0-100.0) fL MCH (28.0-33.3) pg MCHC (31.6-35.5) g/dL RDW (11.5-14.5) % Plt Count (140-400) K/mcL MPV (9.4-12.4) fL Immature Gran % (0-4) % Seg Neutrophils % % Lymphocytes % % Monocytes % % Eosinophils % % Basophils % % Neutrophils # (1.6-8.9) K/mcL Lymphocytes # (0.6-4.6) K/mcL Monocytes # (0.0-1.3) K/mcL Eosinophils # (0.0-0.6) K/mcL Basophils # (0.0-0.2) K/mcL Sodium (136-145) mEq/L Potassium (3.5-4.5) mEq/L Chloride (98-109) mEq/L Carbon Dioxide (19-29) mEq/L BUN (7-20) mg/dL Creatinine (0.57-1.11) mg/dL Est GFR ( Amer) (> 60) Est GFR (Non-Af Amer) (> 60) BUN/Creatinine Ratio (6-26) Glucose (70-99) mg/dL Calculated Osmolality (280-300) Lactic Acid (0.5-2.2) mmol/L Calcium (8.6-10.8) mg/dL Phosphorus (2.3-4.7) mg/dL Magnesium (1.6-2.6) mg/dL Total Bilirubin (0.2-1.2) mg/dL Direct Bilirubin (0.0-0.5) mg/dL Indirect Bilirubin (0.0-1.2) mg/dL AST (5-34) Units/L ALT (0-55) Units/L Alkaline Phosphatase (38-126) Units/L Ammonia 20 (18-72) mcmol/L Serum Total Protein (6.0-8.3) g/dL Albumin (3.5-5.0) g/dL Globulin (2.4-3.5) g/dL Albumin/Globulin Ratio (1.1-2.2) TSH (0.350-4.840) mcIU/mL - Radiology Data Radiology results reviewed: Yes I reviewed the patient's radiology results. Chest X-Ray 02/03/17 15:18 IMPRESSION: Stable cardiomegaly. Mild pulmonary vascular congestion. D/ / Toni Carbajal MD / Toni Carbajal MD Interpreting Provider: Toni Carbajal MD Foot X-Ray 02/03/17 16:40 IMPRESSION: No destructive bony abnormality is identified Enthesopathy at the Achilles insertion and along the plantar surface of the calcaneus D/ / Yimi Pratt MD / Yimi Pratt MD Interpreting Provider: Yimi Pratt MD Head CT 02/03/17 17:00 IMPRESSION: No acute intracranial abnormality. D/ / Yimi Pratt MD / Yimi Pratt MD Interpreting Provider: Yimi Pratt MD
--- NOTE | 2017-02-03 15:57 | Emergency Department Note ---
START Narrative - START START: I examined this patient and my medical decision-making was reviewed with the Resident Physician. I agree with the documented findings, disposition and treatment plan as described except to the extent set forth below. 56 year old female presents from her PCP office Dr Garner and he sent her here for re-evaluation of her midline and he is concerned that she has not had proper followup for her left foot ulcer which was originally nec fasc. Alisha seems to be manic and has flight of ideas and is unsure of whether or how many antibiotic doses she has had. She does know she is supposed to have a wound vac placed but it never was. Nancy does not appear to be toxic. We will do sepsis wokrup and replace her midline.
[2017-02-03 16:23] LABS: Basophils # 0.1 K/mcL (0.0-0.2); Basophils % 0.6 %; Eosinophils # 0.3 K/mcL (0.0-0.6); Eosinophils % 2.7 %; Hematocrit 42.3 % (35.3-44.9); Hemoglobin 12.6 g/dL (11.5-15.4); Immature Granulocytes % 0.8 % (0-4); Lymphocytes # 1.4 K/mcL (0.6-4.6); Lymphocytes % 12.7 %; Mean Corpuscular HGB Conc 29.8 g/dL (31.6-35.5); Mean Corpuscular Volume 87.2 fL (83.0-100.0); Mean Platelet Volume 8.5 fL (9.4-12.4); Monocytes # 0.6 K/mcL (0.0-1.3); Monocytes % 5.8 %; Neutrophils # 8.2 K/mcL (1.6-8.9); Platelet Count 300 K/mcL (140-400); Red Blood Count 4.85 M/mcL (3.82-4.97); Red Cell Distribution Width 22.9 % (11.5-14.5); Segmented Neutrophils % 77.4 %
[2017-02-03 16:34] LABS: Alanine Aminotransferase 38 Units/L (0-55); Albumin 3.1 g/dL (3.5-5.0); Albumin/Globulin Ratio 0.8 (1.1-2.2); Alkaline Phosphatase 63 Units/L (38-126); Aspartate Amino Transferase 34 Units/L (5-34); BUN/Creatinine Ratio 10 (6-26); Bilirubin,Direct 0.5 mg/dL (0.0-0.5); Bilirubin,Indirect 0.8 mg/dL (0.0-1.2); Bilirubin,Total 1.3 mg/dL (0.2-1.2); Blood Urea Nitrogen 10 mg/dL (7-20); Calcium 9.7 mg/dL (8.6-10.8); Carbon Dioxide 29 mEq/L (19-29); Chloride 101 mEq/L (98-109); Glucose 100 mg/dL (70-99); Magnesium 1.8 mg/dL (1.6-2.6); Osmolality,Calculated 289 (280-300); Phosphorous 3.3 mg/dL (2.3-4.7); Potassium 3.9 mEq/L (3.5-4.5); Sodium 140 mEq/L (136-145); Total Protein 7.1 g/dL (6.0-8.3); eGFR For African Americans > 60 (> 60); eGFR For Non-African Americans 56 (> 60)
[2017-02-03 17:15] LABS: Thyroid Stimulating Hormone 4.178 mcIU/mL (0.350-4.840)
[2017-02-03] MEDS ORDERED: Ondansetron 4 MG/2 ML VIAL IVP PRN (21:15)
[2017-02-03] MEDS ORDERED: Acetaminophen 325 MG TABLET PO PRN (21:15)
[2017-02-03] MEDS ORDERED: Naloxone 0.4 MG/ML INJ IVP PRN (21:15)
[2017-02-03] MEDS ORDERED: Sennosides 8.6 MG TABLET PO PRN (21:26)
[2017-02-03] MEDS ORDERED: Dextrose Gel 15 GM PO PRN ×2 (21:30)
[2017-02-03] MEDS ORDERED: *HR* Dextrose 50 % in Water (Syg) 50 ML SYRINGE IVP PRN (21:30)
[2017-02-03] MEDS ORDERED: D5% in Water 1,000 ML IVC PRN (21:30)
--- NOTE | 2017-02-03 21:52 | Internal Med History&Physical ---
<Everett Olivera - Last Filed: 02/03/17 22:25> Date of Encounter: 02/03/17 Time of Encounter: 20:45 Assessment and Plan (1) Altered mental status Current visit: Yes Status: Chronic Patient presents with flight of thought and extreme tangential thinking on examination. Patient is poor historian in that her thoughts and descriptions are extremely disjointed. Patient had similar mentation during previous admission and was evaluated by psychiatry and found to be mentally able to make her own decisions. Will monitor patient for changes/decline in mental status. Qualifiers: Altered mental status type: unspecified Qualified Code(s): R41.82 - Altered mental status, unspecified (2) Foot ulcer with necrosis of muscle Current visit: Yes Status: Chronic Patient presents with chronic non-pressure ulcer of the left foot with necrosis to the muscle. Patient was hospitalized for the same problem January 23-. Patient reports Dr. Benavides debrided the wound recently. Patient reports she was to receive home health care with wound care, wound vac, and antibiotics. Wound Care consult, daily wound care, and wound culture ordered. Podiatry consult ordered. IVPB vancomycin pharmacy dosing and Levaquin 750 mg daily ordered for infection coverage. Falls/safety precautions. SW consult ordered to assess for rehab placement post-discharge. PT/OT consults ordered to assess patient for post-discharge needs/planning. Qualifiers: Laterality: left Qualified Code(s): L97.523 - Non-pressure chronic ulcer of other part of left foot with necrosis of muscle (3) Thyroid disease Current visit: Yes Status: Chronic Hx of chronic thyroid disease. Continue patient's Synthroid. (4) Cellulitis Current visit: Yes Status: Chronic Patient presents with chronic cellulitis of bilateral LEs. LEs are erythematous , edematous, and warm. IVPB vancomycin with pharmacy dosing and levaquin 750 mg daily for infection coverage. Qualifiers: Site of cellulitis: extremity Site of cellulitis of extremity: lower extremity Laterality: right Qualified Code(s): L03.115 - Cellulitis of right lower limb (5) Diabetes Current visit: Yes Status: Chronic Hx of chronic diabetes. Patient reports that she does not currently use oral anti-hyperglycemic medications or insulin. BG checks ACHS. Low-dose correction insulin sliding scale with hypoglycemic protocol. A1c ordered in a.m. labs. Diabetes Education consult ordered. ADA diet. Qualifiers: Diabetes mellitus type: type 2 Diabetes mellitus complication status: with unspecified complications Diabetes mellitus retirement insulin use: without retirement use Qualified Code(s): E11.8 - Type 2 diabetes mellitus with unspecified complications (6) DVT prophylaxis Current visit: Yes Status: Acute Lovenox 40 mg SQ 0600 for DVT prophylaxis. Internal Medicine - H&P: HPI Chief complaint: Foot ulcer of left foot Admitted From: Emergency Dept Plans for Post Hospital Care: Home History of present illness: Ms. Lemus is a 56 year old female with medical history of asthma, COPD, diabetes , thyroid disease percents from the ED with chief complaint of painful foot ulcer left foot with necrosis to the muscle she has had for greater than 1 month. Patient reports wound was debrided approximately [address] Benavides and she was supposed to have home health care follow-up with wound care and wound vac which she states was not being done properly. Patient also reports she has not been getting her follow-up antibiotic dosing at home. Patient is very poor historian exhibiting tangential thinking and flight of thought. She reports pain at the base of her left foot with necrotic foot ulcers located as well as swelling and warmth in the left leg. She reports being hospitalized here at [place] between January 23 and for same problem. Patient reports pain and swelling in left foot and diarrhea but denies recent illness, fever, chills, nausea, vomiting, headache, changes in vision, abdominal pain, chest pain, palpitations, numbness and tingling, neurological deficits, weakness, unusual bleeding, presyncope, or syncope. Past Med Surg Social Fam HX - Past Medical History Source: patient Medical history: asthma, COPD, diabetes, thyroid disease, other Psychiatric history: no psych history - Past Surgical History Surgical History: other (Tonsillectomy) - Social History Smoking Status: Never smoker Smokeless Tobacco Status: No Alcohol use: none Drug use: none Current living situation: Home, With Family Activity Level: Uses cane/walker Recent Out of Country Travel Within the Last 8 Weeks: No Exposure or Possible Exposure to Illness During Travel: No - Family History Son Living Status: Still Living Hx Family Cardiac Disorders: Yes Hx Family Respiratory Disorders: Yes Father Race: Family Member Ethnicity: Non- Living Status: Age at : 69 Cause of : Aortic aneurysm Hx Family Cardiac Disorders: Yes (Aortic aneurysm) Mother Race: Family Member Ethnicity: Non- Living Status: Still Living Hx Family Musculoskeletal Disorders: Yes (Broken femur) Brother Race: Family Member Ethnicity: Non- Living Status: Still Living Hx Family Medical Disorders: No Internal Medicine - H&P: Meds RX: Ergocalciferol (VITAMIN D2) [Vitamin D2] 2,000 unit PO DAILY 09/14/15 [ History] RX: Albuterol Sulfate [Ventolin Hfa] 2 puff IH Q4H PRN 01/22/17 [History] RX: Aspirin/Caffeine [Back & Body Pain Reliever Cplt] 1 each PO Q4H PRN [History] RX: Docusate [Colace] 100 mg PO BID PRN 01/22/17 [History] RX: Levothyroxine [Synthroid] 175 mcg PO 0630 01/22/17 [History] RX: Oxygen 4 l NS AD 01/22/17 [History] RX: Sennosides [Senna] 17.2 mg PO BID PRN 01/22/17 [History] Levofloxacin 750 MG/150 ML [Levaquin Premix 750mg/150 mL] 750 mg IVPB DAILY #42 bag 01/27/17 [Rx] 3 Allergy/AdvReac Type Severity Reaction Status Date / Time cefdinir Allergy Rash Verified 11/25/14 17:58 clindamycin Allergy See Verified 01/22/17 18:36 Comments Penicillins [PCN] Allergy Rash Verified 11/25/14 17:58 All Systems PM: A 10-system review of systems was performed and is negative for pertinent findings except as documented above in the HPI. - Constitutional Constitutional: no chills, no fever(s), no night sweats - EENT Eyes: no change in vision, no discharge, no pain, no photophobia Ears: no ear discharge, no ear pain, no tinnitus Nose, mouth and throat: no dysphagia, no nasal discharge, no neck pain, no sore throat - Breasts Breasts: as per HPI - Cardiovascular Cardiovascular ROS IM: no chest pain, no diaphoresis, no dyspnea, no lightheadedness, no palpitations, no syncope - Respiratory Respiratory: no cough, no dyspnea, no wheezing, no excessive phlegm production - Gastrointestinal Gastrointestinal: as per HPI, diarrhea, no abdominal pain, no hematemesis, no hematochezia, no melena, no nausea, no vomiting - Genitourinary Genitourinary: no change in urinary stream, no dysuria, no flank pain, no hematuria Menstruation: as per HPI - Musculoskeletal Musculoskeletal ROS IM: no numbness, no tingling - Integumentary Integumentary IM: sores (Non-pressure chronic ulcer of the left foot with necrosis to the muscle), no rash, no unusual bruising - Neurological Neurological ROS: as per HPI, confusion - Psychiatric Psychiatric: as per HPI, confusion, other (Flight of thought and extreme tangential thinking) - Endocrine Endocrine IM: as per HPI - Hematologic/Lymphatic Hematologic/Lymphatic: no easy bruising - Allergic/Immunologic Allergic/Immunologic: as per HPI - Constitutional Vitals: Temp Pulse Resp BP Pulse Ox 98.1 F 79 16 102/62 93 02/03/17 20:45 02/03/17 20:45 02/03/17 20:45 02/03/17 20:45 02/03/17 20:45 General appearance: Present: cooperative, mild distress, A&O X 3, morbidly obese , answers questions appropriately - Head Head exam: Present: atraumatic, normocephalic - Eye Eye exam: Present: PERRL, conjuntiva pink, sclera anicteric Pupils: Present: PERRL - ENT ENT exam: Present: normal exam - Neck Neck exam general surgery: Present: normal inspection, supple, trachea midline. Absent: lymphadenopathy - Respiratory Respiratory exam: Present: CTAB. Absent: accessory muscle use, rales, rhonchi, wheezes - Cardiovascular Cardiovascular exam: Present: RRR, +S1, +S2. Absent: diastolic murmur, gallop, rubs, systolic murmur - GI/Abdominal GI/Abdominal exam: Present: normal bowel sounds, soft, no peritoneal signs. Absent: distended, tenderness - Rectal Rectal exam: Present: deferred - Additional comments: exam deferred. - Extremities Exam Extremities exam: Present: warm, radial pulses palpable and symmetrical. Absent : calf tenderness, cyanotic, pedal edema - Back Exam Back exam: Present: normal inspection - Neurological Exam Neurological exam: Present: CN II-XII intact, oriented X3, no focal deficits. Absent: pronater drift, facial droop, speech deficit - Psychiatric Psychiatric exam: Present: normal affect, normal mood - Skin Skin exam: Present: dry, intact Internal Med - H&P Results - Labs CBC & Chem 7: 02/03/17 16:09 02/03/17 16:09 - Diagnostic Studies Chest x-ray Additional comments: Impressions Chest X-Ray 02/03/17 15:18 IMPRESSION: Stable cardiomegaly. Mild pulmonary vascular congestion. D/ / Toni Carbajal MD / Toni Carbajal MD Interpreting Provider: Toni Carbajal MD CT scan - head Additional comments: Impressions Head CT 02/03/17 17:00 IMPRESSION: No acute intracranial abnormality. D/ / Yimi Pratt MD / Yimi Pratt MD Interpreting Provider: Yimi Pratt MD Other Images Additional comments: Impressions Foot X-Ray 02/03/17 16:40 IMPRESSION: No destructive bony abnormality is identified Enthesopathy at the Achilles insertion and along the plantar surface of the calcaneus D/ / Yimi Pratt MD / Yimi Pratt MD Interpreting Provider: Yimi Pratt MD <Ronnie Nuñez - Last Filed: 02/04/17 00:36> Date of Encounter: 02/03/17 Internal Medicine - H&P: HPI History of present illness: Ms. Lemus is a 56 year old female All Systems PM: A 10-system review of systems was performed and is negative for pertinent findings except as documented above in the HPI. - Constitutional Vitals: Temp Pulse Resp BP Pulse Ox 97.9 F 84 18 92/63 90 02/03/17 23:32 02/03/17 23:32 02/03/17 23:32 02/03/17 23:32 02/03/17 23:32 Internal Med - H&P Results - Labs CBC & Chem 7: 02/03/17 16:09 02/03/17 16:09 - Attending Attestation Patient was seen and examined by me personally on February 03 and plan discussed with nurse practitioner and agree with findings. Patient has come in with the left heel diabetic ulcer which she had to drive in 2 weeks ago but is still not improving. Visually examined and noted that she has lot of black tissue and it seems wet. We will get wound culture though previously they yielded Proteus sensitive to Levaquin. We will also order MRI of the and podiatry consult. IV vancomycin will be added while we will consult infectious disease also. She is under the impression that her diabetes is very well controlled with diet and I have asked nurses to do Accu-Cheks and hemoglobin A1c to see how good his her blood sugar control which needs to be optimum in order to facilitate healing. I will also order Doppler arterial ultrasound of her lower extremities.
[2017-02-03] MEDS ORDERED: Vancomycin 2,000 MG in D5% in Water 250 ML IVPB SCH (22:00)
[2017-02-03] MEDS ORDERED: Vancomycin 2,000 MG in D5% in Water 500 ML IVPB ONE (23:30)
[2017-02-04 03:55] LABS: INR 1.1; Prothrombin Time 12.1 Seconds (9.4-12.1)
[2017-02-04 03:57] LABS: Activated Partial Thrombo Time 30.7 Seconds (26.0-36.0)
[2017-02-04 04:03] LABS: Alanine Aminotransferase 33 Units/L (0-55); Albumin 2.8 g/dL (3.5-5.0); Albumin/Globulin Ratio 0.8 (1.1-2.2); Alkaline Phosphatase 61 Units/L (38-126); Aspartate Amino Transferase 27 Units/L (5-34); BUN/Creatinine Ratio 9 (6-26); Bilirubin,Total 1.1 mg/dL (0.2-1.2); Blood Urea Nitrogen 9 mg/dL (7-20); Calcium 9.2 mg/dL (8.6-10.8); Carbon Dioxide 29 mEq/L (19-29); Chloride 102 mEq/L (98-109); Chol/HDL Ratio 4.4 (0-4.9); Cholesterol 184 mg/dL (< 200); Globulin 3.7 g/dL (2.4-3.5); Glucose 136 mg/dL (70-99); HDL Cholesterol 42 mg/dL (40-59); LDL Cholesterol,Calculated 111 mg/dL (0-99); Osmolality,Calculated 291 (280-300); Potassium 3.6 mEq/L (3.5-4.5); Sodium 140 mEq/L (136-145); Total Protein 6.5 g/dL (6.0-8.3); Triglycerides 157 mg/dL (< 150); eGFR For African Americans > 60 (> 60); eGFR For Non-African Americans > 60 (> 60)
[2017-02-04 04:10] LABS: Eosinophils # 0.1 K/mcL (0.0-0.6); Eosinophils % 2.2 %; Hemoglobin 12.4 g/dL (11.5-15.4); Immature Granulocytes % 0.4 % (0-4); Lymphocytes # 0.5 K/mcL (0.6-4.6); Lymphocytes % 10.3 %; Mean Corpuscular HGB Conc 29.5 g/dL (31.6-35.5); Mean Corpuscular Hemoglobin 26.1 pg (28.0-33.3); Mean Corpuscular Volume 88.2 fL (83.0-100.0); Mean Platelet Volume 8.5 fL (9.4-12.4); Monocytes # 0.1 K/mcL (0.0-1.3); Neutrophils # 3.8 K/mcL (1.6-8.9); Platelet Count 262 K/mcL (140-400); Red Blood Count 4.76 M/mcL (3.82-4.97); Red Cell Distribution Width 23.1 % (11.5-14.5); Segmented Neutrophils % 85.1 %
[2017-02-04 04:14] LABS: Hemoglobin A1C 5.4 %
[2017-02-04 04:51] LABS: Anisocytosis 2+ (Not Present); Platelet Estimate Normal (Normal); Poikilocytosis 1+ (Not Present)
[2017-02-04] MEDS: *HR* Enoxaparin 40 MG/0.4 ML SYRINGE SQ SCH (06:31)
[2017-02-04] MEDS: Insulin LISPRO 300 UNITS/3 ML VIAL SQ SCH ×4 (08:24→22:07)
[2017-02-04] MEDS: Levofloxacin 750 MG/150 ML 750 MG/150 ML BAG IVPB SCH (09:19)
[2017-02-04] MEDS: Cholecalciferol (D-3) 1,000 UNIT TABLET PO SCH (09:19)
[2017-02-04 09:41] LABS: ABG Base Excess 4 mEq/L (-2 to 3); ABG HCO3 31 mEq/L (21-27); ABG Oxygen Saturation 92 % (95-98); ABG PCO2 55 mmHg (35-45); ABG PH 7.36 pH Units (7.32-7.45); ABG PO2 69 mmHg (85-104); ABG TCO2 33 mEq/L (20-26)
[2017-02-04] MEDS ORDERED: Vancomycin 1,750 MG in D5% in Water 500 ML IVPB SCH (12:00)
--- NOTE | 2017-02-04 12:33 | Internal Med Progress Note ---
Date of Encounter: 02/04/17 Time of Encounter: 12:02 - Assessment and plan (1) Osteomyelitis Current Visit: No Status: Acute Assessment and plan: Kiersten Lemus is a 56-year-old female with past medical history osteomyelitis left heel, diabetes, ISIAH and morbid obesity recently admitted 01/23-01/28/2017 for left heel osteomyelitis who presented to [facility] on 02/03/2017 from PCPs office with concern for recurrent left heel infection. She was admitted for IV ATB 1. Left heel osteomyelitis: Developed wound to left heel following prolonged hospital stay at [facility]. Was hospitalized 01/23-01/28/2017 for osteomyelitis. S/ p I&D on 01/24/[address] Benavides. Was treated with IV ATB and discharged home with a wound VAC and outpatient follow-up. Presented to ER from PCPs office was concern for recurrent left heel infection. IV Vanco, Levaquin started in the ED. Stop IV Vanco secondary to "red man" syndrome. Repeat MRI consistent with osteomyelitis and with concern for gas-forming organism. Previous culture with Proteus mirabilis, continue IV Levaquin per previous sensitivity. Add ertapenem and Zyvox with concern for gas-forming organism. Podiatry and ID consult 2. Red man syndrome: Secondary to IV vancomycin. Patient had similar reaction last admission. Vancomycin stopped and added to allergy list. 3. Acute encephalopathy: Appears almost manic/psychotic on exam. Chart reviewed and patient had similar presentation last admission. Spoke with has been on 02/04/17 and baseline mentation is alert and oriented 4. The reports patient is not at baseline. Evaluated by psychiatry last admission who did not feel patient was examining psychosis at that time. Suspect multifactorial with increased left heel pain, recurrent hospitalization and hypoxia. Continue treating underlying causes. Consider reconsult psychiatry if symptoms do not improve. UA C&S pending 4. Acute on chronic respiratory failure with hypoxia: ABG show pH 7.36, pCO2 55 , PaO2 79. Continue supplemental O2 and BiPAP PRN. 5. Hypothyroidism: per hx. Cont home levothyroxine 6. DVT prophylaxis: lovenox Qualifiers: Osteomyelitis type: unspecified type Osteomyelitis location: foot Laterality: left Qualified Code(s): M86.9 - Osteomyelitis, unspecified (2) Encephalopathy Current Visit: No Status: Acute (3) ISIAH on CPAP Current Visit: No Status: Acute (4) DVT prophylaxis Current Visit: Yes Status: Acute - Subjective Interval history: Seen and examined at bedside, she is confused and disoriented. Unable to obtain ROS or subjective information. Spoke with patient's reports patient is normally alert and oriented 4, confusion and disorientation is new over the last few days. - Constitutional Vitals: Temp Pulse Resp BP Pulse Ox 97.6 F 82 18 104/70 95 02/04/17 11:45 02/04/17 11:45 02/04/17 11:45 02/04/17 11:45 02/04/17 11:45 General appearance: Present: cooperative, mild distress, morbidly obese. Absent : A&O X 2, answers questions appropriately - Head Head exam: Present: atraumatic, normocephalic - Eye Eye exam: Present: PERRL, conjuntiva pink, sclera anicteric Pupils: Present: PERRL - Neck Neck exam general surgery: Present: supple, trachea midline. Absent: lymphadenopathy - Respiratory Respiratory exam: Present: CTAB. Absent: accessory muscle use, rales, rhonchi, wheezes - Cardiovascular Cardiovascular exam: Present: RRR, +S1, +S2. Absent: diastolic murmur, gallop, rubs, systolic murmur - GI/Abdominal GI/Abdominal exam: Present: normal bowel sounds, soft, no peritoneal signs. Absent: distended, tenderness Additional comments: Obese - Extremities Exam Extremities exam: Present: pedal edema (Bilateral lower extremity edema), warm, radial pulses palpable and symmetrical. Absent: calf tenderness, cyanotic - Neurological Exam Neurological exam: Present: altered, CN II-XII intact, oriented X3, no focal deficits. Absent: pronater drift, facial droop, speech deficit Additional comments: Alert and oriented to self and place only. Pressured speech. - Skin Skin exam: Present: dry. Absent: intact (Diffuse erythema. Left heel with large wound site: Difficult to assess as patient is not cooperative) Internal Medicine: Result - Labs CBC & Chem 7: 02/04/17 03:40 02/04/17 03:40 Labs: Short CBC 02/04/17 Range/Units 03:40 WBC 4.5 D (4.3-11.1) K/mcL Hgb 12.4 (11.5-15.4) g/dL Hct 42.0 (35.3-44.9) % Plt Count 262 (140-400) K/mcL Neutrophils # 3.8 (1.6-8.9) K/mcL BMP 02/04/17 03:40 Sodium 140 Potassium 3.6 Chloride 102 Carbon Dioxide 29 BUN 9 Creatinine 0.95 Glucose 136 H Calcium 9.2 Liver Function 02/04/17 Range/Units 03:40 Total Bilirubin 1.1 (0.2-1.2) mg/dL AST 27 (5-34) Units/L ALT 33 (0-55) Units/L Alkaline Phosphatase 61 (38-126) Units/L Albumin 2.8 L (3.5-5.0) g/dL - ABG Interpretation ABG results: ABG ABG pH 7.36 pH Units (7.32-7.45) 02/04/17 09:37 ABG pCO2 55 mmHg (35-45) H 02/04/17 09:37 ABG pO2 69 mmHg (85-104) L 02/04/17 09:37 ABG O2 Saturation 92 % (95-98) L 02/04/17 09:37 PT/INR, D-dimer PT 12.1 Seconds (9.4-12.1) 02/04/17 03:40 - Impressions Impressions Foot MRI 02/04/17 09:18 IMPRESSION: There is redemonstration of a large open wound/ ulcer or involving the posterolateral aspect of the posterior heel. This appears enlarged and increased in depth from prior MRI which may relate at least in part to interval debridement. There is adjacent cellulitis as well as an area of suspected devascularized soft tissue as above. No evidence for abscess or discrete sinus tract identified. There appear to be a few small signal voids within the lateral soft tissues of the heel concerning for potential soft tissue gas and concerning for gas-forming organism. Mild degree of relatively non confluent T2 and T1 signal changes along with enhancement to the posterolateral aspect inferiorly of the posterior process of the calcaneus. These appear similar to prior MRI and given this stability could reflect reactive change but it would be difficult to exclude superimposed osteomyelitis. Redemonstration of likely denervation changes to the intrinsic musculature of the foot. Somewhat more intense muscle edema and enhancement noted to the abductor digiti minimi posteriorly towards calcaneal attachment could reflect superimposed nonspecific myositis to include potential infected myositis. Trace tibiotalar joint effusion without evidence for septic arthritis. D/ / Jeff Nunes MD / Jeff Nunes MD Interpreting Provider: Jeff Nunes MD Consult Discharge Plan - Plan Referrals: Dennis junior MD [Primary Care Provider] -
--- NOTE | 2017-02-04 12:48 | Electrocardiograph Report ---
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
[2017-02-04] MEDS: *HR* HYDROcodone/Acet 5/325 mg TABLET PO PRN (13:16)
--- NOTE | 2017-02-04 15:15 | Infectious Disease Consult ---
Date of Encounter: 02/04/17 Time of Encounter: 15:13 Assessment and Plan (1) Osteomyelitis Status: Acute Assessment and plan: Location: Left calcaneus. Causative organism Proteus mirabilis. Likely secondary to left heel pressure ulcer. Status post left calcaneus I & D with bone biopsy 01/24/[address] Benavides. Bone culture positive for Proteus mirabilis, but bone pathology was negative for OM. She was discharged home on IV Levaquin previously. Patient saw her PCP and there were concerns that the patient was not receiving adequate care at home and the patient was sent to the ER. Unsure if the patient was getting dressing changes or her IV antibiotics at home. MRI of the left foot show findings consistent with cellulitis, increase in the size of the wound compared to previous MRI, possible soft tissue gas and possible osteomyelitis of the calcaneus. Not sure if the soft tissue gas is new or if this could be residual from the patient's recent surgery. Will discuss with Dr. Benavides. The patient has no SIRS criteria. Podiatry consulted and following. Await recommendations. Check ESR and CRP. Check CK level. Wound culture obtained and pending. Blood cultures drawn 02/03/17 are pending x 2 sets. Continue Levaquin 750mg IV daily. Discontinue Ertapenem as possible soft tissue gas findings on the MRI are likely from the patient's surgical procedure. Discontinue Zyvox as there is low index of suspicion that the patient has MRSA in the wound based on the clinical picture at this time (minimal wound regression, no SIRS criteria, etc.). Duration of treatment depends on the clinical picture. Monitor renal function and dose-adjust antibiotics. 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 Secondary to left calcaneus OM. Podiatry consulted. Await recommendations. Qualifiers: Laterality: left Qualified Code(s): L97.523 - Non-pressure chronic ulcer of other part of left foot with necrosis of muscle (3) Altered mental status Status: Chronic Assessment and plan: Patient with disjointed thoughts and tangential speech. She often makes comments not related to the current conversation. Evaluated by psychiatry during last admission and deemed not psychotic and competent to make her own decisions. Etiology unclear, but concern for underlying mental disorder. On discharge, the patient would likely benefit from rehab placement to assist with wound care and IV antibiotic administration. Qualifiers: Altered mental status type: unspecified Qualified Code(s): R41.82 - Altered mental status, unspecified (4) Red man syndrome Status: Acute Assessment and plan: Likely secondary to Vanc. Vancomycin discontinued by the primary team. (5) Morbid obesity Status: Chronic Infectious Disease HPI - Data of Consult Patient: known to practice within the last 3 years Consult date: 02/04/17 Requesting Physician: Ivania Valentine CNP Primary Care Provider: Dennis Garner MD - Consult Narrative Reason for consult: Left calcaneus OM History of present illness: Ms. Lemus is a 56 year old female with a past medical history of asthma, DM, and morbid obesity. The patient was admitted to the hospital 02/03/17 for left foot infection. We are consulted 02/04/17 for further recommendations regarding left calcaneus osteomyelitis. The patient is a 56 her old female, known to the infectious disease service as we were consulted during her recent hospital stay. At that time, the patient was noted to have a left heel ulcer that was positive for osteomyelitis. Operative cultures were obtained that grew out Proteus mirabilis and the patient was started on IV Levaquin. The patient also had some altered mental status while hospitalized and was evaluated by psychiatry and was deemed mentally competent to make her decisions. She wanted to go home and was discharged home on IV Levaquin with plans for a wound VAC. The patient saw her primary care doctor in the office yesterday and was instructed to go to the ER due to concerns about worsening of her left heel ulcer and her not receiving adequate care at home. Upon arrival, the patient was afebrile and hemodynamically stable. Her laboratory studies reveal a normal white blood cell count. Lactic acid was normal. Chest x-ray showed some mild vascular congestion. A left foot x-ray was negative. CT of the head was negative as well. Blood cultures 2 sets and a wound culture were obtained and are currently pending. The patient was started on IV vancomycin and IV Levaquin and admitted to the hospital for further evaluation. Admission, the patient has developed a diffuse erythematous rash to her extremities and torso, likely secondary to the IV vancomycin as she developed the same type of reaction when she received prior. Her white blood cell count remains normal. A C. difficile was checked and was negative. Podiatry was consulted and we are awaiting their recommendations. An MRI of the left foot showed findings consistent with increase in the size of the left calcaneus wound , cellulitis, possible soft tissue gas, and possible osteomyelitis of the calcaneus. Currently, the patient is on IV Levaquin, IV Zyvox, and IV ertapenem. We've been asked to evaluate and make further recommendations. During my exam today, the patient again has some altered mental status with tangential speech and disjointed thoughts, making it very difficult to keep her focus and get adequate information from her. Denies any fevers, but does report some chills and sweating. She denies chest pain, shortness of breath, or productive cough. She denies any nausea, vomiting, diarrhea, or constipation. She denies abdominal pain. She denies pain in the left foot, but states "I know it's there." Able to obtain any further review of systems information from the patient due to her tangential speech and disjointed thoughts by 8 attempted to reorient the patient to the conversation and redirecting her thoughts. There is no family at the bedside. CC: Ivania Valentine, MANDO Past Med Surg Social Fam HX - Past Medical History Source: old records reviewed, nursing notes reviewed Medical history: asthma, COPD, diabetes, thyroid disease, other (Left calcaneus OM) Psychiatric history: anxiety, depression - Past Surgical History Surgical History: other (Left heel debridement) - Social History Smoking Status: Never smoker Smokeless Tobacco Status: No Alcohol use: none Drug use: none Current living situation: Home, With Family Activity Level: Uses cane/walker Recent Out of Country Travel Within the Last 8 Weeks: No Exposure or Possible Exposure to Illness During Travel: No - Family History Son Living Status: Still Living Hx Family Cardiac Disorders: Yes Hx Family Respiratory Disorders: Yes Hx Family Cancer: No Hx Family Genitourinary Disorders: No Hx Family Endocrine Disorder: No Father Adopted: [place]: [place] Race: Family Member Ethnicity: Non- Living Status: Age at : 85 Cause of : AAA Hx Family Cardiac Disorders: No Hx Family Respiratory Disorders: No Hx Family Cancer: No Hx Family GI Disorders: Yes Hx Family Genitourinary Disorders: No Hx Family Endocrine Disorder: No Hx Family Musculoskeletal Disorders: No Hx Family Neuromuscular Disorders: No Hx Family Neurologic Disorders: No Hx Family HEENT Disorders: No Hx Family Autoimmune Disorders: No Hx Family Reproductive Disorders: No Hx Family Psychosocial Disorders: No Hx Family Medical Disorders: No Mother Race: Family Member Ethnicity: Non- Living Status: Still Living Hx Family Musculoskeletal Disorders: Yes (Broken femur) Brother Race: Family Member Ethnicity: Non- Living Status: Still Living Hx Family Medical Disorders: No Infectious Disease-CN:Meds Ergocalciferol (VITAMIN D2) [Vitamin D2] 2,000 unit PO DAILY 09/14/15 [History] Albuterol Sulfate [Ventolin Hfa] 2 puff IH Q4H PRN 01/22/17 [History] Aspirin/Caffeine [Back & Body Pain Reliever Cplt] 1 each PO Q4H PRN 01/22/17 [ History] Docusate [Colace] 100 mg PO BID PRN 01/22/17 [History] Levothyroxine [Synthroid] 175 mcg PO 0630 01/22/17 [History] Oxygen 4 l NS AD 01/22/17 [History] Sennosides [Senna] 17.2 mg PO BID PRN 01/22/17 [History] Levofloxacin 750 MG/150 ML [Levaquin Premix 750mg/150 mL] 750 mg IVPB DAILY #42 bag 01/27/17 [Rx] 3 Allergy/AdvReac Type Severity Reaction Status Date / Time cefdinir Allergy Rash Verified 11/25/14 17:58 clindamycin Allergy See Verified 01/22/17 18:36 Comments Penicillins [PCN] Allergy Rash Verified 11/25/14 17:58 vancomycin Allergy Rash Verified 02/04/17 08:23 All systems: reviewed and no additional remarkable complaints except as stated Exam - Constitutional Vitals: Temp Pulse Resp BP Pulse Ox 97.6 F 82 18 104/70 95 02/04/17 11:45 02/04/17 11:45 02/04/17 11:45 02/04/17 11:45 02/04/17 11:45 General appearance: cooperative, morbidly obese, no acute distress - Head Head exam: Present: atraumatic, normal inspection, normocephalic - Eye Eye exam: Present: EOMI, normal appearance, PERRL Pupils: Present: normal accommodation - ENT ENT exam: Present: mucous membranes moist - Neck Neck exam: Present: normal inspection - Respiratory Respiratory exam: Present: CTAB. Absent: rales, respiratory distress, rhonchi, wheezes - Cardiovascular Cardiovascular exam: Present: RRR, +S1, +S2 - GI/Abdominal GI/Abdominal exam: Present: distended (obese), normal bowel sounds, soft. Absent: tenderness - Extremities Exam Extremities exam: Absent: joint swelling, pedal edema, tenderness Additional comments: Surgical site noted to the left heel with bone exposed and wound bed with 50% necrosis. No drainage or foul odor noted. No surrounding erythema. No tenderness noted on palpation. - Neurological Exam Neurological exam: Present: alert, oriented X3, no focal deficits - Psychiatric Psychiatric exam: Present: manic Additional comments: Tangential speech with disjointed thoughts. Makes comments not pertinent to the conversation. States "the baby has not crowned out of my heel yet." - Skin Skin exam: Present: erythema (Diffuse erythema noted to the entire torso, upper and lower extremities.) Infectious Disease CN: Results - Labs CBC & Chem 7: 02/04/17 03:40 02/04/17 03:40 Serology: Serology 02/04/17 Range/Units 00:10 Stl C. diff Tox B Gene Negative (Negative) Consult Discharge Plan - Plan Referrals: Dennis Garner MD [Primary Care Provider] -
[2017-02-04 18:13] LABS: C-Reactive Protein 80 mg/L (Less than 5); Creatine Kinase 21 Units/L (29-168)
[2017-02-05] MEDS: *HR* Enoxaparin 40 MG/0.4 ML SYRINGE SQ SCH (05:51)
[2017-02-05 06:15] LABS: Basophils % 0.3 %; Eosinophils # 0.6 K/mcL (0.0-0.6); Eosinophils % 9.3 %; Hemoglobin 11.7 g/dL (11.5-15.4); Immature Granulocytes % 0.4 % (0-4); Lymphocytes # 0.7 K/mcL (0.6-4.6); Lymphocytes % 10.5 %; Mean Corpuscular HGB Conc 29.3 g/dL (31.6-35.5); Mean Corpuscular Hemoglobin 26.5 pg (28.0-33.3); Mean Corpuscular Volume 90.5 fL (83.0-100.0); Mean Platelet Volume 8.9 fL (9.4-12.4); Monocytes # 0.3 K/mcL (0.0-1.3); Monocytes % 3.6 %; Neutrophils # 5.2 K/mcL (1.6-8.9); Platelet Count 263 K/mcL (140-400); Red Blood Count 4.42 M/mcL (3.82-4.97); Red Cell Distribution Width 22.7 % (11.5-14.5); Segmented Neutrophils % 75.9 %
[2017-02-05 06:39] LABS: Alanine Aminotransferase 24 Units/L (0-55); Albumin 2.7 g/dL (3.5-5.0); Albumin/Globulin Ratio 0.8 (1.1-2.2); Alkaline Phosphatase 54 Units/L (38-126); Aspartate Amino Transferase 21 Units/L (5-34); BUN/Creatinine Ratio 13 (6-26); Bilirubin,Total 0.8 mg/dL (0.2-1.2); Blood Urea Nitrogen 11 mg/dL (7-20); Calcium 9.1 mg/dL (8.6-10.8); Carbon Dioxide 34 mEq/L (19-29); Chloride 102 mEq/L (98-109); Globulin 3.6 g/dL (2.4-3.5); Glucose 114 mg/dL (70-99); Osmolality,Calculated 290 (280-300); Potassium 4.1 mEq/L (3.5-4.5); Sodium 140 mEq/L (136-145); Total Protein 6.3 g/dL (6.0-8.3); eGFR For African Americans > 60 (> 60); eGFR For Non-African Americans > 60 (> 60)
[2017-02-05] MEDS: Insulin LISPRO 300 UNITS/3 ML VIAL SQ SCH ×4 (08:34→20:48)
[2017-02-05] MEDS: Cholecalciferol (D-3) 1,000 UNIT TABLET PO SCH (08:39)
[2017-02-05] MEDS: Levofloxacin 750 MG/150 ML 750 MG/150 ML BAG IVPB SCH (08:39)
[2017-02-05] MEDS ORDERED: Ertapenem 1,000 MG in 0.9 % Sodium Chloride Mini Bag 100 ML IVPB SCH (09:00)
[2017-02-05 09:45] LABS: Bilirubin,Urine Negative (Negative); Blood,Urine Negative (Negative); Clarity,Urine Clear (Clear); Color,Urine Yellow (Yellow); Glucose,Urine (UA) Normal (Normal); Ketones,Urine Negative (Negative); Leukocyte Esterase,Urine Negative (Negative); Nitrite,Urine Negative (Negative); Protein,Urine Negative (Neg-Trace); Specific Gravity,Urine 1.017 (1.010-1.025); Urobilinogen,Urine Normal (Normal)
--- NOTE | 2017-02-05 10:55 | Podiatry Consult Note ---
Date of Encounter: 02/04/17 Time of Encounter: 10:53 Assessment and Plan (1) Non healing left heel wound Current visit: No Status: Acute Due to the fact the wound is nonhealing the patient is in need of a wound VAC. The MRI indicates that there may be possible gas. From clinical exam I do not feel as though this is evident due to the large size of the ulceration and small undermining he feels though that may potentially account for the gas seen on the MRI. The patient will need a wound VAC for an indeterminate amount of time as well as continued antibiotics per infectious disease. The patient will need to keep all of the weight off the heel. History of Present Illness Chief complaint: Left heel ulcer HPI: Ms. Lemus is a 56 year old female who relates that she had difficulty caring for herself at home. Patient relates that she was awaiting a wound VAC. Patient states that she has pain to her left heel. Past Med Surg Social Fam HX - Past Medical History Medical history: asthma, COPD, diabetes, thyroid disease, other (Left calcaneus OM) Psychiatric history: anxiety, depression - Past Surgical History Surgical History: other (Left heel debridement) - Social History Smoking Status: Never smoker Smokeless Tobacco Status: No Alcohol use: none Drug use: none - Family History Son Living Status: Still Living Hx Family Cardiac Disorders: Yes Hx Family Respiratory Disorders: Yes Hx Family Cancer: No Hx Family Genitourinary Disorders: No Hx Family Endocrine Disorder: No Father Adopted: [place]: [place] Race: Family Member Ethnicity: Non- Living Status: Age at : 85 Cause of : AAA Hx Family Cardiac Disorders: No Hx Family Respiratory Disorders: No Hx Family Cancer: No Hx Family GI Disorders: Yes Hx Family Genitourinary Disorders: No Hx Family Endocrine Disorder: No Hx Family Musculoskeletal Disorders: No Hx Family Neuromuscular Disorders: No Hx Family Neurologic Disorders: No Hx Family HEENT Disorders: No Hx Family Autoimmune Disorders: No Hx Family Reproductive Disorders: No Hx Family Psychosocial Disorders: No Hx Family Medical Disorders: No Mother Race: Family Member Ethnicity: Non- Living Status: Still Living Hx Family Musculoskeletal Disorders: Yes (Broken femur) Brother Race: Family Member Ethnicity: Non- Living Status: Still Living Hx Family Medical Disorders: No Medications and Allergies Ergocalciferol (VITAMIN D2) [Vitamin D2] 2,000 unit PO DAILY 09/14/15 [History] Albuterol Sulfate [Ventolin Hfa] 2 puff IH Q4H PRN 01/22/17 [History] Aspirin/Caffeine [Back & Body Pain Reliever Cplt] 1 each PO Q4H PRN 01/22/17 [ History] Docusate [Colace] 100 mg PO BID PRN 01/22/17 [History] Levothyroxine [Synthroid] 175 mcg PO 0630 01/22/17 [History] Oxygen 4 l NS AD 01/22/17 [History] Sennosides [Senna] 17.2 mg PO BID PRN 01/22/17 [History] Levofloxacin 750 MG/150 ML [Levaquin Premix 750mg/150 mL] 750 mg IVPB DAILY #42 bag 01/27/17 [Rx] 3 Allergy/AdvReac Type Severity Reaction Status Date / Time cefdinir Allergy Rash Verified 11/25/14 17:58 clindamycin Allergy See Verified 01/22/17 18:36 Comments Penicillins [PCN] Allergy Rash Verified 11/25/14 17:58 vancomycin Allergy Rash Verified 02/04/17 08:23 All Systems Reviewed: A 10-system review of systems was performed and is negative for pertinent findings except as documented above in the HPI. Physical Exam - Constitutional Vitals: Temp Pulse Resp BP Pulse Ox 97.6 F 88 18 101/67 93 02/05/17 07:20 02/05/17 07:20 02/05/17 08:17 02/05/17 07:20 02/05/17 08:17 General appearance: cooperative, morbidly obese, no acute distress Exam: Ulcer consistent with prior exam but slightly more dried out. Patient has mild erythema around the site. No purulence noted. No palpable fluctuance or areas of deep abscess noted. Capillary fill time intact to the digits. Sensation slightly diminished consistent with peripheral neuropathy. MRI indicates possible gas, although the gas is consistent with the ulceration and free air near the ulceration site. Results - Labs Result Diagrams: 02/05/17 06:00 02/05/17 06:00 Labs: Abnormal lab results MCH 26.5 pg (28.0-33.3) L 02/05/17 06:00 MCHC 29.3 g/dL (31.6-35.5) L 02/05/17 06:00 RDW 22.7 % (11.5-14.5) H 02/05/17 06:00 MPV 8.9 fL (9.4-12.4) L 02/05/17 06:00 Poikilocytosis 1+ (Not Present) A 02/04/17 03:40 Anisocytosis 2+ (Not Present) A 02/04/17 03:40 ESR 128 mm/hr (0-15) H 02/04/17 17:50 ABG pCO2 55 mmHg (35-45) H 02/04/17 09:37 ABG pO2 69 mmHg (85-104) L 02/04/17 09:37 ABG HCO3 31 mEq/L (21-27) H 02/04/17 09:37 ABG Total CO2 33 mEq/L (20-26) H 02/04/17 09:37 ABG O2 Saturation 92 % (95-98) L 02/04/17 09:37 ABG Base Excess 4 mEq/L (-2 to 3) H 02/04/17 09:37 Carbon Dioxide 34 mEq/L (19-29) H 02/05/17 06:00 Glucose 114 mg/dL (70-99) H 02/05/17 06:00 POC Glucose 101 (58-89) H 02/04/17 16:42 Creatine Kinase 21 Units/L (29-168) L 02/04/17 17:50 C-Reactive Protein 80 mg/L (Less than 5) H 02/04/17 17:50 Albumin 2.7 g/dL (3.5-5.0) L 02/05/17 06:00 Globulin 3.6 g/dL (2.4-3.5) H 02/05/17 06:00 Albumin/Globulin Ratio 0.8 (1.1-2.2) L 02/05/17 06:00 Triglycerides 157 mg/dL (< 150) H 02/04/17 03:40 LDL Cholesterol, Calc 111 mg/dL (0-99) H 02/04/17 03:40 VLDL Cholesterol, Calc 31 mg/dL (< 31) H 02/04/17 03:40 H & H 02/05/17 Range/Units 06:00 Hgb 11.7 (11.5-15.4) g/dL Hct 40.0 (35.3-44.9) % All other labs normal. Consult Discharge Plan - Plan Referrals: Dennis Garner MD [Primary Care Provider] -
--- NOTE | 2017-02-05 11:54 | Podiatry Progress Note ---
Date of Encounter: 02/05/17 Time of Encounter: 11:45 - Assessment and Plan (1) Non healing left heel wound Current Visit: No Status: Acute Assessment: The left foot MRI indicates that there may be possible gas. Dr. Benavides reviewed the MRI, gas that is seen is not evident and most likely a result from the large ulceration with tunneling. A small black simplace wound vac is intact to the left heel connected to 125 mmhg continuous suction. 25 mls of serosanguineous drainage observed to canister. Surrounding is skin in pink, warm and dry, no fluctuance, no streaking, no warmth. Laboratory Results - last 24 hr 02/04/17 02/04/17 02/04/17 07:34 11:47 16:42 WBC RBC Hgb Hct MCV MCH MCHC RDW Plt Count MPV Immature Gran % Seg Neutrophils % Lymphocytes % Monocytes % Eosinophils % Basophils % Neutrophils # Lymphocytes # Monocytes # Eosinophils # Basophils # ESR Sodium Potassium Chloride Carbon Dioxide BUN Creatinine Est GFR ( Amer) Est GFR (Non-Af Amer) BUN/Creatinine Ratio Glucose POC Glucose 98 H 104 H 101 H Calculated Osmolality Calcium Total Bilirubin AST ALT Alkaline Phosphatase Creatine Kinase C-Reactive Protein Serum Total Protein Albumin Globulin Albumin/Globulin Ratio Urine Color Urine Clarity Urine pH Ur Specific [place] Urine Protein Urine Glucose (UA) Urine Ketones Urine Blood Urine Nitrite Urine Bilirubin Urine Urobilinogen Ur Leukocyte Esterase Ur Culture Indicated? 02/04/17 02/04/17 02/04/17 17:50 17:50 21:07 WBC RBC Hgb Hct MCV MCH MCHC RDW Plt Count MPV Immature Gran % Seg Neutrophils % Lymphocytes % Monocytes % Eosinophils % Basophils % Neutrophils # Lymphocytes # Monocytes # Eosinophils # Basophils # ESR 128 H Sodium Potassium Chloride Carbon Dioxide BUN Creatinine Est GFR ( Amer) Est GFR (Non-Af Amer) BUN/Creatinine Ratio Glucose POC Glucose 106 H Calculated Osmolality Calcium Total Bilirubin AST ALT Alkaline Phosphatase Creatine Kinase 21 L C-Reactive Protein 80 H Serum Total Protein Albumin Globulin Albumin/Globulin Ratio Urine Color Urine Clarity Urine pH Ur Specific [place] Urine Protein Urine Glucose (UA) Urine Ketones Urine Blood Urine Nitrite Urine Bilirubin Urine Urobilinogen Ur Leukocyte Esterase Ur Culture Indicated? 02/05/17 02/05/17 02/05/17 06:00 06:00 07:49 WBC 6.9 D RBC 4.42 Hgb 11.7 Hct 40.0 MCV 90.5 MCH 26.5 L MCHC 29.3 L RDW 22.7 H Plt Count 263 MPV 8.9 L Immature Gran % 0.4 Seg Neutrophils % 75.9 Lymphocytes % 10.5 Monocytes % 3.6 Eosinophils % 9.3 Basophils % 0.3 Neutrophils # 5.2 Lymphocytes # 0.7 Monocytes # 0.3 Eosinophils # 0.6 Basophils # 0.0 ESR Sodium 140 Potassium 4.1 Chloride 102 Carbon Dioxide 34 H BUN 11 Creatinine 0.83 Est GFR ( Amer) > 60 Est GFR (Non-Af Amer) > 60 BUN/Creatinine Ratio 13 Glucose 114 H POC Glucose 105 H Calculated Osmolality 290 Calcium 9.1 Total Bilirubin 0.8 AST 21 ALT 24 Alkaline Phosphatase 54 Creatine Kinase C-Reactive Protein Serum Total Protein 6.3 Albumin 2.7 L Globulin 3.6 H Albumin/Globulin Ratio 0.8 L Urine Color Urine Clarity Urine pH Ur Specific [place] Urine Protein Urine Glucose (UA) Urine Ketones Urine Blood Urine Nitrite Urine Bilirubin Urine Urobilinogen Ur Leukocyte Esterase Ur Culture Indicated? 02/05/17 02/05/17 09:10 11:28 WBC RBC Hgb Hct MCV MCH MCHC RDW Plt Count MPV Immature Gran % Seg Neutrophils % Lymphocytes % Monocytes % Eosinophils % Basophils % Neutrophils # Lymphocytes # Monocytes # Eosinophils # Basophils # ESR Sodium Potassium Chloride Carbon Dioxide BUN Creatinine Est GFR ( Amer) Est GFR (Non-Af Amer) BUN/Creatinine Ratio Glucose POC Glucose 122 H Calculated Osmolality Calcium Total Bilirubin AST ALT Alkaline Phosphatase Creatine Kinase C-Reactive Protein Serum Total Protein Albumin Globulin Albumin/Globulin Ratio Urine Color Yellow Urine Clarity Clear Urine pH 6.0 Ur Specific [place] 1.017 Urine Protein Negative Urine Glucose (UA) Normal Urine Ketones Negative Urine Blood Negative Urine Nitrite Negative Urine Bilirubin Negative Urine Urobilinogen Normal Ur Leukocyte Esterase Negative Ur Culture Indicated? NO Plan: Continue wound vac to left heel and to be changed every 72 hours. Small black simplace wound vac sponge connected to 125 mmhg low continuous suction. Orders written. Antibiotic therapy per Infectious Disease. Remain non weight bearing to LLE. Patient would benefit from placement in an ECF upon discharge to meet medical needs with wound vac and IV antibiotics and to allow for a full recovery. Subjective Interval history: Patient is sitting up in bed with wound vac intact to the left heel and connected to 125 mmhg continuous suction. 25 mls of serosanguineous drainage observed to canister. No c/o pain, fever or chills. Objective - Vital Signs Vital Signs: Vital Signs Temp Pulse Resp BP Pulse Ox 02/05/17 11:34 20 91 02/05/17 11:29 98.2 F 86 16 114/70 94 02/05/17 08:17 18 93 02/05/17 07:20 97.6 F 88 16 101/67 93 02/05/17 04:55 94 02/05/17 03:58 18 94 02/05/17 03:47 98.0 F 83 18 117/70 95 02/04/17 19:54 18 98 02/04/17 19:00 98.6 F 81 19 114/86 97 02/04/17 16:45 97.7 F 90 16 102/63 93 Intake and Output 02/04/17 02/05/17 02/05/17 23:59 07:59 15:59 Other: Blood Glucose* 106 105 122 - Exam Exam: General appearance: alert awake oriented X 3. Calm, no acute distress.. Vascular: Pedal pulses +2/4 DP/PT , No evidence of cyanosis, pallor or rubor, Edema graded at 2+/4, Skin Temperature warm, No calf pain with manual compression. capillary refill time is immediate to digits. Neurologic: Sensation intact with light touch to left foot. . Postop Exam: S/P Left heel: Black wound vac sponge connected to 125 mmhg low continuous suction. 25 mls of serosanguineous drainage observed to canister. Surrounding skin is pink,warm and dry. No streaking, no ascending cellulitis. - Lab Result Diagrams: 02/05/17 06:00 02/05/17 06:00 Labs: Abnormal lab results MCH 26.5 pg (28.0-33.3) L 02/05/17 06:00 MCHC 29.3 g/dL (31.6-35.5) L 02/05/17 06:00 RDW 22.7 % (11.5-14.5) H 02/05/17 06:00 MPV 8.9 fL (9.4-12.4) L 02/05/17 06:00 Poikilocytosis 1+ (Not Present) A 02/04/17 03:40 Anisocytosis 2+ (Not Present) A 02/04/17 03:40 ESR 128 mm/hr (0-15) H 02/04/17 17:50 ABG pCO2 55 mmHg (35-45) H 02/04/17 09:37 ABG pO2 69 mmHg (85-104) L 02/04/17 09:37 ABG HCO3 31 mEq/L (21-27) H 02/04/17 09:37 ABG Total CO2 33 mEq/L (20-26) H 02/04/17 09:37 ABG O2 Saturation 92 % (95-98) L 02/04/17 09:37 ABG Base Excess 4 mEq/L (-2 to 3) H 02/04/17 09:37 Carbon Dioxide 34 mEq/L (19-29) H 02/05/17 06:00 Glucose 114 mg/dL (70-99) H 02/05/17 06:00 POC Glucose 105 (58-89) H 02/05/17 07:49 Creatine Kinase 21 Units/L (29-168) L 02/04/17 17:50 C-Reactive Protein 80 mg/L (Less than 5) H 02/04/17 17:50 Albumin 2.7 g/dL (3.5-5.0) L 02/05/17 06:00 Globulin 3.6 g/dL (2.4-3.5) H 02/05/17 06:00 Albumin/Globulin Ratio 0.8 (1.1-2.2) L 02/05/17 06:00 Triglycerides 157 mg/dL (< 150) H 02/04/17 03:40 LDL Cholesterol, Calc 111 mg/dL (0-99) H 02/04/17 03:40 VLDL Cholesterol, Calc 31 mg/dL (< 31) H 02/04/17 03:40 Consult Discharge Plan - Plan Referrals: Pascual,Dennis Peguero MD [Primary Care Provider] -
--- NOTE | 2017-02-05 13:16 | Internal Med Progress Note ---
Date of Encounter: 02/05/17 Time of Encounter: 08:30 - Assessment and plan (1) Osteomyelitis Current Visit: No Status: Acute Assessment and plan: Kiersten Lemus is a 56-year-old female with past medical history osteomyelitis left heel, diabetes, ISIAH and morbid obesity recently admitted 01/23-01/28/2017 for left heel osteomyelitis who presented to [facility] on 02/03/2017 from PCPs office with concern for recurrent left heel infection. She was admitted for IV ATB 1. Left heel osteomyelitis: Developed wound to left heel following prolonged hospital stay at [facility]. Recently hospitalized 01/23-01/28/2017 at [facility] for osteomyelitis; s/ p I&D on 01/24/[address] Benavides. Was treated with IV ATB and discharged home with a wound VAC and outpatient follow-up. There was apparently confusion with delivery of a wound VAC and patient had not had wound VAC in place since she was discharged. Patient says she did get IV Levaquin at home. Re-presented to ER from PCPs office with concern for worsening left heel infection. IV Vanco, Levaquin started in the ED. IV Vanco was stopped secondary due to "red man" syndrome. Repeat MRI consistent with osteomyelitis and with concern for gas-forming organism. Evaluated by infectious disease who noted possible soft tissue gas findings on MRI may be from the recent surgical procedure. Cont IV Levaquin for now. Podiatry consulted 2. Red man syndrome: Secondary to IV vancomycin. Patient had similar reaction last admission. Vancomycin stopped and added to allergy list. 3. Acute encephalopathy: Appears almost manic/psychotic at times however she is appropriate and appears to have decision making capacity. Chart reviewed and patient had similar presentation last admission. Evaluated by psychiatry at that time who did not feel patient was examining psychosis at that time. Cont to monitor, supportive care 4. Acute on chronic respiratory failure with hypoxia: ABG show pH 7.36, pCO2 55 , PaO2 79. Continue supplemental O2 and BiPAP PRN. 5. Hypothyroidism: per hx. Cont home levothyroxine 6. DVT prophylaxis: lovenox Qualifiers: Qualified Code(s): M86.9 - Osteomyelitis, unspecified (2) Encephalopathy Current Visit: No Status: Acute (3) ISIAH on CPAP Current Visit: No Status: Acute (4) DVT prophylaxis Current Visit: Yes Status: Acute - Subjective Interval history: Seen and examined at bedside; she is more alert and lucid today although speech remains pressured and she transitions from one subject to the next for no apparent reason at times however she does seem to have capacity. She does not want to but is agreeable to go to SNF. She is tolerating wound VAC. She denies chest pain, no shortness of breath. - Constitutional Vitals: Temp Pulse Resp BP Pulse Ox 98.2 F 86 20 114/70 91 02/05/17 11:29 02/05/17 11:29 02/05/17 11:34 02/05/17 11:29 02/05/17 11:34 General appearance: Present: cooperative, A&O X 3, morbidly obese. Absent: answers questions appropriately - Head Head exam: Present: atraumatic, normocephalic - Eye Eye exam: Present: PERRL, conjuntiva pink, sclera anicteric Pupils: Present: PERRL - Neck Neck exam general surgery: Present: supple, trachea midline. Absent: lymphadenopathy - Respiratory Respiratory exam: Present: CTAB. Absent: accessory muscle use, rales, rhonchi, wheezes - Cardiovascular Cardiovascular exam: Present: RRR, +S1, +S2. Absent: diastolic murmur, gallop, rubs, systolic murmur - GI/Abdominal GI/Abdominal exam: Present: normal bowel sounds, soft, no peritoneal signs. Absent: distended, tenderness - Extremities Exam Extremities exam: Present: warm, radial pulses palpable and symmetrical. Absent : calf tenderness, cyanotic, pedal edema - Neurological Exam Neurological exam: Present: CN II-XII intact, oriented X3, no focal deficits. Absent: pronater drift, facial droop, speech deficit - Skin Skin exam: Present: dry, intact Additional comments: Wound VAC to left heel Internal Medicine: Result - Labs CBC & Chem 7: 02/05/17 06:00 02/05/17 06:00 Labs: Short CBC 02/05/17 Range/Units 06:00 WBC 6.9 D (4.3-11.1) K/mcL Hgb 11.7 (11.5-15.4) g/dL Hct 40.0 (35.3-44.9) % Plt Count 263 (140-400) K/mcL Neutrophils # 5.2 (1.6-8.9) K/mcL BMP 02/05/17 06:00 Sodium 140 Potassium 4.1 Chloride 102 Carbon Dioxide 34 H BUN 11 Creatinine 0.83 Glucose 114 H Calcium 9.1 Liver Function 02/05/17 Range/Units 06:00 Total Bilirubin 0.8 (0.2-1.2) mg/dL AST 21 (5-34) Units/L ALT 24 (0-55) Units/L Alkaline Phosphatase 54 (38-126) Units/L Albumin 2.7 L (3.5-5.0) g/dL Urine 02/05/17 Range/Units 09:10 Urine Color Yellow (Yellow) Urine Clarity Clear (Clear) Urine pH 6.0 (5.0-8.0) pH Units Ur Specific [place] 1.017 (1.010-1.025) Urine Protein Negative (Neg-Trace) mg/dL Urine Glucose (UA) Normal (Normal) mg/dL - ABG Interpretation ABG results: ABG ABG pH 7.36 pH Units (7.32-7.45) 02/04/17 09:37 ABG pCO2 55 mmHg (35-45) H 02/04/17 09:37 ABG pO2 69 mmHg (85-104) L 02/04/17 09:37 ABG O2 Saturation 92 % (95-98) L 02/04/17 09:37 PT/INR, D-dimer PT 12.1 Seconds (9.4-12.1) 02/04/17 03:40 - Impressions Impressions Foot MRI 02/04/17 09:18 IMPRESSION: There is redemonstration of a large open wound/ulcer involving the posterolateral aspect of the posterior heel. This appears enlarged and increased in depth from prior MRI which may relate at least in part to interval debridement. There is adjacent cellulitis as well as an area of suspected devascularized soft tissue as above. No evidence for abscess or discrete sinus tract identified. There appear to be a few small signal voids within the lateral soft tissues of the heel concerning for potential soft tissue gas and concerning for gas-forming organism. Mild degree of relatively nonconfluent T2 and T1 signal changes along with enhancement to the posterolateral aspect inferiorly of the posterior process of the calcaneus. These appear similar to prior MRI and given this stability could reflect reactive change but it would be difficult to exclude superimposed osteomyelitis. Redemonstration of likely denervation changes to the intrinsic musculature of the foot. Somewhat more intense muscle edema and enhancement noted to the abductor digiti minimi posteriorly towards calcaneal attachment could reflect superimposed nonspecific myositis to include potential infected myositis. Trace tibiotalar joint effusion without evidence for septic arthritis. D/ / 02/04/2017 12:03:47 Jeff Nunes MD / Fely Thorne Interpreting Provider: Jeff Nunes MD Consult Discharge Plan - Plan [facility] [place] [Primary Care Provider[facility] -
--- NOTE | 2017-02-05 14:56 | Infectious Disease Progress No ---
Date of Encounter: 02/05/17 Time of Encounter: 14:54 - Assessment and Plan (1) Osteomyelitis Current Visit: No Status: Acute Location: Left calcaneus. Causative organism Proteus mirabilis. Likely secondary to left heel pressure ulcer. Status post left calcaneus I & D with bone biopsy 01/24/[address] Benavides. Bone culture positive for Proteus mirabilis, but bone pathology was negative for OM. She was discharged home on IV Levaquin previously. Patient saw her PCP and there were concerns that the patient was not receiving adequate care at home and the patient was sent to the ER. Unsure if the patient was getting dressing changes or her IV antibiotics at home. MRI of the left foot show findings consistent with cellulitis, increase in the size of the wound compared to previous MRI, possible soft tissue gas and possible osteomyelitis of the calcaneus. Not sure if the soft tissue gas is new or if this could be residual from the patient's recent surgery. The patient has no SIRS criteria. Podiatry consulted and following. Inflammatory markers remain elevated. ESR is improved. CK level normal. Wound culture obtained and pending. Blood cultures drawn 02/03/17 are pending x 2 sets. Continue Levaquin 750mg IV daily. Duration of treatment depends on the clinical picture, but likely 6 weeks from her surgical procedure. Monitor renal function and dose-adjust antibiotics. 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 Secondary to left calcaneus OM. Podiatry consulted and following. 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 She often makes comments not related to the current conversation. Evaluated by psychiatry during last admission and deemed not psychotic and competent to make her own decisions. Etiology unclear, but concern for underlying mental disorder. On discharge, the patient would likely benefit from rehab placement to assist with wound care and IV antibiotic administration. Qualifiers: Altered mental status type: unspecified Qualified Code(s): R41.82 - Altered mental status, unspecified (4) Red man syndrome Current Visit: No Status: Acute Likely secondary to Vanc. Vancomycin discontinued by the primary team. (5) Morbid obesity Current Visit: No Status: Chronic - Subjective Interval history: Patient seen and examined. No acute events noted overnight. Patient sitting up in bed. Continues with tangential speech and disjointed thoughts. Difficult to keep focused on the exam and patient requires redirection multiple times. Gives inappropriate answers to ROS questions and I am unable to glean any information from out conversation. Infect Dis PN-Objective Data - Labs CBC & Chem 7: 02/05/17 06:00 02/05/17 06:00 Labs: Laboratory Results - last 24 hr 02/04/17 02/04/17 02/04/17 07:34 11:47 16:42 WBC RBC Hgb Hct MCV MCH MCHC RDW Plt Count MPV Immature Gran % Seg Neutrophils % Lymphocytes % Monocytes % Eosinophils % Basophils % Neutrophils # Lymphocytes # Monocytes # Eosinophils # Basophils # ESR Sodium Potassium Chloride Carbon Dioxide BUN Creatinine Est GFR ( Amer) Est GFR (Non-Af Amer) BUN/Creatinine Ratio Glucose POC Glucose 98 H 104 H 101 H Calculated Osmolality Calcium Total Bilirubin AST ALT Alkaline Phosphatase Creatine Kinase C-Reactive Protein Serum Total Protein Albumin Globulin Albumin/Globulin Ratio Urine Color Urine Clarity Urine pH Ur Specific [place] Urine Protein Urine Glucose (UA) Urine Ketones Urine Blood Urine Nitrite Urine Bilirubin Urine Urobilinogen Ur Leukocyte Esterase Ur Culture Indicated? 02/04/17 02/04/17 02/04/17 17:50 17:50 21:07 WBC RBC Hgb Hct MCV MCH MCHC RDW Plt Count MPV Immature Gran % Seg Neutrophils % Lymphocytes % Monocytes % Eosinophils % Basophils % Neutrophils # Lymphocytes # Monocytes # Eosinophils # Basophils # ESR 128 H Sodium Potassium Chloride Carbon Dioxide BUN Creatinine Est GFR ( Amer) Est GFR (Non-Af Amer) BUN/Creatinine Ratio Glucose POC Glucose 106 H Calculated Osmolality Calcium Total Bilirubin AST ALT Alkaline Phosphatase Creatine Kinase 21 L C-Reactive Protein 80 H Serum Total Protein Albumin Globulin Albumin/Globulin Ratio Urine Color Urine Clarity Urine pH Ur Specific [place] Urine Protein Urine Glucose (UA) Urine Ketones Urine Blood Urine Nitrite Urine Bilirubin Urine Urobilinogen Ur Leukocyte Esterase Ur Culture Indicated? 02/05/17 02/05/17 02/05/17 06:00 06:00 07:49 WBC 6.9 D RBC 4.42 Hgb 11.7 Hct 40.0 MCV 90.5 MCH 26.5 L MCHC 29.3 L RDW 22.7 H Plt Count 263 MPV 8.9 L Immature Gran % 0.4 Seg Neutrophils % 75.9 Lymphocytes % 10.5 Monocytes % 3.6 Eosinophils % 9.3 Basophils % 0.3 Neutrophils # 5.2 Lymphocytes # 0.7 Monocytes # 0.3 Eosinophils # 0.6 Basophils # 0.0 ESR Sodium 140 Potassium 4.1 Chloride 102 Carbon Dioxide 34 H BUN 11 Creatinine 0.83 Est GFR ( Amer) > 60 Est GFR (Non-Af Amer) > 60 BUN/Creatinine Ratio 13 Glucose 114 H POC Glucose 105 H Calculated Osmolality 290 Calcium 9.1 Total Bilirubin 0.8 AST 21 ALT 24 Alkaline Phosphatase 54 Creatine Kinase C-Reactive Protein Serum Total Protein 6.3 Albumin 2.7 L Globulin 3.6 H Albumin/Globulin Ratio 0.8 L Urine Color Urine Clarity Urine pH Ur Specific [place] Urine Protein Urine Glucose (UA) Urine Ketones Urine Blood Urine Nitrite Urine Bilirubin Urine Urobilinogen Ur Leukocyte Esterase Ur Culture Indicated? 02/05/17 02/05/17 09:10 11:28 WBC RBC Hgb Hct MCV MCH MCHC RDW Plt Count MPV Immature Gran % Seg Neutrophils % Lymphocytes % Monocytes % Eosinophils % Basophils % Neutrophils # Lymphocytes # Monocytes # Eosinophils # Basophils # ESR Sodium Potassium Chloride Carbon Dioxide BUN Creatinine Est GFR ( Amer) Est GFR (Non-Af Amer) BUN/Creatinine Ratio Glucose POC Glucose 122 H Calculated Osmolality Calcium Total Bilirubin AST ALT Alkaline Phosphatase Creatine Kinase C-Reactive Protein Serum Total Protein Albumin Globulin Albumin/Globulin Ratio Urine Color Yellow Urine Clarity Clear Urine pH 6.0 Ur Specific [place] 1.017 Urine Protein Negative Urine Glucose (UA) Normal Urine Ketones Negative Urine Blood Negative Urine Nitrite Negative Urine Bilirubin Negative Urine Urobilinogen Normal Ur Leukocyte Esterase Negative Ur Culture Indicated? NO Cultures: Cultures 02/04/17 13:40 Wound Culture - Preliminary Left Foot No growth. Serology 02/05/17 02/04/17 Range/Units 09:10 00:10 Urine Color Yellow (Yellow) Urine Clarity Clear (Clear) Urine pH 6.0 (5.0-8.0) pH Units Ur Specific [place] 1.017 (1.010-1.025) Urine Protein Negative (Neg-Trace) mg/dL Urine Glucose (UA) Normal (Normal) mg/dL Urine Ketones Negative (Negative) mg/dL Urine Blood Negative (Negative) Urine Nitrite Negative (Negative) Urine Bilirubin Negative (Negative) Urine Urobilinogen Normal (Normal) mg/dL Ur Leukocyte Esterase Negative (Negative) Ur Culture Indicated? NO (NO) Stl C. diff Tox B Gene Negative (Negative) Exam - Constitutional Vitals: Temp Pulse Resp BP Pulse Ox 98.2 F 86 20 114/70 91 02/05/17 11:29 02/05/17 11:29 02/05/17 11:34 02/05/17 11:29 02/05/17 11:34 General appearance: cooperative, morbidly obese, no acute distress - Head Head exam: Present: atraumatic, normal inspection, normocephalic - Eye Eye exam: Present: EOMI, normal appearance, PERRL Pupils: Present: normal accommodation - ENT ENT exam: Present: mucous membranes moist - Neck Neck exam: Present: normal inspection - Respiratory Respiratory exam: Present: CTAB. Absent: rales, respiratory distress, rhonchi, wheezes - Cardiovascular Cardiovascular exam: Present: RRR, +S1, +S2 - GI/Abdominal GI/Abdominal exam: Present: distended (obese), normal bowel sounds, soft. Absent: tenderness - Extremities Exam Extremities exam: Present: pedal edema (1+ BLE). Absent: joint swelling, tenderness Additional comments: Wound VAC noted to the left calcaneus with sponge well-compressed and dressing intact. - Neurological Exam Neurological exam: Present: alert, oriented X3, no focal deficits - Psychiatric Additional comments: Tangential speech, disjointed thoughts, inappropriate answers to questions but is able to describe in great detail exactly how she was instructed to administer her IV antibiotics at home. - Skin Skin exam: Present: dry, intact, normal color, warm Consult Discharge Plan - Plan Referrals: [facility] [place],Dennis Peguero MD [Primary Care Provider] -
[2017-02-06 03:22] LABS: Hemoglobin 11.5 g/dL (11.5-15.4); Immature Granulocytes % 0.4 % (0-4); Red Cell Distribution Width 22.5 % (11.5-14.5)
[2017-02-06 03:24] LABS: Basophils % 0.4 %; Eosinophils # 0.8 K/mcL (0.0-0.6); Eosinophils % 9.8 %; Hematocrit 39.6 % (35.3-44.9); Lymphocytes # 1.1 K/mcL (0.6-4.6); Lymphocytes % 13.8 %; Mean Corpuscular Volume 89.6 fL (83.0-100.0); Mean Platelet Volume 8.7 fL (9.4-12.4); Monocytes # 0.4 K/mcL (0.0-1.3); Monocytes % 5.6 %; Neutrophils # 5.4 K/mcL (1.6-8.9); Platelet Count 297 K/mcL (140-400); Red Blood Count 4.42 M/mcL (3.82-4.97)
[2017-02-06 03:44] LABS: Anisocytosis 2+ (Not Present); Macrocytosis Present (Not Present); Microcytosis Present (Not Present); Platelet Estimate Normal (Normal); Polychromasia 1+ (Not Present)
[2017-02-06 04:18] LABS: Alanine Aminotransferase 20 Units/L (0-55); Albumin 2.9 g/dL (3.5-5.0); Albumin/Globulin Ratio 0.7 (1.1-2.2); Alkaline Phosphatase 54 Units/L (38-126); Aspartate Amino Transferase 21 Units/L (5-34); BUN/Creatinine Ratio 16 (6-26); Bilirubin,Total 0.6 mg/dL (0.2-1.2); Blood Urea Nitrogen 14 mg/dL (7-20); Calcium 9.3 mg/dL (8.6-10.8); Carbon Dioxide 29 mEq/L (19-29); Chloride 102 mEq/L (98-109); Globulin 3.9 g/dL (2.4-3.5); Glucose 119 mg/dL (70-99); Osmolality,Calculated 292 (280-300); Potassium 4.2 mEq/L (3.5-4.5); Sodium 140 mEq/L (136-145); Total Protein 6.8 g/dL (6.0-8.3); eGFR For African Americans > 60 (> 60); eGFR For Non-African Americans > 60 (> 60)
[2017-02-06] MEDS: *HR* Enoxaparin 40 MG/0.4 ML SYRINGE SQ SCH (05:58)
[2017-02-06] MEDS: *HR* HYDROcodone/Acet 5/325 mg TABLET PO PRN (09:15)
[2017-02-06] MEDS: Levofloxacin 750 MG/150 ML 750 MG/150 ML BAG IVPB SCH (09:16)
[2017-02-06] MEDS: Cholecalciferol (D-3) 1,000 UNIT TABLET PO SCH (09:16)
[2017-02-06] MEDS: Insulin LISPRO 300 UNITS/3 ML VIAL SQ SCH ×4 (09:20→20:58)
--- NOTE | 2017-02-06 15:10 | Internal Med Progress Note ---
Date of Encounter: 02/06/17 Time of Encounter: 15:08 - Assessment and plan (1) Osteomyelitis Current Visit: No Status: Acute Assessment and plan: Kiersten Lemus is a 56-year-old female with past medical history osteomyelitis left heel, diabetes, ISIAH and morbid obesity recently admitted 01/23-01/28/2017 for left heel osteomyelitis who presented to [facility] on 02/03/2017 from PCPs office with concern for recurrent left heel infection. She was admitted for IV ATB 1. Left heel osteomyelitis: Developed wound to left heel following prolonged hospital stay at [facility]. Recently hospitalized 01/23-01/28/2017 at [facility] for osteomyelitis; s/ p I&D on 01/24/[address] Benavides. Was treated with IV ATB and discharged home with a wound VAC and outpatient follow-up. There was apparently confusion with delivery of a wound VAC and patient had not had wound VAC in place since she was discharged. Patient says she did get IV Levaquin at home. Re-presented to ER from PCPs office with concern for worsening left heel infection. IV Vanco, Levaquin started in the ED. IV Vanco was stopped secondary due to "red man" syndrome. Repeat MRI consistent with osteomyelitis and with concern for gas-forming organism. Evaluated by infectious disease who noted possible soft tissue gas findings on MRI may be from the recent surgical procedure. Cont IV Levaquin (will likely need for 6 weeks). Evaluated by podiatry who recommends non weight bearing to LLE. 2. Red man syndrome: Secondary to IV vancomycin. Patient had similar reaction last admission. Vancomycin stopped and added to allergy list. 3. Acute encephalopathy: Appears almost manic/psychotic at times however she is appropriate and appears to have decision making capacity. Chart reviewed and patient had similar presentation last admission. Evaluated by psychiatry at that time who did not feel patient was examining psychosis at that time. Cont to monitor, supportive care 4. Acute on chronic respiratory failure with hypoxia: ABG show pH 7.36, pCO2 55 , PaO2 79. Continue supplemental O2 and BiPAP PRN. 5. Hypothyroidism: per hx. Cont home levothyroxine 6. DVT prophylaxis: lovenox Disposition: Awaiting SNF approval Qualifiers: Osteomyelitis type: unspecified type Osteomyelitis location: foot Laterality: left Qualified Code(s): M86.9 - Osteomyelitis, unspecified (2) Encephalopathy Current Visit: No Status: Acute (3) ISIAH on CPAP Current Visit: No Status: Acute (4) DVT prophylaxis Current Visit: Yes Status: Acute - Subjective Interval history: Seen and examined at bedside; no acute changes in assessment to report. She is worried that she will not be able to keep weight off left foot due to her weight. She is still agreeable to go to SNF. Has some pain to left heel - Constitutional Vitals: Temp Pulse Resp BP Pulse Ox 98.1 F 86 16 103/61 93 02/06/17 14:48 02/06/17 14:48 02/06/17 14:48 02/06/17 14:48 02/06/17 14:48 General appearance: Present: cooperative, A&O X 3, morbidly obese. Absent: answers questions appropriately - Head Head exam: Present: atraumatic, normocephalic - Eye Eye exam: Present: PERRL, conjuntiva pink, sclera anicteric Pupils: Present: PERRL - Neck Neck exam general surgery: Present: supple, trachea midline. Absent: lymphadenopathy - Respiratory Respiratory exam: Present: CTAB. Absent: accessory muscle use, rales, rhonchi, wheezes - Cardiovascular Cardiovascular exam: Present: RRR, +S1, +S2. Absent: diastolic murmur, gallop, rubs, systolic murmur - GI/Abdominal GI/Abdominal exam: Present: normal bowel sounds, soft, no peritoneal signs. Absent: distended, tenderness - Extremities Exam Extremities exam: Present: warm, radial pulses palpable and symmetrical. Absent : calf tenderness, cyanotic, pedal edema - Neurological Exam Neurological exam: Present: CN II-XII intact, oriented X3, no focal deficits. Absent: pronater drift, facial droop, speech deficit - Skin Skin exam: Present: dry, intact Additional comments: left heel wound VAC Internal Medicine: Result - Labs CBC & Chem 7: 02/06/17 03:05 02/06/17 03:05 Labs: Short CBC 02/06/17 Range/Units 03:05 WBC 7.7 (4.3-11.1) K/mcL Hgb 11.5 (11.5-15.4) g/dL Hct 39.6 (35.3-44.9) % Plt Count 297 (140-400) K/mcL Neutrophils # 5.4 (1.6-8.9) K/mcL BMP 02/06/17 03:05 Sodium 140 Potassium 4.2 Chloride 102 Carbon Dioxide 29 BUN 14 Creatinine 0.87 Glucose 119 H Calcium 9.3 Liver Function 02/06/17 Range/Units 03:05 Total Bilirubin 0.6 (0.2-1.2) mg/dL AST 21 (5-34) Units/L ALT 20 (0-55) Units/L Alkaline Phosphatase 54 (38-126) Units/L Albumin 2.9 L (3.5-5.0) g/dL - ABG Interpretation ABG results: ABG ABG pH 7.36 pH Units (7.32-7.45) 02/04/17 09:37 ABG pCO2 55 mmHg (35-45) H 02/04/17 09:37 ABG pO2 69 mmHg (85-104) L 02/04/17 09:37 ABG O2 Saturation 92 % (95-98) L 02/04/17 09:37 PT/INR, D-dimer PT 12.1 Seconds (9.4-12.1) 02/04/17 03:40 Consult Discharge Plan - Plan Referrals: [place],Dennis Peguero MD [Primary Care Provider] -
--- NOTE | 2017-02-06 15:59 | Infectious Disease Progress No ---
Date of Encounter: 02/06/17 Time of Encounter: 15:56 - Assessment and Plan (1) Osteomyelitis Current Visit: No Status: Acute Location: Left calcaneus. Causative organism Proteus mirabilis. Likely secondary to left heel pressure ulcer. Status post left calcaneus I & D with bone biopsy 01/24/[address] Benavides. Bone culture positive for Proteus mirabilis, but bone pathology was negative for OM. She was discharged home on IV Levaquin previously. Patient saw her PCP and there were concerns that the patient was not receiving adequate care at home and the patient was sent to the ER. Unsure if the patient was getting dressing changes or her IV antibiotics at home. MRI of the left foot show findings consistent with cellulitis, increase in the size of the wound compared to previous MRI, possible soft tissue gas and possible osteomyelitis of the calcaneus. Not sure if the soft tissue gas is new or if this could be residual from the patient's recent surgery. The patient has no SIRS criteria. Podiatry consulted and following. Inflammatory markers remain elevated. ESR is improved. CK level normal. Wound culture obtained and pending. Blood cultures drawn 02/03/17 are NGTD x 2 sets. Continue Levaquin 750mg IV daily. Duration of treatment depends on the clinical picture, but likely 6 weeks from her surgical procedure. Monitor renal function and dose-adjust antibiotics. Awaiting SNF placement. Will need to continue weekly CBC, BUN/Cr, ESR, and CRP every Friday for the duration of treatment. Weekly EPIV care per protocol. Follow up with ID in two weeks. 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 Secondary to left calcaneus OM. Podiatry consulted and following. 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 She often makes comments not related to the current conversation. Evaluated by psychiatry during last admission and deemed not psychotic and competent to make her own decisions. Etiology unclear, but concern for underlying mental disorder. On discharge, the patient would likely benefit from rehab placement to assist with wound care and IV antibiotic administration. Qualifiers: Altered mental status type: unspecified Qualified Code(s): R41.82 - Altered mental status, unspecified (4) Red man syndrome Current Visit: No Status: Resolved Likely secondary to Vanc. Vancomycin discontinued by the primary team. (5) Morbid obesity Current Visit: No Status: Chronic - Subjective Interval history: Patient seen and examined. No acute events noted overnight. Patient sitting up in bed. Continues with tangential speech and disjointed thoughts. Difficult to keep focused on the exam and patient requires redirection multiple times. Gives inappropriate answers to ROS questions and I am unable to glean any information from our conversation again today. Infect Dis PN-Objective Data - Labs CBC & Chem 7: 02/06/17 03:05 02/06/17 03:05 Labs: Laboratory Results - last 24 hr 02/05/17 02/05/17 02/06/17 16:44 19:09 03:05 WBC 7.7 RBC 4.42 Hgb 11.5 Hct 39.6 MCV 89.6 MCH 26.0 L MCHC 29.0 L RDW 22.5 H Plt Count 297 MPV 8.7 L Immature Gran % 0.4 Seg Neutrophils % 70.0 Lymphocytes % 13.8 Monocytes % 5.6 Eosinophils % 9.8 Basophils % 0.4 Neutrophils # 5.4 Lymphocytes # 1.1 Monocytes # 0.4 Eosinophils # 0.8 H Basophils # 0.0 Platelet Estimate Normal Immature Plt Fraction 1.0 L Polychromasia 1+ A Anisocytosis 2+ A Microcytosis Present A Macrocytosis Present A Sodium Potassium Chloride Carbon Dioxide BUN Creatinine Est GFR ( Amer) Est GFR (Non-Af Amer) BUN/Creatinine Ratio Glucose POC Glucose 106 H 124 H Calculated Osmolality Calcium Total Bilirubin AST ALT Alkaline Phosphatase Serum Total Protein Albumin Globulin Albumin/Globulin Ratio 02/06/17 03:05 WBC RBC Hgb Hct MCV MCH MCHC RDW Plt Count MPV Immature Gran % Seg Neutrophils % Lymphocytes % Monocytes % Eosinophils % Basophils % Neutrophils # Lymphocytes # Monocytes # Eosinophils # Basophils # Platelet Estimate Immature Plt Fraction Polychromasia Anisocytosis Microcytosis Macrocytosis Sodium 140 Potassium 4.2 Chloride 102 Carbon Dioxide 29 BUN 14 Creatinine 0.87 Est GFR ( Amer) > 60 Est GFR (Non-Af Amer) > 60 BUN/Creatinine Ratio 16 Glucose 119 H POC Glucose Calculated Osmolality 292 Calcium 9.3 Total Bilirubin 0.6 AST 21 ALT 20 Alkaline Phosphatase 54 Serum Total Protein 6.8 Albumin 2.9 L Globulin 3.9 H Albumin/Globulin Ratio 0.7 L Cultures: Cultures 02/04/17 13:40 Wound Culture - Final Left Foot No pathogens isolated. Serology 02/05/17 02/04/17 Range/Units 09:10 00:10 Urine Color Yellow (Yellow) Urine Clarity Clear (Clear) Urine pH 6.0 (5.0-8.0) pH Units Ur Specific [place] 1.017 (1.010-1.025) Urine Protein Negative (Neg-Trace) mg/dL Urine Glucose (UA) Normal (Normal) mg/dL Urine Ketones Negative (Negative) mg/dL Urine Blood Negative (Negative) Urine Nitrite Negative (Negative) Urine Bilirubin Negative (Negative) Urine Urobilinogen Normal (Normal) mg/dL Ur Leukocyte Esterase Negative (Negative) Ur Culture Indicated? NO (NO) Stl C. diff Tox B Gene Negative (Negative) Exam - Constitutional Vitals: Temp Pulse Resp BP Pulse Ox 98.1 F 86 16 103/61 93 02/06/17 14:48 02/06/17 14:48 02/06/17 14:48 02/06/17 14:48 02/06/17 14:48 General appearance: cooperative, morbidly obese, no acute distress - Head Head exam: Present: atraumatic, normal inspection, normocephalic - Eye Eye exam: Present: EOMI, normal appearance, PERRL Pupils: Present: normal accommodation - ENT ENT exam: Present: mucous membranes moist - Neck Neck exam: Present: normal inspection - Respiratory Respiratory exam: Present: CTAB. Absent: rales, respiratory distress, rhonchi, wheezes - Cardiovascular Cardiovascular exam: Present: RRR, +S1, +S2 - GI/Abdominal GI/Abdominal exam: Present: distended (obese), normal bowel sounds, soft. Absent: tenderness - Extremities Exam Extremities exam: Present: normal inspection. Absent: joint swelling, pedal edema, tenderness Additional comments: Wound VAC dressing noted to the left heel with wound VAC sponge well-compressed and transparent dressing intact. No drainage noted in the wound VAC canister. - Neurological Exam Neurological exam: Present: alert, oriented X3, no focal deficits - Psychiatric Psychiatric exam: Present: normal affect, normal mood - Skin Skin exam: Present: dry, intact, normal color, warm Consult Discharge Plan - Plan Referrals: Dennis Garner MD [Primary Care Provider] -
[2017-02-07 05:10] LABS: Basophils % 0.2 %; Eosinophils # 0.6 K/mcL (0.0-0.6); Eosinophils % 7.4 %; Hematocrit 39.2 % (35.3-44.9); Hemoglobin 11.6 g/dL (11.5-15.4); Immature Granulocytes % 0.5 % (0-4); Lymphocytes % 12.8 %; Mean Corpuscular HGB Conc 29.6 g/dL (31.6-35.5); Mean Corpuscular Hemoglobin 26.4 pg (28.0-33.3); Mean Corpuscular Volume 89.1 fL (83.0-100.0); Mean Platelet Volume 8.3 fL (9.4-12.4); Monocytes # 0.5 K/mcL (0.0-1.3); Monocytes % 5.8 %; Neutrophils # 5.9 K/mcL (1.6-8.9); Platelet Count 245 K/mcL (140-400); Red Cell Distribution Width 22.2 % (11.5-14.5); Segmented Neutrophils % 73.3 %
[2017-02-07 05:28] LABS: Alanine Aminotransferase 18 Units/L (0-55); Albumin 2.9 g/dL (3.5-5.0); Albumin/Globulin Ratio 0.8 (1.1-2.2); Alkaline Phosphatase 53 Units/L (38-126); Aspartate Amino Transferase 17 Units/L (5-34); BUN/Creatinine Ratio 19 (6-26); Bilirubin,Total 0.5 mg/dL (0.2-1.2); Blood Urea Nitrogen 15 mg/dL (7-20); Calcium 9.6 mg/dL (8.6-10.8); Carbon Dioxide 34 mEq/L (19-29); Chloride 101 mEq/L (98-109); Globulin 3.7 g/dL (2.4-3.5); Glucose 121 mg/dL (70-99); Osmolality,Calculated 292 (280-300); Potassium 4.1 mEq/L (3.5-4.5); Sodium 140 mEq/L (136-145); Total Protein 6.6 g/dL (6.0-8.3); eGFR For African Americans > 60 (> 60); eGFR For Non-African Americans > 60 (> 60)
[2017-02-07] MEDS: *HR* Enoxaparin 40 MG/0.4 ML SYRINGE SQ SCH (05:57)
[2017-02-07] MEDS: Insulin LISPRO 300 UNITS/3 ML VIAL SQ SCH ×4 (09:28→20:46)
[2017-02-07] MEDS: Cholecalciferol (D-3) 1,000 UNIT TABLET PO SCH (09:32)
[2017-02-07] MEDS: Levofloxacin 750 MG/150 ML 750 MG/150 ML BAG IVPB SCH (09:32)
--- NOTE | 2017-02-07 11:31 | Infectious Disease Progress No ---
Date of Encounter: 02/07/17 Time of Encounter: 11:29 - Assessment and Plan (1) Osteomyelitis Current Visit: No Status: Acute Location: Left calcaneus. Causative organism Proteus mirabilis. Likely secondary to left heel pressure ulcer. Status post left calcaneus I & D with bone biopsy 01/24/[address] Benavides. Bone culture positive for Proteus mirabilis, but bone pathology was negative for OM. She was discharged home on IV Levaquin previously. Patient saw her PCP and there were concerns that the patient was not receiving adequate care at home and the patient was sent to the ER. Unsure if the patient was getting dressing changes or her IV antibiotics at home. MRI of the left foot show findings consistent with cellulitis, increase in the size of the wound compared to previous MRI, possible soft tissue gas and possible osteomyelitis of the calcaneus. Not sure if the soft tissue gas is new or if this could be residual from the patient's recent surgery. The patient has no SIRS criteria. Podiatry consulted and following. Inflammatory markers remain elevated. ESR is improved. CK level normal. Wound culture obtained and pending. Blood cultures drawn 02/03/17 are NGTD x 2 sets. Continue Levaquin 750mg IV daily. Duration of treatment depends on the clinical picture, but likely 6 weeks from her surgical procedure. Monitor renal function and dose-adjust antibiotics. Awaiting SNF placement. Will need to continue weekly CBC, BUN/Cr, ESR, and CRP every Friday for the duration of treatment. Weekly EPIV care per protocol. Follow up with ID in two weeks 02/24/17 at 0820. 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 Secondary to left calcaneus OM. Podiatry consulted and following. 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 She often makes comments not related to the current conversation. Evaluated by psychiatry during last admission and deemed not psychotic and competent to make her own decisions. Etiology unclear, but concern for underlying mental disorder. On discharge, the patient would likely benefit from rehab placement to assist with wound care and IV antibiotic administration. Qualifiers: Altered mental status type: unspecified Qualified Code(s): R41.82 - Altered mental status, unspecified (4) Red man syndrome Current Visit: No Status: Resolved Likely secondary to Vanc. Vancomycin discontinued by the primary team. (5) Morbid obesity Current Visit: No Status: Chronic - Subjective Interval history: Patient seen and examined. No acute events noted overnight. Patient sitting up in bed. Continues with tangential speech and disjointed thoughts. Difficult to keep focused on the exam and patient requires redirection multiple times. Denies chest pain, shortness of breath, or cough. Denies abdominal pain and states she is urinating and defecating normally. She reports some mild pain in the left foot. Infect Dis PN-Objective Data - Labs CBC & Chem 7: 02/07/17 05:00 02/07/17 05:00 Labs: Laboratory Results - last 24 hr 02/06/17 02/06/17 02/06/17 08:21 11:48 16:45 WBC RBC Hgb Hct MCV MCH MCHC RDW Plt Count MPV Immature Gran % Seg Neutrophils % Lymphocytes % Monocytes % Eosinophils % Basophils % Neutrophils # Lymphocytes # Monocytes # Eosinophils # Basophils # Sodium Potassium Chloride Carbon Dioxide BUN Creatinine Est GFR ( Amer) Est GFR (Non-Af Amer) BUN/Creatinine Ratio Glucose POC Glucose 109 H 107 H 100 H Calculated Osmolality Calcium Total Bilirubin AST ALT Alkaline Phosphatase Serum Total Protein Albumin Globulin Albumin/Globulin Ratio 02/06/17 02/07/17 02/07/17 20:51 05:00 05:00 WBC 8.1 RBC 4.40 Hgb 11.6 Hct 39.2 MCV 89.1 MCH 26.4 L MCHC 29.6 L RDW 22.2 H Plt Count 245 MPV 8.3 L Immature Gran % 0.5 Seg Neutrophils % 73.3 Lymphocytes % 12.8 Monocytes % 5.8 Eosinophils % 7.4 Basophils % 0.2 Neutrophils # 5.9 Lymphocytes # 1.0 Monocytes # 0.5 Eosinophils # 0.6 Basophils # 0.0 Sodium 140 Potassium 4.1 Chloride 101 Carbon Dioxide 34 H BUN 15 Creatinine 0.81 Est GFR ( Amer) > 60 Est GFR (Non-Af Amer) > 60 BUN/Creatinine Ratio 19 Glucose 121 H POC Glucose 117 H Calculated Osmolality 292 Calcium 9.6 Total Bilirubin 0.5 AST 17 ALT 18 Alkaline Phosphatase 53 Serum Total Protein 6.6 Albumin 2.9 L Globulin 3.7 H Albumin/Globulin Ratio 0.8 L Cultures: Cultures 02/04/17 13:40 Wound Culture - Final Left Foot No pathogens isolated. Serology 02/05/17 02/04/17 Range/Units 09:10 00:10 Urine Color Yellow (Yellow) Urine Clarity Clear (Clear) Urine pH 6.0 (5.0-8.0) pH Units Ur Specific [place] 1.017 (1.010-1.025) Urine Protein Negative (Neg-Trace) mg/dL Urine Glucose (UA) Normal (Normal) mg/dL Urine Ketones Negative (Negative) mg/dL Urine Blood Negative (Negative) Urine Nitrite Negative (Negative) Urine Bilirubin Negative (Negative) Urine Urobilinogen Normal (Normal) mg/dL Ur Leukocyte Esterase Negative (Negative) Ur Culture Indicated? NO (NO) Stl C. diff Tox B Gene Negative (Negative) Exam - Constitutional Vitals: Temp Pulse Resp BP Pulse Ox 98.1 F 92 16 113/68 96 02/07/17 11:00 02/07/17 11:00 02/07/17 11:00 02/07/17 11:00 02/07/17 11:00 General appearance: cooperative, morbidly obese, no acute distress - Head Head exam: Present: atraumatic, normal inspection, normocephalic - Eye Eye exam: Present: EOMI, normal appearance, PERRL Pupils: Present: normal accommodation - ENT ENT exam: Present: mucous membranes moist - Neck Neck exam: Present: normal inspection - Respiratory Respiratory exam: Present: CTAB. Absent: rales, respiratory distress, rhonchi, wheezes - Cardiovascular Cardiovascular exam: Present: RRR, +S1, +S2 - GI/Abdominal GI/Abdominal exam: Present: distended (obese), normal bowel sounds, soft. Absent: tenderness - Extremities Exam Extremities exam: Present: normal inspection. Absent: joint swelling, pedal edema, tenderness Additional comments: Wound VAC noted to the left calcaneus with minimal drainage in the canister. - Neurological Exam Neurological exam: Present: alert, oriented X3, no focal deficits Additional comments: Tangential speech and disjointed thoughts. Often times, her comments are inappropriate to the conversation and don't make sense. - Psychiatric Psychiatric exam: Present: manic - Skin Skin exam: Present: dry, intact, normal color, warm Consult Discharge Plan - Plan Referrals: Dennis Garner MD [Primary Care Provider] -
--- NOTE | 2017-02-07 16:52 | Internal Med Progress Note ---
Date of Encounter: 02/07/17 Time of Encounter: 16:52 - Assessment and plan (1) Osteomyelitis Current Visit: No Status: Acute Assessment and plan: Kiersten Lemus is a 56-year-old female with past medical history osteomyelitis left heel, diabetes, ISIAH and morbid obesity recently admitted 01/23-01/28/2017 for left heel osteomyelitis who presented to [facility] on 02/03/2017 from PCPs office with concern for recurrent left heel infection. She was admitted for IV ATB 1. Left heel osteomyelitis: Developed wound to left heel following prolonged hospital stay at [facility]. Recently hospitalized 01/23-01/28/2017 at [facility] for osteomyelitis; s/ p I&D on 01/24/[address] Benavides. Was treated with IV ATB and discharged home with a wound VAC and outpatient follow-up. There was apparently confusion with delivery of a wound VAC and patient had not had wound VAC in place since she was discharged. Patient says she did get IV Levaquin at home. Re-presented to ER from PCPs office with concern for worsening left heel infection. IV Vanco, Levaquin started in the ED. IV Vanco was stopped secondary due to "red man" syndrome. Repeat MRI consistent with osteomyelitis and with concern for gas-forming organism. Evaluated by infectious disease who noted possible soft tissue gas findings on MRI may be from the recent surgical procedure. Cont IV Levaquin (will likely need for 6 weeks). Will need to continue weekly CBC, BUN/Cr, ESR, and CRP every Friday for the duration of treatment. Evaluated by podiatry who recommends non weight bearing to LLE. 2. Red man syndrome: Secondary to IV vancomycin. Patient had similar reaction last admission. Vancomycin stopped and added to allergy list. 3. Acute encephalopathy: Appeared almost manic/psychotic at times however she is appropriate and appears to have decision making capacity. Chart reviewed and patient had similar presentation last admission. Evaluated by psychiatry at that time who did not feel patient was examining psychosis at that time. Cont to monitor, supportive care 4. Acute on chronic respiratory failure with hypoxia: ABG show pH 7.36, pCO2 55 , PaO2 79. Continue supplemental O2 and BiPAP PRN. 5. Hypothyroidism: per hx. Cont home levothyroxine 6. DVT prophylaxis: lovenox Disposition: She has been declined at 3 SNF. Referral sent to select LTAC. If unable to get in to facility, she will be discharged home with home health care Qualifiers: Osteomyelitis type: unspecified type Osteomyelitis location: foot Laterality: left Qualified Code(s): M86.9 - Osteomyelitis, unspecified (2) Encephalopathy Current Visit: No Status: Acute (3) ISIAH on CPAP Current Visit: No Status: Acute (4) DVT prophylaxis Current Visit: Yes Status: Acute - Subjective Interval history: Seen and examined at bedside; no acute changes in assessment to report. Uneventful night. Wound VAC remains intact. She is still agreeable to go to SNF /LTAC - Constitutional Vitals: Temp Pulse Resp BP Pulse Ox 98.2 F 87 15 127/68 98 02/07/17 15:46 02/07/17 15:46 02/07/17 15:46 02/07/17 15:46 02/07/17 15:46 General appearance: Present: cooperative, A&O X 3, morbidly obese. Absent: answers questions appropriately - Head Head exam: Present: atraumatic, normocephalic - Eye Eye exam: Present: PERRL, conjuntiva pink, sclera anicteric Pupils: Present: PERRL - Neck Neck exam general surgery: Present: supple, trachea midline. Absent: lymphadenopathy - Respiratory Respiratory exam: Present: CTAB. Absent: accessory muscle use, rales, rhonchi, wheezes - Cardiovascular Cardiovascular exam: Present: RRR, +S1, +S2. Absent: diastolic murmur, gallop, rubs, systolic murmur - GI/Abdominal GI/Abdominal exam: Present: normal bowel sounds, soft, no peritoneal signs. Absent: distended, tenderness - Extremities Exam Extremities exam: Present: warm, radial pulses palpable and symmetrical. Absent : calf tenderness, cyanotic, pedal edema - Neurological Exam Neurological exam: Present: CN II-XII intact, oriented X3, no focal deficits. Absent: pronater drift, facial droop, speech deficit Additional comments: Rambling, nonsensical speech at times - Skin Skin exam: Present: dry, intact Internal Medicine: Result - Labs CBC & Chem 7: 02/07/17 05:00 02/07/17 05:00 Labs: Short CBC 02/07/17 Range/Units 05:00 WBC 8.1 (4.3-11.1) K/mcL Hgb 11.6 (11.5-15.4) g/dL Hct 39.2 (35.3-44.9) % Plt Count 245 (140-400) K/mcL Neutrophils # 5.9 (1.6-8.9) K/mcL BMP 02/07/17 05:00 Sodium 140 Potassium 4.1 Chloride 101 Carbon Dioxide 34 H BUN 15 Creatinine 0.81 Glucose 121 H Calcium 9.6 Liver Function 02/07/17 Range/Units 05:00 Total Bilirubin 0.5 (0.2-1.2) mg/dL AST 17 (5-34) Units/L ALT 18 (0-55) Units/L Alkaline Phosphatase 53 (38-126) Units/L Albumin 2.9 L (3.5-5.0) g/dL - ABG Interpretation ABG results: ABG ABG pH 7.36 pH Units (7.32-7.45) 02/04/17 09:37 ABG pCO2 55 mmHg (35-45) H 02/04/17 09:37 ABG pO2 69 mmHg (85-104) L 02/04/17 09:37 ABG O2 Saturation 92 % (95-98) L 02/04/17 09:37 PT/INR, D-dimer PT 12.1 Seconds (9.4-12.1) 02/04/17 03:40 Consult Discharge Plan - Plan Referrals: Dennis Garner MD [Primary Care Provider] -
[2017-02-08] MEDS: *HR* Enoxaparin 40 MG/0.4 ML SYRINGE SQ SCH (06:51)
[2017-02-08] MEDS: Insulin LISPRO 300 UNITS/3 ML VIAL SQ SCH ×2 (08:44→11:40)
[2017-02-08] MEDS: Cholecalciferol (D-3) 1,000 UNIT TABLET PO SCH (10:23)
[2017-02-08] MEDS: Levofloxacin 750 MG/150 ML 750 MG/150 ML BAG IVPB SCH (10:23)
--- NOTE | 2017-02-08 14:35 | Internal Med Progress Note ---
Date of Encounter: 02/08/17 Time of Encounter: 14:33 - Assessment and plan (1) Osteomyelitis Current Visit: No Status: Acute Assessment and plan: Kiersten Lemus is a 56-year-old female with past medical history osteomyelitis left heel, diabetes, ISIAH and morbid obesity recently admitted 01/23-01/28/2017 for left heel osteomyelitis who presented to [facility] on 02/03/2017 from PCPs office with concern for recurrent left heel infection. She was admitted for IV ATB 1. Left heel osteomyelitis: Developed wound to left heel following prolonged hospital stay at [facility]. Recently hospitalized 01/23-01/28/2017 at [facility] for osteomyelitis; s/ p I&D on 01/24/[address] Benavides. Was treated with IV ATB and discharged home with a wound VAC and outpatient follow-up. There was apparently confusion with delivery of a wound VAC and patient had not had wound VAC in place since she was discharged. Patient says she did get IV Levaquin at home. Re-presented to ER from PCPs office with concern for worsening left heel infection. IV Vanco, Levaquin started in the ED. IV Vanco stopped secondary to "red man" syndrome. Repeat MRI consistent with osteomyelitis and with concern for gas-forming organism. Evaluated by infectious disease who noted possible soft tissue gas findings on MRI may be from the recent surgical procedure. Cont IV Levaquin (will likely need for 6 weeks). Will need to continue weekly CBC, BUN/Cr, ESR, and CRP every Friday for the duration of treatment. Evaluated by podiatry who recommends non weight bearing to LLE. 2. Red man syndrome: Secondary to IV vancomycin. Patient had similar reaction last admission. Vancomycin stopped and added to allergy list. 3. Acute encephalopathy: Appeared almost manic/psychotic at times however she answers questions appropriately when she is focused and appears to have decision making capacity. Chart reviewed and patient had similar presentation last admission. Evaluated by psychiatry at that time who did not feel patient was examining psychosis at that time. 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 A staff member is familiar with patient from previous hospital stay who also reports current presentation is abnormal for her. Head CT nonacute. Brain MRI pending. 4. Acute on chronic respiratory failure with hypoxia: ABG show pH 7.36, pCO2 55 , PaO2 79. Continue supplemental O2 and BiPAP PRN. 5. Hypothyroidism: per hx. Cont home levothyroxine 6. DVT prophylaxis: lovenox Disposition: She has been declined at 3 SNF. Referral sent to select LTAC. If unable to get in to facility, she will be discharged home with home health care Qualifiers: Osteomyelitis type: unspecified type Osteomyelitis location: foot Laterality: left Qualified Code(s): M86.9 - Osteomyelitis, unspecified (2) Encephalopathy Current Visit: No Status: Acute (3) ISIAH on CPAP Current Visit: No Status: Acute (4) DVT prophylaxis Current Visit: Yes Status: Acute - Subjective Interval history: Seen and examined at bedside. Sitting up in chair. She remains difficult to understand with nonsensical and rambling speech at times. Overall, no acute distress apparent. - Constitutional Vitals: Temp Pulse Resp BP Pulse Ox 97.8 F 62 16 119/76 98 02/08/17 08:08 02/08/17 08:08 02/08/17 08:08 02/08/17 08:08 02/08/17 08:08 General appearance: Present: cooperative, A&O X 3, morbidly obese. Absent: answers questions appropriately - Head Head exam: Present: atraumatic, normocephalic - Eye Eye exam: Present: PERRL, conjuntiva pink, sclera anicteric Pupils: Present: PERRL - Neck Neck exam general surgery: Present: supple, trachea midline. Absent: lymphadenopathy - Respiratory Respiratory exam: Present: CTAB. Absent: accessory muscle use, rales, rhonchi, wheezes - Cardiovascular Cardiovascular exam: Present: RRR, +S1, +S2. Absent: diastolic murmur, gallop, rubs, systolic murmur - GI/Abdominal GI/Abdominal exam: Present: normal bowel sounds, soft, no peritoneal signs. Absent: distended, tenderness Additional comments: obese - Extremities Exam Extremities exam: Present: warm, radial pulses palpable and symmetrical. Absent : calf tenderness, cyanotic, pedal edema - Neurological Exam Neurological exam: Present: CN II-XII intact, oriented X3, no focal deficits. Absent: pronater drift, facial droop, speech deficit Additional comments: Nonsensical rambling speech at times - Skin Skin exam: Present: dry, intact Additional comments: left heel with wound vac in place and functioning Internal Medicine: Result - Labs CBC & Chem 7: 02/07/17 05:00 02/07/17 05:00 - ABG Interpretation ABG results: ABG ABG pH 7.36 pH Units (7.32-7.45) 02/04/17 09:37 ABG pCO2 55 mmHg (35-45) H 02/04/17 09:37 ABG pO2 69 mmHg (85-104) L 02/04/17 09:37 ABG O2 Saturation 92 % (95-98) L 02/04/17 09:37 PT/INR, D-dimer PT 12.1 Seconds (9.4-12.1) 02/04/17 03:40 Consult Discharge Plan - Plan Referrals: Dennis Garner MD [Primary Care Provider] -
[2017-02-09] MEDS: *HR* Enoxaparin 40 MG/0.4 ML SYRINGE SQ SCH (06:12)
[2017-02-09 08:03] LABS: Hematocrit 43.4 % (35.3-44.9); Hemoglobin 12.6 g/dL (11.5-15.4); Mean Corpuscular Hemoglobin 25.9 pg (28.0-33.3); Mean Corpuscular Volume 89.3 fL (83.0-100.0); Mean Platelet Volume 8.5 fL (9.4-12.4); Platelet Count 289 K/mcL (140-400); Red Blood Count 4.86 M/mcL (3.82-4.97); Red Cell Distribution Width 21.5 % (11.5-14.5)
[2017-02-09 08:12] LABS: Alanine Aminotransferase 19 Units/L (0-55); Albumin 3.2 g/dL (3.5-5.0); Albumin/Globulin Ratio 0.7 (1.1-2.2); Alkaline Phosphatase 61 Units/L (38-126); Aspartate Amino Transferase 23 Units/L (5-34); BUN/Creatinine Ratio 21 (6-26); Blood Urea Nitrogen 18 mg/dL (7-20); Calcium 10.5 mg/dL (8.6-10.8); Carbon Dioxide 39 mEq/L (19-29); Chloride 96 mEq/L (98-109); Globulin 4.3 g/dL (2.4-3.5); Glucose 115 mg/dL (70-99); Osmolality,Calculated 297 (280-300); Potassium 4.1 mEq/L (3.5-4.5); Sodium 142 mEq/L (136-145); Total Protein 7.5 g/dL (6.0-8.3); eGFR For African Americans > 60 (> 60); eGFR For Non-African Americans > 60 (> 60)
[2017-02-09 08:14] LABS: Bilirubin,Total 0.8 mg/dL (0.2-1.2)
[2017-02-09] MEDS: Cholecalciferol (D-3) 1,000 UNIT TABLET PO SCH (10:33)
[2017-02-09] MEDS: Levofloxacin 750 MG/150 ML 750 MG/150 ML BAG IVPB SCH (10:33)
[2017-02-09] MEDS: *HR* HYDROcodone/Acet 5/325 mg TABLET PO PRN (13:14)
--- NOTE | 2017-02-09 14:08 | Internal Med Progress Note ---
Date of Encounter: 02/09/17 Time of Encounter: 14:08 - Assessment and plan (1) Osteomyelitis Current Visit: No Status: Acute Assessment and plan: Kiersten Lemus is a 56-year-old female with past medical history osteomyelitis left heel, diabetes, ISIAH and morbid obesity recently admitted 01/23-01/28/2017 for left heel osteomyelitis who presented to [facility] on 02/03/2017 from PCPs office with concern for recurrent left heel infection. She was admitted for IV ATB 1. Left heel osteomyelitis: Developed wound to left heel following prolonged hospital stay at [facility]. Recently hospitalized 01/23-01/28/2017 at [facility] for osteomyelitis; s/ p I&D on 01/24/[address] Benavides. Was treated with IV ATB and discharged home with a wound VAC and outpatient follow-up. There was apparently confusion with delivery of a wound VAC and patient had not had wound VAC in place since she was discharged. Patient says she did get IV Levaquin at home. Re-presented to ER from PCPs office with concern for worsening left heel infection. IV Vanco, Levaquin started in the ED. IV Vanco stopped secondary to "red man" syndrome. Repeat MRI consistent with osteomyelitis and with concern for gas-forming organism. Evaluated by infectious disease who noted possible soft tissue gas findings on MRI may be from the recent surgical procedure. Cont IV Levaquin (will likely need for 6 weeks). Will need to continue weekly CBC, BUN/Cr, ESR, and CRP every Friday for the duration of treatment. Evaluated by podiatry who recommends non weight bearing to LLE. 2. Red man syndrome: Secondary to IV vancomycin. Patient had similar reaction last admission. Vancomycin stopped and added to allergy list. 3. Acute encephalopathy: Appeared almost manic/psychotic at times however she answers questions appropriately when she is focused and appears to have decision making capacity. Chart reviewed and patient had similar presentation last admission. Evaluated by psychiatry at that time who did not feel patient was examining psychosis at that time. Head CT and brain MRI non-acute. Suspect this is patient's baseline mental status 4. Acute on chronic respiratory failure with hypoxia: ABG show pH 7.36, pCO2 55 , PaO2 79. Continue supplemental O2 and BiPAP PRN. 5. Hypothyroidism: per hx. Cont home levothyroxine 6. DVT prophylaxis: lovenox Disposition: She has been declined at 3 SNF. Referral sent to select LTAC. If unable to get in to facility, she will be discharged home with home health care. Tentative discharge 02/10/2017 Qualifiers: Osteomyelitis type: unspecified type Osteomyelitis location: foot Laterality: left Qualified Code(s): M86.9 - Osteomyelitis, unspecified (2) Encephalopathy Current Visit: No Status: Acute (3) ISIAH on CPAP Current Visit: No Status: Acute (4) DVT prophylaxis Current Visit: Yes Status: Acute - Subjective Interval history: Seen and examined at bedside. Dressing to left heel changed with RN, melo wound macerated, white and soft. Unable to place wound VAC. Wound cleanse with normal saline. Wet-to-dry applied. We will ask wound care to see a place wound VAC tomorrow. Patient still with nonsensical, rambling speech. Otherwise no changes in assessment to report. - Constitutional Vitals: Temp Pulse Resp BP Pulse Ox 98.0 F 81 19 117/74 92 02/09/17 12:09 02/09/17 12:09 02/09/17 12:09 02/09/17 12:09 02/09/17 12:09 General appearance: Present: cooperative, A&O X 3, morbidly obese. Absent: answers questions appropriately - Head Head exam: Present: atraumatic, normocephalic - Eye Eye exam: Present: PERRL, conjuntiva pink, sclera anicteric Pupils: Present: PERRL - Neck Neck exam general surgery: Present: supple, trachea midline. Absent: lymphadenopathy - Respiratory Respiratory exam: Present: CTAB. Absent: accessory muscle use, rales, rhonchi, wheezes - Cardiovascular Cardiovascular exam: Present: RRR, +S1, +S2. Absent: diastolic murmur, gallop, rubs, systolic murmur - GI/Abdominal GI/Abdominal exam: Present: normal bowel sounds, soft, no peritoneal signs. Absent: distended, tenderness - Extremities Exam Extremities exam: Present: warm, radial pulses palpable and symmetrical. Absent : calf tenderness, cyanotic, pedal edema - Neurological Exam Neurological exam: Present: CN II-XII intact, oriented X3, no focal deficits. Absent: pronater drift, facial droop, speech deficit - Skin Skin exam: Present: dry Additional comments: Left heel wound with periwound maceration; skin white and soft. Wound bed with granulation tissue to edges, yellow slough to Center wound bed. Internal Medicine: Result - Labs CBC & Chem 7: 02/09/17 07:34 02/09/17 07:34 Labs: Short CBC 02/09/17 Range/Units 07:34 WBC 7.6 (4.3-11.1) K/mcL Hgb 12.6 (11.5-15.4) g/dL Hct 43.4 (35.3-44.9) % Plt Count 289 (140-400) K/mcL BMP 02/09/17 07:34 Sodium 142 Potassium 4.1 Chloride 96 L Carbon Dioxide 39 H BUN 18 Creatinine 0.85 Glucose 115 H Calcium 10.5 Liver Function 02/09/17 Range/Units 07:34 Total Bilirubin 0.8 D (0.2-1.2) mg/dL AST 23 (5-34) Units/L ALT 19 (0-55) Units/L Alkaline Phosphatase 61 (38-126) Units/L Albumin 3.2 L (3.5-5.0) g/dL - ABG Interpretation ABG results: ABG ABG pH 7.36 pH Units (7.32-7.45) 02/04/17 09:37 ABG pCO2 55 mmHg (35-45) H 02/04/17 09:37 ABG pO2 69 mmHg (85-104) L 02/04/17 09:37 ABG O2 Saturation 92 % (95-98) L 02/04/17 09:37 PT/INR, D-dimer PT 12.1 Seconds (9.4-12.1) 02/04/17 03:40 - Impressions Impressions Brain MRI 02/08/17 14:21 IMPRESSION: 1. No acute intracranial abnormality. No acute infarct. 2. Minimal chronic microvascular ischemic change. 3. Trace mastoid effusions. D/ / Domingo George MD / Domingo George MD Interpreting Provider: Domingo George MD Consult Discharge Plan - Plan [place] [facility] [place] [Primary Care Provider] -
[2017-02-10] MEDS: *HR* Enoxaparin 40 MG/0.4 ML SYRINGE SQ SCH (05:48)
[2017-02-10 06:25] LABS: Alanine Aminotransferase 16 Units/L (0-55); Albumin 2.9 g/dL (3.5-5.0); Albumin/Globulin Ratio 0.8 (1.1-2.2); Alkaline Phosphatase 51 Units/L (38-126); Aspartate Amino Transferase 18 Units/L (5-34); BUN/Creatinine Ratio 26 (6-26); Bilirubin,Total 0.6 mg/dL (0.2-1.2); Blood Urea Nitrogen 23 mg/dL (7-20); Calcium 9.6 mg/dL (8.6-10.8); Carbon Dioxide 39 mEq/L (19-29); Chloride 98 mEq/L (98-109); Globulin 3.7 g/dL (2.4-3.5); Glucose 113 mg/dL (70-99); Osmolality,Calculated 298 (280-300); Potassium 4.1 mEq/L (3.5-4.5); Sodium 142 mEq/L (136-145); Total Protein 6.6 g/dL (6.0-8.3); eGFR For African Americans > 60 (> 60); eGFR For Non-African Americans > 60 (> 60)
[2017-02-10 06:40] LABS: Hematocrit 39.7 % (35.3-44.9); Hemoglobin 11.5 g/dL (11.5-15.4); Mean Corpuscular Hemoglobin 26.1 pg (28.0-33.3); Mean Platelet Volume 8.6 fL (9.4-12.4); Platelet Count 281 K/mcL (140-400); Red Blood Count 4.41 M/mcL (3.82-4.97); Red Cell Distribution Width 21.1 % (11.5-14.5)
[2017-02-10] MEDS: Cholecalciferol (D-3) 1,000 UNIT TABLET PO SCH (09:49)
[2017-02-10] MEDS: Levofloxacin 750 MG/150 ML 750 MG/150 ML BAG IVPB SCH (09:49)
--- NOTE | 2017-02-10 12:52 | Internal Med Progress Note ---
Date of Encounter: 02/18/17 - Assessment and plan (1) Osteomyelitis Status: Acute Qualifiers: Osteomyelitis type: unspecified type Osteomyelitis location: foot Laterality: left Qualified Code(s): M86.9 - Osteomyelitis, unspecified (2) Encephalopathy Status: Acute (3) ISIAH on CPAP Status: Chronic (4) DVT prophylaxis Status: Acute - Subjective Interval history: Seen and examined at bedside. Dressing to left heel changed with RN, melo wound macerated, white and soft. Unable to place wound VAC. Wound cleanse with normal saline. Wet-to-dry applied. We will ask wound care to see a place wound VAC tomorrow. Patient still with nonsensical, rambling speech. Otherwise no changes in assessment to report. - Constitutional Vitals: Temp Pulse Resp BP Pulse Ox 97.8 F 87 18 118/70 96 02/10/17 11:16 02/10/17 11:16 02/10/17 11:16 02/10/17 11:16 02/10/17 11:16 General appearance: Present: cooperative, A&O X 3, morbidly obese. Absent: answers questions appropriately Internal Medicine: Result - Labs CBC & Chem 7: 02/13/17 11:48 02/13/17 11:48 Labs: Short CBC 02/10/17 Range/Units 05:58 WBC 7.9 (4.3-11.1) K/mcL Hgb 11.5 (11.5-15.4) g/dL Hct 39.7 (35.3-44.9) % Plt Count 281 (140-400) K/mcL BMP 02/10/17 05:58 Sodium 142 Potassium 4.1 Chloride 98 Carbon Dioxide 39 H BUN 23 H Creatinine 0.88 Glucose 113 H Calcium 9.6 Liver Function 02/10/17 Range/Units 05:58 Total Bilirubin 0.6 (0.2-1.2) mg/dL AST 18 (5-34) Units/L ALT 16 (0-55) Units/L Alkaline Phosphatase 51 (38-126) Units/L Albumin 2.9 L (3.5-5.0) g/dL - ABG Interpretation ABG results: ABG ABG pH 7.36 pH Units (7.32-7.45) 02/04/17 09:37 ABG pCO2 55 mmHg (35-45) H 02/04/17 09:37 ABG pO2 69 mmHg (85-104) L 02/04/17 09:37 ABG O2 Saturation 92 % (95-98) L 02/04/17 09:37 PT/INR, D-dimer PT 12.1 Seconds (9.4-12.1) 02/04/17 03:40 Consult Discharge Plan - Plan Referrals: Titus Benavides DPM [Partnered Physician] - 02/24/17 10:30 am Pascual,Dennis Peguero MD [Primary Care Provider] -
--- NOTE | 2017-02-10 13:50 | Infectious Disease Progress No ---
Date of Encounter: 02/10/17 Time of Encounter: 13:47 - Assessment and Plan (1) Osteomyelitis Current Visit: No Status: Acute Location: Left calcaneus. Causative organism Proteus mirabilis. Likely secondary to left heel pressure ulcer. Status post left calcaneus I & D with bone biopsy 01/24/[address] Benavides. Bone culture positive for Proteus mirabilis, but bone pathology was negative for OM. She was discharged home on IV Levaquin previously. Patient saw her PCP and there were concerns that the patient was not receiving adequate care at home and the patient was sent to the ER. Unsure if the patient was getting dressing changes or her IV antibiotics at home. MRI of the left foot show findings consistent with cellulitis, increase in the size of the wound compared to previous MRI, possible soft tissue gas and possible osteomyelitis of the calcaneus. Soft tissue gas likely from previous surgical procedure.. The patient has no SIRS criteria. Podiatry consulted and following. Inflammatory markers remain elevated. ESR is improved. CK level normal. Wound culture negative Blood cultures drawn 02/03/17 are NGTD x 2 sets. Continue Levaquin 750mg IV daily. Duration of treatment depends on the clinical picture, but likely 6 weeks from her surgical procedure. Monitor renal function and dose-adjust antibiotics. Awaiting SNF/LTAC placement. Will need to continue weekly CBC, BUN/Cr, ESR, and CRP every Friday for the duration of treatment. Weekly EPIV care per protocol. Follow up with ID in two weeks 02/24/17 at 0820. If patient is discharged to LTAC , we will not need to follow the patient as the LTAC providers will manage her antibiotic therapy. Please call the office to cancel her appt. 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 Secondary to left calcaneus OM. Podiatry consulted and following. 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 She often makes comments not related to the current conversation. Evaluated by psychiatry during last admission and deemed not psychotic and competent to make her own decisions. Etiology unclear, but concern for underlying mental disorder. On discharge, the patient would likely benefit from rehab placement to assist with wound care and IV antibiotic administration. Qualifiers: Altered mental status type: unspecified Qualified Code(s): R41.82 - Altered mental status, unspecified (4) Red man syndrome Current Visit: No Status: Resolved Likely secondary to Vanc. Vancomycin discontinued by the primary team. (5) Morbid obesity Current Visit: No Status: Chronic - Subjective Interval history: Patient seen and examined. Weekend notes reviewed. No acute events noted overnight. Patient sitting up in bed. Continues with tangential speech and disjointed thoughts. Difficult to keep focused on the exam and patient requires redirection multiple times. Denies chest pain, shortness of breath, or cough. Denies abdominal pain and states she is urinating and defecating normally. She reports some mild pain in the left foot. Infect Dis PN-Objective Data - Labs CBC & Chem 7: 02/10/17 05:58 02/10/17 05:58 Labs: Laboratory Results - last 24 hr 02/10/17 02/10/17 05:58 05:58 WBC 7.9 RBC 4.41 Hgb 11.5 Hct 39.7 MCV 90.0 MCH 26.1 L MCHC 29.0 L RDW 21.1 H Plt Count 281 MPV 8.6 L Sodium 142 Potassium 4.1 Chloride 98 Carbon Dioxide 39 H BUN 23 H Creatinine 0.88 Est GFR ( Amer) > 60 Est GFR (Non-Af Amer) > 60 BUN/Creatinine Ratio 26 Glucose 113 H Calculated Osmolality 298 Calcium 9.6 Total Bilirubin 0.6 AST 18 ALT 16 Alkaline Phosphatase 51 Serum Total Protein 6.6 Albumin 2.9 L Globulin 3.7 H Albumin/Globulin Ratio 0.8 L Cultures: Cultures 02/04/17 13:40 Wound Culture - Final Left Foot No pathogens isolated. Serology 02/05/17 02/04/17 Range/Units 09:10 00:10 Urine Color Yellow (Yellow) Urine Clarity Clear (Clear) Urine pH 6.0 (5.0-8.0) pH Units Ur Specific [place] 1.017 (1.010-1.025) Urine Protein Negative (Neg-Trace) mg/dL Urine Glucose (UA) Normal (Normal) mg/dL Urine Ketones Negative (Negative) mg/dL Urine Blood Negative (Negative) Urine Nitrite Negative (Negative) Urine Bilirubin Negative (Negative) Urine Urobilinogen Normal (Normal) mg/dL Ur Leukocyte Esterase Negative (Negative) Ur Culture Indicated? NO (NO) Stl C. diff Tox B Gene Negative (Negative) Exam - Constitutional Vitals: Temp Pulse Resp BP Pulse Ox 97.8 F 87 18 118/70 96 02/10/17 11:16 02/10/17 11:16 02/10/17 11:16 02/10/17 11:16 02/10/17 11:16 General appearance: cooperative, morbidly obese, no acute distress - Head Head exam: Present: atraumatic, normal inspection, normocephalic - Eye Eye exam: Present: EOMI, normal appearance, PERRL Pupils: Present: normal accommodation - ENT ENT exam: Present: mucous membranes moist - Neck Neck exam: Present: normal inspection - Respiratory Respiratory exam: Present: CTAB. Absent: rales, respiratory distress, rhonchi, wheezes - Cardiovascular Cardiovascular exam: Present: RRR, +S1, +S2 - GI/Abdominal GI/Abdominal exam: Present: distended (obese), normal bowel sounds, soft. Absent: tenderness - Extremities Exam Extremities exam: Present: pedal edema (1+ LLE). Absent: joint swelling, tenderness Additional comments: Left foot dressing C/D/I. - Neurological Exam Neurological exam: Present: alert, oriented X3, no focal deficits - Psychiatric Psychiatric exam: Present: manic Additional comments: Tangential speech, disjointed thoughts, difficult to maintain focus on the exam. - Skin Skin exam: Present: dry, intact, normal color, warm Consult Discharge Plan - Plan Referrals: [facility] [place],Dennis Peguero MD [Primary Care Provider] -
--- NOTE | 2017-02-10 14:21 | Internal Med Progress Note ---
Date of Encounter: 02/10/17 Time of Encounter: 14:10 - Assessment and plan (1) Osteomyelitis Current Visit: No Status: Acute Assessment and plan: Kiersten Lemus is a 56-year-old female with past medical history osteomyelitis left heel, diabetes, ISIAH and morbid obesity recently admitted 01/23-01/28/2017 for left heel osteomyelitis who presented to [facility] on 02/03/2017 from PCPs office with concern for recurrent left heel infection. She was admitted for IV ATB. Also coarse prolonged due to placement issues. 1. Left heel osteomyelitis: Developed wound to left heel following prolonged hospital stay at [facility]. Recently hospitalized 01/23-01/28/2017 at [facility] for osteomyelitis; s/ p I&D on 01/24/[address] Benavides. Was treated with IV ATB and discharged home with a wound VAC however wound VAC was not delivered to patient's home. She was evaluated by PCP who had concern for worsening left heel infection and she was transferred to [facility]. IV Vanco, Levaquin started in the ED. IV Vanco stopped secondary to "red man" syndrome. Repeat MRI consistent with osteomyelitis and with concern for gas-forming organism. Evaluated by infectious disease who noted soft tissue gas findings likely secondary to recent surgical procedure. Cont IV Levaquin; duration of treatment will depend on clinical picture but will likely need 6 weeks of ATB from surgical procedure. Evaluated by podiatry who recommended non weight bearing to LLE however patient unable to be completely non-weightbearing due to morbid obesity. Discussed with Dr. Cunningham on 02/10 and weightbearing status changed to toe touch to left foot. Patient is able to safely and independently transfer/ pivot with toe-touch weigh bearing status. Plan on estrogen home once home care is coordinated and recommended wound VAC to be delivered to hospital prior to patient discharge. Continue daily IV Levaquin. Follow-up with infectious disease on 02/24/2017. 2. Red man syndrome: Secondary to IV vancomycin. Patient had similar reaction last admission. Vancomycin stopped and added to allergy list. 3. Schizoaphasia: possible. Appears almost manic/psychotic at times with associated word salad however she answers questions appropriately when she is focused and is aware of current situation. Appears to have decision making capacity. Chart reviewed and patient had similar presentation last admission. Evaluated by psychiatry at that time who did not feel patient was psychotic at that time. Head CT and brain MRI non-acute. Discussed with and this is patient's baseline mentation. 4. Acute on chronic respiratory failure with hypoxia: ABG show pH 7.36, pCO2 55 , PaO2 79. Continue supplemental O2 and BiPAP PRN. 5. Hypothyroidism: per hx. Cont home levothyroxine 6. DVT prophylaxis: lovenox Disposition: Patient's weightbearing status has been upgraded therefore discharge plan has changed to patient returning to home with IV ATB. She has home health care through [facility]. Qualifiers: Osteomyelitis type: unspecified type Osteomyelitis location: foot Laterality: left Qualified Code(s): M86.9 - Osteomyelitis, unspecified (2) Encephalopathy Current Visit: No Status: Acute (3) ISIAH on CPAP Current Visit: No Status: Acute (4) DVT prophylaxis Current Visit: Yes Status: Acute - Subjective Interval history: Seen and examined at bedside. No changes in assessment to report. Still awaiting pre-certification. Wound VAC applied to left heel. Patient c/o pain to left heel with dressing changes, otherwise has no complaints. Patient is not able to be completely non-weight bearing on left foot. She is compliant with toe touch weightbearing status is well aware of the importance of not complain weight to left heel. It is to independently and safely transfer toe-touch weightbearing with walker as assistive device. Discussed with Dr. Cunningham in order change to toe-touch weightbearing. - Constitutional Vitals: Temp Pulse Resp BP Pulse Ox 97.8 F 87 18 118/70 96 02/10/17 11:16 02/10/17 11:16 02/10/17 11:16 02/10/17 11:16 02/10/17 11:16 General appearance: Present: cooperative, A&O X 3, morbidly obese. Absent: answers questions appropriately - Head Head exam: Present: atraumatic, normocephalic - Eye Eye exam: Present: PERRL, conjuntiva pink, sclera anicteric Pupils: Present: PERRL - Neck Neck exam general surgery: Present: supple, trachea midline. Absent: lymphadenopathy - Respiratory Respiratory exam: Present: CTAB. Absent: accessory muscle use, rales, rhonchi, wheezes - Cardiovascular Cardiovascular exam: Present: RRR, +S1, +S2. Absent: diastolic murmur, gallop, rubs, systolic murmur - GI/Abdominal GI/Abdominal exam: Present: normal bowel sounds, soft, no peritoneal signs. Absent: distended, tenderness - Extremities Exam Extremities exam: Present: warm, radial pulses palpable and symmetrical. Absent : calf tenderness, cyanotic, pedal edema - Neurological Exam Neurological exam: Present: CN II-XII intact, oriented X3, no focal deficits. Absent: pronater drift, facial droop, speech deficit - Skin Skin exam: Present: dry, intact Additional comments: Left heel with wound VAC in place Internal Medicine: Result - Labs CBC & Chem 7: 02/10/17 05:58 02/10/17 05:58 Labs: Short CBC 02/10/17 Range/Units 05:58 WBC 7.9 (4.3-11.1) K/mcL Hgb 11.5 (11.5-15.4) g/dL Hct 39.7 (35.3-44.9) % Plt Count 281 (140-400) K/mcL BMP 02/10/17 05:58 Sodium 142 Potassium 4.1 Chloride 98 Carbon Dioxide 39 H BUN 23 H Creatinine 0.88 Glucose 113 H Calcium 9.6 Liver Function 02/10/17 Range/Units 05:58 Total Bilirubin 0.6 (0.2-1.2) mg/dL AST 18 (5-34) Units/L ALT 16 (0-55) Units/L Alkaline Phosphatase 51 (38-126) Units/L Albumin 2.9 L (3.5-5.0) g/dL - ABG Interpretation ABG results: ABG ABG pH 7.36 pH Units (7.32-7.45) 02/04/17 09:37 ABG pCO2 55 mmHg (35-45) H 02/04/17 09:37 ABG pO2 69 mmHg (85-104) L 02/04/17 09:37 ABG O2 Saturation 92 % (95-98) L 02/04/17 09:37 PT/INR, D-dimer PT 12.1 Seconds (9.4-12.1) 02/04/17 03:40 Consult Discharge Plan - Plan Referrals: Pascual,Dennis Peguero MD [Primary Care Provider] -
[2017-02-11] MEDS: *HR* Enoxaparin 40 MG/0.4 ML SYRINGE SQ SCH (05:44)
[2017-02-11 07:46] LABS: Hematocrit 39.2 % (35.3-44.9); Hemoglobin 11.6 g/dL (11.5-15.4); Mean Corpuscular HGB Conc 29.6 g/dL (31.6-35.5); Mean Corpuscular Hemoglobin 26.2 pg (28.0-33.3); Mean Corpuscular Volume 88.5 fL (83.0-100.0); Mean Platelet Volume 8.8 fL (9.4-12.4); Red Blood Count 4.43 M/mcL (3.82-4.97); Red Cell Distribution Width 20.8 % (11.5-14.5)
[2017-02-11] MEDS: Cholecalciferol (D-3) 1,000 UNIT TABLET PO SCH (09:31)
[2017-02-11] MEDS: Levofloxacin 750 MG/150 ML 750 MG/150 ML BAG IVPB SCH (09:31)
--- NOTE | 2017-02-11 13:27 | Internal Med Progress Note ---
Date of Encounter: 02/11/17 Time of Encounter: 09:10 - Assessment and plan (1) Osteomyelitis Current Visit: No Status: Acute Assessment and plan: Developed wound to left heel following prolonged hospital stay at [facility]. Recently hospitalized 01/23-01/28/2017 at [facility] for osteomyelitis; s/ p I&D on 01/24/[address] Benavides. Was treated with IV ATB and discharged home with a wound VAC, however, wound vac was not available to pt at home. She was evaluated by PCP who had concern for worsening left heel infection and she was transferred to [facility]. IV Vanco, Levaquin started in the ED. Pt with Sirisha Syndrome after Vanc, which was stopped. Repeat MRI suggestive of osteomyelitis and with concern for gas-forming organism. Evaluated by infectious disease who noted soft tissue gas finding was most likely secondary to recent surgical procedure. Continue IV Levaquin; duration of treatment will depend on clinical picture but will likely need 6 weeks of ATB from surgical procedure. Evaluated by podiatry who recommended non weight bearing to LLE however patient unable to be completely non-weightbearing due to morbid obesity. Hospitalist AMBULATORY CARE COORDINATOR discussed status with Dr. Cunningham on 02/10 and weightbearing status changed to toe touch to left foot. Patient is able to safely and independently transfer/ pivot with toe-touch weigh bearing status. Pt will follow up in the office with wound care on 02/24, unless she goes to LTAC. Still awaiting placement. [facility] [place] will be here today to assess pt. Pt is ready for discharge pending placement. Qualifiers: Osteomyelitis type: unspecified type Osteomyelitis location: foot Laterality: left Qualified Code(s): M86.9 - Osteomyelitis, unspecified (2) Non healing left heel wound Current Visit: Yes Status: Chronic Assessment and plan: See above. (3) ISIAH on CPAP Current Visit: No Status: Acute Assessment and plan: Chronic. Continue CPAP here and after discharge, as well. (4) Morbid obesity Current Visit: No Status: Chronic (5) Acute and chronic respiratory failure Current Visit: No Status: Acute Assessment and plan: Acute on chronic. Pt requiring 3-4 L 02 via n/c to maintain sats >92%. Pt is not in distress. Continue and titrate 02 as needed. Pulse ox with vitals. Qualifiers: Respiratory failure complication: unspecified whether with hypoxia or hypercapnia Qualified Code(s): J96.20 - Acute and chronic respiratory failure , unspecified whether with hypoxia or hypercapnia (6) Red man syndrome Current Visit: Yes Status: Resolved (7) DVT prophylaxis Current Visit: Yes Status: Acute Assessment and plan: Lovenox SQ. - Time Spent With Patient less than 15 minutes - Subjective Interval history: Patient was alert, answer questions appropriately, asked appropriate questions. She denies nausea, vomiting, diarrhea, abdominal pain, dizziness, or headache. She is aware of placement options, referrals still pending. - Constitutional Vitals: Temp Pulse Resp BP Pulse Ox 98.2 F 88 16 138/76 92 02/11/17 11:30 02/11/17 11:30 02/11/17 11:30 02/11/17 11:30 02/11/17 11:30 General appearance: Present: cooperative, A&O X 3, morbidly obese, no acute distress, answers questions appropriately - Head Head exam: Present: atraumatic, normal inspection, normocephalic - Eye Eye exam: Present: normal appearance, conjuntiva pink, sclera anicteric - ENT ENT exam: Present: mucous membranes moist - Neck Neck exam general surgery: Present: supple, trachea midline - Respiratory Respiratory exam: Present: decreased breath sounds, CTAB. Absent: accessory muscle use, chest wall tenderness, rales, respiratory distress, rhonchi, wheezes - Cardiovascular Cardiovascular exam: Present: RRR, +S1, +S2. Absent: diastolic murmur, gallop, rubs, systolic murmur - GI/Abdominal GI/Abdominal exam: Present: normal bowel sounds, soft, no peritoneal signs. Absent: distended, hepatomegaly, tenderness - Extremities Exam Extremities exam: Present: pedal edema, tenderness, warm, radial pulses palpable and symmetrical. Absent: calf tenderness, cyanotic - Neurological Exam Neurological exam: Present: alert. Absent: facial droop, speech deficit - Skin Skin exam: Present: dry, normal color, warm. Absent: intact, rash Internal Medicine: Result - Labs CBC & Chem 7: 02/11/17 06:16 02/10/17 05:58 Labs: Short CBC 02/11/17 Range/Units 06:16 WBC 8.1 (4.3-11.1) K/mcL Hgb 11.6 (11.5-15.4) g/dL Hct 39.2 (35.3-44.9) % Plt Count 301 (140-400) K/mcL - ABG Interpretation ABG results: ABG ABG pH 7.36 pH Units (7.32-7.45) 02/04/17 09:37 ABG pCO2 55 mmHg (35-45) H 02/04/17 09:37 ABG pO2 69 mmHg (85-104) L 02/04/17 09:37 ABG O2 Saturation 92 % (95-98) L 02/04/17 09:37 PT/INR, D-dimer PT 12.1 Seconds (9.4-12.1) 02/04/17 03:40 Consult Discharge Plan - Plan Referrals: Dennis Garner MD [Primary Care Provider] -
--- NOTE | 2017-02-11 14:05 | Infectious Disease Progress No ---
Date of Encounter: 02/11/17 Time of Encounter: 14:03 - Assessment and Plan (1) Osteomyelitis Current Visit: No Status: Acute Location: Left calcaneus. Causative organism Proteus mirabilis. Likely secondary to left heel pressure ulcer. Status post left calcaneus I & D with bone biopsy 01/24/[address] Benavides. Bone culture positive for Proteus mirabilis, but bone pathology was negative for OM. She was discharged home on IV Levaquin previously. Patient saw her PCP and there were concerns that the patient was not receiving adequate care at home and the patient was sent to the ER. Unsure if the patient was getting dressing changes or her IV antibiotics at home. MRI of the left foot show findings consistent with cellulitis, increase in the size of the wound compared to previous MRI, possible soft tissue gas and possible osteomyelitis of the calcaneus. Soft tissue gas likely from previous surgical procedure.. The patient has no SIRS criteria. Podiatry consulted and following. Inflammatory markers remain elevated. ESR is improved. CK level normal. Wound culture negative Blood cultures drawn 02/03/17 are NGTD x 2 sets. Continue Levaquin 750mg IV daily. Duration of treatment depends on the clinical picture, but likely 6 weeks from her surgical procedure. Monitor renal function and dose-adjust antibiotics. Awaiting SNF placement. Will need to continue weekly CBC, BUN/Cr, ESR, and CRP every Friday for the duration of treatment. Weekly EPIV care per protocol. Follow up with ID in two weeks 02/24/17 at 0820. 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 Secondary to left calcaneus OM. Podiatry consulted and following. 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 She often makes comments not related to the current conversation. Evaluated by psychiatry during last admission and deemed not psychotic and competent to make her own decisions. Etiology unclear, but concern for underlying mental disorder. On discharge, the patient would likely benefit from rehab placement to assist with wound care and IV antibiotic administration. Qualifiers: Altered mental status type: unspecified Qualified Code(s): R41.82 - Altered mental status, unspecified (4) Red man syndrome Current Visit: Yes Status: Resolved Likely secondary to Vanc. Vancomycin discontinued by the primary team. (5) Morbid obesity Current Visit: No Status: Chronic - Subjective Interval history: Patient seen and examined. No acute events noted. Patient sitting up in bed. Continues with tangential speech and disjointed thoughts. Difficult to keep focused on the exam and patient requires redirection multiple times. Denies chest pain, shortness of breath, or cough. Denies abdominal pain and states she is urinating and defecating normally. She reports some mild pain in the left foot. Infect Dis PN-Objective Data - Labs CBC & Chem 7: 02/11/17 06:16 02/10/17 05:58 Labs: Laboratory Results - last 24 hr 02/11/17 06:16 WBC 8.1 RBC 4.43 Hgb 11.6 Hct 39.2 MCV 88.5 MCH 26.2 L MCHC 29.6 L RDW 20.8 H Plt Count 301 MPV 8.8 L Immature Plt Fraction 1.0 L Cultures: Cultures 02/04/17 13:40 Wound Culture - Final Left Foot No pathogens isolated. Serology 02/05/17 02/04/17 Range/Units 09:10 00:10 Urine Color Yellow (Yellow) Urine Clarity Clear (Clear) Urine pH 6.0 (5.0-8.0) pH Units Ur Specific [place] 1.017 (1.010-1.025) Urine Protein Negative (Neg-Trace) mg/dL Urine Glucose (UA) Normal (Normal) mg/dL Urine Ketones Negative (Negative) mg/dL Urine Blood Negative (Negative) Urine Nitrite Negative (Negative) Urine Bilirubin Negative (Negative) Urine Urobilinogen Normal (Normal) mg/dL Ur Leukocyte Esterase Negative (Negative) Ur Culture Indicated? NO (NO) Stl C. diff Tox B Gene Negative (Negative) Exam - Constitutional Vitals: Temp Pulse Resp BP Pulse Ox 98.2 F 88 16 138/76 92 02/11/17 11:30 02/11/17 11:30 02/11/17 11:30 02/11/17 11:30 02/11/17 11:30 General appearance: cooperative, morbidly obese, no acute distress - Head Head exam: Present: atraumatic, normal inspection, normocephalic - Eye Eye exam: Present: EOMI, normal appearance, PERRL Pupils: Present: normal accommodation - ENT ENT exam: Present: mucous membranes moist - Neck Neck exam: Present: normal inspection - Respiratory Respiratory exam: Present: CTAB. Absent: rales, respiratory distress, rhonchi, wheezes - Cardiovascular Cardiovascular exam: Present: RRR, +S1, +S2 - GI/Abdominal GI/Abdominal exam: Present: distended (obese), normal bowel sounds, soft. Absent: tenderness - Extremities Exam Additional comments: Wound VAC noted to the left heel with sponge well-compressed. Small amount of dark brown drainage noted in the wound VAC canister. - Neurological Exam Neurological exam: Present: alert, oriented X3, no focal deficits - Psychiatric Psychiatric exam: Present: manic, normal affect, normal mood - Skin Skin exam: Present: dry, intact, normal color, warm Consult Discharge Plan - Plan Referrals: Pascual,Dennis Peguero MD [Primary Care Provider] -
[2017-02-11 15:11] LABS: Alanine Aminotransferase 15 Units/L (0-55); Albumin/Globulin Ratio 0.8 (1.1-2.2); Alkaline Phosphatase 47 Units/L (38-126); Aspartate Amino Transferase 18 Units/L (5-34); BUN/Creatinine Ratio 28 (6-26); Bilirubin,Total 0.6 mg/dL (0.2-1.2); Blood Urea Nitrogen 23 mg/dL (7-20); Calcium 9.7 mg/dL (8.6-10.8); Carbon Dioxide 36 mEq/L (19-29); Chloride 99 mEq/L (98-109); Globulin 3.8 g/dL (2.4-3.5); Glucose 108 mg/dL (70-99); Osmolality,Calculated 298 (280-300); Potassium 4.1 mEq/L (3.5-4.5); Sodium 142 mEq/L (136-145); Total Protein 6.8 g/dL (6.0-8.3); eGFR For African Americans > 60 (> 60); eGFR For Non-African Americans > 60 (> 60)
[2017-02-12] MEDS: *HR* Enoxaparin 40 MG/0.4 ML SYRINGE SQ SCH (05:31)
[2017-02-12] MEDS ORDERED: levoFLOXacin 750 MG TABLET PO SCH (09:30)
[2017-02-12] MEDS: Levofloxacin 750 MG/150 ML 750 MG/150 ML BAG IVPB SCH (10:37)
[2017-02-12] MEDS: Cholecalciferol (D-3) 1,000 UNIT TABLET PO SCH (10:37)
--- NOTE | 2017-02-12 14:55 | Infectious Disease Progress No ---
Date of Encounter: 02/12/17 Time of Encounter: 16:02 - Assessment and Plan (1) Osteomyelitis Current Visit: No Status: Acute Location: Left calcaneus. Causative organism Proteus mirabilis. Likely secondary to left heel pressure ulcer. Status post left calcaneus I & D with bone biopsy 01/24/[address] Benavides. Bone culture positive for Proteus mirabilis, but bone pathology was negative for OM. She was discharged home on IV Levaquin previously. Patient saw her PCP and there were concerns that the patient was not receiving adequate care at home and the patient was sent to the ER. Unsure if the patient was getting dressing changes or her IV antibiotics at home. MRI of the left foot show findings consistent with cellulitis, increase in the size of the wound compared to previous MRI, possible soft tissue gas and possible osteomyelitis of the calcaneus. Soft tissue gas likely from previous surgical procedure. The patient has no SIRS criteria. Podiatry consulted and following. Inflammatory markers remain elevated. ESR is improved. CK level normal. Wound culture negative Blood cultures drawn 02/03/17 are NGTD x 2 sets. Continue Levaquin 750mg IV daily. Duration of treatment depends on the clinical picture, but likely 6 weeks from her surgical procedure. Monitor renal function and dose-adjust antibiotics. Awaiting SNF placement. Will need to continue weekly CBC, BUN/Cr, ESR, and CRP every Friday for the duration of treatment. Weekly EPIV care per protocol. Follow up with ID in two weeks 02/24/17 at 0820. 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 Secondary to left calcaneus OM. Podiatry consulted and following. 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 She often makes comments not related to the current conversation. Evaluated by psychiatry during last admission and deemed not psychotic and competent to make her own decisions. Etiology unclear, but concern for underlying mental disorder. On discharge, the patient would likely benefit from rehab placement to assist with wound care and IV antibiotic administration. Qualifiers: Altered mental status type: unspecified Qualified Code(s): R41.82 - Altered mental status, unspecified (4) Red man syndrome Current Visit: Yes Status: Resolved Likely secondary to Vanc. Vancomycin discontinued by the primary team. (5) Morbid obesity Current Visit: No Status: Chronic - Subjective Interval history: Patient seen and examined. No acute events noted. Patient sitting up in bed. Continues with tangential speech and disjointed thoughts. Difficult to keep focused on the exam and patient requires redirection multiple times. Denies chest pain, shortness of breath, or cough. Denies abdominal pain and states she is urinating and defecating normally. She reports some mild pain in the left foot. Infect Dis PN-Objective Data - Labs CBC & Chem 7: 02/11/17 06:16 02/11/17 06:16 Labs: Laboratory Results - last 24 hr 02/11/17 06:16 Sodium 142 Potassium 4.1 Chloride 99 Carbon Dioxide 36 H BUN 23 H Creatinine 0.83 Est GFR ( Amer) > 60 Est GFR (Non-Af Amer) > 60 BUN/Creatinine Ratio 28 H Glucose 108 H Calculated Osmolality 298 Calcium 9.7 Total Bilirubin 0.6 AST 18 ALT 15 Alkaline Phosphatase 47 Serum Total Protein 6.8 Albumin 3.0 L Globulin 3.8 H Albumin/Globulin Ratio 0.8 L Cultures: Cultures 02/04/17 13:40 Wound Culture - Final Left Foot No pathogens isolated. Serology 02/05/17 02/04/17 Range/Units 09:10 00:10 Urine Color Yellow (Yellow) Urine Clarity Clear (Clear) Urine pH 6.0 (5.0-8.0) pH Units Ur Specific [place] 1.017 (1.010-1.025) Urine Protein Negative (Neg-Trace) mg/dL Urine Glucose (UA) Normal (Normal) mg/dL Urine Ketones Negative (Negative) mg/dL Urine Blood Negative (Negative) Urine Nitrite Negative (Negative) Urine Bilirubin Negative (Negative) Urine Urobilinogen Normal (Normal) mg/dL Ur Leukocyte Esterase Negative (Negative) Ur Culture Indicated? NO (NO) Stl C. diff Tox B Gene Negative (Negative) Exam - Constitutional Vitals: Temp Pulse Resp BP Pulse Ox 97.9 F 79 16 131/54 93 02/12/17 11:56 02/12/17 11:56 02/12/17 11:56 02/12/17 11:56 02/12/17 11:56 General appearance: cooperative, morbidly obese, no acute distress - Head Head exam: Present: atraumatic, normal inspection, normocephalic - Eye Eye exam: Present: EOMI, normal appearance, PERRL Pupils: Present: normal accommodation - ENT ENT exam: Present: mucous membranes moist - Neck Neck exam: Present: normal inspection - Respiratory Respiratory exam: Present: CTAB. Absent: rales, respiratory distress, rhonchi, wheezes - Cardiovascular Cardiovascular exam: Present: RRR, +S1, +S2 - GI/Abdominal GI/Abdominal exam: Present: distended (obese), normal bowel sounds, soft. Absent: tenderness - Extremities Exam Extremities exam: Present: pedal edema (trace BLE). Absent: joint swelling, tenderness Additional comments: Left foot wound VAC dressing intact. - Neurological Exam Neurological exam: Present: alert, oriented X3, no focal deficits Additional comments: Tangential speech, disjointed thoughts, unable to keep focused on exam. - Psychiatric Psychiatric exam: Present: manic - Skin Skin exam: Present: dry, intact, normal color, warm Consult Discharge Plan - Plan Referrals: [facility] [place],Dennis Peguero MD [Primary Care Provider] -
--- NOTE | 2017-02-12 15:04 | Internal Med Progress Note ---
Date of Encounter: 02/12/17 Time of Encounter: 09:10 - Assessment and plan (1) Osteomyelitis Current Visit: No Status: Acute Assessment and plan: Developed wound to left heel following prolonged hospital stay at [facility]. Recently hospitalized 01/23-01/28/2017 at [facility] for osteomyelitis; s/ p I&D on 01/24/[address] Benavdies. Was treated with IV ATB and discharged home with a wound VAC, however, wound vac was not available to pt at home. She was evaluated by PCP who had concern for worsening left heel infection and she was transferred to [facility]. IV Vanco, Levaquin started in the ED. Pt with Sirisha Syndrome after Vanc, which was stopped. Repeat MRI suggestive of osteomyelitis and with concern for gas-forming organism. Evaluated by infectious disease who noted soft tissue gas finding was most likely secondary to recent surgical procedure. Continue IV Levaquin; duration of treatment will depend on clinical picture but will likely need 6 weeks of ATB from surgical procedure. Evaluated by podiatry who recommended non weight bearing to LLE however patient unable to be completely non-weightbearing due to morbid obesity. Hospitalist SHAFTING WORKER discussed status with Dr. Cunningham on 02/10 and weightbearing status changed to toe touch to left foot. Patient is able to safely and independently transfer/ pivot with toe-touch weigh bearing status. Pt will follow up in the office with wound care on 02/24, unless she goes to LTAC. Still awaiting placement. [facility] [place] will be here today to assess pt. Pt is ready for discharge pending placement. ID is still following until that time. I appreciate their consultations and recommendations. Qualifiers: Qualified Code(s): M86.9 - Osteomyelitis, unspecified (2) Non healing left heel wound Current Visit: Yes Status: Chronic Assessment and plan: See above. (3) ISIAH on CPAP Current Visit: No Status: Acute Assessment and plan: Chronic. Continue CPAP here and after discharge, as well. (4) Morbid obesity Current Visit: No Status: Chronic Assessment and plan: Chronic. Encourage lifestyle modifications, including reduced calorie diet. (5) Acute and chronic respiratory failure Current Visit: No Status: Acute Assessment and plan: Acute on chronic. Pt requiring 2-3 L 02 via n/c to maintain sats >92%. Pt is not in distress. Continue and titrate 02 as needed. Pulse ox with vitals. Qualifiers: Qualified Code(s): J96.20 - Acute and chronic respiratory failure, unspecified whether with hypoxia or hypercapnia (6) Red man syndrome Current Visit: Yes Status: Resolved Assessment and plan: Resolved. (7) DVT prophylaxis Current Visit: Yes Status: Acute Assessment and plan: Lovenox SQ. patient has been up at bedside. - Time Spent With Patient less than 15 minutes - Subjective Interval history: Patient was seen and assessed at 0910 AM. Patient was doing physical therapy. Patient was alert, answer questions appropriately, asked appropriate questions. She denies nausea, vomiting, diarrhea, abdominal pain, dizziness, or headache. Still attempting placement, peripheral by melena.. - Constitutional Vitals: Temp Pulse Resp BP Pulse Ox 97.9 F 79 16 131/54 93 02/12/17 11:56 02/12/17 11:56 02/12/17 11:56 02/12/17 11:56 02/12/17 11:56 General appearance: Present: cooperative, A&O X 3, morbidly obese, no acute distress, answers questions appropriately - Head Head exam: Present: atraumatic, normal inspection, normocephalic - Eye Eye exam: Present: EOMI, normal appearance, conjuntiva pink, sclera anicteric - Neck Neck exam general surgery: Present: supple, trachea midline. Absent: lymphadenopathy, tenderness - Respiratory Respiratory exam: Present: decreased breath sounds, CTAB. Absent: accessory muscle use, rales, rhonchi, wheezes - Cardiovascular Cardiovascular exam: Present: RRR, +S1, +S2. Absent: diastolic murmur, gallop, rubs, systolic murmur - GI/Abdominal GI/Abdominal exam: Present: normal bowel sounds, soft. Absent: distended, hepatomegaly, tenderness - Extremities Exam Extremities exam: Present: pedal edema, warm, radial pulses palpable and symmetrical. Absent: calf tenderness, cyanotic, tenderness - Neurological Exam Neurological exam: Present: alert, oriented X3, no focal deficits. Absent: facial droop, speech deficit - Skin Skin exam: Present: dry, intact, normal color, warm. Absent: rash Internal Medicine: Result - Labs CBC & Chem 7: 02/11/17 06:16 02/11/17 06:16 Labs: BMP 02/11/17 06:16 Sodium 142 Potassium 4.1 Chloride 99 Carbon Dioxide 36 H BUN 23 H Creatinine 0.83 Glucose 108 H Calcium 9.7 Liver Function 02/11/17 Range/Units 06:16 Total Bilirubin 0.6 (0.2-1.2) mg/dL AST 18 (5-34) Units/L ALT 15 (0-55) Units/L Alkaline Phosphatase 47 (38-126) Units/L Albumin 3.0 L (3.5-5.0) g/dL - ABG Interpretation ABG results: ABG ABG pH 7.36 pH Units (7.32-7.45) 02/04/17 09:37 ABG pCO2 55 mmHg (35-45) H 02/04/17 09:37 ABG pO2 69 mmHg (85-104) L 02/04/17 09:37 ABG O2 Saturation 92 % (95-98) L 02/04/17 09:37 PT/INR, D-dimer PT 12.1 Seconds (9.4-12.1) 02/04/17 03:40 Consult Discharge Plan - Plan Referrals: Dennis Garner MD [Primary Care Provider] -
[2017-02-13] MEDS: *HR* Enoxaparin 40 MG/0.4 ML SYRINGE SQ SCH (06:23)
[2017-02-13] MEDS: Cholecalciferol (D-3) 1,000 UNIT TABLET PO SCH (09:42)
[2017-02-13] MEDS: Levofloxacin 750 MG/150 ML 750 MG/150 ML BAG IVPB SCH (09:42)
[2017-02-13 11:57] LABS: Hemoglobin 12.2 g/dL (11.5-15.4); Mean Corpuscular HGB Conc 29.8 g/dL (31.6-35.5); Mean Corpuscular Hemoglobin 26.3 pg (28.0-33.3); Mean Corpuscular Volume 88.6 fL (83.0-100.0); Mean Platelet Volume 8.4 fL (9.4-12.4); Platelet Count 280 K/mcL (140-400); Red Blood Count 4.63 M/mcL (3.82-4.97); Red Cell Distribution Width 20.5 % (11.5-14.5)
--- NOTE | 2017-02-13 12:07 | Infectious Disease Progress No ---
Date of Encounter: 02/14/17 Time of Encounter: 12:06 - Assessment and Plan (1) Osteomyelitis Current Visit: Yes Status: Acute Location: Left calcaneus. Causative organism Proteus mirabilis. Likely secondary to left heel pressure ulcer. Status post left calcaneus I & D with bone biopsy 01/24/[address] Benavides. Bone culture positive for Proteus mirabilis, but bone pathology was negative for OM. She was discharged home on IV Levaquin previously. Patient saw her PCP and there were concerns that the patient was not receiving adequate care at home and the patient was sent to the ER. Unsure if the patient was getting dressing changes or her IV antibiotics at home. MRI of the left foot show findings consistent with cellulitis, increase in the size of the wound compared to previous MRI, possible soft tissue gas and possible osteomyelitis of the calcaneus. Soft tissue gas likely from previous surgical procedure. The patient has no SIRS criteria. Podiatry consulted and following. Inflammatory markers remain elevated. ESR is improved. CK level normal. Wound culture negative Blood cultures drawn 02/03/17 are NGTD x 2 sets. Continue Levaquin 750mg IV daily. Duration of treatment depends on the clinical picture, but likely 6 weeks from her surgical procedure. Monitor renal function and dose-adjust antibiotics. Awaiting SNF placement. Will need to continue weekly CBC, BUN/Cr, ESR, and CRP every Friday for the duration of treatment. Weekly EPIV care per protocol. Follow up with ID in two weeks 02/24/17 at 0820. No additional recommendations from the ID team. Will sign off as the patient is just waiting for insurance approval for discharge to SNF, but will follow peripherally for any changes in the patient's status. Please call with ID- related questions. 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 Secondary to left calcaneus OM. Podiatry consulted and following. 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 She often makes comments not related to the current conversation. Evaluated by psychiatry during last admission and deemed not psychotic and competent to make her own decisions. Etiology unclear, but concern for underlying mental disorder. On discharge, the patient would likely benefit from rehab placement to assist with wound care and IV antibiotic administration. Qualifiers: Altered mental status type: unspecified Qualified Code(s): R41.82 - Altered mental status, unspecified (4) Red man syndrome Current Visit: Yes Status: Resolved Likely secondary to Vanc. Vancomycin discontinued by the primary team. (5) Morbid obesity Current Visit: Yes Status: Chronic - Subjective Interval history: Patient seen and examined. No acute events noted. Patient sitting up in bed. Continues with tangential speech and disjointed thoughts. Difficult to keep focused on the exam and patient requires redirection multiple times. Denies chest pain, shortness of breath, or cough. Denies abdominal pain and states she is urinating and defecating normally. She reports some mild pain in the left foot. Infect Dis PN-Objective Data - Labs CBC & Chem 7: 02/13/17 11:48 02/13/17 11:48 Labs: Laboratory Results - last 24 hr 02/13/17 11:48 WBC 8.9 RBC 4.63 Hgb 12.2 Hct 41.0 MCV 88.6 MCH 26.3 L MCHC 29.8 L RDW 20.5 H Plt Count 280 MPV 8.4 L Cultures: Cultures 02/04/17 13:40 Wound Culture - Final Left Foot No pathogens isolated. Serology 02/05/17 02/04/17 Range/Units 09:10 00:10 Urine Color Yellow (Yellow) Urine Clarity Clear (Clear) Urine pH 6.0 (5.0-8.0) pH Units Ur Specific [place] 1.017 (1.010-1.025) Urine Protein Negative (Neg-Trace) mg/dL Urine Glucose (UA) Normal (Normal) mg/dL Urine Ketones Negative (Negative) mg/dL Urine Blood Negative (Negative) Urine Nitrite Negative (Negative) Urine Bilirubin Negative (Negative) Urine Urobilinogen Normal (Normal) mg/dL Ur Leukocyte Esterase Negative (Negative) Ur Culture Indicated? NO (NO) Stl C. diff Tox B Gene Negative (Negative) Exam - Constitutional Vitals: Temp Pulse Resp BP Pulse Ox 98 F 96 18 101/68 87 02/13/17 11:20 02/13/17 11:20 02/13/17 08:11 02/13/17 11:20 02/13/17 11:20 General appearance: cooperative, morbidly obese, no acute distress - Head Head exam: Present: atraumatic, normal inspection, normocephalic - Eye Eye exam: Present: EOMI, normal appearance, PERRL Pupils: Present: normal accommodation - ENT ENT exam: Present: mucous membranes moist - Neck Neck exam: Present: normal inspection - Respiratory Respiratory exam: Present: CTAB. Absent: rales, respiratory distress, rhonchi, wheezes - Cardiovascular Cardiovascular exam: Present: RRR, +S1, +S2 - GI/Abdominal GI/Abdominal exam: Present: normal bowel sounds, soft. Absent: distended, tenderness - Extremities Exam Extremities exam: Absent: joint swelling, pedal edema, tenderness Additional comments: Left heel with wound VAC intact. - Neurological Exam Neurological exam: Present: alert, oriented X3, no focal deficits - Psychiatric Psychiatric exam: Present: normal affect, normal mood - Skin Skin exam: Present: dry, intact, normal color, warm Consult Discharge Plan - Plan Referrals: sandi,Dennis Peguero MD [Primary Care Provider] -
[2017-02-13 12:11] LABS: Alanine Aminotransferase 15 Units/L (0-55); Albumin 2.9 g/dL (3.5-5.0); Albumin/Globulin Ratio 0.7 (1.1-2.2); Alkaline Phosphatase 54 Units/L (38-126); Aspartate Amino Transferase 17 Units/L (5-34); BUN/Creatinine Ratio 22 (6-26); Bilirubin,Total 0.8 mg/dL (0.2-1.2); Blood Urea Nitrogen 18 mg/dL (7-20); Calcium 9.4 mg/dL (8.6-10.8); Carbon Dioxide 33 mEq/L (19-29); Chloride 99 mEq/L (98-109); Globulin 4.2 g/dL (2.4-3.5); Glucose 130 mg/dL (70-99); Osmolality,Calculated 292 (280-300); Potassium 3.9 mEq/L (3.5-4.5); Sodium 139 mEq/L (136-145); Total Protein 7.1 g/dL (6.0-8.3); eGFR For African Americans > 60 (> 60); eGFR For Non-African Americans > 60 (> 60)
--- NOTE | 2017-02-13 12:26 | Internal Med Progress Note ---
Date of Encounter: 02/13/17 Time of Encounter: 10:45 - Assessment and plan (1) Osteomyelitis Current Visit: Yes Status: Acute Assessment and plan: On levaquin Awaiting placement s/p I and D with wound Vac Blood cultures drawn 02/03/17 are NGTD x 2 sets. Wound culture 01/24 with proteus mirabilis , on appropriate antibiotics Continue current care Wound care per podiatry Qualifiers: Osteomyelitis type: unspecified type Osteomyelitis location: foot Laterality: left Qualified Code(s): M86.9 - Osteomyelitis, unspecified (2) Non healing left heel wound Current Visit: Yes Status: Chronic Assessment and plan: See above. (3) ISIAH on CPAP Current Visit: Yes Status: Chronic Assessment and plan: Chronic. Continue CPAP here and after discharge, as well. (4) Morbid obesity Current Visit: Yes Status: Chronic Assessment and plan: Chronic. Encourage lifestyle modifications, including reduced calorie diet. (5) Red man syndrome Current Visit: Yes Status: Resolved Assessment and plan: Resolved (6) Chronic respiratory failure Current Visit: Yes Status: Chronic Assessment and plan: Continue O2 Qualifiers: Respiratory failure complication: hypoxia Qualified Code(s): J96.11 - Chronic respiratory failure with hypoxia - Subjective Interval history: Seen and evaluated at bedside Chatty as usual No new complains Awaiting placement Infectious disease team following - Constitutional Vitals: Temp Pulse Resp BP Pulse Ox 98 F 96 18 101/68 87 02/13/17 11:20 02/13/17 11:20 02/13/17 08:11 02/13/17 11:20 02/13/17 11:20 General appearance: Present: cooperative, A&O X 3, morbidly obese, pleasant, no acute distress, answers questions appropriately - Head Head exam: Present: atraumatic, normocephalic - Eye Eye exam: Present: PERRL, conjuntiva pink, sclera anicteric Pupils: Present: PERRL - Neck Neck exam general surgery: Present: supple, trachea midline. Absent: lymphadenopathy - Respiratory Respiratory exam: Present: CTAB. Absent: accessory muscle use, rales, rhonchi, wheezes - Cardiovascular Cardiovascular exam: Present: RRR, +S1, +S2. Absent: diastolic murmur, gallop, rubs, systolic murmur - GI/Abdominal GI/Abdominal exam: Present: normal bowel sounds, soft, no peritoneal signs. Absent: distended, tenderness - Extremities Exam Additional comments: Chronic venous stasis changes L foot with wound vac Dressing looks clean, transparent, no surrounding ecchymoses Not tender - Neurological Exam Neurological exam: Present: alert, CN II-XII intact, oriented X3, no focal deficits. Absent: pronater drift, facial droop, speech deficit - Skin Skin exam: Present: dry Internal Medicine: Result - Labs CBC & Chem 7: 02/13/17 11:48 02/13/17 11:48 Labs: Short CBC 02/13/17 Range/Units 11:48 WBC 8.9 (4.3-11.1) K/mcL Hgb 12.2 (11.5-15.4) g/dL Hct 41.0 (35.3-44.9) % Plt Count 280 (140-400) K/mcL BMP 02/13/17 11:48 Sodium 139 Potassium 3.9 Chloride 99 Carbon Dioxide 33 H BUN 18 Creatinine 0.82 Glucose 130 H Calcium 9.4 Liver Function 02/13/17 Range/Units 11:48 Total Bilirubin 0.8 (0.2-1.2) mg/dL AST 17 (5-34) Units/L ALT 15 (0-55) Units/L Alkaline Phosphatase 54 (38-126) Units/L Albumin 2.9 L (3.5-5.0) g/dL - ABG Interpretation ABG results: ABG ABG pH 7.36 pH Units (7.32-7.45) 02/04/17 09:37 ABG pCO2 55 mmHg (35-45) H 02/04/17 09:37 ABG pO2 69 mmHg (85-104) L 02/04/17 09:37 ABG O2 Saturation 92 % (95-98) L 02/04/17 09:37 PT/INR, D-dimer PT 12.1 Seconds (9.4-12.1) 02/04/17 03:40 Consult Discharge Plan - Plan Referrals: Dennis Garner MD [Primary Care Provider] -
--- NOTE | 2017-02-13 15:14 | Podiatry Progress Note ---
Date of Encounter: 02/13/17 Time of Encounter: 12:30 - Assessment and Plan (1) Non healing left heel wound Current Visit: Yes Status: Chronic Assessment: The left foot MRI indicates that there may be possible gas. Dr. Benavides reviewed the MRI, gas that is seen is not evident and most likely a result from the large ulceration with tunneling. A small black simplace wound vac is intact to the left heel connected to 125 mmhg continuous suction. Surrounding is skin in pink, warm and dry, no fluctuance, no streaking, no warmth. WBC: 8.9 Wound culture isolated proteus mirabalis Plan: Continue wound vac to left heel and to be changed every 72 hours. Small black simplace wound vac sponge connected to 125 mmhg low continuous suction. Orders written. Antibiotic therapy per Infectious Disease. Remain non weight bearing to LLE. Patient awaiting placement to ECF upon discharge to meet medical needs with wound vac and IV antibiotics and to allow for a full recovery. Patient will need to f/u in Podiatry clinic with Dr. Benavides in one week of discharge from hospital. Subjective Interval history: Patient is sitting up in bed with wound vac intact to the left heel and connected to 125 mmhg continuous suction. Per nurse patients wound vac was changed yesterday. Patient states she is suppose to be going to [facility]. No c/ o pain, fever or chills. Objective - Vital Signs Vital Signs: Vital Signs Temp Pulse Resp BP Pulse Ox 02/13/17 11:20 98 F 96 101/68 87 02/13/17 08:11 97.7 F 93 18 123/74 94 02/13/17 04:36 97.8 F 90 19 114/71 93 02/12/17 22:19 97.8 F 93 16 149/80 95 02/12/17 19:15 97.9 F 98 16 126/75 94 02/12/17 16:03 97.4 F L 79 16 121/65 95 Intake and Output 02/12/17 02/13/17 02/13/17 23:59 07:59 15:59 Intake Total 0 / 0 150 / 150 Output Total 100 / 100 Balance -100 / -100 150 / 150 Intake: IV Fluids 150 / 150 Levaquin Premix 750mg/150 mL 150 / 150 750 mg In 150 ml @ 100 mls/hr IVPB DAILY [facility] Rx#:[id number] Oral 0 / 0 Output: Wound Drainage 100 / 100 Left Heel 100 / 100 Other: Meal Dinner Percent of Meal Consumed 100% # Voids 1 1 Weight 174.134 kg Patient Weight 02/13/17 23:59 Weight 174.134 kg - Exam Exam: General appearance: alert awake oriented X 3. Calm, no acute distress.. Vascular: Pedal pulses +2/4 DP/PT , No evidence of cyanosis, pallor or rubor, Edema graded at 2+/4, Skin Temperature warm, No calf pain with manual compression. capillary refill time is immediate to digits. Neurologic: Sensation intact with light touch to left foot. . Postop Exam: S/P Left heel: Black wound vac sponge connected to 125 mmhg low continuous suction. Brown drainage observed to canister. Surrounding skin is pink,warm and dry, no fluctuance, No streaking, no ascending cellulitis. - Lab Result Diagrams: 02/13/17 11:48 02/13/17 11:48 Labs: Abnormal lab results MCH 26.3 pg (28.0-33.3) L 02/13/17 11:48 MCHC 29.8 g/dL (31.6-35.5) L 02/13/17 11:48 RDW 20.5 % (11.5-14.5) H 02/13/17 11:48 MPV 8.4 fL (9.4-12.4) L 02/13/17 11:48 Immature Plt Fraction 1.0 % (1.1-6.1) L 02/11/17 06:16 Polychromasia 1+ (Not Present) A 02/06/17 03:05 Poikilocytosis 1+ (Not Present) A 02/04/17 03:40 Anisocytosis 2+ (Not Present) A 02/06/17 03:05 Microcytosis Present (Not Present) A 02/06/17 03:05 Macrocytosis Present (Not Present) A 02/06/17 03:05 ESR 128 mm/hr (0-15) H 02/04/17 17:50 ABG pCO2 55 mmHg (35-45) H 02/04/17 09:37 ABG pO2 69 mmHg (85-104) L 02/04/17 09:37 ABG HCO3 31 mEq/L (21-27) H 02/04/17 09:37 ABG Total CO2 33 mEq/L (20-26) H 02/04/17 09:37 ABG O2 Saturation 92 % (95-98) L 02/04/17 09:37 ABG Base Excess 4 mEq/L (-2 to 3) H 02/04/17 09:37 Carbon Dioxide 33 mEq/L (19-29) H 02/13/17 11:48 Glucose 130 mg/dL (70-99) H 02/13/17 11:48 POC Glucose 104 (58-89) H 02/07/17 20:30 Creatine Kinase 21 Units/L (29-168) L 02/04/17 17:50 C-Reactive Protein 80 mg/L (Less than 5) H 02/04/17 17:50 Albumin 2.9 g/dL (3.5-5.0) L 02/13/17 11:48 Globulin 4.2 g/dL (2.4-3.5) H 02/13/17 11:48 Albumin/Globulin Ratio 0.7 (1.1-2.2) L 02/13/17 11:48 Triglycerides 157 mg/dL (< 150) H 02/04/17 03:40 LDL Cholesterol, Calc 111 mg/dL (0-99) H 02/04/17 03:40 VLDL Cholesterol, Calc 31 mg/dL (< 31) H 02/04/17 03:40 Consult Discharge Plan - Plan Referrals: Dennis Garner MD [Primary Care Provider] -
[2017-02-14] MEDS: *HR* Enoxaparin 40 MG/0.4 ML SYRINGE SQ SCH (06:43)
--- NOTE | 2017-02-14 08:52 | Internal Med Progress Note ---
Date of Encounter: 02/14/17 Time of Encounter: 08:51 - Assessment and plan (1) Osteomyelitis Current Visit: Yes Status: Acute Qualifiers: Osteomyelitis type: unspecified type Osteomyelitis location: foot Laterality: left Qualified Code(s): M86.9 - Osteomyelitis, unspecified (2) Non healing left heel wound Current Visit: Yes Status: Chronic (3) ISIAH on CPAP Current Visit: Yes Status: Chronic (4) Morbid obesity Current Visit: Yes Status: Chronic (5) Red man syndrome Current Visit: Yes Status: Resolved (6) Chronic respiratory failure Current Visit: Yes Status: Chronic Qualifiers: Respiratory failure complication: hypoxia Qualified Code(s): J96.11 - Chronic respiratory failure with hypoxia - Subjective Interval history: Seen and evaluated at bedside Chatty as usual No new complains Awaiting placement Infectious disease team following - Constitutional Vitals: Temp Pulse Resp BP Pulse Ox 98.7 F 100 17 166/79 96 02/14/17 08:02 02/14/17 08:02 02/14/17 08:02 02/14/17 08:02 02/14/17 08:02 General appearance: Present: cooperative, A&O X 3, morbidly obese, pleasant, no acute distress, answers questions appropriately - Head Head exam: Present: atraumatic, normocephalic - Eye Eye exam: Present: PERRL, conjuntiva pink, sclera anicteric Pupils: Present: PERRL - Neck Neck exam general surgery: Present: supple, trachea midline. Absent: lymphadenopathy - Respiratory Respiratory exam: Present: CTAB. Absent: accessory muscle use, rales, rhonchi, wheezes - Cardiovascular Cardiovascular exam: Present: RRR, +S1, +S2. Absent: diastolic murmur, gallop, rubs, systolic murmur - GI/Abdominal GI/Abdominal exam: Present: normal bowel sounds, soft, no peritoneal signs. Absent: distended, tenderness - Extremities Exam Additional comments: Chronic venous stasis changes L foot with wound vac Dressing looks clean, transparent, no surrounding ecchymoses Not tender - Neurological Exam Neurological exam: Present: alert, CN II-XII intact, oriented X3, no focal deficits. Absent: pronater drift, facial droop, speech deficit - Skin Skin exam: Present: dry Internal Medicine: Result - Labs CBC & Chem 7: 02/13/17 11:48 02/13/17 11:48 Labs: Short CBC 02/13/17 Range/Units 11:48 WBC 8.9 (4.3-11.1) K/mcL Hgb 12.2 (11.5-15.4) g/dL Hct 41.0 (35.3-44.9) % Plt Count 280 (140-400) K/mcL BMP 02/13/17 11:48 Sodium 139 Potassium 3.9 Chloride 99 Carbon Dioxide 33 H BUN 18 Creatinine 0.82 Glucose 130 H Calcium 9.4 Liver Function 02/13/17 Range/Units 11:48 Total Bilirubin 0.8 (0.2-1.2) mg/dL AST 17 (5-34) Units/L ALT 15 (0-55) Units/L Alkaline Phosphatase 54 (38-126) Units/L Albumin 2.9 L (3.5-5.0) g/dL - ABG Interpretation ABG results: ABG ABG pH 7.36 pH Units (7.32-7.45) 02/04/17 09:37 ABG pCO2 55 mmHg (35-45) H 02/04/17 09:37 ABG pO2 69 mmHg (85-104) L 02/04/17 09:37 ABG O2 Saturation 92 % (95-98) L 02/04/17 09:37 PT/INR, D-dimer PT 12.1 Seconds (9.4-12.1) 02/04/17 03:40 Consult Discharge Plan - Plan Referrals: Pascual,Dennis Peguero MD [Primary Care Provider] -
[2017-02-14] MEDS: Levofloxacin 750 MG/150 ML 750 MG/150 ML BAG IVPB SCH (09:32)
[2017-02-14] MEDS: Cholecalciferol (D-3) 1,000 UNIT TABLET PO SCH (09:33)
--- NOTE | 2017-02-14 13:31 | Discharge Summary ---
Date of Encounter: 02/14/17 Time of Encounter: 08:51 - Discharge Diagnosis (1) Osteomyelitis Priority: Primary Status: Acute Qualifiers: Osteomyelitis type: unspecified type Osteomyelitis location: foot Laterality: left Qualified Code(s): M86.9 - Osteomyelitis, unspecified (2) Non healing left heel wound Priority: Primary Status: Chronic (3) ISIAH on CPAP Priority: Secondary Status: Chronic (4) Morbid obesity Priority: Secondary Status: Chronic (5) Red man syndrome Priority: Secondary Status: Resolved (6) Chronic respiratory failure Priority: Secondary Status: Chronic Qualifiers: Respiratory failure complication: hypoxia Qualified Code(s): J96.11 - Chronic respiratory failure with hypoxia - Discharge Medications Home Medications: Ergocalciferol (VITAMIN D2) [Vitamin D2] 2,000 unit PO DAILY 09/14/15 [History] Albuterol Sulfate [Ventolin Hfa] 2 puff IH Q4H PRN 01/22/17 [History] Aspirin/Caffeine [Back & Body Pain Reliever Cplt] 1 each PO Q4H PRN 01/22/17 [ History] Docusate [Colace] 100 mg PO BID PRN 01/22/17 [History] Levothyroxine [Synthroid] 175 mcg PO 0630 01/22/17 [History] Oxygen 4 l NS AD 01/22/17 [History] Sennosides [Senna] 17.2 mg PO BID PRN 01/22/17 [History] Levofloxacin 750 MG/150 ML [Levaquin Premix 750mg/150 mL] 750 mg IVPB DAILY #42 bag 01/27/17 [Rx] Allergies/Adverse Reactions: 3 Allergy/AdvReac Type Severity Reaction Status Date / Time cefdinir Allergy Rash Verified 11/25/14 17:58 clindamycin Allergy See Verified 01/22/17 18:36 Comments Penicillins [PCN] Allergy Rash Verified 11/25/14 17:58 vancomycin Allergy Rash Verified 02/04/17 08:23 Date of admission: 02/03/17 21:15 Primary care physician: Dennis Garner MD Consults: 02/03/17 21:32 Consult to Wound Care [CONS] Routine Reason for Consult: Patient has necrotic foot ulcer of the left foot that is to the bone. Patient states that she has home health care for this but has flight of thought on examination, so accuracy is an issue. Call Completed: No 02/04/17 11:39 Consult to Pastoral Services [CONS] Routine Comment: Discharging clinician: Santos Wen Anticipated date of discharge: 02/14/17 - Patient Status Disposition: Transfer SNF Condition: Fair Functional capacity at discharge: independent ambulation Overall status at discharge: patient is progressing back to baseline - Discharge Instructions Follow Up With: Titus Benavides DPM [Partnered Physician] - 02/24/17 10:30 am Dennis Garner MD [Primary Care Provider] - - Diet and Activity Activity: resume usual activities as tolerated, wear oxygen at all times Diet: diabetic diet, low fat, low cholesterol, low salt diet Interval History: See below Hospital course: Ms. Lemus is a 56 year old female with Chronic resp failure, ISIAH, Morbid Obeisity, controlled DM, admitted for management of Left calcaneal OM secondary to protues She has received a total of 18 days of IV levaquin Hospital stay was prolonged due to awaiting placement She is seen today with no new complains In this admission, MRI of the left foot show findings consistent with cellulitis , increase in the size of the wound compared to previous MRI, possible soft tissue gas and possible osteomyelitis of the calcaneus. Soft tissue gas likely from previous surgical procedure. The patient has no SIRS criteria. Inflammatory markers remain elevated. ESR is improved. CK level normal. Wound culture negative Blood cultures drawn 02/03/17 are NGTD x 2 sets. Continue Levaquin 750mg IV daily. Follow up with Infectious disease clinic, podiatry, and PCP Patient has a very distracted personality with tangential reasoning and speech Psychiatry has evaluated the patient and had no recommendations for medical therapy, possibly her baseline - Time Spent with Patient Total time spent providing and/or coordinating discharge services: Greater than 30 minutes - Constitutional Vitals: Temp Pulse Resp BP Pulse Ox 98.5 F 83 18 115/71 95 02/14/17 11:59 02/14/17 11:59 02/14/17 11:59 02/14/17 11:59 02/14/17 11:59 General appearance: Present: cooperative, A&O X 3, morbidly obese, pleasant, no acute distress, answers questions appropriately - Head Head exam: Present: atraumatic, normocephalic - Eye Eye exam: Present: PERRL, conjuntiva pink, sclera anicteric Pupils: Present: PERRL - Neck Neck exam general surgery: Present: supple, trachea midline. Absent: lymphadenopathy - Respiratory Respiratory exam: Present: CTAB. Absent: accessory muscle use, rales, rhonchi, wheezes - Cardiovascular Cardiovascular exam: Present: RRR, +S1, +S2. Absent: diastolic murmur, gallop, rubs, systolic murmur - GI/Abdominal GI/Abdominal exam: Present: normal bowel sounds, soft, no peritoneal signs. Absent: distended, tenderness - Extremities Exam Extremities exam: Present: warm, radial pulses palpable and symmetrical. Absent : calf tenderness, cyanotic, pedal edema Additional comments: chronic venous stasis changes. Wound vac in-situ - Neurological Exam Neurological exam: Present: alert, CN II-XII intact, oriented X3, no focal deficits. Absent: pronater drift, facial droop, speech deficit - Skin Skin exam: Present: dry, intact
--- NOTE | 2017-02-14 13:31 | Physician Discharge Referral ---
ExtendedCare Referral Info Transfer To: snf Provider in Charge after Transfer: PCP Institutional Level of Care: Skilled - Diagnosis (1) Osteomyelitis Priority: Primary Status: Acute (2) Non healing left heel wound Priority: Primary Status: Chronic (3) ISIAH on CPAP Priority: Secondary Status: Chronic (4) Morbid obesity Priority: Secondary Status: Chronic (5) Red man syndrome Priority: Secondary Status: Resolved (6) Chronic respiratory failure Priority: Secondary Status: Chronic Prognosis: Fair Aware of Diagnosis: Patient Aware of Prognosis: Patient - Transfer Medications Home Medications: Ergocalciferol (VITAMIN D2) [Vitamin D2] 2,000 unit PO DAILY 09/14/15 [History] Albuterol Sulfate [Ventolin Hfa] 2 puff IH Q4H PRN 01/22/17 [History] Aspirin/Caffeine [Back & Body Pain Reliever Cplt] 1 each PO Q4H PRN 01/22/17 [ History] Docusate [Colace] 100 mg PO BID PRN 01/22/17 [History] Levothyroxine [Synthroid] 175 mcg PO 0630 01/22/17 [History] Oxygen 4 l NS AD 01/22/17 [History] Sennosides [Senna] 17.2 mg PO BID PRN 01/22/17 [History] Levofloxacin 750 MG/150 ML [Levaquin Premix 750mg/150 mL] 750 mg IVPB DAILY #42 bag 01/27/17 [Rx] Allergies/Adverse Reactions: 3 Allergy/AdvReac Type Severity Reaction Status Date / Time cefdinir Allergy Rash Verified 11/25/14 17:58 clindamycin Allergy See Verified 01/22/17 18:36 Comments Penicillins [PCN] Allergy Rash Verified 11/25/14 17:58 vancomycin Allergy Rash Verified 02/04/17 08:23 - Respiratory Orders Oxygen / L per min (2-3 L per minute prn .) Smoking Cessation: Smoking cessation has been advised. For more information, call the [employer] Tobacco Quit Line at 8-753-MSNG-NOW. - Advance Directives Code Status: Full Code - Mobility Orders Ambulate - Rehabiliation Orders Rehab Potential: Fair - Treatments List/Other: Left foot wound Vac 125mmHg black sponge, change MWF - Diet Orders Cardiac CERTIFICATION: I certify that the transfer of the above named patient to an Extended Care Facility is necessary for the continuing treatment of the diagnosis listed. The above information is true and accurate reflection of patient's current condition. Confidential - Redisclosure prohibited without a patient's written consent.
[2017-02-14 21:03] VITALS: BP 180/73
== END 2017-02-14 21:10 | DRG 344 ==
LOC: 3BNU 15:11 → EMEROO 15:11 → 3BNU 18:53 → SUATTDRO 21:15 → 3BNU 02-11 15:48 → 3ANU 02-13 00:43
PROVIDERS: ADMIT Nurse Practitioner Family; ATTEND Internal Medicine

== ENCOUNTER 2018-12-28 18:26 | Inpatient (IN) ==
--- NOTE | 2018-12-28 18:43 | Emergency Department Note ---
Disposition Clinical Impression: Cellulitis Qualifiers: Site of cellulitis: trunk Site of cellulitis of trunk: abdominal wall Qualified Code(s): L03.311 - Cellulitis of abdominal wall Sepsis Qualifiers: Sepsis type: sepsis due to unspecified organism Sepsis acute organ dysfunction status: unspecified Qualified Code(s): A41.9 - Sepsis, unspecified organism Disposition: Admitted As Inpatient Condition: Fair Time of Disposition: 21:32 General Adult HPI - General Chief complaint: ED Fever Stated complaint: fever,"cellulitis",abd pain Time Seen by Provider: 12/28/18 18:42 Source: patient Limitations: no limitations Nursing Notes Reviewed: Yes Vital Signs Reviewed: Yes - History of Present Illness HPI Narrative: 50-year-old female presents emergency department with concern for redness and swelling of her lower abdomen. Patient states that redness has been there for couple days, but she develop fever this morning. She states that the redness radiates upward to the top part of the abdomen, down to her waist, but none on her vagina. She denies any dysuria, urinary. So, urgency, nausea, vomiting, chest pain. Pain Scale: 5 - Related Data Home Medications Medication Instructions Recorded Confirmed Ergocalciferol (VITAMIN D2) 2,000 unit PO DAILY 09/14/15 12/28/18 [Vitamin D2] Docusate [Colace] 100 mg PO BID PRN 01/22/17 12/28/18 Furosemide [Lasix] 40 mg PO DAILY 04/07/18 12/28/18 Multivitamin [One Daily Essential] 1 tab PO DAILY 04/07/18 12/28/18 Potassium Chloride [K-Tab ER] 20 meq PO DAILY 04/07/18 12/28/18 Levothyroxine Sodium [Synthroid] 200 mcg PO QAM 06/15/18 12/28/18 hydrOXYzine HCl [Hydroxyzine HCl] 25 mg PO BID PRN 07/19/18 12/28/18 Albuterol Sulfate [Albuterol 2 puff IH Q4H PRN 12/28/18 12/28/18 Sulfate Hfa] Anastrozole [Arimidex] 1 mg PO DAILY 12/28/18 12/28/18 hydroCHLOROthiazide 12.5 mg PO DAILY 12/28/18 12/28/18 [Hydrochlorothiazide] Previous Rx's Medication Instructions Recorded Loratadine [Claritin] 10 mg PO DAILY 30 Days #30 tablet 08/06/18 Nystatin Cream [Mycostatin Cream] 1 appl TP TID #1 tube 08/06/18 Allergies Allergy/AdvReac Type Severity Reaction Status Date / Time ketorolac [From Toradol] Allergy Intermediate Rash Verified 12/28/18 18:37 cefdinir Allergy Rash Verified 12/28/18 19:12 clindamycin Allergy Blister Verified 12/28/18 19:04 Penicillins [PCN] Allergy Rash Verified 12/28/18 19:12 [place] Allergy Itching Verified 12/28/18 18:37 vancomycin Allergy Blister Verified 12/28/18 19:04 All systems ED: reviewed and negative except as stated. Review of Systems: As Per HPI Constitutional: Reports: fever, chills Cardiovascular: Denies: chest pain Respiratory: Denies: dyspnea Gastrointestinal: Reports: abdominal pain. Denies: nausea, vomiting Genitourinary: Denies: urgency, dysuria, frequency Musculoskeletal: Denies: back pain Integumentary: Reports: rash Past Medical History - Past Medical History Attestation: Yes The following information was validated with the patient. 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 Absent: respiratory distress, accessory muscle use - Cardiovascular Cardiovascular exam: Present: regular rate, normal rhythm, normal heart sounds - Abdominal Exam Abdominal exam: Present: soft, other (There is a diffuse erythema on the lower abdomen, consistent with cellulitis, warm to touch, skin headed, there is a mild abrasion with scab on the right lower area as well. No purulent drainage). Absent: distention, guarding, rebound, rigidity - Extremities Exam Extremities exam: Present: normal capillary refill - Back Exam Back exam: Present: full ROM - Neurological Exam Neurological exam: Present: alert, oriented X3 - Psychiatric Psychiatric exam: Present: normal affect, normal mood - Skin Skin exam: Present: warm, dry Course Vital Signs Temperature 101.0 F H 12/28/18 18:33 Pulse Rate 94 12/28/18 18:33 Respiratory Rate 18 12/28/18 18:33 Blood Pressure 119/73 12/28/18 18:33 O2 Sat by Pulse Oximetry 94 12/28/18 18:33 Temperature 100.4 F H 12/28/18 20:47 Pulse Rate 80 12/28/18 21:12 Respiratory Rate 18 12/28/18 21:12 Blood Pressure 99/38 12/28/18 21:12 O2 Sat by Pulse Oximetry 95 12/28/18 21:12 Oxygen Delivery Oxygen Delivery Nasal Cannula Medical Decision Making - MDM Narrative Medical decision making narrative: 58-year-old female presents to the emergency department with concern for lower abdominal cellulitis. Patient febrile initially, but no signs of septic shock. Obtain CT scan of abdomen and pelvis which revealed cellulitis of the lower abdomen. Patient was given fluids here in the emergency department. She is also been given linezolid, cefepime. Patient admitted to Dr. Jacobsen. On her c urrent oxygen that she uses at home. Chest X-Ray 12/28/18 18:55 IMPRESSION: No acute cardiopulmonary disease. D/ / Nahum Berkowitz MD / Nahum Berkowitz MD Interpreting Provider: Nahum Berkowitz MD Abdomen/Pelvis CT 12/28/18 18:58 IMPRESSION: 1. Soft tissue swelling and induration in the anterior abdominal wall may represent cellulitis but no evidence of abscess. 2. No acute gastrointestinal abnormality. 3. Diffuse fatty infiltration of the liver but no focal disease. No evidence of obstructive uropathy. D/ / 12/28/2018 20:41:23 Abril Marvin MD / kirill Interpreting Provider: Abril Marvin MD - Lab Data Result diagrams: 12/28/18 19:10 12/28/18 19:10 Lab Results 12/28/18 12/28/18 12/28/18 Range/Units 19:10 19:10 19:10 WBC 15.9 H (4.3-11.1) K/mcL RBC 4.06 (3.82-4.97) M/mcL Hgb 11.6 (11.5-15.4) g/dL Hct 36.9 (35.3-44.9) % MCV 90.9 (83.0-100.0) fL MCH 28.6 (28.0-33.3) pg MCHC 31.4 L (31.6-35.5) g/dL RDW 14.6 H (11.5-14.5) % Plt Count 290 (140-400) K/mcL MPV 8.7 L (9.4-12.4) fL Immature Gran % 0.3 (0-4) % Seg Neutrophils % 92.7 % Lymphocytes % 4.3 % Monocytes % 2.3 % Eosinophils % 0.3 % Basophils % 0.1 % Neutrophils # 14.7 H (1.6-8.9) K/mcL Lymphocytes # 0.7 (0.6-4.6) K/mcL Monocytes # 0.4 (0.0-1.3) K/mcL Eosinophils # 0.0 (0.0-0.6) K/mcL Basophils # 0.0 (0.0-0.2) K/mcL Sodium 135 L (136-145) mEq/L Potassium 3.6 (3.5-5.1) mEq/L Chloride 98 (98-107) mEq/L Carbon Dioxide 27 (23-29) mEq/L BUN 14 (6-20) mg/dL Creatinine 1.01 (0.60-1.20) mg/dL Est GFR ( Amer) > 60 (> 60) Est GFR (Non-Af Amer) 56 L (> 60) BUN/Creatinine Ratio 14 (6-26) Glucose 116 H (70-105) mg/dL Calculated Osmolality 281 (280-300) Lactic Acid 1.6 (0.5-2.2) mmol/L Calcium 9.2 (8.6-10.3) mg/dL Total Bilirubin 1.5 H (0.3-1.0) mg/dL Direct Bilirubin 0.3 H (0.0-0.2) mg/dL Indirect Bilirubin 1.2 (0.0-1.2) mg/dL AST 12 L (13-39) Units/L ALT 11 (7-52) Units/L Alkaline Phosphatase 51 (34-104) Units/L Troponin I < 0.03 (< 0.04) ng/mL Serum Total Protein 7.4 (6.4-8.9) g/dL Albumin 3.8 (3.5-5.7) g/dL Globulin 3.6 H (2.4-3.5) g/dL Albumin/Globulin Ratio 1.1 (1.1-2.2) Urine Color (Yellow) Urine Clarity (Clear) Urine pH (5.0-8.0) pH Units Ur Specific [place] (1.010-1.025) Urine Protein (Neg-Trace) mg/dL Urine Glucose (UA) (Normal) mg/dL Urine Ketones (Negative) mg/dL Urine Blood (Negative) Urine Nitrite (Negative) Urine Bilirubin (Negative) Urine Urobilinogen (Normal) mg/dL Ur Leukocyte Esterase (Negative) Urine Microscopic RBC (0-3) per hpf Urine Microscopic WBC (0-3) per hpf Ur Squamous Epith Cells (None-Few) per lpf Urine Bacteria (None-Few) per hpf Hyaline Casts (None-Few) per lpf Ur Culture Indicated? (NO) 12/28/18 Range/Units 20:13 WBC (4.3-11.1) K/mcL RBC (3.82-4.97) M/mcL Hgb (11.5-15.4) g/dL Hct (35.3-44.9) % MCV (83.0-100.0) fL MCH (28.0-33.3) pg MCHC (31.6-35.5) g/dL RDW (11.5-14.5) % Plt Count (140-400) K/mcL MPV (9.4-12.4) fL Immature Gran % (0-4) % Seg Neutrophils % % Lymphocytes % % Monocytes % % Eosinophils % % Basophils % % Neutrophils # (1.6-8.9) K/mcL Lymphocytes # (0.6-4.6) K/mcL Monocytes # (0.0-1.3) K/mcL Eosinophils # (0.0-0.6) K/mcL Basophils # (0.0-0.2) K/mcL Sodium (136-145) mEq/L Potassium (3.5-5.1) mEq/L Chloride (98-107) mEq/L Carbon Dioxide (23-29) mEq/L BUN (6-20) mg/dL Creatinine (0.60-1.20) mg/dL Est GFR ( Amer) (> 60) Est GFR (Non-Af Amer) (> 60) BUN/Creatinine Ratio (6-26) Glucose (70-105) mg/dL Calculated Osmolality (280-300) Lactic Acid (0.5-2.2) mmol/L Calcium (8.6-10.3) mg/dL Total Bilirubin (0.3-1.0) mg/dL Direct Bilirubin (0.0-0.2) mg/dL Indirect Bilirubin (0.0-1.2) mg/dL AST (13-39) Units/L ALT (7-52) Units/L Alkaline Phosphatase (34-104) Units/L Troponin I (< 0.04) ng/mL Serum Total Protein (6.4-8.9) g/dL Albumin (3.5-5.7) g/dL Globulin (2.4-3.5) g/dL Albumin/Globulin Ratio (1.1-2.2) Urine Color Yellow (Yellow) Urine Clarity Clear (Clear) Urine pH 6.0 (5.0-8.0) pH Units Ur Specific [place] 1.007 L (1.010-1.025) Urine Protein Negative (Neg-Trace) mg/dL Urine Glucose (UA) Normal (Normal) mg/dL Urine Ketones Negative (Negative) mg/dL Urine Blood Negative (Negative) Urine Nitrite Negative (Negative) Urine Bilirubin Negative (Negative) Urine Urobilinogen Normal (Normal) mg/dL Ur Leukocyte Esterase Trace H (Negative) Urine Microscopic RBC 0-3 (0-3) per hpf Urine Microscopic WBC 3-5 H (0-3) per hpf Ur Squamous Epith Cells Many H (None-Few) per lpf Urine Bacteria None Seen (None-Few) per hpf Hyaline Casts None Seen (None-Few) per lpf Ur Culture Indicated? YES A (NO) - EKG Data EKG #1 EKG attestation: Yes I reviewed and interpreted this EKG. EKG results narrative: 19:26 Heart rate 79 bpm, CO interval 159 ms, QRS duration 94, QT 371 ms, normal axis. Sinus rhythm and no ischemic ST changes.
[2018-12-28] MEDS ORDERED: 0.9 % Sodium Chloride 1,000 ML IVC ONE ×2 (18:54→20:54)
[2018-12-28] MEDS ORDERED: Isovue-370 500 ML BOTTLE IVP ONE (18:58)
[2018-12-28] MEDS ORDERED: Cefepime HCl 1,000 MG in Water for inj. (sterile) 10 ML IVP STA (19:20)
[2018-12-28] MEDS ORDERED: Cefepime HCl 2,000 MG in Water for inj. (sterile) 20 ML IVP STA (19:24)
[2018-12-28 19:29] LABS: Basophils % 0.1 %; Eosinophils % 0.3 %; Hematocrit 36.9 % (35.3-44.9); Hemoglobin 11.6 g/dL (11.5-15.4); Immature Granulocytes % 0.3 % (0-4); Lymphocytes # 0.7 K/mcL (0.6-4.6); Lymphocytes % 4.3 %; Mean Corpuscular HGB Conc 31.4 g/dL (31.6-35.5); Mean Corpuscular Hemoglobin 28.6 pg (28.0-33.3); Mean Corpuscular Volume 90.9 fL (83.0-100.0); Mean Platelet Volume 8.7 fL (9.4-12.4); Monocytes # 0.4 K/mcL (0.0-1.3); Monocytes % 2.3 %; Neutrophils # 14.7 K/mcL (1.6-8.9); Platelet Count 290 K/mcL (140-400); Red Blood Count 4.06 M/mcL (3.82-4.97); Red Cell Distribution Width 14.6 % (11.5-14.5); Segmented Neutrophils % 92.7 %; White Blood Count 15.9 K/mcL (4.3-11.1)
[2018-12-28 19:50] LABS: Alanine Aminotransferase 11 Units/L (7-52); Albumin 3.8 g/dL (3.5-5.7); Albumin/Globulin Ratio 1.1 (1.1-2.2); Alkaline Phosphatase 51 Units/L (34-104); Aspartate Amino Transferase 12 Units/L (13-39); BUN/Creatinine Ratio 14 (6-26); Bilirubin,Direct 0.3 mg/dL (0.0-0.2); Bilirubin,Indirect 1.2 mg/dL (0.0-1.2); Bilirubin,Total 1.5 mg/dL (0.3-1.0); Blood Urea Nitrogen 14 mg/dL (6-20); Calcium 9.2 mg/dL (8.6-10.3); Carbon Dioxide 27 mEq/L (23-29); Chloride 98 mEq/L (98-107); Globulin 3.6 g/dL (2.4-3.5); Glucose 116 mg/dL (70-105); Osmolality,Calculated 281 (280-300); Potassium 3.6 mEq/L (3.5-5.1); Sodium 135 mEq/L (136-145); Total Protein 7.4 g/dL (6.4-8.9); Troponin I < 0.03 ng/mL (< 0.04); eGFR For African Americans > 60 (> 60); eGFR For Non-African Americans 56 (> 60)
--- NOTE | 2018-12-28 20:21 | Emergency Department Note ---
Disposition Clinical Impression: Cellulitis Qualifiers: Site of cellulitis: trunk Site of cellulitis of trunk: abdominal wall Qualified Code(s): L03.311 - Cellulitis of abdominal wall Sepsis Qualifiers: Sepsis type: sepsis due to unspecified organism Sepsis acute organ dysfunction status: unspecified Qualified Code(s): A41.9 - Sepsis, unspecified organism Disposition: Admitted As Inpatient Condition: Fair Referrals: Dennis Garner MD [Primary Care Provider] - Forms: ED Satisfaction Letter Time of Disposition: 20:49 General Adult HPI - General Chief complaint: ED Fever Stated complaint: fever,"cellulitis",abd pain Time Seen by Provider: 12/28/18 18:42 Source: patient Limitations: no limitations Nursing Notes Reviewed: Yes Vital Signs Reviewed: Yes - History of Present Illness Pain Scale: 0 - Related Data Home Medications Medication Instructions Recorded Confirmed Ergocalciferol (VITAMIN D2) 2,000 unit PO DAILY 09/14/15 12/28/18 [Vitamin D2] Docusate [Colace] 100 mg PO BID PRN 01/22/17 12/28/18 Furosemide [Lasix] 40 mg PO DAILY 04/07/18 12/28/18 Multivitamin [One Daily Essential] 1 tab PO DAILY 04/07/18 12/28/18 Potassium Chloride [K-Tab ER] 20 meq PO DAILY 04/07/18 12/28/18 Levothyroxine Sodium [Synthroid] 200 mcg PO QAM 06/15/18 12/28/18 hydrOXYzine HCl [Hydroxyzine HCl] 25 mg PO BID PRN 07/19/18 12/28/18 Albuterol Sulfate [Albuterol 2 puff IH Q4H PRN 12/28/18 12/28/18 Sulfate Hfa] Anastrozole [Arimidex] 1 mg PO DAILY 12/28/18 12/28/18 hydroCHLOROthiazide 12.5 mg PO DAILY 12/28/18 12/28/18 [Hydrochlorothiazide] Previous Rx's Medication Instructions Recorded Loratadine [Claritin] 10 mg PO DAILY 30 Days #30 tablet 08/06/18 Nystatin Cream [Mycostatin Cream] 1 appl TP TID #1 tube 08/06/18 Allergies Allergy/AdvReac Type Severity Reaction Status Date / Time ketorolac [From Toradol] Allergy Intermediate Rash Verified 12/28/18 18:37 cefdinir Allergy Rash Verified 12/28/18 19:12 clindamycin Allergy Blister Verified 12/28/18 19:04 Penicillins [PCN] Allergy Rash Verified 12/28/18 19:12 [place] Allergy Itching Verified 12/28/18 18:37 vancomycin Allergy Blister Verified 12/28/18 19:04 Past Medical History - Past Medical History Medical history: Reports: asthma, cancer, COPD, diabetes, thyroid disease, other Surgical history: Reports: other Psychiatric history: Reports: anxiety, depression [employer]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 - Social History Smoking Status: Never smoker Smokeless Tobacco Status: No Alcohol use: Reports: none Drug use: Reports: none Physical Exam - General Limitations: no limitations General appearance: alert, in no apparent distress Course Vital Signs Temperature 101.0 F H 12/28/18 18:33 Pulse Rate 94 12/28/18 18:33 Respiratory Rate 18 12/28/18 18:33 Blood Pressure 119/73 12/28/18 18:33 O2 Sat by Pulse Oximetry 94 12/28/18 18:33 Temperature 100.4 F H 12/28/18 20:47 Pulse Rate 86 12/28/18 20:47 Respiratory Rate 18 12/28/18 20:47 Blood Pressure 98/39 12/28/18 20:47 O2 Sat by Pulse Oximetry 98 12/28/18 20:47 Oxygen Delivery Oxygen Delivery Room Air Medical Decision Making - Lab Data Result diagrams: 12/28/18 19:10 12/28/18 19:10 Lab Results 12/28/18 12/28/18 12/28/18 Range/Units 19:10 19:10 19:10 WBC 15.9 H (4.3-11.1) K/mcL RBC 4.06 (3.82-4.97) M/mcL Hgb 11.6 (11.5-15.4) g/dL Hct 36.9 (35.3-44.9) % MCV 90.9 (83.0-100.0) fL MCH 28.6 (28.0-33.3) pg MCHC 31.4 L (31.6-35.5) g/dL RDW 14.6 H (11.5-14.5) % Plt Count 290 (140-400) K/mcL MPV 8.7 L (9.4-12.4) fL Immature Gran % 0.3 (0-4) % Seg Neutrophils % 92.7 % Lymphocytes % 4.3 % Monocytes % 2.3 % Eosinophils % 0.3 % Basophils % 0.1 % Neutrophils # 14.7 H (1.6-8.9) K/mcL Lymphocytes # 0.7 (0.6-4.6) K/mcL Monocytes # 0.4 (0.0-1.3) K/mcL Eosinophils # 0.0 (0.0-0.6) K/mcL Basophils # 0.0 (0.0-0.2) K/mcL Sodium 135 L (136-145) mEq/L Potassium 3.6 (3.5-5.1) mEq/L Chloride 98 (98-107) mEq/L Carbon Dioxide 27 (23-29) mEq/L BUN 14 (6-20) mg/dL Creatinine 1.01 (0.60-1.20) mg/dL Est GFR ( Amer) > 60 (> 60) Est GFR (Non-Af Amer) 56 L (> 60) BUN/Creatinine Ratio 14 (6-26) Glucose 116 H (70-105) mg/dL Calculated Osmolality 281 (280-300) Lactic Acid 1.6 (0.5-2.2) mmol/L Calcium 9.2 (8.6-10.3) mg/dL Total Bilirubin 1.5 H (0.3-1.0) mg/dL Direct Bilirubin 0.3 H (0.0-0.2) mg/dL Indirect Bilirubin 1.2 (0.0-1.2) mg/dL AST 12 L (13-39) Units/L ALT 11 (7-52) Units/L Alkaline Phosphatase 51 (34-104) Units/L Troponin I < 0.03 (< 0.04) ng/mL Serum Total Protein 7.4 (6.4-8.9) g/dL Albumin 3.8 (3.5-5.7) g/dL Globulin 3.6 H (2.4-3.5) g/dL Albumin/Globulin Ratio 1.1 (1.1-2.2) Urine Color (Yellow) Urine Clarity (Clear) Urine pH (5.0-8.0) pH Units Ur Specific [place] (1.010-1.025) Urine Protein (Neg-Trace) mg/dL Urine Glucose (UA) (Normal) mg/dL Urine Ketones (Negative) mg/dL Urine Blood (Negative) Urine Nitrite (Negative) Urine Bilirubin (Negative) Urine Urobilinogen (Normal) mg/dL Ur Leukocyte Esterase (Negative) Urine Microscopic RBC (0-3) per hpf Urine Microscopic WBC (0-3) per hpf Ur Squamous Epith Cells (None-Few) per lpf Urine Bacteria (None-Few) per hpf Hyaline Casts (None-Few) per lpf Ur Culture Indicated? (NO) 12/28/18 Range/Units 20:13 WBC (4.3-11.1) K/mcL RBC (3.82-4.97) M/mcL Hgb (11.5-15.4) g/dL Hct (35.3-44.9) % MCV (83.0-100.0) fL MCH (28.0-33.3) pg MCHC (31.6-35.5) g/dL RDW (11.5-14.5) % Plt Count (140-400) K/mcL MPV (9.4-12.4) fL Immature Gran % (0-4) % Seg Neutrophils % % Lymphocytes % % Monocytes % % Eosinophils % % Basophils % % Neutrophils # (1.6-8.9) K/mcL Lymphocytes # (0.6-4.6) K/mcL Monocytes # (0.0-1.3) K/mcL Eosinophils # (0.0-0.6) K/mcL Basophils # (0.0-0.2) K/mcL Sodium (136-145) mEq/L Potassium (3.5-5.1) mEq/L Chloride (98-107) mEq/L Carbon Dioxide (23-29) mEq/L BUN (6-20) mg/dL Creatinine (0.60-1.20) mg/dL Est GFR ( Amer) (> 60) Est GFR (Non-Af Amer) (> 60) BUN/Creatinine Ratio (6-26) Glucose (70-105) mg/dL Calculated Osmolality (280-300) Lactic Acid (0.5-2.2) mmol/L Calcium (8.6-10.3) mg/dL Total Bilirubin (0.3-1.0) mg/dL Direct Bilirubin (0.0-0.2) mg/dL Indirect Bilirubin (0.0-1.2) mg/dL AST (13-39) Units/L ALT (7-52) Units/L Alkaline Phosphatase (34-104) Units/L Troponin I (< 0.04) ng/mL Serum Total Protein (6.4-8.9) g/dL Albumin (3.5-5.7) g/dL Globulin (2.4-3.5) g/dL Albumin/Globulin Ratio (1.1-2.2) Urine Color Yellow (Yellow) Urine Clarity Clear (Clear) Urine pH 6.0 (5.0-8.0) pH Units Ur Specific [place] 1.007 L (1.010-1.025) Urine Protein Negative (Neg-Trace) mg/dL Urine Glucose (UA) Normal (Normal) mg/dL Urine Ketones Negative (Negative) mg/dL Urine Blood Negative (Negative) Urine Nitrite Negative (Negative) Urine Bilirubin Negative (Negative) Urine Urobilinogen Normal (Normal) mg/dL Ur Leukocyte Esterase Trace H (Negative) Urine Microscopic RBC 0-3 (0-3) per hpf Urine Microscopic WBC 3-5 H (0-3) per hpf Ur Squamous Epith Cells Many H (None-Few) per lpf Urine Bacteria None Seen (None-Few) per hpf Hyaline Casts None Seen (None-Few) per lpf Ur Culture Indicated? YES A (NO) Critical Care Time Critical Care Time: Yes Total Critical Care Time: 35 Attestation: Critical care performed: Time is exclusive of separately billable procedures. Time includes: direct patient care, patient reassessment, coordination of patient care, interpretation of data (laboratory data, radiology data, and respiratory data), review of patient's medical records, medical consultation and documentation of patient care. Procedures included in critical care time: Procedures excluded from critical care time: Attestation Statement - Attestation Attestation: I examined this patient and my medical decision-making was reviewed with the Selina marroquin Physician. I agree with the documented findings, disposition and treatment plan as described except to the extent set forth below. Patient to the ED complaining of cellulitis. 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 Forth or fifth episode in the past year. Developed a fever this morning. On examination she has diffuse erythema and warmth of her pannus. It does not extend into her perineum. Plan. Septic workup. Patient likely septic secondary to cellulitis. CT scan does not show any focal fluid collections. Vitals are stable. Meets sepsis criteria without shock. Admitting to medicine. Chest X-Ray 12/28/18 18:55 IMPRESSION: No acute cardiopulmonary disease. D/ / Nahum Berkowitz MD / Nahum Berkowitz MD Interpreting Provider: Nahum Berkowitz MD Abdomen/Pelvis CT 12/28/18 18:58 IMPRESSION: 1. Soft tissue swelling and induration in the anterior abdominal wall may represent cellulitis but no evidence of abscess. 2. No acute gastrointestinal abnormality. 3. Diffuse fatty infiltration of the liver but no focal disease. No evidence of obstructive uropathy. D/ / 12/28/2018 20:41:23 Abril Marvin MD / kirill Interpreting Provider: Abril Marvin MD
[2018-12-28 20:29] LABS: Bilirubin,Urine Negative (Negative); Blood,Urine Negative (Negative); Clarity,Urine Clear (Clear); Color,Urine Yellow (Yellow); Glucose,Urine (UA) Normal (Normal); Ketones,Urine Negative (Negative); Leukocyte Esterase,Urine Trace (Negative); Nitrite,Urine Negative (Negative); Protein,Urine Negative (Neg-Trace); Specific Gravity,Urine 1.007 (1.010-1.025); Urobilinogen,Urine Normal (Normal)
[2018-12-28 20:31] LABS: Bacteria,Urine None Seen per hpf (None-Few); Hyaline Casts,Urine None Seen per lpf (None-Few); RBC,Urine 0-3 per hpf (0-3); Squamous Epithelial Cell,Urine Many per lpf (None-Few)
[2018-12-28] MEDS ORDERED: hydrOXYzine pamoate 25 MG CAPSULE PO PRN (23:29)
--- NOTE | 2018-12-28 23:31 | Internal Med History&Physical ---
Date of Encounter: 12/29/18 Time of Encounter: 23:28 Internal Medicine - H&P: HPI Chief complaint: skin lesion Admitted From: Home Plans for Post Hospital Care: Home History of present illness: Ms. Lemus is a 58 year old female with past medical history of class III obesity, recurrent cellulitis, invasive ductal carcinoma of the left breast on anastrozole, hypothyroidism on levothyroxine, ISIAH on CPAP presented to the ED for new painful rash on abdomin. face to face encounter at 22:42pm Patient reported that she has had at least 6 times of cellulitis that is easily started on the right lower quadrant of the abdomen that continues to extends. This is the worst due to being extend cyst to the left lower quadrant. Patient reported multiple bouts of antibiotics including Bactrim that was lost taken last month. Patient also reported that she is allergic to vancomycin where she gets sloughing of the skin and bullae, in addition to allergic to cefdinir and clindamycin. Patient is not clear of what is causing the cellulitis and denies any trauma. However patient does admit of obesity and was never offered gastric bypass as she is unsure of insurance coverage. Patient reported the rash appeared overnight after waking up was noticed with severe pain right lower quadrant nonradiating with association of fever, chills, and no nausea vomiting chest pain, sob,or diarrhea. Personally reviewed patient's past medical, surgical, family and social history. Past Med Surg Social Fam HX - Past Medical History Medical history: asthma, cancer, COPD, diabetes, thyroid disease, other Additional medical history: Stage 1 Breast CA with chemo Psychiatric history: anxiety, depression - Past Surgical History Surgical History: other Additional surgical history: right neck abscess removal, left lumpectomy, ureteral stent - Social History Smoking Status: Never smoker Smokeless Tobacco Status: No Alcohol use: none Drug use: none - Family History Son Living Status: Still Living Hx Family Cardiac Disorders: Yes Hx Family Respiratory Disorders: Yes Hx Family Cancer: No Hx Family Endocrine Disorder: No Father Adopted: No Family Member Ethnicity: Non- Living Status: Hx Family Cardiac Disorders: No Hx Family Respiratory Disorders: No Hx Family Cancer: No Hx Family GI Disorders: Yes Hx Family Endocrine Disorder: No Hx Family Neuromuscular Disorders: No Hx Family Neurologic Disorders: No Hx Family HEENT Disorders: No Hx Family Autoimmune Disorders: No Mother Family Member Ethnicity: Non- Living Status: Still Living Brother Family Member Ethnicity: Non- Living Status: Still Living Internal Medicine - H&P: Meds Ergocalciferol (VITAMIN D2) [Vitamin D2] 2,000 unit PO DAILY 09/14/15 [History] Docusate [Colace] 100 mg PO BID PRN 01/22/17 [History] Furosemide [Lasix] 40 mg PO DAILY 04/07/18 [History] Multivitamin [One Daily Essential] 1 tab PO DAILY 04/07/18 [History] Potassium Chloride [K-Tab ER] 20 meq PO DAILY 04/07/18 [History] Levothyroxine Sodium [Synthroid] 200 mcg PO QAM 06/15/18 [History] hydrOXYzine HCl [Hydroxyzine HCl] 25 mg PO BID PRN 07/19/18 [History] Loratadine [Claritin] 10 mg PO DAILY 30 Days #30 tablet 08/06/18 [Rx] Nystatin Cream [Mycostatin Cream] 1 appl TP TID #1 tube 08/06/18 [Rx] Albuterol Sulfate [Albuterol Sulfate Hfa] 2 puff IH Q4H PRN 12/28/18 [History] Anastrozole [Arimidex] 1 mg PO DAILY 12/28/18 [History] hydroCHLOROthiazide [Hydrochlorothiazide] 12.5 mg PO DAILY 12/28/18 [History] Allergy/AdvReac Type Severity Reaction Status Date / Time ketorolac [From Toradol] Allergy Intermediate Rash Verified 12/28/18 18:37 cefdinir Allergy Rash Verified 12/28/18 19:12 clindamycin Allergy Blister Verified 12/28/18 19:04 Penicillins [PCN] Allergy Rash Verified 12/28/18 19:12 [place] Allergy Itching Verified 12/28/18 18:37 vancomycin Allergy Blister Verified 12/28/18 19:04 All Systems PM: A 10-system review of systems was performed and is negative for pertinent findings except as documented above in the HPI. Review of systems: General: No unintentional weightloss, No fever Head: No headahce, No injury. Ears: No discharge, No earache Eyes: No drainage, No eye pain Mouth and Throat: No new ulcers, No pain Nose and Sinus: No new congestion, No pain, Respiratory: No cough, No sputum production, No dyspnea Cardiovascular: No chest pain, No palpitations. Gastrointestinal: No nausea, No vomiting. + abdominal pain. Genital Tract: No discharge, No pain Urinary Tract: No dysuria, No discharge. MSK: No new/worsening joint pain, No new/worsening muscle ache. Endocrine: No cold intolerance, No polyuria Psychological: No suicidal, No homocidal ideation. - Constitutional Vitals: Temp Pulse Resp BP Pulse Ox 98.3 F 87 16 157/77 94 12/28/18 22:01 12/28/18 22:01 12/28/18 22:01 12/28/18 22:01 12/28/18 22:01 Exam: General Appearance: Appearing as age, well-nourished in mild acute distress. Head: Atraumatic normocephalic Skin: Normal texture, normal turgor, warm, dry. Erythematous with clear borders from the RLQ to LLQ. Eyes: Conjunctivae not pale with no erythema, drainage, or ulcers. Anicteric. Neck: No Lymphadenopathy in the anterior/posterior cervical chain. No thyromegaly, masses or ulcers. Trachea midline. Heart: RRR, no murmurs. Capillary refill 3 seconds Lungs: No accessory muscle usage, lungs clear to auscultation bilaterally, no wheezes or crackles. Extremities: No pitting edema, No clubbing, No cyanosis. Abdomen: Severely morbid obese, normoactive bowel sounds. non-tender to palpation, no hepatomegally. No guarding. Neuro: AOx3 with no new sensory loss or focal deficits. MSK: Strength 5/5 Upper extremity equal bilaterally. Strength 5/5 Lower extremity equal bilaterally Internal Med - H&P Results - Labs CBC & Chem 7: 12/29/18 06:16 12/29/18 02:58 Labs: Short CBC 12/28/18 Range/Units 19:10 WBC 15.9 H (4.3-11.1) K/mcL Hgb 11.6 (11.5-15.4) g/dL Hct 36.9 (35.3-44.9) % Plt Count 290 (140-400) K/mcL Neutrophils # 14.7 H (1.6-8.9) K/mcL BMP 12/28/18 19:10 Sodium 135 L Potassium 3.6 Chloride 98 Carbon Dioxide 27 BUN 14 Creatinine 1.01 Glucose 116 H Calcium 9.2 Cardiac Enzymes 12/28/18 Range/Units 19:10 Troponin I < 0.03 (< 0.04) ng/mL Liver Function 12/28/18 Range/Units 19:10 Total Bilirubin 1.5 H (0.3-1.0) mg/dL Direct Bilirubin 0.3 H (0.0-0.2) mg/dL AST 12 L (13-39) Units/L ALT 11 (7-52) Units/L Alkaline Phosphatase 51 (34-104) Units/L Albumin 3.8 (3.5-5.7) g/dL Urine 12/28/18 Range/Units 20:13 Urine Color Yellow (Yellow) Urine Clarity Clear (Clear) Urine pH 6.0 (5.0-8.0) pH Units Ur Specific [place] 1.007 L (1.010-1.025) Urine Protein Negative (Neg-Trace) mg/dL Urine Glucose (UA) Normal (Normal) mg/dL - Impressions ITS Impressions Chest X-Ray 12/28/18 18:55 IMPRESSION: No acute cardiopulmonary disease. D/ / Nahum Berkowitz MD / Nahum Berkowitz MD Interpreting Provider: Nahum Berkowitz MD Abdomen/Pelvis CT 12/28/18 18:58 IMPRESSION: 1. Soft tissue swelling and induration in the anterior abdominal wall may represent cellulitis but no evidence of abscess. 2. No acute gastrointestinal abnormality. 3. Diffuse fatty infiltration of the liver but no focal disease. No evidence of obstructive uropathy. D/ / 12/28/2018 20:41:23 Abril Marvin MD / kirill Interpreting Provider: Abril Marvin MD - Summary of Assessment and Plan Summary of Assessment and Plan: 1. Sepsis secondary to Nonpurulent abdominal cellulitis, Recurrent despite outpatient oral therapy. Initiated menopausal and due to severity of vancomycin allergy(sloughing off skin and blisters). Review chart and noted red man syndrome. Initiated linezolid, infectious disease consultation. Suspect etiology is likely secondary to her obesity 2.Class III obesity, Nutrition consult, spoken details and education about weight loss. Patient is agreeable to undergo gastric bypass as outpatient with PCP. 3.hyperglycemia: A1c, ISS Chronic medical condition: hypothyroid: levothyroxine hx of breast cancer: continue anastrazole. ISIAH: CPAP orderrd. Dvt: heparin dispo: likely 2 day stay - Time Spent With Patient Total time spent is greater than 37 minutes 50% in coordination of care (as documented) at patient's floor/unit and/or counseling patient: Greater than 35 minutes
[2018-12-28] MEDS ORDERED: *HR* HYDROcodone/Acet 5/325 mg TABLET PO PRN (23:47)
[2018-12-28] MEDS ORDERED: Ondansetron ODT 4 MG TAB.RAPDIS SL PRN (23:47)
[2018-12-28] MEDS ORDERED: D5% in Water 1,000 ML IVC PRN (23:47)
[2018-12-28] MEDS ORDERED: Naloxone 0.4 MG/ML INJ IVP PRN (23:47)
[2018-12-28] MEDS ORDERED: Dextrose Gel 15 GM/37.5 ML TUBE PO PRN ×2 (23:47)
[2018-12-28] MEDS ORDERED: *HR* Dextrose 50 % in Water (Syg) 50 ML SYRINGE IVP PRN (23:47)
[2018-12-29 00:11] LABS: Estimated Average Glucose 120 mg/dl
[2018-12-29] MEDS: Ringers Solution, Lactated 1,000 ML IVC SCH ×2 (00:43→16:06)
[2018-12-29 03:27] LABS: INR 1.1
[2018-12-29 03:30] LABS: BUN/Creatinine Ratio 13 (6-26); Blood Urea Nitrogen 14 mg/dL (6-20); Calcium 8.9 mg/dL (8.6-10.3); Carbon Dioxide 26 mEq/L (23-29); Chloride 104 mEq/L (98-107); Cholesterol 163 mg/dL (< 200); Glucose 121 mg/dL (70-105); HDL Cholesterol 54 mg/dL (40-59); LDL Cholesterol,Calculated 88 mg/dL (0-99); Magnesium 1.9 mg/dL (1.6-2.6); Osmolality,Calculated 290 (280-300); Phosphorous 3.5 mg/dL (2.7-4.5); Potassium 3.2 mEq/L (3.5-5.1); Sodium 139 mEq/L (136-145); Triglycerides 107 mg/dL (< 150); Troponin I < 0.03 ng/mL (< 0.04); eGFR For African Americans > 60 (> 60); eGFR For Non-African Americans 54 (> 60)
[2018-12-29] MEDS: *HR* Heparin 5,000 UNIT/ML VIAL SQ SCH ×3 (05:43→21:53)
[2018-12-29 06:28] LABS: Basophils % 0.1 %; Eosinophils # 0.2 K/mcL (0.0-0.6); Eosinophils % 1.9 %; Hematocrit 35.2 % (35.3-44.9); Immature Granulocytes % 0.4 % (0-4); Lymphocytes # 0.2 K/mcL (0.6-4.6); Lymphocytes % 1.9 %; Mean Corpuscular HGB Conc 31.3 g/dL (31.6-35.5); Mean Corpuscular Hemoglobin 28.8 pg (28.0-33.3); Mean Corpuscular Volume 92.1 fL (83.0-100.0); Mean Platelet Volume 8.6 fL (9.4-12.4); Monocytes # 0.3 K/mcL (0.0-1.3); Monocytes % 2.3 %; Neutrophils # 10.1 K/mcL (1.6-8.9); Platelet Count 255 K/mcL (140-400); Red Blood Count 3.82 M/mcL (3.82-4.97); Red Cell Distribution Width 14.8 % (11.5-14.5); Segmented Neutrophils % 93.4 %; White Blood Count 10.8 K/mcL (4.3-11.1)
[2018-12-29] MEDS: Insulin LISPRO 300 UNITS/3 ML VIAL SQ SCH ×3 (08:47→16:16)
[2018-12-29] MEDS: Loratadine 10 MG TABLET PO SCH (08:52)
[2018-12-29] MEDS: Anastrozole 1 MG TABLET PO SCH (08:52)
[2018-12-29] MEDS ORDERED: Furosemide 40 MG TABLET PO SCH (09:00)
[2018-12-29] MEDS ORDERED: hydroCHLOROthiazide 25 MG TABLET PO SCH (09:00)
--- NOTE | 2018-12-29 09:19 | Infectious Disease Consult ---
Infectious Disease-Consult - Encounter Date/Time Date of Encounter: 12/29/18 Time of Encounter: 09:16 - Data of Consult Patient: known to practice within the last 3 years Reason for consult: "recurrent cellulitis(6 this year), multiple drug allergies." Consult date: 12/29/18 Requesting Physician: Jeanine Patterson Primary Care Provider: Dennis Garner MD - HPI HPI: Ms. 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 The patient was admitted to the hospital 12/28/18 for cellulitis and sepsis. We are consulted 12/29/18 for further workup and treatment recommendations for recurrent cellulitis. Briefly, the patient is a 58-year-old female with past medical history as stated above. Patient is well-known to infectious disease service as we have in consult on her case in the past. Apparently, the patient developed lower abdominal redness, pain, and induration or 4 days ago. Yesterday, she developed a fever which prompted her visit to the emergency department. Upon arrival, she was febrile and tachycardic with leukocytosis. Renal function was normal. Troponin was negative. Urinalysis appeared contaminated and cultures pending. She had a chest x-ray that was negative. CT of the abdomen and pelvis showed findings consistent with cellulites of the abdominal wall and a fatty liver. Blood cultures were obtained 2 sets are pending. She was started on IV Zyvox and cefepime and was admitted to the hospital for further evaluation. Since admission, the patient has had a MAXIMUM TEMPERATURE of 100.6. Her leukocytosis has resolved. She has developed an erythematous rash to her face and neck and states she is itching all over. She was given a dose of IV cefepime last night at 9:00 and has a listed allergy to Cefdinir. She is currently on IV Zyvox. We have been asked to evaluate and make further recommendations. During my exam today, the patient endorses a history as stated above. States 3- 4 days ago she developed redness and swelling and induration to the lower abdomen. She states that she does often scratch her abdomen could have led to ulceration of the skin. She states she developed fevers and chills with rigors yesterday. She denies any headache or neck pain. Denies chest pain, shortness of breath, cough. Denies nausea, vomiting, or constipation. She reports diarrhea for the last week and states she has been having 2-3 stools per day. Denies internal abdominal pain or urinary complaints. Denies oral thrush. Rash as stated above is itchy and erythematous. The patient lives at home with her family. She does not work outside the home. She denies tobacco, alcohol, illicit drug use. Denies recent travel outside the [facility]. Denies chronic infectious diseases. - ROS Review of Systems: All systems reviewed and no additional remarkable complaints except as stated. - Results CBC & Chem 7: 12/30/18 04:00 12/30/18 04:00 - Exam Vitals: Temp Pulse Resp BP Pulse Ox 98.8 F 72 24 96/60 100 12/29/18 08:13 12/29/18 06:30 12/29/18 06:30 12/29/18 06:30 12/29/18 06:30 Exam: Head: Atraumatic, normal inspection, normocephalic. Eye: EOMI, PERRLA, no scleral icterus noted. ENT: Mucous membranes moist. No odontogenic infection noted. Neck: Normal inspection, no meningismus. Respiratory: Clear to auscultation. No rales, respiratory distress, rhonchi, or wheezes noted. Cardiovascular: Regular rate and rhythm, S1 and S2 audible. No murmurs, rubs, or gallops. GI: Soft, morbidly obese, normal bowel sounds. Erythema and induration noted to the lower abdominal wall with sparing of the perineal and inguinal regions. A couple small areas of scabbing noted without fluctuance or drainage. Extremities:No joint swelling, pedal edema, or tenderness noted. Back: Normal inspection. No vertebral tenderness noted. Neurological: Alert, oriented 3, no focal deficits. Psychiatric: normal affect, normal mood. Skin: Dry, intact, warm. Normal color. Erythematous rash noted to the face and neck. Ergocalciferol (VITAMIN D2) [Vitamin D2] 2,000 unit PO DAILY 09/14/15 [History] Docusate [Colace] 100 mg PO BID PRN 01/22/17 [History] Furosemide [Lasix] 40 mg PO DAILY 04/07/18 [History] Multivitamin [One Daily Essential] 1 tab PO DAILY 04/07/18 [History] Potassium Chloride [K-Tab ER] 20 meq PO DAILY 04/07/18 [History] Levothyroxine Sodium [Synthroid] 200 mcg PO QAM 06/15/18 [History] hydrOXYzine HCl [Hydroxyzine HCl] 25 mg PO BID PRN 07/19/18 [History] Loratadine [Claritin] 10 mg PO DAILY 30 Days #30 tablet 08/06/18 [Rx] Nystatin Cream [Mycostatin Cream] 1 appl TP TID #1 tube 08/06/18 [Rx] Albuterol Sulfate [Albuterol Sulfate Hfa] 2 puff IH Q4H PRN 12/28/18 [History] Anastrozole [Arimidex] 1 mg PO DAILY 12/28/18 [History] hydroCHLOROthiazide [Hydrochlorothiazide] 12.5 mg PO DAILY 12/28/18 [History] Allergy/AdvReac Type Severity Reaction Status Date / Time ketorolac [From Toradol] Allergy Intermediate Rash Verified 12/28/18 18:37 cefdinir Allergy Rash Verified 12/28/18 19:12 clindamycin Allergy Blister Verified 12/28/18 19:04 Penicillins [PCN] Allergy Rash Verified 12/28/18 19:12 [place] Allergy Itching Verified 12/28/18 18:37 vancomycin Allergy Blister Verified 12/28/18 19:04 - Assessment and Plan (1) Sepsis Current Visit: Yes Status: Acute The patient in 3 sepsis criteria on admission. Likely secondary to abdominal wall cellulitis. Improved. MAXIMUM TEMPERATURE 100.6 overnight. Leukocytosis resolved. Tachycardia resolved. Blood cultures from 12/28/18 are pending 2 sets. Qualifiers: Sepsis type: sepsis due to unspecified organism Sepsis acute organ dysfunction status: unspecified Qualified Code(s): A41.9 - Sepsis, unspecified organism SNOMED Code(s): 53080481 (2) Cellulitis Current Visit: No Status: Acute Medication: Abdominal wall. Cause of organism: Unclear. Nonpurulent. Likely multifactorial: obesity, patient scratching her skin, diabetes. CT abdomen and pelvis showed soft tissue swelling consistent with abdominal wall cellulitis, but no abscess. Etiology: Likely multifactorial: Diabetes plus morbid obesity plus the patient scratches. Currently on IV Zyvox and receive cefepime overnight. Qualifiers: Site of cellulitis: trunk Site of cellulitis of trunk: abdominal wall Qualified Code(s): L03.311 - Cellulitis of abdominal wall SNOMED Code(s): 236954994 (3) Rash Current Visit: Yes Status: Acute Likely drug rash secondary to IV cefepime and she does have a documented allergy to IV Cefdinir. Cefepime discontinued. Supportive care per the primary team. SNOMED Code(s): 570537583 (4) Allergy to multiple antibiotics Current Visit: Yes Status: Acute Cefdinir - rash. Clindamycin - Blistering. PCN - Rash. Vancomycin - blistering. SNOMED Code(s): 201059426668765 (5) Invasive ductal carcinoma of left breast Current Visit: Yes Status: Chronic Status post lumpectomy with sentinel node biopsy 04/23/[address] Mena. DCIS was present. Status post adjuvant taxotere with cytoxan x 4 cycles 07/02/18 - 09/24/18. Status post radiation 1 month ago. Currently on arimidex. SNOMED Code(s): 737510451, 204082453 (6) Diabetes Current Visit: No Status: Chronic Recommend aggressive glucose monitoring and control to promote healing and prevent reinfection. Management per the primary team. Qualifiers: Diabetes mellitus type: type 2 Diabetes mellitus custodial insulin use: without exterminator use Diabetes mellitus complication status: with unspecified complications SNOMED Code(s): 69268505 (7) Obesity Current Visit: No Status: Acute Qualifiers: Serious obesity comorbidity presence: with serious comorbidity Body mass index: BMI 60.0-69.9 Qualified Code(s): E66.01 - Morbid (severe) obesity due to excess calories; Z68.44 - Body mass index (BMI) 60.0-69.9, adult SNOMED Code(s): 796265119, 679060597 (8) ISIAH on CPAP Current Visit: Yes Status: Chronic SNOMED Code(s): 95045060 - Recommendations Recommendations: Await blood cultures to finalize. Antony the borders of the cellulitis to monitor for progression/recession. Discus sed with nursing. Supportive care for drug rash per the primary team. Continue Zyvox 600mg IV Q12H. Start Levaquin 750mg IV daily. Duration of treatment depends on the clinical picture. Can likely transition to PO antibiotics when ready for discharge. Monitor renal function and dose-adjust antibiotics. Past Med Surg Social Fam HX - Past Medical History Attestation: Yes The following information was validated with the patient. Source: patient, old records reviewed, nursing notes reviewed Medical history: asthma, cancer, COPD, diabetes, thyroid disease, other Additional medical history: Stage 1 Breast CA with chemo Psychiatric history: anxiety, depression - Past Surgical History Surgical History: other Additional surgical history: right neck abscess removal, left lumpectomy, ureteral stent - Social History Smoking Status: Never smoker Smokeless Tobacco Status: No Alcohol use: none Drug use: none Occupational status: disabled Current living situation: Home, With Family Activity Level: Uses cane/walker Recent Out of Country Travel Within the Last 8 Weeks: No Exposure or Possible Exposure to Illness During Travel: No - Family History Son Living Status: Still Living Hx Family Cardiac Disorders: Yes Hx Family Respiratory Disorders: Yes Hx Family Cancer: No Hx Family Endocrine Disorder: No Father Adopted: No Family Member Ethnicity: Non- Living Status: Hx Family Cardiac Disorders: No Hx Family Respiratory Disorders: No Hx Family Cancer: No Hx Family GI Disorders: Yes Hx Family Endocrine Disorder: No Hx Family Neuromuscular Disorders: No Hx Family Neurologic Disorders: No Hx Family HEENT Disorders: No Hx Family Autoimmune Disorders: No Mother Family Member Ethnicity: Non- Living Status: Still Living Brother Family Member Ethnicity: Non- Living Status: Still Living Consult Discharge Plan - [facility] [place] [facility] - - Attending Attestation I have personally performed a face to face evaluation on this patient. I have reviewed and agree with the care plan. This is an addendum to original report dictated by Maribell Hope CNP. Please refer to Maribell's note for full detail. Agree with above history of present illness, review of system and physical exam findings. Assessment and plan: 1.Sepsis secondary to #2 2.Cellulitis of the abdominal wall causative organism unclear its nonpurulent 3.Allergic rash to multiple antibiotics 4.Invasive ductal carcinoma of the left breast 5.Diabetes mellitus type 2 6.Morbid obesity BMI 64 7.Obstructive sleep apnea on CPAP Recommendations Await blood cultures to finalize. Antony the borders of the cellulitis to monitor for progression/recession. Discussed with nursing. Supportive care for drug rash per the primary team. Continue Zyvox 600mg IV Q12H. Start Levaquin 750mg IV daily. Duration of treatment depends on the clinical picture. Can likely transition to PO antibiotics when ready for discharge. Monitor renal function and dose-adjust antibiotics.
--- NOTE | 2018-12-29 11:42 | Internal Med Progress Note ---
Hospitalist Progress Note - Encounter Date of Encounter: 12/29/18 Time of Encounter: 10:30 - Subjective Interval History: Patient was seen this morning. She is complaining about itching on her back and abdomen. She had low-grade temperature this morning. She has no nausea or vomiting. She had no chest pain or shortness of breath. - Exam Vitals: Temp Pulse Resp BP Pulse Ox 98.8 F 72 24 96/60 100 12/29/18 08:13 12/29/18 06:30 12/29/18 06:30 12/29/18 06:30 12/29/18 06:30 Exam: General Appearance: Morbidly obese, no distress. Head: Atraumatic normocephalic Skin: Normal texture, normal turgor, warm, dry. Erythematous with clear borders from the RLQ to LLQ. Eyes: Conjunctivae not pale with no erythema, drainage, or ulcers. Anicteric. Neck: supple, unable to assess JVD Heart: RRR, no murmurs. Lungs: lungs clear to auscultation bilaterally, no wheezes or crackles. Extremities: No pitting edema, No clubbing, No cyanosis. Abdomen: Severely morbid obese, normoactive bowel sounds. non-tender to palpation, no hepatomegally. No guarding. Neuro: AOx3 with no new sensory loss or focal deficits. MSK: Strength 5/5 Upper extremity equal bilaterally. Strength 5/5 Lower extremity equal bilaterally - Assessment and Plan (1) Sepsis Current Visit: Yes Status: Resolved (2) Fatty liver disease, nonalcoholic Current Visit: Yes Status: Chronic (3) Rash Current Visit: Yes Status: Acute (4) Cellulitis Current Visit: Yes Status: Acute (5) DVT prophylaxis Current Visit: No Status: Acute (6) Invasive ductal carcinoma of left breast Current Visit: Yes Status: Chronic (7) ISIAH on CPAP Current Visit: Yes Status: Chronic (8) Hypothyroidism Current Visit: Yes Status: Acute - Summary of Assessment and Plan Summary of Assessment and Plan: 58-year-old female with history of obesity, fatty liver disease, multiple abdominal wall cellulitis, prediabetes, hypothyroidism, breast cancer who came into the hospital due to abdominal wall pain and cellulitis. CT scan of the abdomen revealed soft tissue swelling and induration in the anterior abdominal wall which could represent cellulitis with no evidence of abscess. Her symptoms or measures following Sepsis: - Related to cellulitis, leukocytosis resolved, was febrile this morning. Hemodynamically stable. BCx is pending. Continue IV fluids, check CBC tomorrow. ID is consulted. Continue his Zyvox as she had multiple antibiotic allergies Skin rash: Likely from cefepime was given yesterday. Benadryl when necessary for rash. Hypokalemia: Given replacement, check BMP tomorrow. Class III obesity: Lifestyle modification recommended, advised the patient to seek weight loss surgery Fatty liver disease: As above HTN: Hold hydrochlorothiazide. Chronic medical condition: hypothyroid: levothyroxine hx of breast cancer: continue anastrazole. ISIAH: CPAP orderrd. Dvt: heparin - Time Spent with Patient Total time spent is greater than 50% in coordination of care (as documented) at patient's floor/unit and/or counseling patient: Plan of Care Discussed with: patient Internal Medicine: Result - Labs CBC & Chem 7: 12/29/18 06:16 12/29/18 02:58 Labs: Short CBC 12/28/18 12/29/18 Range/Units 19:10 06:16 WBC 15.9 H 10.8 (4.3-11.1) K/mcL Hgb 11.6 11.0 L (11.5-15.4) g/dL Hct 36.9 35.2 L (35.3-44.9) % Plt Count 290 255 (140-400) K/mcL Neutrophils # 14.7 H 10.1 H (1.6-8.9) K/mcL BMP 12/28/18 12/29/18 19:10 02:58 Sodium 135 L 139 Potassium 3.6 3.2 L Chloride 98 104 Carbon Dioxide 27 26 BUN 14 14 Creatinine 1.01 1.04 Glucose 116 H 121 H Calcium 9.2 8.9 Cardiac Enzymes 12/28/18 12/29/18 Range/Units 19:10 02:58 Troponin I < 0.03 < 0.03 (< 0.04) ng/mL Liver Function 12/28/18 Range/Units 19:10 Total Bilirubin 1.5 H (0.3-1.0) mg/dL Direct Bilirubin 0.3 H (0.0-0.2) mg/dL AST 12 L (13-39) Units/L ALT 11 (7-52) Units/L Alkaline Phosphatase 51 (34-104) Units/L Albumin 3.8 (3.5-5.7) g/dL Urine 12/28/18 Range/Units 20:13 Urine Color Yellow (Yellow) Urine Clarity Clear (Clear) Urine pH 6.0 (5.0-8.0) pH Units Ur Specific Friant 1.007 L (1.010-1.025) Urine Protein Negative (Neg-Trace) mg/dL Urine Glucose (UA) Normal (Normal) mg/dL - ABG Interpretation ABG results: PT/INR, D-dimer PT 13.0 Seconds (9.4-12.1) H 12/29/18 02:58 - Impressions Impressions Chest X-Ray 12/28/18 18:55 IMPRESSION: No acute cardiopulmonary disease. D/ / Nahum Berkowitz MD / Nahum Berkowitz MD Interpreting Provider: Nahum Berkowitz MD Abdomen/Pelvis CT 12/28/18 18:58 IMPRESSION: 1. Soft tissue swelling and induration in the anterior abdominal wall may represent cellulitis but no evidence of abscess. 2. No acute gastrointestinal abnormality. 3. Diffuse fatty infiltration of the liver but no focal disease. No evidence of obstructive uropathy. D/ / 12/28/2018 20:41:23 Abril Marvin MD / kirill Interpreting Provider: Abril Marvin MD Consult Discharge Plan - Plan Referrals: Dennis Garner MD [Primary Care Provider] - (1) Sepsis Qualifiers: Sepsis type: sepsis due to unspecified organism Sepsis acute organ dysfuncti on status: without acute organ dysfunction Qualified Code(s): A41.9 - Sepsis, unspecified organism (4) Cellulitis Qualifiers: Site of cellulitis: trunk Site of cellulitis of trunk: abdominal wall Qualified Code(s): L03.311 - Cellulitis of abdominal wall (8) Hypothyroidism Qualifiers: Hypothyroidism type: unspecified Qualified Code(s): E03.9 - Hypothyroidism, unspecified
[2018-12-29] MEDS: levoFLOXacin 750 MG/150 ML 750 MG/150 ML BAG IVPB SCH (14:40)
[2018-12-29] MEDS: Nystatin Cream 15 GM TUBE TP SCH ×2 (14:51→22:02)
[2018-12-29] MEDS ORDERED: MethylPREDNISolone 40 MG/ML VIAL IVP ONE (17:37)
[2018-12-29] MEDS ORDERED: Acetaminophen IV 1,000 MG/100 ML INFUS..BTL IVPB ONE (17:37)
[2018-12-29] MEDS ORDERED: *HR* Promethazine 25 MG/ML VIAL ONE (18:08)
[2018-12-29] MEDS ORDERED: *HR* Promethazine 25 MG/ML VIAL IVP PRN (18:08)
[2018-12-30] MEDS: *HR* Heparin 5,000 UNIT/ML VIAL SQ SCH ×3 (05:26→20:14)
[2018-12-30 05:57] LABS: Hematocrit 35.4 % (35.3-44.9); Hemoglobin 11.1 g/dL (11.5-15.4); Mean Corpuscular HGB Conc 31.4 g/dL (31.6-35.5); Mean Corpuscular Hemoglobin 28.5 pg (28.0-33.3); Mean Platelet Volume 8.8 fL (9.4-12.4); Platelet Count 258 K/mcL (140-400); Red Blood Count 3.89 M/mcL (3.82-4.97); Red Cell Distribution Width 14.6 % (11.5-14.5); White Blood Count 14.7 K/mcL (4.3-11.1)
[2018-12-30 06:21] LABS: BUN/Creatinine Ratio 13 (6-26); Blood Urea Nitrogen 13 mg/dL (6-20); Calcium 9.2 mg/dL (8.6-10.3); Carbon Dioxide 24 mEq/L (23-29); Chloride 101 mEq/L (98-107); Glucose 192 mg/dL (70-105); Osmolality,Calculated 285 (280-300); Potassium 4.1 mEq/L (3.5-5.1); Sodium 135 mEq/L (136-145); eGFR For African Americans > 60 (> 60); eGFR For Non-African Americans 56 (> 60)
[2018-12-30] MEDS ORDERED: 0.9 % Sodium Chloride 500 ML IV ONE (07:42)
[2018-12-30] MEDS: levoFLOXacin 750 MG/150 ML 750 MG/150 ML BAG IVPB SCH (09:56)
[2018-12-30] MEDS: Loratadine 10 MG TABLET PO SCH (09:57)
[2018-12-30] MEDS: Multivit/Ca/Min/Fe/FA 1 TAB TABLET PO SCH (09:57)
[2018-12-30] MEDS: Cholecalciferol (D-3) 1,000 UNIT (25MCG) TABLET PO SCH (09:57)
[2018-12-30] MEDS: Nystatin Cream 15 GM TUBE TP SCH ×3 (09:57→20:14)
[2018-12-30] MEDS: Insulin LISPRO 300 UNITS/3 ML VIAL SQ SCH ×3 (09:58→16:57)
[2018-12-30] MEDS: Anastrozole 1 MG TABLET PO SCH (09:58)
--- NOTE | 2018-12-30 11:03 | Infectious Disease Progress No ---
ID Progress Note Date of Encounter: 12/30/18 Time of Encounter: 10:45 - Subjective Subjective: Patient seen and examined. Yesterday's events noted. Patient apparently developed a low-grade temperature with chills and rigors yesterday afternoon while receiving IV Zyvox. She also had an episode of vomiting. Denies fevers, chills, rigors overnight. Denies chest pain, shortness of breath, or cough. Denies any nausea or vomiting since yesterday's events. Denies diarrhea or a bdominal pain. Reports one loose stool this morning. States her appetite is great. States the lower abdominal discomfort is minimally improved. Denies oral thrush or new skin rashes. States the previous rash to her face, neck, and chest has improved. - Objective CBC & Chem 7: 12/31/18 04:02 12/31/18 04:02 - Exam Vitals: Temp Pulse Resp BP Pulse Ox 98.0 F 68 19 92/54 96 12/30/18 07:08 12/30/18 07:08 12/30/18 07:08 12/30/18 07:08 12/30/18 07:08 Exam: Head: Atraumatic, normal inspection, normocephalic. Eye: EOMI, PERRLA, no scleral icterus noted. ENT: Mucous membranes moist. No odontogenic infection noted. Neck: Normal inspection, no meningismus. Respiratory: Clear to auscultation. No rales, respiratory distress, rhonchi, or wheezes noted. Cardiovascular: Regular rate and rhythm, S1 and S2 audible. No murmurs, rubs, or gallops. GI: Soft, morbidly obese, normal bowel sounds. Erythema and induration noted to the lower abdominal wall with sparing of the perineal and inguinal regions. A couple small areas of scabbing noted without fluctuance or drainage. Recession from previous skin markings as noted. Extremities:No joint swelling, pedal edema, or tenderness noted. Back: Normal inspection. No vertebral tenderness noted. Neurological: Alert, oriented 3, no focal deficits. Psychiatric: normal affect, normal mood. Skin: Dry, intact, warm. Normal color. Erythematous rash noted to the face and neck, improved. - Assessment and Plan (1) Sepsis Current Visit: Yes Status: Acute The patient in 3 sepsis criteria on admission. Likely secondary to abdominal wall cellulitis. Improved. MAXIMUM TEMPERATURE 99.6 Leukocytosis this morning likely secondary to steroids. Tachycardia resolved. Blood cultures from 12/28/18 are no growth to date 2 sets. Qualifiers: Sepsis type: sepsis due to unspecified organism Sepsis acute organ dysfunction status: unspecified Qualified Code(s): A41.9 - Sepsis, unspecified organism SNOMED Code(s): 04755758 (2) Cellulitis Current Visit: No Status: Acute Medication: Abdominal wall. Cause of organism: Unclear. Nonpurulent. Likely multifactorial: obesity, patient scratching her skin, diabetes. CT abdomen and pelvis showed soft tissue swelling consistent with abdominal wall cellulitis, but no abscess. Etiology: Likely multifactorial: Diabetes plus morbid obesity plus the patient scratches. Improved. Currently on IV Levaquin. IV Zyvox discontinued by the primary team yesterday. Qualifiers: Site of cellulitis: trunk Site of cellulitis of trunk: abdominal wall Jose lified Code(s): L03.311 - Cellulitis of abdominal wall SNOMED Code(s): 310711645 (3) Rash Current Visit: Yes Status: Acute Likely drug rash secondary to IV cefepime and she does have a documented allergy to IV Cefdinir. Cefepime discontinued. Improved. Supportive care per the primary team. SNOMED Code(s): 075919618 (4) Allergy to multiple antibiotics Current Visit: Yes Status: Acute Cefdinir - rash. Clindamycin - Blistering. PCN - Rash. Vancomycin - blistering. Patient had an episode of a low-grade temp with associated chills and rigors with nausea and vomiting yesterday. Unclear if this was related to the IV Zyvox, which I think is probably less likely, and more likely related to her infection. SNOMED Code(s): 495606084196472 (5) Invasive ductal carcinoma of left breast Current Visit: Yes Status: Chronic Status post lumpectomy with sentinel node biopsy 04/23/[address] Mena. DCIS was present. Status post adjuvant taxotere with cytoxan x 4 cycles 07/02/18 - 09/24/18. Status post radiation 1 month ago. Currently on arimidex. SNOMED Code(s): 714930406, 558267492 (6) Diabetes Current Visit: No Status: Chronic Recommend aggressive glucose monitoring and control to promote healing and prevent reinfection. Management per the primary team. Qualifiers: Diabetes mellitus type: type 2 Diabetes mellitus still pump operator insulin use: veronica lantigua long-term use Diabetes mellitus complication status: with unspecified complications SNOMED Code(s): 99004229 (7) Obesity Current Visit: No Status: Acute Qualifiers: Serious obesity comorbidity presence: with serious comorbidity Body mass index: BMI 60.0-69.9 SNOMED Code(s): 880619567, 704226048 (8) ISIAH on CPAP Current Visit: Yes Status: Chronic SNOMED Code(s): 92657627 (9) Intertriginous candidiasis Current Visit: Yes Status: Acute Nystatin powder. SNOMED Code(s): 827923665 - Recommendations Recommendations: Await blood cultures to finalize. Supportive care for drug rash per the primary team. Continue Levaquin 750mg daily, but transition to oral. Start Bactrim DS 1 tab PO BID. Consider switching nystatin cream to powder. Duration of treatment depends on the clinical picture, but likely a total of 14 days. Treat through 01/10/19. Monitor renal function and dose-adjust antibiotics. Consult Discharge Plan - Plan Referrals: Dennis junior MD [Primary Care Provider] - - Attending Attestation I have personally performed a face to face evaluation on this patient. I have reviewed and agree with the care plan. History and Exam by me shows: Assessment and plan: 1.Sepsis secondary to #2 2.Cellulitis of the abdominal wall causative organism unclear its nonpurulent 3.Allergic rash to multiple antibiotics 4.Invasive ductal carcinoma of the left breast 5.Diabetes mellitus type 2 6.Morbid obesity BMI 64 7.Obstructive sleep apnea on CPAP Recommendations: Continue Levaquin 750mg daily, but transition to oral. Start Bactrim DS 1 tab PO BID. Consider switching nystatin cream to powder. Duration of treatmnet 14 days monitor labs and for drug toxicity
--- NOTE | 2018-12-30 13:27 | Internal Med Progress Note ---
Hospitalist Progress Note - Encounter Date of Encounter: 12/30/18 Time of Encounter: 13:23 - Subjective Interval History: Patient was seen and examined at bedside today. Patient reports itching around the site of cellulitis. Patient denied any nausea and vomiting. Patient denied any fever and chills overnight. Upon chart review patient had a low-grade temperature around midnight. Patient had allergic reaction to Linezolide yeaterday and she received steroid once. Linezolide was discontinued after that we will follow ID recommendations on antibiotics. - Exam Vitals: Temp Pulse Resp BP Pulse Ox 98.2 F 85 15 110/68 94 12/30/18 10:54 12/30/18 10:54 12/30/18 10:54 12/30/18 10:54 12/30/18 10:54 Exam: General Appearance: Morbidly obese, no distress. Neck: supple, unable to assess JVD Heart: RRR, no murmurs. Lungs: lungs clear to auscultation bilaterally, no wheezes or crackles. Extremities: No pitting edema, No clubbing, No cyanosis. Abdomen: Severely morbid obese, normoactive bowel sounds. non-tender to palpation, Large eythema noted on periumbilical region which covered almost entire abdomen on anterior aspect. Callus like changes noted on right to the umbliciaus on anterior wall measuring 3 X 5 cm Neuro: AOx3 with no new sensory loss or focal deficits. MSK: Strength 5/5 Upper extremity equal bilaterally. Strength 5/5 Lower extremity equal bilaterally - Assessment and Plan (1) Sepsis Current Visit: Yes Status: Resolved Assessment and Plan: Patient presents to the hospital with abdominal wall cellulitis. On presentation patient had 3 signs of sepsis. Patient is hemodynamically stable. We will continue IV hydration. - Continue levofloxacin - Await blood culture report - report showed no growth to date - Linezolid was discontinued yesterday after the reaction after receiving antibiotic. - ID is on consult. Appreciate infectious disease recommendation. (2) Cellulitis Current Visit: Yes Status: Acute Assessment and Plan: Management as above. (3) ISIAH on CPAP Current Visit: Yes Status: Chronic Assessment and Plan: Continue CPAP (4) Invasive ductal carcinoma of left breast Current Visit: Yes Status: Chronic (5) Rash Current Visit: Yes Status: Acute Assessment and Plan: Likely from Cefepime antibiotic the patient received in urgency Department. Continue Benadryl (6) Hypothyroidism Current Visit: Yes Status: Acute Assessment and Plan: Continue levothyroxine 200 mcg (7) Fatty liver disease, nonalcoholic Current Visit: Yes Status: Chronic Assessment and Plan: Continue to monitor (8) Obesity Current Visit: No Status: Acute Assessment and Plan: Patient is morbidly obese with BMI of 63. Patient would like to get gastric bypass surgery. Patient was counseled regarding diet modification and exercise. Patient to follow-up outpatient for bariatric surgery. (9) DVT prophylaxis Current Visit: No Status: Acute Assessment and Plan: SC Heparin - Time Spent with Patient Total time spent is greater than 50% in coordination of care (as documented) at patient's floor/unit and/or counseling patient: less than 15 minutes Plan of Care Discussed with: patient Internal Medicine: Result - Labs CBC & Chem 7: 12/30/18 04:00 12/30/18 04:00 Labs: Short CBC 12/30/18 Range/Units 04:00 WBC 14.7 H (4.3-11.1) K/mcL Hgb 11.1 L (11.5-15.4) g/dL Hct 35.4 (35.3-44.9) % Plt Count 258 (140-400) K/mcL BMP 12/30/18 04:00 Sodium 135 L Potassium 4.1 Chloride 101 Carbon Dioxide 24 BUN 13 Creatinine 1.01 Glucose 192 H Calcium 9.2 - ABG Interpretation ABG results: PT/INR, D-dimer PT 13.0 Seconds (9.4-12.1) H 12/29/18 02:58 Consult Discharge Plan - Plan Referrals: Dennis Garner MD [Primary Care Provider] - (1) Sepsis Qualifiers: Sepsis type: sepsis due to unspecified organism Sepsis acute organ dysfunction status: without acute organ dysfunction Qualified Code(s): A41.9 - Sepsis, unspecified organism (2) Cellulitis Qualifiers: Site of cellulitis: trunk Site of cellulitis of trunk: abdominal wall Qualified Code(s): L03.311 - Cellulitis of abdominal wall (6) Hypothyroidism Qualifiers: Hypothyroidism type: acquired Qualified Code(s): E03.9 - Hypothyroidism, unspecified (8) Obesity Qualifiers: Serious obesity comorbidity presence: with serious comorbidity Body mass index: BMI 60.0-69.9
[2018-12-30] MEDS: Sulfamethoxazole/Trimeth DS 1 EACH TABLET PO SCH (20:14)
[2018-12-31 04:50] LABS: Basophils % 0.2 %; Eosinophils # 0.8 K/mcL (0.0-0.6); Eosinophils % 8.3 %; Hematocrit 32.4 % (35.3-44.9); Hemoglobin 9.9 g/dL (11.5-15.4); Immature Granulocytes % 0.4 % (0-4); Lymphocytes # 0.8 K/mcL (0.6-4.6); Lymphocytes % 7.7 %; Mean Corpuscular HGB Conc 30.6 g/dL (31.6-35.5); Mean Corpuscular Volume 91.5 fL (83.0-100.0); Monocytes # 0.3 K/mcL (0.0-1.3); Monocytes % 3.3 %; Platelet Count 291 K/mcL (140-400); Red Blood Count 3.54 M/mcL (3.82-4.97); Red Cell Distribution Width 14.6 % (11.5-14.5); Segmented Neutrophils % 80.1 %
[2018-12-31] MEDS: *HR* Heparin 5,000 UNIT/ML VIAL SQ SCH ×2 (04:56→14:11)
[2018-12-31 05:10] LABS: BUN/Creatinine Ratio 19 (6-26); Blood Urea Nitrogen 18 mg/dL (6-20); Calcium 8.9 mg/dL (8.6-10.3); Carbon Dioxide 28 mEq/L (23-29); Chloride 105 mEq/L (98-107); Glucose 123 mg/dL (70-105); Osmolality,Calculated 293 (280-300); Potassium 3.8 mEq/L (3.5-5.1); Sodium 140 mEq/L (136-145); eGFR For African Americans > 60 (> 60); eGFR For Non-African Americans > 60 (> 60)
[2018-12-31] MEDS: Insulin LISPRO 300 UNITS/3 ML VIAL SQ SCH ×3 (08:46→17:58)
[2018-12-31] MEDS: Sulfamethoxazole/Trimeth DS 1 EACH TABLET PO SCH (08:52)
[2018-12-31] MEDS: Cholecalciferol (D-3) 1,000 UNIT (25MCG) TABLET PO SCH (08:52)
[2018-12-31] MEDS: Anastrozole 1 MG TABLET PO SCH (08:52)
[2018-12-31] MEDS: Multivit/Ca/Min/Fe/FA 1 TAB TABLET PO SCH (08:53)
[2018-12-31] MEDS: Loratadine 10 MG TABLET PO SCH (08:53)
[2018-12-31] MEDS: Nystatin Cream 15 GM TUBE TP SCH ×2 (08:54→14:12)
[2018-12-31] MEDS ORDERED: levoFLOXacin 750 MG TABLET PO SCH (09:00)
--- NOTE | 2018-12-31 10:29 | Infectious Disease Progress No ---
ID Progress Note Date of Encounter: 12/31/18 Time of Encounter: 09:25 - Subjective Subjective: Patient seen and examined. No acute events noted overnight. Patient states she feels well. Denies Denies fevers, chills, rigors overnight. Denies chest pain, shortness of breath, or cough. Denies any nausea or vomiting or diarrhea. Denies abdominal pain or urinary complaints. States her appetite is great. States the lower abdominal discomfort is improved. Denies oral thrush or new skin rashes. States the previous rash to her face, neck, and chest has improved. - Objective CBC & Chem 7: 12/31/18 04:02 12/31/18 04:02 - Exam Vitals: Temp Pulse Resp BP Pulse Ox 97.8 F 80 16 96/52 99 12/31/18 08:39 12/31/18 08:39 12/31/18 08:39 12/31/18 08:39 12/31/18 08:39 Exam: Head: Atraumatic, normal inspection, normocephalic. Eye: EOMI, PERRLA, no scleral icterus noted. ENT: Mucous membranes moist. No odontogenic infection noted. Neck: Normal inspection, no meningismus. Respiratory: Clear to auscultation. No rales, respiratory distress, rhonchi, or wheezes noted. Cardiovascular: Regular rate and rhythm, S1 and S2 audible. No murmurs, rubs, or gallops. GI: Soft, morbidly obese, normal bowel sounds. Erythema and induration noted to the lower abdominal wall with sparing of the perineal and inguinal regions. A couple small areas of scabbing noted without fluctuance or drainage. Recession from previous skin markings as noted. Extremities:No joint swelling, pedal edema, or tenderness noted. Back: Normal inspection. No vertebral tenderness noted. Neurological: Alert, oriented 3, no focal deficits. Psychiatric: normal affect, normal mood. Skin: Dry, intact, warm. Normal color. Erythematous rash noted to the face and neck, improved. - Assessment and Plan (1) Sepsis Current Visit: Yes Status: Acute The patient in 3 sepsis criteria on admission. Likely secondary to abdominal wall cellulitis. Improved. Afebrile overnight. Tachycardia resolved. White blood cell count normal. Blood cultures from 12/28/18 are no growth to date 2 sets. Qualifiers: Sepsis type: sepsis due to unspecified organism Sepsis acute organ dysfunction status: unspecified Qualified Code(s): A41.9 - Sepsis, unspecified organism SNOMED Code(s): 78635603 (2) Cellulitis Current Visit: No Status: Acute Medication: Abdominal wall. Cause of organism: Unclear. Nonpurulent. Likely multifactorial: obesity, patient scratching her skin, diabetes. CT abdomen and pelvis showed soft tissue swelling consistent with abdominal wall cellulitis, but no abscess. Etiology: Likely multifactorial: Diabetes plus morbid obesity plus the patient scratches. Improved. Currently on by mouth Levaquin and Bactrim. Qualifiers: Site of cellulitis: trunk Site of cellulitis of trunk: abdominal wall Qualified Code(s): L03.311 - Cellulitis of abdominal wall SNOMED Code(s): 425695591 (3) Rash Current Visit: Yes Status: Acute Likely drug rash secondary to IV cefepime and she does have a documented allergy to IV Cefdinir. Cefepime discontinued. Improved. Supportive care per the primary team. SNOMED Code(s): 135958623 (4) Allergy to multiple antibiotics Current Visit: Yes Status: Acute Cefdinir - rash. Clindamycin - Blistering. PCN - Rash. Vancomycin - blistering. Patient had an episode of a low-grade temp with associated chills and rigors with nausea and vomiting while receiving Zyvox. Unclear if this was related to the IV Zyvox, which I think is probably less likely, and more likely related to her infection. SNOMED Code(s): 159460137966959 (5) Invasive ductal carcinoma of left breast Current Visit: Yes Status: Chronic Status post lumpectomy with sentinel node biopsy 04/23/[address] Mena. DCIS was present. Status post adjuvant taxotere with cytoxan x 4 cycles 07/02/18 - 09/24/18. Status post radiation 1 month ago. Currently on arimidex. SNOMED Code(s): 261141248, 040417663 (6) Diabetes Current Visit: No Status: Chronic Recommend aggressive glucose monitoring and control to promote healing and prevent reinfection. Management per the primary team. Qualifiers: Diabetes mellitus type: type 2 Diabetes mellitus detention insulin use: without detention use Diabetes mellitus complication status: with unspecified complications SNOMED Code(s): 34945300 (7) Obesity Current Visit: No Status: Acute Qualifiers: Serious obesity comorbidity presence: with serious comorbidity Body mass index: BMI 60.0-69.9 SNOMED Code(s): 316910426, 640590218 (8) ISIAH on CPAP Current Visit: Yes Status: Chronic SNOMED Code(s): 81197309 (9) Intertriginous candidiasis Current Visit: Yes Status: Acute Nystatin powder. SNOMED Code(s): 500006721 - Recommendations Recommendations: Await blood cultures to finalize. Supportive care for drug rash per the primary team. Continue Levaquin 750mg PO daily. Continue Bactrim DS 1 tab PO BID. Consider switching nystatin cream to powder. Duration of treatment depends on the clinical picture, but likely a total of 14 days. Treat through 01/10/19. Monitor renal function and dose-adjust antibiotics. No further recommendations from the ID team. We will sign off. Please re-consult if needed. Consult Discharge Plan - Plan Referrals: Dennis Garner MD [Primary Care Provider] -
--- NOTE | 2018-12-31 14:35 | Discharge Summary ---
- NOTES TO OUTPATIENT PROVIDER Notes to Outpatient Provider: Patient is 58 y/o F with past medical history of class III obesity, recurrent cellulitis, invasive ductal carcinoma of the left breast on anastrozole, hypothyroidism on levothyroxine, ISIAH on CPAP presented to the hospital with cellulitis on the abdominal wall. Due to multiple allergy to the antibiotics patient was placed on linezolid light and levofloxacin. Hospital course was complicated by her developing adverse drug reaction to linezolid light. The Nasalide was switched to oral Bactrim. Patient tolerated Bactrim very well. Patient was discharged home on levofloxacin and Bactrim for 10 additional days. Orders not resulted at time of discharge: Pending orders 12/28/18 19:10 Culture,Blood [BC] Stat 12/29/18 04:00 Urinalysis reflex Microscopic [URIN] AM 0400 Estimated PT Needs at Discharge: None Date of Encounter: 12/31/18 Time of Encounter: 14:32 - Discharge Diagnosis (1) Sepsis Priority: Primary Status: Resolved Qualifiers: Sepsis type: sepsis due to unspecified organism Sepsis acute organ dysfunction status: without acute organ dysfunction Qualified Code(s): A41.9 - Sepsis, unspecified organism (2) Cellulitis Priority: Secondary Status: Acute Qualifiers: Site of cellulitis: trunk Site of cellulitis of trunk: abdominal wall Qualified Code(s): L03.311 - Cellulitis of abdominal wall (3) ISIAH on CPAP Priority: Secondary Status: Chronic (4) Invasive ductal carcinoma of left breast Priority: Secondary Status: Chronic (5) Rash Priority: Secondary Status: Acute (6) Hypothyroidism Priority: Secondary Status: Acute Qualifiers: Hypothyroidism type: acquired Qualified Code(s): E03.9 - Hypothyroidism, unspecified (7) Fatty liver disease, nonalcoholic Priority: Secondary Status: Chronic (8) Obesity Priority: Secondary Status: Chronic Qualifiers: Obesity type: unspecified obesity type Obesity classification: adult class 3 (BMI >= 40) Serious obesity comorbidity presence: with serious comorbidity Body mass index: BMI 60.0-69.9 Qualified Code(s): E66.01 - Morbid (severe) obesity due to excess calories; Z68.44 - Body mass index (BMI) 60.0-69.9, adult (9) DVT prophylaxis Priority: Secondary Status: Acute Hospital course: Ms. Lemus is a 58 year old female with past medical history of class III obesity, recurrent cellulitis, invasive ductal carcinoma of the left breast on anastrozole, hypothyroidism on levothyroxine, ISIAH on CPAP presented to the hospital with cellulitis on the abdominal wall. Due to multiple allergy to the antibiotics patient was placed on linezolid light and levofloxacin. Hospital course was complicated by her developing adverse drug reaction to linezolid light. The Nasalide was switched to oral Bactrim. Patient tolerated Bactrim very well. Patient was discharged home on levofloxacin and Bactrim for 10 additional days. Discharge discussed with: social work, case management, senior financial consultant - Time Spent with Patient Total time spent providing and/or coordinating discharge services: 35 Time spent: Greater than 30 minutes - Discharge Medications Prescriptions: New Sulfamethoxazole/Trimeth DS [Bactrim Ds] 1 each PO BID 10 Days #20 tablet levoFLOXacin [Levaquin] 750 mg PO DAILY 10 Days #10 tablet Continued Ergocalciferol (VITAMIN D2) [Vitamin D2] 2,000 unit PO DAILY Docusate [Colace] 100 mg PO BID PRN PRN Reason: Constipation Potassium Chloride [K-Tab ER] 20 meq PO DAILY Multivitamin [One Daily Essential] 1 tab PO DAILY Furosemide [Lasix] 40 mg PO DAILY Levothyroxine Sodium [Synthroid] 200 mcg PO QAM hydrOXYzine HCl [Hydroxyzine HCl] 25 mg PO BID PRN PRN Reason: Itching Nystatin Cream [Mycostatin Cream] 1 appl TP TID #1 tube Loratadine [Claritin] 10 mg PO DAILY 30 Days #30 tablet Albuterol Sulfate [Albuterol Sulfate Hfa] 2 puff IH Q4H PRN PRN Reason: Shortness Of Breath Anastrozole [Arimidex] 1 mg PO DAILY hydroCHLOROthiazide [Hydrochlorothiazide] 12.5 mg PO DAILY Home Medications: Ergocalciferol (VITAMIN D2) [Vitamin D2] 2,000 unit PO DAILY 09/14/15 [History] Docusate [Colace] 100 mg PO BID PRN 01/22/17 [History] Furosemide [Lasix] 40 mg PO DAILY 04/07/18 [History] Multivitamin [One Daily Essential] 1 tab PO DAILY 04/07/18 [History] Potassium Chloride [K-Tab ER] 20 meq PO DAILY 04/07/18 [History] Levothyroxine Sodium [Synthroid] 200 mcg PO QAM 06/15/18 [History] hydrOXYzine HCl [Hydroxyzine HCl] 25 mg PO BID PRN 07/19/18 [History] Loratadine [Claritin] 10 mg PO DAILY 30 Days #30 tablet 08/06/18 [Rx] Nystatin Cream [Mycostatin Cream] 1 appl TP TID #1 tube 08/06/18 [Rx] Albuterol Sulfate [Albuterol Sulfate Hfa] 2 puff IH Q4H PRN 12/28/18 [History] Anastrozole [Arimidex] 1 mg PO DAILY 12/28/18 [History] hydroCHLOROthiazide [Hydrochlorothiazide] 12.5 mg PO DAILY 12/28/18 [History] Sulfamethoxazole/Trimeth DS [Bactrim Ds] 1 each PO BID 10 Days #20 tablet 12/31/18 [Rx] levoFLOXacin [Levaquin] 750 mg PO DAILY 10 Days #10 tablet 12/31/18 [Rx] Allergies/Adverse Reactions: Allergy/AdvReac Type Severity Reaction Status Date / Time ketorolac [From Toradol] Allergy Intermediate Rash Verified 12/28/18 18:37 cefdinir Allergy Rash Verified 12/28/18 19:12 clindamycin Allergy Blister Verified 12/28/18 19:04 Penicillins [PCN] Allergy Rash Verified 12/28/18 19:12 [place] Allergy Itching Verified 12/28/18 18:37 vancomycin Allergy Blister Verified 12/28/18 19:04 dextrose 5 % in water AdvReac Redness of Verified 12/30/18 19:06 [From Zyvox] Skin linezolid [From Zyvox] AdvReac Redness of Verified 12/30/18 19:06 Skin Date of admission: 12/30/18 12:46 Primary care physician: Dennis Garner MD Consults: 12/29/18 06:41 Consult to Infectious Diseases [CONS] Routine Consulting Provider: [facility] Reason for Consult: recurrent cellulitis(6 this year), multiple drug allergies. Call Completed: No Discharging clinician: Vitaliy Dominguezel - Constitutional Vitals: Temp Pulse Resp BP Pulse Ox 98.4 F 72 18 132/71 99 12/31/18 12:10 12/31/18 12:10 12/31/18 12:10 12/31/18 12:10 12/31/18 12:10 General appearance: Present: cooperative, A&O X 3 Exam: General Appearance: Morbidly obese, no distress. Neck: supple, unable to assess JVD Heart: RRR, no murmurs. Lungs: lungs clear to auscultation bilaterally, no wheezes or crackles. Extremities: No pitting edema, No clubbing, No cyanosis. Abdomen: Severely morbid obese, normoactive bowel sounds. non-tender to palpation, Large eythema noted on periumbilical region which covered almost entire abdomen on anterior aspect. Callus like changes noted on right to the umbliciaus on anterior wall measuring 3 X 5 cm Neuro: AOx3 with no new sensory loss or focal deficits. MSK: Strength 5/5 Upper extremity equal bilaterally. Strength 5/5 Lower extremity equal bilaterally - Patient Status Disposition: Home, Self-Care Condition: Good Overall status at discharge: patient is progressing back to baseline - Discharge Instructions Follow Up With: Ucsandi,Dennis Peguero MD [Primary Care Provider] - 01/05/19 10:00 am - Diet and Activity Activity: increase activity as tolerated Diet: diabetic diet, low salt diet
[2018-12-31 16:57] VITALS: BP 121/69
--- NOTE | 2019-01-04 11:35 | Electrocardiograph Report ---
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
== END 2018-12-31 18:57 | disposition home or self-care (01) | DRG 720 ==
LOC: 3ANU 18:26 → EMEROOARM 18:26 → SUATTDRO 21:23 → 3ANU 21:50
PROVIDERS: ADMIT Family Medicine; ATTEND Family Medicine

== ENCOUNTER 2020-07-11 21:20 | Inpatient (IN) ==
[2020-07-11 22:03] LABS: Basophils % 0.4 %; Mean Corpuscular HGB Conc 27.6 g/dL (31.6-35.5); Mean Platelet Volume 8.2 fL (9.4-12.4); Monocytes % 4.5 %
[2020-07-11 22:04] LABS: Eosinophils # 0.4 K/mcL (0.0-0.6); Eosinophils % 3.5 %; Hematocrit 43.1 % (35.3-44.9); Hemoglobin 11.9 g/dL (11.5-15.4); Immature Granulocytes % 1.3 % (0-4); Lymphocytes # 0.9 K/mcL (0.6-4.6); Lymphocytes % 8.2 %; Mean Corpuscular Hemoglobin 25.8 pg (28.0-33.3); Mean Corpuscular Volume 93.5 fL (83.0-100.0); Monocytes # 0.5 K/mcL (0.0-1.3); Nucleated Red Blood Cells 0.7 /100 WBC (0); Platelet Count 288 K/mcL (140-400); Red Blood Count 4.61 M/mcL (3.82-4.97); Red Cell Distribution Width 17.3 % (11.5-14.5); Segmented Neutrophils % 82.1 %
[2020-07-11 22:14] LABS: Prothrombin Time 11.9 Seconds (9.4-12.1)
[2020-07-11 22:16] LABS: Activated Partial Thrombo Time 27.8 Seconds (26.0-36.0)
[2020-07-11 22:25] LABS: Polychromasia 1+ (Not Present); Reactive Lymphocytes Present (Not Present)
[2020-07-11 22:26] LABS: Alanine Aminotransferase 16 Units/L (7-52); Albumin 3.7 g/dL (3.5-5.7); Albumin/Globulin Ratio 1.1 (1.1-2.2); Alkaline Phosphatase 57 Units/L (34-104); Aspartate Amino Transferase 18 Units/L (13-39); BUN/Creatinine Ratio 14 (6-26); Bilirubin,Direct 0.1 mg/dL (0.0-0.2); Bilirubin,Indirect 0.5 mg/dL (0.0-1.0); Bilirubin,Total 0.6 mg/dL (0.3-1.0); Blood Urea Nitrogen 12 mg/dL (8-23); C-Reactive Protein 38 mg/L (Less than 10); Calcium 9.3 mg/dL (8.6-10.3); Carbon Dioxide 38 mEq/L (23-29); Chloride 95 mEq/L (98-107); Globulin 3.4 g/dL (2.4-3.5); Glucose 141 mg/dL (70-105); Lactate Dehydrogenase 151 Units/L (140-271); Osmolality,Calculated 288 (280-300); Potassium 4.3 mEq/L (3.5-5.1); Sodium 138 mEq/L (136-145); Stomatocytes 1+ (Not Present); Total Protein 7.1 g/dL (6.4-8.9); Troponin I < 0.03 ng/mL (< 0.04); eGFR For African Americans > 60 (> 60); eGFR For Non-African Americans > 60 (> 60)
[2020-07-11 22:39] LABS: Thyroid Stimulating Hormone 29.102 mcIU/mL (0.340-5.600)
[2020-07-11 22:45] LABS: Ferritin 14 ng/mL (10-120)
[2020-07-11 23:01] LABS: Adenovirus Not Detected (Not Detect); Bordetella Pertussis Not Detected (Not Detect); Chlamydophila pneumoniae Not Detected (Not Detect); Coronavirus 229E Not Detected (Not Detect); Coronavirus HKU1 Not Detected (Not Detect); Coronavirus NL63 Not Detected (Not Detect); Coronavirus OC43 Not Detected (Not Detect); Human Metapneumovirus Not Detected (Not Detect); Human Rhinovirus/Enterovirus Not Detected (Not Detect); Influenza A Subtype 2009 H1 Not Detected (Not Detect); Influenza B Not Detected (Not Detect); Mycoplasma pneumoniae Not Detected (Not Detect); Parainfluenza Virus 1 Not Detected (Not Detect); Parainfluenza Virus 2 Not Detected (Not Detect); Parainfluenza Virus 3 Not Detected (Not Detect); Parainfluenza Virus 4 Not Detected (Not Detect); Respiratory Syncytial Virus Not Detected (Not Detect); SARS-CoV-2 Not Detected (Not Detect)
[2020-07-11] MEDS ORDERED: Furosemide 40 MG/4 ML VIAL IVP ONE (23:28)
[2020-07-11] MEDS ORDERED: Melatonin 3 MG TABLET PO PRN (23:51)
[2020-07-11] MEDS ORDERED: Naloxone 0.4 MG/ML INJ IVP PRN (23:51)
[2020-07-11] MEDS ORDERED: Ondansetron 4 MG/2 ML VIAL IVP PRN (23:51)
[2020-07-11] MEDS ORDERED: Acetaminophen 325 MG TABLET PO PRN (23:51)
[2020-07-12 00:17] LABS: Triiodothyronine (T3) Free 2.85 pg/mL (2.50-3.90)
[2020-07-12 00:22] LABS: Triiodothyronine (T3) Total 0.89 ng/mL (0.87-1.78)
[2020-07-12 04:31] LABS: Mean Platelet Volume 8.4 fL (9.4-12.4); Nucleated Red Blood Cells 0.6 /100 WBC (0); Red Cell Distribution Width 17.2 % (11.5-14.5)
[2020-07-12 04:32] LABS: Basophils # 0.1 K/mcL (0.0-0.2); Basophils % 0.5 %; Eosinophils # 0.3 K/mcL (0.0-0.6); Eosinophils % 3.4 %; Hematocrit 41.9 % (35.3-44.9); Hemoglobin 11.8 g/dL (11.5-15.4); Immature Granulocytes % 1.3 % (0-4); Lymphocytes # 0.9 K/mcL (0.6-4.6); Lymphocytes % 8.5 %; Mean Corpuscular HGB Conc 28.2 g/dL (31.6-35.5); Mean Corpuscular Hemoglobin 26.5 pg (28.0-33.3); Mean Corpuscular Volume 94.2 fL (83.0-100.0); Monocytes # 0.5 K/mcL (0.0-1.3); Monocytes % 4.6 %; Neutrophils # 8.3 K/mcL (1.6-8.9); Platelet Count 267 K/mcL (140-400); Red Blood Count 4.45 M/mcL (3.82-4.97); Segmented Neutrophils % 81.7 %; White Blood Count 10.1 K/mcL (4.3-11.1)
[2020-07-12 04:41] LABS: INR 1.1
[2020-07-12 04:53] LABS: Anisocytosis 1+ (Not Present); Hypochromasia Present (Not Present); Platelet Estimate Normal (Normal); Polychromasia 1+ (Not Present); Stomatocytes 1+ (Not Present)
[2020-07-12 04:54] LABS: Alanine Aminotransferase 14 Units/L (7-52); Albumin 3.5 g/dL (3.5-5.7); Albumin/Globulin Ratio 1.1 (1.1-2.2); Alkaline Phosphatase 54 Units/L (34-104); Aspartate Amino Transferase 17 Units/L (13-39); BUN/Creatinine Ratio 12 (6-26); Bilirubin,Total 0.6 mg/dL (0.3-1.0); Blood Urea Nitrogen 11 mg/dL (8-23); Calcium 8.9 mg/dL (8.6-10.3); Carbon Dioxide 44 mEq/L (23-29); Chloride 94 mEq/L (98-107); Chol/HDL Ratio 3.4 (0-4.9); Cholesterol 177 mg/dL (< 200); Globulin 3.3 g/dL (2.4-3.5); Glucose 197 mg/dL (70-105); HDL Cholesterol 52 mg/dL (40-59); LDL Cholesterol,Calculated 104 mg/dL (< 100); Osmolality,Calculated 297 (280-300); Phosphorous 3.9 mg/dL (2.7-4.5); Sodium 141 mEq/L (136-145); Total Protein 6.8 g/dL (6.4-8.9); Triglycerides 104 mg/dL (< 150); eGFR For African Americans > 60 (> 60); eGFR For Non-African Americans > 60 (> 60)
[2020-07-12] MEDS: Apixaban 5 MG TABLET PO SCH ×3 (05:42→20:30)
[2020-07-12] MEDS ORDERED: Dextrose Gel 15 GM/37.5 ML TUBE PO PRN ×2 (08:16)
[2020-07-12] MEDS: Furosemide 40 MG/4 ML VIAL IVP SCH ×2 (09:12→16:57)
[2020-07-12] MEDS: Insulin LISPRO 300 UNITS/3 ML VIAL SUBQ SCH ×3 (10:32→20:32)
[2020-07-12] MEDS ORDERED: Ipratropium/Albuterol Neb 3 ML IH PRN (11:05)
[2020-07-13 02:23] LABS: Mean Platelet Volume 8.4 fL (9.4-12.4)
[2020-07-13 02:24] LABS: Basophils % 0.4 %; Eosinophils # 0.3 K/mcL (0.0-0.6); Eosinophils % 3.1 %; Lymphocytes # 0.9 K/mcL (0.6-4.6); Lymphocytes % 8.7 %; Mean Corpuscular HGB Conc 26.8 g/dL (31.6-35.5); Mean Corpuscular Hemoglobin 25.6 pg (28.0-33.3); Mean Corpuscular Volume 95.6 fL (83.0-100.0); Monocytes # 0.6 K/mcL (0.0-1.3); Monocytes % 5.4 %; Nucleated Red Blood Cells 0.3 /100 WBC (0); Platelet Count 286 K/mcL (140-400); Red Blood Count 4.29 M/mcL (3.82-4.97); Red Cell Distribution Width 17.2 % (11.5-14.5); Segmented Neutrophils % 81.4 %; White Blood Count 10.6 K/mcL (4.3-11.1)
[2020-07-13 02:27] LABS: Neutrophils # 8.6 K/mcL (1.6-8.9)
[2020-07-13 02:46] LABS: Anisocytosis 1+ (Not Present); Platelet Estimate Normal (Normal); Polychromasia 1+ (Not Present)
[2020-07-13 03:06] LABS: BUN/Creatinine Ratio 17 (6-26); Blood Urea Nitrogen 17 mg/dL (8-23); Calcium 8.6 mg/dL (8.6-10.3); Carbon Dioxide > 45 mEq/L (23-29); Chloride 92 mEq/L (98-107); Glucose 156 mg/dL (70-105); Osmolality,Calculated 295 (280-300); Potassium 4.5 mEq/L (3.5-5.1); Sodium 140 mEq/L (136-145); eGFR For African Americans > 60 (> 60); eGFR For Non-African Americans 56 (> 60)
[2020-07-13] MEDS: Cholecalciferol (D-3) 1,000 UNIT (25MCG) TABLET PO SCH (08:06)
[2020-07-13] MEDS: Apixaban 5 MG TABLET PO SCH ×2 (08:07→20:46)
[2020-07-13] MEDS: Furosemide 40 MG/4 ML VIAL IVP SCH ×2 (08:08→17:40)
[2020-07-13] MEDS: Insulin LISPRO 300 UNITS/3 ML VIAL SUBQ SCH ×5 (08:20→20:39)
[2020-07-13 11:46] LABS: Bilirubin,Urine Negative (Negative); Blood,Urine Negative (Negative); Clarity,Urine Clear (Clear); Color,Urine Light-Yellow (Yellow); Glucose,Urine (UA) Normal (Normal); Ketones,Urine Negative (Negative); Leukocyte Esterase,Urine Negative (Negative); Nitrite,Urine Negative (Negative); PH,Urine 5.5 pH Units (5.0-8.0); Protein,Urine Negative (Neg-Trace); Specific Gravity,Urine 1.015 (1.010-1.025); Urobilinogen,Urine Normal (Normal)
[2020-07-14 06:11] LABS: Basophils % 0.2 %; Immature Granulocytes % 0.6 % (0-4)
[2020-07-14 06:12] LABS: Eosinophils # 0.3 K/mcL (0.0-0.6); Eosinophils % 3.1 %; Hemoglobin 11.1 g/dL (11.5-15.4); Lymphocytes # 0.8 K/mcL (0.6-4.6); Lymphocytes % 7.9 %; Mean Corpuscular HGB Conc 27.8 g/dL (31.6-35.5); Mean Corpuscular Volume 93.7 fL (83.0-100.0); Mean Platelet Volume 8.1 fL (9.4-12.4); Monocytes # 0.5 K/mcL (0.0-1.3); Monocytes % 4.7 %; Neutrophils # 8.5 K/mcL (1.6-8.9); Platelet Count 259 K/mcL (140-400); Red Blood Count 4.27 M/mcL (3.82-4.97); Red Cell Distribution Width 16.8 % (11.5-14.5); Segmented Neutrophils % 83.5 %; White Blood Count 10.2 K/mcL (4.3-11.1)
[2020-07-14 06:15] LABS: Anisocytosis 1+ (Not Present); Platelet Estimate Normal (Normal)
[2020-07-14 06:33] LABS: BUN/Creatinine Ratio 20 (6-26); Blood Urea Nitrogen 16 mg/dL (8-23); Calcium 8.7 mg/dL (8.6-10.3); Carbon Dioxide > 45 mEq/L (23-29); Chloride 90 mEq/L (98-107); Glucose 150 mg/dL (70-105); Osmolality,Calculated 292 (280-300); Potassium 3.9 mEq/L (3.5-5.1); Sodium 139 mEq/L (136-145); eGFR For African Americans > 60 (> 60); eGFR For Non-African Americans > 60 (> 60)
[2020-07-14] MEDS: Insulin LISPRO 300 UNITS/3 ML VIAL SUBQ SCH ×2 (08:15→12:39)
[2020-07-14] MEDS: Furosemide 40 MG/4 ML VIAL IVP SCH (08:45)
[2020-07-14] MEDS: Apixaban 5 MG TABLET PO SCH (08:45)
[2020-07-14 11:31] VITALS: BP 111/69
[2020-07-14] MEDS: Cholecalciferol (D-3) 1,000 UNIT (25MCG) TABLET PO SCH (12:39)
== END 2020-07-14 14:35 | disposition home health service (06) | DRG 194 ==
LOC: 2NENU 21:20 → EMEROOARM 21:20 → SUATTDRO 23:52 → 2NENU 07-12 00:30 → 3NENU 07-14 01:15
PROVIDERS: ADMIT Student in an Organized Health Care Education/Training Program; ATTEND Family Medicine

== ENCOUNTER 2020-10-11 21:06 | Inpatient (IN) ==
[2020-10-11 21:44] LABS: Basophils # 0.1 K/mcL (0.0-0.2); Basophils % 0.5 %; Eosinophils # 0.5 K/mcL (0.0-0.6); Eosinophils % 5.8 %; Hematocrit 41.8 % (35.3-44.9); Hemoglobin 11.2 g/dL (11.5-15.4); Hypochromasia Present (Not Present); Immature Granulocytes % 0.8 % (0-4); Lymphocytes # 0.8 K/mcL (0.6-4.6); Lymphocytes % 8.8 %; Mean Corpuscular HGB Conc 26.8 g/dL (31.6-35.5); Mean Corpuscular Hemoglobin 23.5 pg (28.0-33.3); Mean Corpuscular Volume 87.8 fL (83.0-100.0); Mean Platelet Volume 8.1 fL (9.4-12.4); Monocytes # 0.4 K/mcL (0.0-1.3); Monocytes % 4.2 %; Neutrophils # 7.4 K/mcL (1.6-8.9); Nucleated Red Blood Cells 0.4 /100 WBC (0); Platelet Count 334 K/mcL (140-400); Red Blood Count 4.76 M/mcL (3.82-4.97); Red Cell Distribution Width 19.2 % (11.5-14.5); Segmented Neutrophils % 79.9 %; White Blood Count 9.3 K/mcL (4.3-11.1)
[2020-10-11 22:05] LABS: Alanine Aminotransferase 8 Units/L (7-52); Albumin 3.7 g/dL (3.5-5.7); Albumin/Globulin Ratio 1.1 (1.1-2.2); Alkaline Phosphatase 65 Units/L (34-104); Aspartate Amino Transferase 12 Units/L (13-39); BUN/Creatinine Ratio 9 (6-26); Bilirubin,Direct 0.2 mg/dL (0.0-0.2); Bilirubin,Indirect 0.7 mg/dL (0.0-1.0); Bilirubin,Total 0.9 mg/dL (0.3-1.0); Blood Urea Nitrogen 9 mg/dL (8-23); Calcium 8.9 mg/dL (8.6-10.3); Carbon Dioxide 37 mEq/L (23-29); Chloride 98 mEq/L (98-107); Globulin 3.3 g/dL (2.4-3.5); Glucose 121 mg/dL (70-105); Osmolality,Calculated 288 (280-300); Potassium 4.4 mEq/L (3.5-5.1); Sodium 139 mEq/L (136-145); eGFR For African Americans > 60 (> 60); eGFR For Non-African Americans > 60 (> 60)
[2020-10-11 22:06] LABS: Troponin I < 0.03 ng/mL (< 0.04)
[2020-10-11 22:32] LABS: INR 1.3; Prothrombin Time 14.5 Seconds (9.4-12.1)
[2020-10-11] MEDS ORDERED: 0.9 % Sodium Chloride 1,000 ML IVC ONE (22:32)
[2020-10-11] MEDS ORDERED: Heparin 25,000UNIT/250ML 1/2NS 25,000 UNIT/250 ML IV.SOLN IVC SCH (23:00)
[2020-10-11] MEDS ORDERED: levoFLOXacin 750 MG/150 ML 750 MG/150 ML BAG IVPB SCH (23:00)
[2020-10-12] MEDS: Heparin 25,000UNIT/250ML 1/2NS 25,000 UNIT/250 ML IV.SOLN IVC SCH ×2 (00:20→08:31)
[2020-10-12] MEDS ORDERED: Ondansetron 4 MG/2 ML VIAL IVP PRN (02:06)
[2020-10-12] MEDS ORDERED: *HR* Promethazine 25 MG/ML VIAL IM PRN (02:06)
[2020-10-12] MEDS ORDERED: Naloxone 0.4 MG/ML INJ IVP PRN (02:06)
[2020-10-12] MEDS ORDERED: 0.9 % Sodium Chloride 1,000 ML IVC SCH (02:15)
[2020-10-12] MEDS ORDERED: Albuterol 2.5 MG/3 ML NEBULIZER IH PRN (02:32)
[2020-10-12 03:16] LABS: Mean Corpuscular Volume 88.1 fL (83.0-100.0)
[2020-10-12 03:17] LABS: Basophils % 0.3 %; Eosinophils # 0.5 K/mcL (0.0-0.6); Eosinophils % 5.1 %; Hematocrit 42.3 % (35.3-44.9); Hemoglobin 11.3 g/dL (11.5-15.4); Immature Granulocytes % 0.6 % (0-4); Lymphocytes # 0.9 K/mcL (0.6-4.6); Mean Corpuscular HGB Conc 26.7 g/dL (31.6-35.5); Mean Corpuscular Hemoglobin 23.5 pg (28.0-33.3); Mean Platelet Volume 8.1 fL (9.4-12.4); Monocytes # 0.4 K/mcL (0.0-1.3); Monocytes % 4.2 %; Neutrophils # 8.1 K/mcL (1.6-8.9); Nucleated Red Blood Cells 0.3 /100 WBC (0); Platelet Count 292 K/mcL (140-400); Red Cell Distribution Width 19.3 % (11.5-14.5); Segmented Neutrophils % 80.8 %
[2020-10-12 03:36] LABS: Alanine Aminotransferase 7 Units/L (7-52); Albumin 3.5 g/dL (3.5-5.7); Albumin/Globulin Ratio 1.2 (1.1-2.2); Alkaline Phosphatase 60 Units/L (34-104); Aspartate Amino Transferase 12 Units/L (13-39); BUN/Creatinine Ratio 9 (6-26); Blood Urea Nitrogen 8 mg/dL (8-23); Calcium 8.6 mg/dL (8.6-10.3); Carbon Dioxide 34 mEq/L (23-29); Chloride 100 mEq/L (98-107); Glucose 123 mg/dL (70-105); Osmolality,Calculated 288 (280-300); Potassium 4.5 mEq/L (3.5-5.1); Sodium 139 mEq/L (136-145); Total Protein 6.5 g/dL (6.4-8.9); Troponin I < 0.03 ng/mL (< 0.04); eGFR For African Americans > 60 (> 60); eGFR For Non-African Americans > 60 (> 60)
[2020-10-12 03:37] LABS: Hypochromasia Present (Not Present); Platelet Estimate Normal (Normal)
[2020-10-12] MEDS: Acetaminophen 325 MG TABLET PO PRN ×2 (03:57→16:34)
[2020-10-12 04:02] LABS: Estimated Average Glucose 177 mg/dl; Hemoglobin A1C 7.8 %
[2020-10-12] MEDS ORDERED: *HR* Heparin 5,000 UNIT/ML VIAL SQ SCH (06:00)
[2020-10-12] MEDS ORDERED: Ipratropium/Albuterol Neb 3 ML IH PRN (07:41)
[2020-10-12] MEDS ORDERED: Dextrose Gel 15 GM/37.5 ML TUBE PO PRN ×2 (07:42)
[2020-10-12] MEDS ORDERED: D5% in Water 1,000 ML IVC PRN (07:42)
[2020-10-12] MEDS ORDERED: *HR* Dextrose 50 % in Water (Vial) 50 ML VIAL IVP PRN (07:42)
[2020-10-12] MEDS ORDERED: Saline Nasal Spray 44 ML BOTTLE NS PRN ×2 (07:43→16:49)
[2020-10-12] MEDS ORDERED: Benzonatate 100 MG CAPSULE PO PRN (07:43)
[2020-10-12] MEDS ORDERED: Furosemide 40 MG TABLET PO SCH (10:00)
[2020-10-12 10:02] LABS: Phosphorous 3.4 mg/dL (2.7-4.5)
[2020-10-12] MEDS: Ipratropium/Albuterol Neb 3 ML IH SCH ×3 (10:50→21:34)
[2020-10-12] MEDS: Insulin LISPRO 300 UNITS/3 ML VIAL SUBQ SCH ×2 (12:45→16:26)
[2020-10-12] MEDS: Chlorhexidine Rinse 15 ML MOUTHWASH MM SCH ×2 (12:49→21:03)
[2020-10-12] MEDS: Multivit/Ca/Min/Fe/FA 1 TAB TABLET PO SCH (12:49)
[2020-10-12] MEDS: Lactobacillus 1 EACH CAP.SPRINK PO SCH ×2 (12:49→21:04)
[2020-10-12] MEDS: Artificial Tears SOLN 15 ML BOTTLE BOTH EYES SCH ×2 (12:52→22:24)
[2020-10-12] MEDS ORDERED: Perflutren Lipid Microsphere 1.3 ML in 0.9 % Sodium Chloride 8.7 ML IVP PRN (16:52)
[2020-10-13] MEDS: Heparin 25,000UNIT/250ML 1/2NS 25,000 UNIT/250 ML IV.SOLN IVC SCH ×3 (02:49→13:43)
[2020-10-13] MEDS: Acetaminophen 325 MG TABLET PO PRN (03:26)
[2020-10-13] MEDS: Ipratropium/Albuterol Neb 3 ML IH SCH ×2 (03:30→10:08)
[2020-10-13 05:43] LABS: Basophils % 0.2 %; Mean Platelet Volume 8.2 fL (9.4-12.4); Red Cell Distribution Width 19.2 % (11.5-14.5)
[2020-10-13 05:45] LABS: Eosinophils # 0.7 K/mcL (0.0-0.6); Eosinophils % 7.8 %; Hematocrit 39.1 % (35.3-44.9); Hemoglobin 9.9 g/dL (11.5-15.4); Lymphocytes # 0.8 K/mcL (0.6-4.6); Lymphocytes % 8.3 %; Mean Corpuscular HGB Conc 25.3 g/dL (31.6-35.5); Mean Corpuscular Hemoglobin 22.9 pg (28.0-33.3); Mean Corpuscular Volume 90.3 fL (83.0-100.0); Monocytes # 0.4 K/mcL (0.0-1.3); Monocytes % 4.4 %; Platelet Count 298 K/mcL (140-400); Red Blood Count 4.33 M/mcL (3.82-4.97); Segmented Neutrophils % 78.3 %
[2020-10-13 05:48] LABS: Neutrophils # 7.1 K/mcL (1.6-8.9)
[2020-10-13 06:05] LABS: % Iron Saturation 6 % (15-50); Alanine Aminotransferase 6 Units/L (7-52); Albumin 3.3 g/dL (3.5-5.7); Albumin/Globulin Ratio 1.1 (1.1-2.2); Alkaline Phosphatase 54 Units/L (34-104); Aspartate Amino Transferase 10 Units/L (13-39); BUN/Creatinine Ratio 12 (6-26); Bilirubin,Total 0.8 mg/dL (0.3-1.0); Blood Urea Nitrogen 11 mg/dL (8-23); Calcium 9.1 mg/dL (8.6-10.3); Carbon Dioxide 39 mEq/L (23-29); Chloride 99 mEq/L (98-107); Globulin 2.9 g/dL (2.4-3.5); Glucose 145 mg/dL (70-105); Iron 27 mcg/dL (50-170); Magnesium 2.1 mg/dL (1.6-2.6); Osmolality,Calculated 292 (280-300); Phosphorous 4.8 mg/dL (2.7-4.5); Potassium 4.7 mEq/L (3.5-5.1); Sodium 140 mEq/L (136-145); Total Protein 6.2 g/dL (6.4-8.9); Transferrin 309 mg/dL (203-362); eGFR For African Americans > 60 (> 60); eGFR For Non-African Americans > 60 (> 60)
[2020-10-13 06:06] LABS: Platelet Estimate Normal (Normal)
[2020-10-13 06:07] LABS: Anisocytosis 1+ (Not Present); Hypochromasia Present (Not Present); Poikilocytosis 1+ (Not Present); Toxic Granulation Present (Not Present)
[2020-10-13 06:23] LABS: Ferritin 18 ng/mL (10-120)
[2020-10-13] MEDS: Insulin LISPRO 300 UNITS/3 ML VIAL SUBQ SCH ×3 (08:27→16:36)
[2020-10-13] MEDS ORDERED: Iron Sucrose Complex 400 MG in 0.9 % Sodium Chloride 250 ML IVPB ONE (08:30)
[2020-10-13] MEDS: Artificial Tears SOLN 15 ML BOTTLE BOTH EYES SCH ×2 (09:38→21:31)
[2020-10-13] MEDS: Multivit/Ca/Min/Fe/FA 1 TAB TABLET PO SCH (09:38)
[2020-10-13] MEDS: Chlorhexidine Rinse 15 ML MOUTHWASH MM SCH ×2 (09:38→21:30)
[2020-10-13] MEDS: Lactobacillus 1 EACH CAP.SPRINK PO SCH ×2 (09:38→21:30)
[2020-10-13] MEDS: Cholecalciferol (D-3) 1,000 UNIT (25MCG) TABLET PO SCH (09:39)
[2020-10-13] MEDS: levoFLOXacin 750 MG/150 ML 750 MG/150 ML BAG IVPB SCH (09:39)
[2020-10-13] MEDS: Furosemide 40 MG/4 ML VIAL IVP SCH (09:39)
[2020-10-13 12:52] LABS: Folate 4.3 ng/mL (3.0-16.0); Procalcitonin 0.03 ng/mL (0.00-0.15)
[2020-10-13 13:55] LABS: Heparin anti-factor XA UFH 0.7 IU/mL (0.30-0.70)
[2020-10-13 14:04] LABS: Activated Partial Thrombo Time 102.1 Seconds (26.0-36.0)
[2020-10-13] MEDS ORDERED: DiphenhydraMINE CREAM 28.4 GM TUBE TP PRN (21:05)
[2020-10-13] MEDS: Artificial Tears SOLN 15 ML BOTTLE BOTH EYES PRN (21:31)
[2020-10-13] MEDS: *HR* Heparin 5,000 UNIT/ML VIAL IVP PRN (23:10)
[2020-10-14] MEDS: Heparin 25,000UNIT/250ML 1/2NS 25,000 UNIT/250 ML IV.SOLN IVC SCH ×2 (05:00→17:18)
[2020-10-14 05:28] LABS: Basophils % 0.2 %; Segmented Neutrophils % 82.4 %
[2020-10-14 05:30] LABS: Eosinophils # 0.5 K/mcL (0.0-0.6); Eosinophils % 5.8 %; Hematocrit 39.9 % (35.3-44.9); Immature Granulocytes % 0.7 % (0-4); Lymphocytes # 0.6 K/mcL (0.6-4.6); Lymphocytes % 6.6 %; Mean Corpuscular HGB Conc 25.1 g/dL (31.6-35.5); Mean Corpuscular Hemoglobin 22.9 pg (28.0-33.3); Mean Corpuscular Volume 91.3 fL (83.0-100.0); Mean Platelet Volume 8.2 fL (9.4-12.4); Monocytes # 0.4 K/mcL (0.0-1.3); Monocytes % 4.3 %; Neutrophils # 7.5 K/mcL (1.6-8.9); Nucleated Red Blood Cells 0.2 /100 WBC (0); Platelet Count 271 K/mcL (140-400); Red Blood Count 4.37 M/mcL (3.82-4.97); Red Cell Distribution Width 19.2 % (11.5-14.5); White Blood Count 9.1 K/mcL (4.3-11.1)
[2020-10-14 05:32] LABS: VBG HCO3 41 mEq/L (21-27); VBG PCO2 88 mmHg (41-51); VBG PH 7.28 pH Units (7.32-7.42); VBG PO2 181 mmHg (25-50)
[2020-10-14 05:44] LABS: Phosphorous 4.9 mg/dL (2.7-4.5)
[2020-10-14 05:45] LABS: Alanine Aminotransferase 7 Units/L (7-52); Albumin 3.4 g/dL (3.5-5.7); Albumin/Globulin Ratio 1.1 (1.1-2.2); Alkaline Phosphatase 53 Units/L (34-104); Aspartate Amino Transferase 10 Units/L (13-39); BUN/Creatinine Ratio 13 (6-26); Bilirubin,Total 0.7 mg/dL (0.3-1.0); Blood Urea Nitrogen 12 mg/dL (8-23); Calcium 9.3 mg/dL (8.6-10.3); Carbon Dioxide 41 mEq/L (23-29); Chloride 96 mEq/L (98-107); Globulin 3.1 g/dL (2.4-3.5); Glucose 138 mg/dL (70-105); Osmolality,Calculated 294 (280-300); Potassium 4.9 mEq/L (3.5-5.1); Sodium 141 mEq/L (136-145); Total Protein 6.5 g/dL (6.4-8.9); eGFR For African Americans > 60 (> 60); eGFR For Non-African Americans > 60 (> 60)
[2020-10-14 05:57] LABS: Anisocytosis 2+ (Not Present); Platelet Estimate Normal (Normal); Poikilocytosis 1+ (Not Present); Polychromasia 1+ (Not Present); Stomatocytes 1+ (Not Present); Target Cells 1+ (Not Present)
[2020-10-14] MEDS: *HR* Heparin 5,000 UNIT/ML VIAL IVP PRN (06:34)
[2020-10-14] MEDS: Insulin LISPRO 300 UNITS/3 ML VIAL SUBQ SCH ×3 (09:12→17:21)
[2020-10-14] MEDS: Artificial Tears SOLN 15 ML BOTTLE BOTH EYES SCH ×2 (09:21→23:50)
[2020-10-14] MEDS: Multivit/Ca/Min/Fe/FA 1 TAB TABLET PO SCH (09:22)
[2020-10-14] MEDS: Cyanocobalamin (B-12) 1,000 MCG TABLET PO SCH (09:22)
[2020-10-14] MEDS: Chlorhexidine Rinse 15 ML MOUTHWASH MM SCH ×2 (09:22→22:22)
[2020-10-14] MEDS: Cholecalciferol (D-3) 1,000 UNIT (25MCG) TABLET PO SCH (09:22)
[2020-10-14] MEDS: Furosemide 40 MG/4 ML VIAL IVP SCH (09:22)
[2020-10-14] MEDS: levoFLOXacin 750 MG/150 ML 750 MG/150 ML BAG IVPB SCH (09:23)
[2020-10-14] MEDS: Lactobacillus 1 EACH CAP.SPRINK PO SCH ×2 (09:23→22:22)
[2020-10-14] MEDS: MethylPREDNISolone 40 MG/ML VIAL IVP SCH (09:24)
[2020-10-14] MEDS: Budesonide/Formoterol 160/4.5 1 PUFF INH IH SCH ×2 (10:19→22:15)
[2020-10-14 13:37] LABS: Triiodothyronine (T3) Total 0.7 ng/mL (0.87-1.78)
[2020-10-14] MEDS: Melatonin 3 MG TABLET PO PRN (22:22)
[2020-10-14] MEDS: Artificial Tears SOLN 15 ML BOTTLE BOTH EYES PRN (22:23)
[2020-10-15] MEDS: Heparin 25,000UNIT/250ML 1/2NS 25,000 UNIT/250 ML IV.SOLN IVC SCH ×2 (04:34→18:19)
[2020-10-15 06:07] LABS: Basophils % 0.3 %; Red Cell Distribution Width 19.1 % (11.5-14.5)
[2020-10-15 06:08] LABS: Eosinophils # 0.5 K/mcL (0.0-0.6); Eosinophils % 5.4 %; Hematocrit 36.4 % (35.3-44.9); Hemoglobin 9.6 g/dL (11.5-15.4); Immature Granulocytes % 0.5 % (0-4); Lymphocytes # 0.6 K/mcL (0.6-4.6); Lymphocytes % 5.7 %; Mean Corpuscular HGB Conc 26.4 g/dL (31.6-35.5); Mean Corpuscular Hemoglobin 23.5 pg (28.0-33.3); Mean Corpuscular Volume 89.2 fL (83.0-100.0); Mean Platelet Volume 8.2 fL (9.4-12.4); Monocytes # 0.5 K/mcL (0.0-1.3); Neutrophils # 8.3 K/mcL (1.6-8.9); Platelet Count 241 K/mcL (140-400); Red Blood Count 4.08 M/mcL (3.82-4.97); Segmented Neutrophils % 83.1 %
[2020-10-15 06:10] LABS: VBG HCO3 42 mEq/L (21-27); VBG PCO2 80 mmHg (41-51); VBG PH 7.33 pH Units (7.32-7.42); VBG PO2 131 mmHg (25-50)
[2020-10-15 06:29] LABS: Alanine Aminotransferase 7 Units/L (7-52); Albumin 3.5 g/dL (3.5-5.7); Albumin/Globulin Ratio 1.2 (1.1-2.2); Alkaline Phosphatase 51 Units/L (34-104); Aspartate Amino Transferase 11 Units/L (13-39); BUN/Creatinine Ratio 14 (6-26); Bilirubin,Total 0.9 mg/dL (0.3-1.0); Blood Urea Nitrogen 12 mg/dL (8-23); Calcium 9.2 mg/dL (8.6-10.3); Carbon Dioxide 44 mEq/L (23-29); Chloride 94 mEq/L (98-107); Globulin 2.9 g/dL (2.4-3.5); Glucose 133 mg/dL (70-105); Magnesium 1.9 mg/dL (1.6-2.6); Osmolality,Calculated 290 (280-300); Phosphorous 3.7 mg/dL (2.7-4.5); Potassium 4.2 mEq/L (3.5-5.1); Sodium 139 mEq/L (136-145); Total Protein 6.4 g/dL (6.4-8.9); eGFR For African Americans > 60 (> 60); eGFR For Non-African Americans > 60 (> 60)
[2020-10-15] MEDS: Levothyroxine 25 MCG TABLET PO SCH (06:36)
[2020-10-15] MEDS: Budesonide/Formoterol 160/4.5 1 PUFF INH IH SCH ×2 (07:47→20:29)
[2020-10-15] MEDS: Insulin LISPRO 300 UNITS/3 ML VIAL SUBQ SCH ×3 (09:44→17:11)
[2020-10-15] MEDS: Cholecalciferol (D-3) 1,000 UNIT (25MCG) TABLET PO SCH (09:44)
[2020-10-15] MEDS: Multivit/Ca/Min/Fe/FA 1 TAB TABLET PO SCH (09:44)
[2020-10-15] MEDS: Artificial Tears SOLN 15 ML BOTTLE BOTH EYES SCH ×2 (09:44→20:43)
[2020-10-15] MEDS: Cyanocobalamin (B-12) 1,000 MCG TABLET PO SCH (09:45)
[2020-10-15] MEDS: Lactobacillus 1 EACH CAP.SPRINK PO SCH ×2 (09:45→20:42)
[2020-10-15] MEDS: Chlorhexidine Rinse 15 ML MOUTHWASH MM SCH ×2 (09:45→20:43)
[2020-10-15] MEDS: MethylPREDNISolone 40 MG/ML VIAL IVP SCH (09:45)
[2020-10-15] MEDS: Melatonin 3 MG TABLET PO PRN (20:42)
[2020-10-15] MEDS ORDERED: *HR* LORazepam 2 MG/ML VIAL IVP ONE (22:37)
[2020-10-16] MEDS: Heparin 25,000UNIT/250ML 1/2NS 25,000 UNIT/250 ML IV.SOLN IVC SCH (05:30)
[2020-10-16] MEDS: Levothyroxine 25 MCG TABLET PO SCH (06:06)
[2020-10-16 06:42] LABS: Basophils % 0.4 %; Eosinophils # 0.5 K/mcL (0.0-0.6); Eosinophils % 5.7 %; Hematocrit 37.7 % (35.3-44.9); Hemoglobin 9.6 g/dL (11.5-15.4); Immature Granulocytes % 0.7 % (0-4); Lymphocytes # 0.6 K/mcL (0.6-4.6); Lymphocytes % 6.2 %; Mean Corpuscular HGB Conc 25.5 g/dL (31.6-35.5); Mean Corpuscular Hemoglobin 23.1 pg (28.0-33.3); Mean Corpuscular Volume 90.8 fL (83.0-100.0); Monocytes # 0.5 K/mcL (0.0-1.3); Monocytes % 5.3 %; Neutrophils # 7.4 K/mcL (1.6-8.9); Platelet Count 233 K/mcL (140-400); Red Blood Count 4.15 M/mcL (3.82-4.97); Red Cell Distribution Width 19.3 % (11.5-14.5); Segmented Neutrophils % 81.7 %
[2020-10-16 06:51] LABS: VBG HCO3 44 mEq/L (21-27); VBG PCO2 88 mmHg (41-51); VBG PO2 145 mmHg (25-50)
[2020-10-16 07:02] LABS: BUN/Creatinine Ratio 14 (6-26); Blood Urea Nitrogen 11 mg/dL (8-23); Calcium 9.4 mg/dL (8.6-10.3); Carbon Dioxide 45 mEq/L (23-29); Chloride 95 mEq/L (98-107); Glucose 134 mg/dL (70-105); Osmolality,Calculated 289 (280-300); Potassium 4.6 mEq/L (3.5-5.1); Sodium 139 mEq/L (136-145); eGFR For African Americans > 60 (> 60); eGFR For Non-African Americans > 60 (> 60)
[2020-10-16] MEDS: Budesonide/Formoterol 160/4.5 1 PUFF INH IH SCH ×2 (08:00→19:15)
[2020-10-16] MEDS: Cholecalciferol (D-3) 1,000 UNIT (25MCG) TABLET PO SCH (08:39)
[2020-10-16] MEDS: Multivit/Ca/Min/Fe/FA 1 TAB TABLET PO SCH (08:39)
[2020-10-16] MEDS: Lactobacillus 1 EACH CAP.SPRINK PO SCH ×2 (08:39→20:19)
[2020-10-16] MEDS: Cyanocobalamin (B-12) 1,000 MCG TABLET PO SCH (08:40)
[2020-10-16] MEDS: Chlorhexidine Rinse 15 ML MOUTHWASH MM SCH ×2 (08:40→20:20)
[2020-10-16] MEDS: Insulin LISPRO 300 UNITS/3 ML VIAL SUBQ SCH ×3 (10:08→16:33)
[2020-10-16] MEDS: MethylPREDNISolone 40 MG/ML VIAL IVP SCH (10:11)
[2020-10-16] MEDS: Artificial Tears SOLN 15 ML BOTTLE BOTH EYES SCH ×2 (10:11→20:20)
[2020-10-16] MEDS: Acetaminophen 325 MG TABLET PO PRN (10:12)
[2020-10-16] MEDS ORDERED: *HR* LORazepam 2 MG/ML VIAL IVP ONE (19:53)
[2020-10-17] MEDS: Heparin 25,000UNIT/250ML 1/2NS 25,000 UNIT/250 ML IV.SOLN IVC SCH ×5 (05:14→22:53)
[2020-10-17] MEDS: Levothyroxine 25 MCG TABLET PO SCH (05:34)
[2020-10-17 05:39] LABS: Basophils % 0.2 %; Eosinophils % 0.5 %; Hematocrit 38.1 % (35.3-44.9); Hemoglobin 9.8 g/dL (11.5-15.4); Immature Granulocytes % 0.7 % (0-4); Lymphocytes # 0.6 K/mcL (0.6-4.6); Lymphocytes % 7.1 %; Mean Corpuscular HGB Conc 25.7 g/dL (31.6-35.5); Mean Corpuscular Hemoglobin 23.7 pg (28.0-33.3); Mean Platelet Volume 8.3 fL (9.4-12.4); Monocytes # 0.4 K/mcL (0.0-1.3); Neutrophils # 7.5 K/mcL (1.6-8.9); Platelet Count 225 K/mcL (140-400); Red Blood Count 4.14 M/mcL (3.82-4.97); Red Cell Distribution Width 19.1 % (11.5-14.5); Segmented Neutrophils % 86.5 %; White Blood Count 8.7 K/mcL (4.3-11.1)
[2020-10-17 05:51] LABS: Phosphorous 4.2 mg/dL (2.7-4.5)
[2020-10-17 05:56] LABS: BUN/Creatinine Ratio 14 (6-26); Blood Urea Nitrogen 12 mg/dL (8-23); Calcium 9.6 mg/dL (8.6-10.3); Carbon Dioxide > 45 mEq/L (23-29); Chloride 94 mEq/L (98-107); Glucose 148 mg/dL (70-105); Osmolality,Calculated 301 (280-300); Sodium 144 mEq/L (136-145); eGFR For African Americans > 60 (> 60); eGFR For Non-African Americans > 60 (> 60)
[2020-10-17 05:59] LABS: Anisocytosis 1+ (Not Present); Platelet Estimate Normal (Normal)
[2020-10-17] MEDS: Budesonide/Formoterol 160/4.5 1 PUFF INH IH SCH ×2 (07:20→20:21)
[2020-10-17] MEDS: Insulin LISPRO 300 UNITS/3 ML VIAL SUBQ SCH ×3 (07:44→16:30)
[2020-10-17] MEDS: MethylPREDNISolone 40 MG/ML VIAL IVP SCH ×2 (09:11→20:13)
[2020-10-17] MEDS: Chlorhexidine Rinse 15 ML MOUTHWASH MM SCH ×2 (09:11→20:07)
[2020-10-17] MEDS: Multivit/Ca/Min/Fe/FA 1 TAB TABLET PO SCH (09:11)
[2020-10-17] MEDS: Cyanocobalamin (B-12) 1,000 MCG TABLET PO SCH (09:11)
[2020-10-17] MEDS: Lactobacillus 1 EACH CAP.SPRINK PO SCH ×2 (09:11→20:07)
[2020-10-17] MEDS: Cholecalciferol (D-3) 1,000 UNIT (25MCG) TABLET PO SCH (09:11)
[2020-10-17] MEDS: Artificial Tears SOLN 15 ML BOTTLE BOTH EYES SCH (09:18)
[2020-10-17] MEDS ORDERED: *HR* LORazepam 2 MG/ML VIAL IVP PRN ×3 (09:25→18:30)
[2020-10-17] MEDS ORDERED: *HR* LORazepam 2 MG/ML VIAL IVP ONE (13:49)
[2020-10-17] MEDS: *HR* Heparin 5,000 UNIT/ML VIAL IVP PRN (17:03)
[2020-10-17] MEDS ORDERED: Haloperidol Lactate 5 MG/ML VIAL IVP ONE (19:30)
[2020-10-17 23:34] LABS: Bacteria,Urine Few per hpf (None-Few); Bilirubin,Urine Negative (Negative); Blood,Urine Large (Negative); Clarity,Urine Turbid (Clear); Color,Urine Light-Yellow (Yellow); Glucose,Urine (UA) Normal (Normal); Ketones,Urine Negative (Negative); Leukocyte Esterase,Urine Trace (Negative); Mucus,Urine Few per lpf (None-Few); Nitrite,Urine Positive (Negative); Protein,Urine Trace mg/dL (Neg-Trace); RBC,Urine TNTC per hpf (0-3); Specific Gravity,Urine 1.012 (1.010-1.025); Squamous Epithelial Cell,Urine Few per hpf (None-Few); Urobilinogen,Urine Normal (Normal)
[2020-10-18 01:52] LABS: Eosinophils % 0.1 %; Red Cell Distribution Width 19.4 % (11.5-14.5)
[2020-10-18 01:54] LABS: Basophils % 0.3 %; Hematocrit 38.5 % (35.3-44.9); Hemoglobin 9.7 g/dL (11.5-15.4); Immature Granulocytes % 1.5 % (0-4); Lymphocytes # 0.4 K/mcL (0.6-4.6); Lymphocytes % 4.4 %; Mean Corpuscular HGB Conc 25.2 g/dL (31.6-35.5); Mean Corpuscular Volume 91.2 fL (83.0-100.0); Mean Platelet Volume 8.3 fL (9.4-12.4); Monocytes # 0.2 K/mcL (0.0-1.3); Monocytes % 2.4 %; Neutrophils # 8.5 K/mcL (1.6-8.9); Platelet Count 216 K/mcL (140-400); Red Blood Count 4.22 M/mcL (3.82-4.97); Segmented Neutrophils % 91.3 %; White Blood Count 9.3 K/mcL (4.3-11.1)
[2020-10-18 01:59] LABS: Magnesium 2.1 mg/dL (1.6-2.6); Phosphorous 3.8 mg/dL (2.7-4.5)
[2020-10-18 02:07] LABS: BUN/Creatinine Ratio 19 (6-26); Blood Urea Nitrogen 16 mg/dL (8-23); Calcium 9.6 mg/dL (8.6-10.3); Carbon Dioxide 44 mEq/L (23-29); Chloride 91 mEq/L (98-107); Glucose 180 mg/dL (70-105); Osmolality,Calculated 300 (280-300); Potassium 5.8 mEq/L (3.5-5.1); Sodium 142 mEq/L (136-145); eGFR For African Americans > 60 (> 60); eGFR For Non-African Americans > 60 (> 60)
[2020-10-18 02:49] LABS: Platelet Estimate Normal (Normal)
[2020-10-18 03:39] LABS: HIV-1&2 Antibody & p24 Ag Nonreactive (Nonreactive)
[2020-10-18 04:21] LABS: ABG Base Excess 18 mEq/L (-2 to 3); ABG HCO3 51 mEq/L (21-27); ABG Oxygen Saturation 99 % (95-98); ABG PCO2 111 mmHg (35-45); ABG PH 7.27 pH Units (7.32-7.45); ABG PO2 193 mmHg (85-104); ABG TCO2 > 50 mEq/L (20-26); Blood Gas VT 500 cc
[2020-10-18] MEDS: MethylPREDNISolone 40 MG/ML VIAL IVP SCH ×2 (05:06→18:18)
[2020-10-18] MEDS: Levothyroxine 25 MCG TABLET PO SCH (05:07)
[2020-10-18] MEDS: Budesonide/Formoterol 160/4.5 1 PUFF INH IH SCH ×2 (07:46→21:26)
[2020-10-18] MEDS ORDERED: Albuterol 2.5 MG/3 ML NEBULIZER IH PRN (08:45)
[2020-10-18] MEDS: Multivit/Ca/Min/Fe/FA 1 TAB TABLET PO SCH (09:27)
[2020-10-18] MEDS: Lactobacillus 1 EACH CAP.SPRINK PO SCH ×2 (09:27→20:29)
[2020-10-18] MEDS: Cyanocobalamin (B-12) 1,000 MCG TABLET PO SCH (09:27)
[2020-10-18] MEDS: Insulin LISPRO 300 UNITS/3 ML VIAL SUBQ SCH ×3 (09:27→16:40)
[2020-10-18] MEDS: Chlorhexidine Rinse 15 ML MOUTHWASH MM SCH ×2 (09:27→20:29)
[2020-10-18] MEDS: Cholecalciferol (D-3) 1,000 UNIT (25MCG) TABLET PO SCH (09:28)
[2020-10-18] MEDS ORDERED: Morphine Sulfate 2 MG/ML SYRINGE IVP ONE (09:42)
[2020-10-18] MEDS ORDERED: Levalbuterol Neb 1.25 MG/3 ML IH SCH (10:00)
[2020-10-18] MEDS: Dexmedetomidine HCl 400 MCG/100 ML MLS IVC SCH ×3 (10:55→21:06)
[2020-10-18 10:56] LABS: Heparin anti-factor XA UFH 0.19 IU/mL (0.30-0.70)
[2020-10-18 11:36] LABS: Activated Partial Thrombo Time 32.5 Seconds (26.0-36.0)
[2020-10-18] MEDS: *HR* Heparin 5,000 UNIT/ML VIAL IVP PRN (12:33)
[2020-10-18] MEDS: *HR* LORazepam 2 MG/ML VIAL IVP PRN (12:33)
[2020-10-18] MEDS: Heparin 25,000UNIT/250ML 1/2NS 25,000 UNIT/250 ML IV.SOLN IVC SCH ×4 (12:37→21:03)
[2020-10-18] MEDS ORDERED: Morphine Sulfate Oral CONC 10 MG/0.5 ML ORAL.SYG SL PRN (14:36)
[2020-10-19 03:59] LABS: Basophils % 0.1 %; Hematocrit 41.8 % (35.3-44.9); Hemoglobin 10.5 g/dL (11.5-15.4); Immature Granulocytes % 0.5 % (0-4); Lymphocytes # 0.5 K/mcL (0.6-4.6); Lymphocytes % 5.6 %; Mean Corpuscular HGB Conc 25.1 g/dL (31.6-35.5); Mean Corpuscular Volume 91.7 fL (83.0-100.0); Mean Platelet Volume 8.7 fL (9.4-12.4); Monocytes # 0.4 K/mcL (0.0-1.3); Neutrophils # 7.1 K/mcL (1.6-8.9); Platelet Count 217 K/mcL (140-400); Red Blood Count 4.56 M/mcL (3.82-4.97); Red Cell Distribution Width 19.8 % (11.5-14.5); Segmented Neutrophils % 88.8 %
[2020-10-19 04:16] LABS: Magnesium 2.1 mg/dL (1.6-2.6); Phosphorous 3.9 mg/dL (2.7-4.5)
[2020-10-19 04:27] LABS: BUN/Creatinine Ratio 28 (6-26); Blood Urea Nitrogen 25 mg/dL (8-23); Carbon Dioxide > 45 mEq/L (23-29); Chloride 91 mEq/L (98-107); Glucose 181 mg/dL (70-105); Osmolality,Calculated 305 (280-300); Sodium 143 mEq/L (136-145); eGFR For African Americans > 60 (> 60); eGFR For Non-African Americans > 60 (> 60)
[2020-10-19] MEDS: Levothyroxine 25 MCG TABLET PO SCH (05:49)
[2020-10-19] MEDS: MethylPREDNISolone 40 MG/ML VIAL IVP SCH ×2 (05:57→17:47)
[2020-10-19] MEDS: Budesonide/Formoterol 160/4.5 1 PUFF INH IH SCH ×2 (07:38→20:01)
[2020-10-19] MEDS: Insulin LISPRO 300 UNITS/3 ML VIAL SUBQ SCH ×3 (08:37→17:13)
[2020-10-19] MEDS: Lactobacillus 1 EACH CAP.SPRINK PO SCH ×2 (08:38→20:53)
[2020-10-19] MEDS: Cyanocobalamin (B-12) 1,000 MCG TABLET PO SCH (08:38)
[2020-10-19] MEDS: Cholecalciferol (D-3) 1,000 UNIT (25MCG) TABLET PO SCH (08:38)
[2020-10-19] MEDS: Multivit/Ca/Min/Fe/FA 1 TAB TABLET PO SCH (08:38)
[2020-10-19] MEDS: Chlorhexidine Rinse 15 ML MOUTHWASH MM SCH ×2 (08:38→21:12)
[2020-10-19] MEDS: Heparin 25,000UNIT/250ML 1/2NS 25,000 UNIT/250 ML IV.SOLN IVC SCH ×2 (08:47→20:55)
[2020-10-19] MEDS: *HR* LORazepam 2 MG/ML VIAL IVP PRN ×2 (11:52→22:46)
[2020-10-19] MEDS: Dexmedetomidine HCl 400 MCG/100 ML MLS IVC SCH (14:29)
[2020-10-19] MEDS ORDERED: Furosemide 40 MG/4 ML VIAL IVP ONE (18:23)
[2020-10-19] MEDS ORDERED: levoFLOXacin 750 MG/150 ML 750 MG/150 ML BAG IVPB SCH (19:00)
[2020-10-20] MEDS ORDERED: Haloperidol Lactate 5 MG/ML VIAL IVP ONE ×2 (01:50→04:32)
[2020-10-20] MEDS: *HR* LORazepam 2 MG/ML VIAL IVP PRN (04:43)
[2020-10-20] MEDS: Levothyroxine 25 MCG TABLET PO SCH (04:44)
[2020-10-20] MEDS: MethylPREDNISolone 40 MG/ML VIAL IVP SCH ×2 (04:44→17:09)
[2020-10-20] MEDS: Budesonide/Formoterol 160/4.5 1 PUFF INH IH SCH ×2 (07:43→20:21)
[2020-10-20] MEDS: Chlorhexidine Rinse 15 ML MOUTHWASH MM SCH ×2 (08:05→23:09)
[2020-10-20] MEDS: Insulin LISPRO 300 UNITS/3 ML VIAL SUBQ SCH ×3 (08:05→17:09)
[2020-10-20] MEDS: Multivit/Ca/Min/Fe/FA 1 TAB TABLET PO SCH (08:05)
[2020-10-20] MEDS: Cholecalciferol (D-3) 1,000 UNIT (25MCG) TABLET PO SCH (08:05)
[2020-10-20] MEDS: Lactobacillus 1 EACH CAP.SPRINK PO SCH ×2 (08:05→23:09)
[2020-10-20] MEDS: Cyanocobalamin (B-12) 1,000 MCG TABLET PO SCH (08:05)
[2020-10-20 09:29] LABS: Basophils % 0.1 %; Lymphocytes % 5.4 %
[2020-10-20 09:30] LABS: Hematocrit 41.8 % (35.3-44.9); Immature Granulocytes % 0.9 % (0-4); Lymphocytes # 0.4 K/mcL (0.6-4.6); Mean Corpuscular HGB Conc 26.3 g/dL (31.6-35.5); Mean Corpuscular Hemoglobin 23.8 pg (28.0-33.3); Mean Corpuscular Volume 90.3 fL (83.0-100.0); Mean Platelet Volume 9.2 fL (9.4-12.4); Monocytes # 0.4 K/mcL (0.0-1.3); Neutrophils # 6.2 K/mcL (1.6-8.9); Platelet Count 197 K/mcL (140-400); Red Blood Count 4.63 M/mcL (3.82-4.97); Red Cell Distribution Width 20.1 % (11.5-14.5); Segmented Neutrophils % 88.6 %
[2020-10-20 09:49] LABS: Anisocytosis 1+ (Not Present); Hypochromasia Present (Not Present); Platelet Estimate Normal (Normal)
[2020-10-20 09:57] LABS: BUN/Creatinine Ratio 34 (6-26); Blood Urea Nitrogen 31 mg/dL (8-23); Calcium 9.7 mg/dL (8.6-10.3); Carbon Dioxide > 45 mEq/L (23-29); Chloride 89 mEq/L (98-107); Glucose 179 mg/dL (70-105); Osmolality,Calculated 305 (280-300); Potassium 4.8 mEq/L (3.5-5.1); Sodium 142 mEq/L (136-145); eGFR For African Americans > 60 (> 60); eGFR For Non-African Americans > 60 (> 60)
[2020-10-20] MEDS: Heparin 25,000UNIT/250ML 1/2NS 25,000 UNIT/250 ML IV.SOLN IVC SCH ×2 (09:58→22:10)
[2020-10-20 11:26] LABS: ABG Base Excess 22 mEq/L (-2 to 3); ABG HCO3 52 mEq/L (21-27); ABG Oxygen Saturation 95 % (95-98); ABG PCO2 79 mmHg (35-45); ABG PH 7.42 pH Units (7.32-7.45); ABG PO2 81 mmHg (85-104); ABG TCO2 > 50 mEq/L (20-26)
[2020-10-20] MEDS ORDERED: Furosemide 40 MG/4 ML VIAL IVP ONE (15:48)
[2020-10-20] MEDS ORDERED: Ertapenem 1,000 MG in 0.9 % Sodium Chloride Mini Bag 100 ML IVPB SCH (16:00)
[2020-10-20] MEDS ORDERED: Morphine Sulfate 2 MG/ML SYRINGE IVP STA (22:02)
[2020-10-21] MEDS: *HR* LORazepam 2 MG/ML VIAL IVP PRN ×2 (00:29→10:07)
[2020-10-21] MEDS: *HR* Heparin 5,000 UNIT/ML VIAL IVP PRN (01:46)
[2020-10-21 03:28] LABS: Basophils % 0.1 %
[2020-10-21 03:29] LABS: Hematocrit 41.8 % (35.3-44.9); Hemoglobin 10.7 g/dL (11.5-15.4); Immature Granulocytes % 0.9 % (0-4); Lymphocytes # 0.5 K/mcL (0.6-4.6); Lymphocytes % 6.1 %; Mean Corpuscular HGB Conc 25.6 g/dL (31.6-35.5); Mean Corpuscular Hemoglobin 23.2 pg (28.0-33.3); Mean Corpuscular Volume 90.5 fL (83.0-100.0); Mean Platelet Volume 9.1 fL (9.4-12.4); Monocytes # 0.5 K/mcL (0.0-1.3); Monocytes % 5.6 %; Neutrophils # 7.5 K/mcL (1.6-8.9); Platelet Count 220 K/mcL (140-400); Red Blood Count 4.62 M/mcL (3.82-4.97); Red Cell Distribution Width 20.1 % (11.5-14.5); Segmented Neutrophils % 87.3 %; White Blood Count 8.6 K/mcL (4.3-11.1)
[2020-10-21 03:34] LABS: Anisocytosis 1+ (Not Present); Hypochromasia Present (Not Present); Platelet Estimate Normal (Normal)
[2020-10-21 04:04] LABS: BUN/Creatinine Ratio 34 (6-26); Blood Urea Nitrogen 31 mg/dL (8-23); Carbon Dioxide > 45 mEq/L (23-29); Chloride 86 mEq/L (98-107); Glucose 209 mg/dL (70-105); Osmolality,Calculated 309 (280-300); Potassium 4.4 mEq/L (3.5-5.1); Sodium 143 mEq/L (136-145); eGFR For African Americans > 60 (> 60); eGFR For Non-African Americans > 60 (> 60)
[2020-10-21] MEDS: MethylPREDNISolone 40 MG/ML VIAL IVP SCH (05:09)
[2020-10-21 07:12] VITALS: BP 147/70
[2020-10-21] MEDS: Budesonide/Formoterol 160/4.5 1 PUFF INH IH SCH (08:09)
[2020-10-21] MEDS: Heparin 25,000UNIT/250ML 1/2NS 25,000 UNIT/250 ML IV.SOLN IVC SCH ×3 (08:29→08:31)
[2020-10-21] MEDS: Insulin LISPRO 300 UNITS/3 ML VIAL SUBQ SCH (08:31)
[2020-10-21] MEDS: Chlorhexidine Rinse 15 ML MOUTHWASH MM SCH (08:32)
[2020-10-21] MEDS ORDERED: Furosemide 40 MG/4 ML VIAL IVP SCH (09:00)
[2020-10-21] MEDS ORDERED: MethylPREDNISolone 40 MG/ML VIAL IVP SCH (09:00)
[2020-10-21] MEDS: Levothyroxine 25 MCG TABLET PO SCH (09:23)
[2020-10-21] MEDS: Cholecalciferol (D-3) 1,000 UNIT (25MCG) TABLET PO SCH (09:26)
[2020-10-21] MEDS: Multivit/Ca/Min/Fe/FA 1 TAB TABLET PO SCH (09:26)
[2020-10-21] MEDS: Cyanocobalamin (B-12) 1,000 MCG TABLET PO SCH (09:26)
[2020-10-21] MEDS: Lactobacillus 1 EACH CAP.SPRINK PO SCH (09:26)
== END 2020-10-21 12:05 | disposition short-term general hospital (02) | DRG 134 ==
LOC: EMEROOARM 21:06 → 2NENU 21:06 → SUATTDRO 10-12 01:28 → 2NENU 10-12 02:18 → SUATTDRO 10-12 20:48 → 2NNU 10-17 23:52
PROVIDERS: ADMIT Student in an Organized Health Care Education/Training Program; ATTEND Student in an Organized Health Care Education/Training Program